=== PATIENT | female | born 1995 | race African-American/Black ===

== ENCOUNTER 2017-10-04 23:32 | Emergency (ER) | payer OTHER ==
--- OUTSIDE RECORDS SUMMARY | 2017-10-04 23:35 | XMS REPORT ---
:[address] [facility] Address [address] [place] [address] Dr. Durbin [address] [place] [address] Care Team Providers Name Role Phone UNKNOWN, REFFERING Primary Care Provider Unavailable JOSE DONOHUE M.D. Unavailable Unavailable Problems This patient has no known problems. Allergies, Adverse Reactions, Alerts This patient has no known allergies or adverse reactions. Medications This patient has no known medications. Encounters Start End Encounter Admission Attending Care Care Encounter Date/Time Date/Time Type Type Clinicians Facility Department ID 2017-06-02 2017-06-15 [id number]:23:00 13:37:00 Jane GARCIA Results Test Description Test Time Test Comments Text Results Atomic Results Result Comments Chlamydia/GC Amplification 2017-06-09 17:46:00 Test Item Value Reference Range Comments Chlamydia trachomatis, PRAKASH (test thma=944295) Negative Negative Neisseria gonorrhoeae, PRAKASH (test yful=604762) Negative Negative HIV [id number] 21:56:00 Test Item Value Reference Range Comments HIV 1/2 Antibody (test Non-Reactive Non-Reactive HIV1/2 Antibody screen result code=HIV1/2AB) indicates the absence of HIV1 and ZEJ7sndejxvbv.However, A Non-Reactive screen result does not rule out exposure orinfection. If an acute infection is suspected, HIV RNA Quantitative is recommended. P24 Antigen (test Non-Reactive Non-Reactive P24 Ag screen result indicates code=P24) the absence of P24 antigen, which is anindicator of HIV-1 acute infection.However, A Non-Reactive screen does not rule out exposure or infection.If acute HIV-1 is suspected, HIV RNA Quantitative is recommended. RPR, [id number] 13:36:00 Test Item Value Reference Range Comments RPR (test code=RPR) Non-Reactive Non-Reactive Thyroid Stimulating Hormone (TSH)2017-06-02 07:20:00 Test Item Value Reference Range Comments TSH (test code=TSH) 1.46 mIU/mL 0.270-4.200 Lipid [id number] 07:13:00 Test Item Value Reference Range Comments Cholesterol (test 148 mg/dL 0-200 code=CHOL) Triglycerides (test 85 mg/dL 9-200 code=TRIG) HDL (test code=HDL) 42 mg/dL 50-60 Chol/HDL (test 3.5 Ratio 0.0-4.4 code=CHOLPHDL) LDL, Calculated (test 89 0-130 (NOTE)RISK OF HEART code=LDLC) DISEASEPublished by Northern Irish Heart AssociationAnalyte Optimal Boderline Increased RiskCHOL <200 200-239 >240TRIG <150 150-199 >200HDL Male: >60 <40HDL Female: >60 <50LDL <100 130-159 >160LDL NEAR OPTIMAL IS 100-129 VLDL (test code=VLDL) 17 mg/dL 5-40 LDL/HDL (test code=LDLPHDL) 2 Comprehensive Metabolic [id number] 21:39:00 Test Item Value Reference Range Comments Sodium (test code=NA) 139 mmol/L 135-145 Potassium (test code=K) 3.8 mmol/L 3.5-5.1 Chloride (test code=CL) 103 mmol/L 98-105 Carbon Dioxide (test 26 mmol/L 22-29 code=CO2) Glucose (test code=GLU) 95 mg/dL 70-115 Blood Urea Nitrogen 11 mg/dL 6-20 (test code=BUN) Creatinine (test 0.8 mg/dL 0.5-0.9 code=CREAT) Calcium (test code=CA) 9.5 mg/dL 8.3-10.5 Prot Total (test 7.2 g/dL 6.4-8.3 code=TP) Albumin (test code=ALB) 4.6 g/dL 3.5-5.2 A/G Ratio (test 1.8 Ratio code=AGRATIO) Globulin (test 2.6 2.9-3.1 code=GLOB) Bili Total (test 0.3 mg/dL 0.1-0.9 code=TBIL) Alk Phos (test 61 U/L 35-104 code=APHOS) AST (test code=AST) 12 U/L 1-32 ALT (test code=ALT) 11 U/L 1-33 BUN/Creatinine Ratio 13.8 (test code=BCRATIO) Anion Gap (test 10 mmol/L 7-16 code=AGAP) Estimated GFR (test >60 mL/min/1.73m2 eGFR (estimated Glomerular code=GFR) Filtration Rate) is an estimated value,calculated from the patient's serum creatinine using the MDRD equation.It is NOT the patient's actual GFR. The eGFR provides a more clinicallyuseful measure of kidney disease than serum creatinine alone.This calculation takes sex and race into account, if the informationis provided. If the race is not provided, and the patient isAfrican-Northern Irish, multiply by 1.212. If sex is not provided, and thepatient is female, multiply by 0.742. Results for patients <18 years ofage have not been validated by the MDRD study and should be interpretedwith caution.eGFR Result Interpretation:eGFR > or=60 is in the Normal RangeeGFR < 60 may mean kidney diseaseeGFR < 15 may mean kidney failureRanges recommended by the National Kidney Foundation,http://nkdep.nih .gov Urinalysis [id number] 21:39:00 Test Item Value Reference Range Comments Color (test code=COLOR) Yellow Yellow,Straw,Pl yellow Clarity (test code=CLAR) Cloudy Clear Specific [place] (test 1.036 1.001-1.035 code=SPGR) pH (test code=PH) 6.5 5.0-9.0 Ketone (test code=KET) 5 mg/dL Negative Glucose (test code=GLUCUR) Negative mg/dL Negative Protein (test code=PROT) Negative mg/dL Negative Bilirubin (test code=BILI) See IctoTest mg/dL Negative Occult Blood (test code=UDOB) Negative Negative Urobilinogen (test code=UROB) 4.0 mg/dL 0.2-1.0 Nitrite (test code=NIT) Negative Negative Leuk Esterase (test code=LEUK) Negative Negative Ictotest (test code=ICTOTEST) Confirmed Negative Negative,Confirmed Negative Micros Exam (test code=MEXAM) Indicated Epithelial Cells (test 10-14 /LPF 0-30 code=EPI) WBC, Urine (test code=UWBC) None seen /HPF 0-5 RBC, Urine (test code=URBC) None Seen /HPF 0-5 Amorph Deposit (test Many /HPF code=AMORD) Bacteria (test code=BACT) Moderate /HPF Alcohol/Ethanol, [id number] 21:37:00 Test Item Value Reference Range Comments Alcohol, Ethyl (test <0.01 g/dL 0.00-0.01 Intoxicated 0.080 g/dL or code=ETOH) more BHCG, Serum, [id number] 21:37:00 Test Item Value Reference Range Comments Preg Qual [Se] (test code=BSHCG) Negative Negative [id number] 21:36:00 Test Item Value Reference Range Comments Amphetamine (test code=AMPH) Negative Negative For diagnostic purposes only, positive results should always be assessedin conjunctionwith the patient's medical history,clinical examination and otherfindings.To fulfill legal requirements, a more specific alternate chemical methodmust be used inorder to obtain a Confirmed analytical result. GC/MS is the preferred confirmatory method. Barbiturates (test code=SAMY) Negative Negative Benzodiazepine (test Negative Negative code=TRAVON) Cocaine (test code=COCA) Negative Negative Methadone (test code=MTHD) Negative Negative Opiates (test code=OPIA) Negative Negative PCP (test code=PCP) Negative Negative Propoxyphene (test Negative Negative code=PROPOX) THC (test code=THC) POSITIVE Negative CBC with [id number] 21:33:00 Test Item Value Reference Range Comments WBC (test code=WBC) 7.7 K/cumm 4.4-10.5 RBC (test code=RBC) 4.20 M/cumm 3.75-5.20 Hemoglobin (test code=HGB) 12.6 gm/dL 12.2-14.8 Hematocrit (test code=HCT) 36.0 % 36.5-44.4 MCV (test code=MCV) 85.7 fL 80-100 MCH (test code=MCH) 29.9 pg 27.0-32.5 MCHC (test code=MCHC) 34.9 g/dL 32.0-37.5 RDW (test code=RDW) 12.3 % 11.5-14.5 Platelet Count (test code=PLTCT) 303 K/cumm 140-440 MPV (test code=MPV) 8.5 fL Diff Method (test code=DIFFM) Auto Neutrophil (test code=NEUT) 46.8 % 36-70 Lymphocyte (test code=LYMPH) 43.2 % 12-44 Monocyte (test code=MONO) 7.2 % 0-11 Eosinophil (test code=EOS) 2.2 % 0-7 Basophil (test code=BASO) 0.6 % 0-2 Neutro Abs (test code=ANEUT) 3.6 K/cumm 1.6-7.4 Lymph Abs (test code=ALYMPH) 3.3 K/cumm 0.5-4.6 [place] Abs (test code=AMONO) 0.6 K/cumm 0.0-1.2 Eos Abs (test code=AEOS) 0.17 K/cumm 0.00-0.74 Baso Abs (test code=ABASO) 0.0 K/cumm 0.00-0.21 BHCG, Urine, [id number] 14:05:00 Test Item Value Reference Range Comments Preg Qual [Ur] (test code=HUHCG) Negative Negative RPR, [id number] 16:02:00 Test Item Value Reference Range Comments RPR (test code=RPR) Non-Reactive Non-Reactive Thyroid Stimulating Hormone (TSH)2017-02-14 11:18:00 Test Item Value Reference Range Comments TSH (test code=TSH) 0.55 mIU/mL 0.270-4.200 Lipid [id number] 11:11:00 Test Item Value Reference Range Comments Cholesterol (test 147 mg/dL 0-200 code=CHOL) Triglycerides (test 79 mg/dL 9-200 code=TRIG) HDL (test code=HDL) 51 mg/dL 50-60 Chol/HDL (test 2.9 Ratio 0.0-4.4 code=CHOLPHDL) LDL, Calculated (test 80 0-130 (NOTE)RISK OF HEART code=LDLC) DISEASEPublished by [place] Heart AssociationAnalyte Optimal Boderline Increased RiskCHOL <200 200-239 >240TRIG <150 150-199 >200HDL Male: >60 <40HDL Female: >60 <50LDL <100 130-159 >160LDL NEAR OPTIMAL IS 100-129 VLDL (test code=VLDL) 16 mg/dL 5-40 LDL/HDL (test code=LDLPHDL) 2
[2017-10-05] MEDS ORDERED: KETOROLAC 30 MG/ML INJ ONE (00:29)
--- NOTE | 2017-10-05 01:04 | EDPHYS ---
Physician Documentation [facility] Name: Jael Lugo Age: 22 yrs Sex: Female : 1995 Arrival Date: 10/04/2017 Time: 23:34 Bed 20 Private MD: ED Physician Daquan Rowan HPI: 10/05 00:29 This 22 yrs old Black Female presents to ER via Ambulatory with complaints of Vaginal tw4 Pain, Abdominal Pain - low. 00:29 The patient presents with vaginal bleeding that is light, resolved, vaginal pain. tw4 Onset: The symptoms/episode began/occurred today. Modifying factors: The symptoms are alleviated by nothing, the symptoms are aggravated by nothing. Associated signs and symptoms: The patient has no apparent associated signs or symptoms. Severity of symptoms: At their worst the symptoms were moderate, in the emergency department the symptoms are unchanged. The patient is sexually active, does not use protection during intercourse. The patient has not experienced similar symptoms in the past. 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 - Social history:: Smoking status: Patient uses tobacco products, smokes one-half pack cigarettes per day, Patient/guardian denies using alcohol, street drugs. - Ebola Screening: : Patient negative for fever greater than or equal to 101.5 degrees Fahrenheit, and additional compatible Ebola Virus Disease symptoms. ROS: 10/05 00:29 Positive for injury or acute deformity, pelvic pain, vaginal bleeding, vaginal tw4 discharge, vaginal itching, Negative for urinary symptoms, flank pain, burning with urination, difficulty urinating, bladder incontinence, foul smelling urine, menstrual abnormality, missed period. Constitutional: Negative for fever, chills, and weight loss, Cardiovascular: Negative for chest pain, palpitations, and edema, Respiratory: Negative for shortness of breath, cough, wheezing, and pleuritic chest pain, Abdomen/GI: Negative for abdominal pain, nausea, vomiting, diarrhea, and constipation, MS/Extremity: Negative for injury and deformity, Skin: Negative for injury, rash, and discoloration. Exam: 00:29 Constitutional: This is a well developed, well nourished patient who is awake, alert, tw4 and in no acute distress. Chest/axilla: Normal chest wall appearance and motion. Nontender with no deformity. No lesions are appreciated. Cardiovascular: Regular rate and rhythm with a normal S1 and S2. No gallops, murmurs, or rubs. Normal PMI, no JVD. No pulse deficits. Respiratory: Lungs have equal breath sounds bilaterally, clear to auscultation and percussion. No rales, rhonchi or wheezes noted. No increased work of breathing, no retractions or nasal flaring. Abdomen/GI: Soft, non-tender, with normal bowel sounds. No distension or tympany. No guarding or rebound. No evidence of tenderness throughout. 00:29 : Pelvic Exam: External exam: laceration superficial at vaginal introitus . Vital Signs: 10/04 23:47 BP 117 / 67; Pulse 88; Resp 17; Temp 97.8; Pulse Ox 97% ; rk2 23:49 Weight 56.7 kg (R); Height 5 ft. 7 in. (170.18 cm) (R); Pain 10/10; bb 23:49 Body Mass Index 19.58 (56.70 kg, 170.18 cm) bb MDM: 23:51 Patient medically screened. tw4 10/05 01:05 Differential diagnosis: nonspecific abdominal pain, vaginal laceration. Data reviewed: tw4 vital signs, nurses notes. Counseling: I had a detailed discussion with the patient and/or guardian regarding: the historical points, exam findings, and any diagnostic results supporting the discharge/admit diagnosis. Counseling: I had a detailed discussion with the patient and/or guardian regarding: lab results. Medication response: Toradol partially relieved the patient's pain. Response to treatment: the patient's symptoms have mildly improved after treatment, and as a result, I will discharge patient. Special discussion: Based on the patient's Hx, exam, and Dx evaluation, there is no indication for emergent surgery or inpatient Tx. It is understood by the patient/guardian that if the Sx's persist or worsen they need to return immediately for re-evaluation. I discussed with the patient/guardian in detail that at this point there is no indication for admission to the hospital. It is understood, however, that if the symptoms persist or worsen the patient needs to return immediately for re-evaluation. 10/05 00:17 Order name: Wet Prep; Complete Time: 01:02 tw4 10/05 00:17 Order name: GC (GONORR/CHLAMYDIA) Probe tw4 10/05 00:41 Order name: Urine Dipstick--Ancillary (enter results) rg2 10/05 00:41 Order name: Urine --Ancillary (enter results) rg2 Administered Medications: 00:37 Drug: TORadol 60 mg Route: IM; Site: right deltoid; rk2 01:15 Follow up: Response: No adverse reaction; Pain is decreased tl2 Disposition: 10/05/17 01:03 Discharged to Home. Impression: Laceration without foreign body of vagina and vulva. - Condition is Stable. - Discharge Instructions: Vaginal Laceration, Laceration Care, Adult, Ftpf-[id number]. - Prescriptions for Ibuprofen 600 mg Oral Tablet - take 1 tablet by ORAL route every 6 hours As needed take with food; 30 tablet. Tylenol- Codeine #3 300-30 mg Oral Tablet - take 2 tablet by ORAL route every 6 hours As needed; 6 tablet. - Medication Reconciliation Form, Thank You Letter, Antibiotic Education, Prescription Opioid Use form. - Follow up: Private Physician; When: As needed; Reason: Recheck today's complaints, Continuance of care, Re-evaluation by your physician. - Problem is new. - Symptoms have improved. Signatures: Dispatcher [employer] EDRosalie White RN RN Riri Espinoza RN RN tl2 Daquan Rowan MD MD tw4 Ana Lilia Braga RN RN rk2 Corrections: (The following items were deleted from the chart) 01:48 01:03 10/05/2017 01:03 Discharged to Home. Impression: Laceration without foreign body tl2 of vagina and vulva. Condition is Stable. Forms are Medication Reconciliation Form, Thank You Letter, Antibiotic Education, Prescription Opioid Use. Follow up: Private Physician; When: As needed; Reason: Recheck today's complaints, Continuance of care, Re-evaluation by your physician. Problem is new. Symptoms have improved. tw4
--- NOTE | 2017-10-05 01:04 | ER ---
Nurse's Notes [facility] Name: Jael Lugo Age: 22 yrs Sex: Female : 1995 Arrival Date: 10/04/2017 Time: 23:34 Bed 20 Private MD: Diagnosis: Laceration without foreign body of vagina and vulva Presentation: 10/04 23:47 Presenting complaint: Patient states: she is having pelvic pain x 2 days states "I bb think I ripped my vagina" that area is red and burning with a white discharge also has a headache and a sore throat. Transition of care: patient was not received from another setting of care. Onset of symptoms was October 02, 2017. Risk Assessment: Do you want to hurt yourself or someone else? Patient reports no desire to harm self or others. Initial Sepsis Screen: Does the patient meet any 2 criteria? No. Patient's initial sepsis screen is negative. Does the patient have a suspected source of infection? No. Patient's initial sepsis screen is negative. Care prior to arrival: None. 23:47 Method Of Arrival: Ambulatory bb 23:47 Acuity: ALMA 3 bb Triage Assessment: 10/05 00:30 General: Appears in no apparent distress. slender, well developed, well nourished, rk2 Behavior is calm, cooperative. 00:30 Pain: Complains of pain in vaginal. EENT: No deficits noted. Neuro: Level of rk2 Consciousness is alert, obeys commands, Oriented to person, place, time. Respiratory: Airway is patent Respiratory effort is even, unlabored, Respiratory pattern is regular, symmetrical. GI: No deficits noted. : Vaginal discharge is small tear noted at the vaginal opening. Derm: Skin is pink, warm \\T\\ dry. 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 - Social history:: Smoking status: Patient uses tobacco products, smokes one-half pack cigarettes per day, Patient/guardian denies using alcohol, street drugs. - Ebola Screening: : Patient negative for fever greater than or equal to 101.5 degrees Fahrenheit, and additional compatible Ebola Virus Disease symptoms. Screenin/01 00:30 Abuse screen: Denies threats or abuse. rk2 00:30 Nutritional screening: No deficits noted. Tuberculosis screening: No symptoms or risk rk2 factors identified. Fall Risk None identified. Assessment: 00:46 Reassessment: Vaginal exam completed by Dr. Rowan. rk2 00:54 Pain: Complains of pain in vaginal. GI: GI: Abd is soft and non tender X 4 quads. rk2 01:14 Reassessment: Patient appears in no apparent distress at this time. Patient and/or tl2 family updated on plan of care and expected duration. Pain level reassessed. Patient is alert, oriented x 3, equal unlabored respirations, skin warm/dry/pink. Pt verbalized understanding of discharge instructions, need for follow up and prescription usage. Vital Signs: 10/04 23:47 BP 117 / 67; Pulse 88; Resp 17; Temp 97.8; Pulse Ox 97% ; rk2 23:49 Weight 56.7 kg (R); Height 5 ft. 7 in. (170.18 cm) (R); Pain 10/10; bb 23:49 Body Mass Index 19.58 (56.70 kg, 170.18 cm) bb ED Course: 23:34 Patient arrived in ED. am2 23:43 Ana Lilia Braga, RN is Primary Nurse. rk2 23:48 Triage completed. bb 23:49 Arm band placed on Patient placed in an exam room, on a stretcher, on pulse oximetry. bb 23:51 Daquan Rowan MD is Attending Physician. tw4 10/05 00:30 Patient has correct armband on for positive identification. Placed in gown. Bed in low rk2 position. Call light in reach. 00:54 Assist provider with pelvic exam: Set up pelvic tray. Specimens sent to lab. rk2 01:14 Patient did not have IV access during this emergency room visit. tl2 Administered Medications: 00:37 Drug: TORadol 60 mg Route: IM; Site: right deltoid; rk2 01:15 Follow up: Response: No adverse reaction; Pain is decreased tl2 Outcome: 01:03 Discharge ordered by . tw4 01:14 Condition: stable tl2 01:14 Discharge instructions given to patient, Instructed on discharge instructions, follow up and referral plans. medication usage, safe sex practices, Demonstrated understanding of instructions, follow-up care, medications, Prescriptions given X 2. 01:14 Discharged to home Pt unable to find ride home, will wait in the lobby tl2 01:48 Patient left the ED. tl2 Signatures: Rosalie Loco RN RN bb Riri Miranda RN RN tl2 Corazon Hardy am2 Daquan Rowan MD MD tw4 Ana Lilia Braga RN RN rk2 Corrections: (The following items were deleted from the chart) 01:34 01:14 Discharged to home ambulatory, with friend, tl2 tl2
[2017-10-05 01:49] LABS: Urine Blood TRACE (NEG); Urine Glucose NEGATIVE (NEG); Urine Protein 2+ (NEG); Urine Specific Gravity 1.025 (1.005-1.030); Urine pH 6.5 (5.0-7.0)
[2017-10-05 01:53] VITALS: BP 117/67; TEMP 97.8; O2SAT 97
[2017-10-08 12:55] LABS: C.trachomatis RNA,TMA ND
== END 2017-10-05 01:48 | disposition home or self-care (01) ==
LOC: ER 23:32
DX: S31.41XA Laceration without foreign body of vagina and vulva, initial encounter (principal); F17.210 Nicotine dependence, cigarettes, uncomplicated
CPT/HCPCS: 81003; 81025; 87210; 87490; 87590; 96372; 99284

== ENCOUNTER 2017-10-09 00:14 | Emergency (ER) | payer OTHER ==
--- OUTSIDE RECORDS SUMMARY | 2017-10-09 00:17 | XMS REPORT ---
:1995 Author Organization [facility] Address [address] [place] [address] Dr. Durbin [address] [place] [id number] Care Team Providers Name Role Phone UNKNOWN, [...] Facility Department ID 2017-06-02 2017-06-15 [id number]:23:00 13:37:00 Jane GARCIA Results Test Description Test Time Test Comments Text Results Atomic Results Result Comments Chlamydia/GC Amplification 2017-06-09 17:46:00 Test Item Value Reference Range Comments Chlamydia trachomatis, PRAKASH (test gelg=763930) Negative Negative Neisseria gonorrhoeae, PRAKASH (test ypfs=867849) Negative Negative HIV [id number] 21:56:00 Test Item Value Reference Range Comments HIV 1/2 Antibody (test Non-Reactive Non-Reactive HIV1/2 Antibody screen result code=HIV1/2AB) indicates the absence of HIV1 and RMN5pmrvwojxd.However, A Non-Reactive screen result does not rule [...] suspected, HIV RNA Quantitative is recommended. RPR, [id number] 13:36:00 Test Item Value Reference Range Comments RPR (test code=RPR) Non-Reactive Non-Reactive Thyroid Stimulating Hormone (TSH)2017-06-02 07:20:00 Test Item Value Reference Range Comments TSH (test code=TSH) 1.46 mIU/mL 0.270-4.200 Lipid [id number] 07:13:00 Test Item Value Reference Range Comments Cholesterol (test 148 mg/dL 0-200 code=CHOL) Triglycerides (test 85 mg/dL 9-200 code=TRIG) HDL (test code=HDL) 42 mg/dL 50-60 Chol/HDL (test 3.5 Ratio 0.0-4.4 code=CHOLPHDL) LDL, Calculated (test 89 0-130 (NOTE)RISK OF HEART code=LDLC) DISEASEPublished by [place] Heart AssociationAnalyte Optimal Boderline Increased RiskCHOL <200 200-239 >240TRIG <150 150-199 >200HDL Male: >60 <40HDL Female: >60 <50LDL <100 130-159 >160LDL NEAR OPTIMAL IS 100-129 VLDL (test code=VLDL) 17 mg/dL 5-40 LDL/HDL (test code=LDLPHDL) 2 Comprehensive Metabolic [id number] 21:39:00 Test Item Value Reference Range Comments [...] race is not provided, and the patient isAfrican-Azerbaijani, multiply by 1.212. If sex is not provided, and thepatient is female, multiply by 0.742. Results for patients <18 years ofage have not been validated by the MDRD study and should be interpretedwith caution.eGFR Result Interpretation:eGFR > or=60 is in the Normal RangeeGFR < 60 may mean kidney diseaseeGFR < 15 may mean kidney failureRanges recommended by the National Kidney Foundation,http://nkdep.nih .gov Urinalysis [id number] 21:39:00 Test Item Value Reference Range Comments Color (test code=COLOR) Yellow Yellow,Straw,Pl yellow Clarity (test code=CLAR) Cloudy Clear Specific [place] (test 1.036 1.001-1.035 code=SPGR) pH (test code=PH) [...] code=AMORD) Bacteria (test code=BACT) Moderate /HPF Alcohol/Ethanol, [id number] 21:37:00 Test Item Value Reference Range Comments Alcohol, Ethyl (test <0.01 g/dL 0.00-0.01 Intoxicated 0.080 g/dL or code=ETOH) more BHCG, Serum, [id number] 21:37:00 Test Item Value Reference Range Comments Preg Qual [Se] (test code=BSHCG) Negative Negative [id number] 21:36:00 Test Item Value Reference Range Comments [...] THC (test code=THC) POSITIVE Negative CBC with [id number] 21:33:00 Test Item Value Reference Range Comments [...] Lymph Abs (test code=ALYMPH) 3.3 K/cumm 0.5-4.6 [place] Abs (test code=AMONO) 0.6 K/cumm 0.0-1.2 Eos Abs (test code=AEOS) 0.17 K/cumm 0.00-0.74 Baso Abs (test code=ABASO) 0.0 K/cumm 0.00-0.21 BHCG, Urine, [id number] 14:05:00 Test Item Value Reference Range Comments Preg Qual [Ur] (test code=HUHCG) Negative Negative RPR, [id number] 16:02:00 Test Item Value Reference Range Comments RPR (test code=RPR) Non-Reactive Non-Reactive Thyroid Stimulating Hormone (TSH)2017-02-14 11:18:00 Test Item Value Reference Range Comments TSH (test code=TSH) 0.55 mIU/mL 0.270-4.200 Lipid [id number] 11:11:00 Test Item Value Reference Range Comments Cholesterol (test 147 mg/dL 0-200 code=CHOL) Triglycerides (test 79 mg/dL 9-200 code=TRIG) HDL (test code=HDL) 51 mg/dL 50-60 Chol/HDL (test 2.9 Ratio 0.0-4.4 code=CHOLPHDL) LDL, Calculated (test 80 0-130 (NOTE)RISK OF HEART code=LDLC) DISEASEPublished by [place] Heart AssociationAnalyte Optimal Boderline Increased RiskCHOL <200 200-239 >240TRIG <150 150-199 >200HDL Male: >60 <40HDL Female: >60 <50LDL <100 130-159 >160LDL NEAR OPTIMAL IS 100-129 VLDL (test code=VLDL) 16 mg/dL 5-40 LDL/HDL (test code=LDLPHDL) 2
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
--- NOTE | 2017-10-09 01:40 | EDPHYS ---
Physician Documentation [facility] Name: Jael Lugo Age: 22 yrs Sex: Female : 1995 Arrival Date: 10/09/2017 Time: 00:15 Bed 6 Private MD: ED Physician Daquan Rowan HPI: 10/09 01:30 This 22 yrs old Black Female presents to ER via EMS with complaints of Rash. pm1 04:11 The patient's rash thought to be caused by insect bites, Patient believes that chiggers pm1 are in her skin. The rash is located on the body diffusely. The rash can be described as raised, itchy. Onset: The symptoms/episode began/occurred 2 day(s) ago. Associated signs and symptoms: Pertinent positives: itching, Pertinent negatives: burning sensation, difficulty breathing, fever, swelling of lips, swelling of throat, swelling of tongue. Treatment given at home: None. The patient has been recently seen at the [facility] Emergency Department, two days ago for vaginal laceration. Patient is also complaining of hemorrhoids and rash to pubic area. 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 - Social history:: Smoking status: unknown. - Ebola Screening: : No symptoms or risks identified at this time. ROS: 04:11 Constitutional: Negative for fever, chills, and weight loss, Eyes: Negative for injury, pm1 pain, redness, and discharge, ENT: Negative for injury, pain, and discharge, Neck: Negative for injury, pain, and swelling, Cardiovascular: Negative for chest pain, palpitations, and edema, Respiratory: Negative for shortness of breath, cough, wheezing, and pleuritic chest pain, Back: Negative for injury and pain. 04:11 MS/Extremity: Negative for injury and deformity. 04:11 Abdomen/GI: Positive for hemorrhoids, Negative for abdominal pain, nausea, vomiting, and diarrhea. 04:11 : Positive for rash, Negative for burning with urination, vaginal discharge. 04:11 Skin: Positive for rash, diffusely. Exam: 04:11 Constitutional: This is a well developed, well nourished patient who is awake, alert, pm1 and in no acute distress. Head/Face: Normocephalic, atraumatic. Eyes: Pupils equal round and reactive to light, extra-ocular motions intact. Lids and lashes normal. Conjunctiva and sclera are non-icteric and not injected. Cornea within normal limits. Periorbital areas with no swelling, redness, or edema. ENT: Nares patent. No nasal discharge, no septal abnormalities noted. Tympanic membranes are normal and external auditory canals are clear. Oropharynx with no redness, swelling, or masses, exudates, or evidence of obstruction, uvula midline. Mucous membranes moist. Neck: Trachea midline, no thyromegaly or masses palpated, and no cervical lymphadenopathy. Supple, full range of motion without nuchal rigidity, or vertebral point tenderness. No Meningismus. Chest/axilla: Normal chest wall appearance and motion. Nontender with no deformity. No lesions are appreciated. Cardiovascular: Regular rate and rhythm with a normal S1 and S2. No gallops, murmurs, or rubs. Normal PMI, no JVD. No pulse deficits. Respiratory: Lungs have equal breath sounds bilaterally, clear to auscultation and percussion. No rales, rhonchi or wheezes noted. No increased work of breathing, no retractions or nasal flaring. Abdomen/GI: Soft, non-tender, with normal bowel sounds. No distension or tympany. No guarding or rebound. No evidence of tenderness throughout. Back: No spinal tenderness. No costovertebral tenderness. Full range of motion. 04:11 Abdomen/GI: Rectal exam: hemorrhoid(s), external, with inflammation, with pain, without bleeding, without thrombosis, the exam is chaperoned by the nurse. 04:11 Skin: consistent with scabies or contact dermatitis. Vital Signs: 00:25 BP 111 / 46; Pulse 100; Resp 20; Temp 98.6; Pulse Ox 100% on R/A; Weight 58.97 kg (R); ak1 Height 5 ft. 7 in. (170.18 cm) (R); Pain 10/10; 01:54 BP 142 / 86; Pulse 86; Resp 18; Temp 98.4(TE); Pulse Ox 100% on R/A; Pain 10/10; ak1 00:25 Body Mass Index 20.36 (58.97 kg, 170.18 cm) ak1 MDM: 01:11 Patient medically screened. pm1 01:38 Data reviewed: vital signs. Data interpreted: Pulse oximetry: on room air is 100 %. pm1 Interpretation: normal. Counseling: I had a detailed discussion with the patient and/or guardian regarding: the historical points, exam findings, and any diagnostic results supporting the discharge/admit diagnosis, the need for outpatient follow up, to return to the emergency department if symptoms worsen or persist or if there are any questions or concerns that arise at home. Administered Medications: No medications were administered Disposition: 06:34 Co-signature as Attending Physician, Daquan Rowan MD I agree with the assessment and tw4 plan of care. Disposition: 10/09/17 01:39 Discharged to Home. Impression: Hemorrhoids, Rash and other nonspecific skin eruption. - Condition is Stable. - Discharge Instructions: Hemorrhoids, Rash. - Prescriptions for Anusol- HC 2.5 % Rectal Cream - Apply to affected area 1 application by TOPICAL route every 8 hours As needed; 30 gram. Colace 100 mg Oral Tablet - take 1 tablet by ORAL route every 12 hours; 14 tablet. Elimite 5 % Topical Cream - apply 1 application by TOPICAL route one time Wash after 12 hours.; 60 gram. Naprosyn 500 mg Oral Tablet - take 1 tablet by ORAL route 2 times per day take with food; 30 tablet. - Medication Reconciliation Form, Thank You Letter, Antibiotic Education form. - Follow up: Emergency Department; When: As needed; Reason: Worsening of condition. Follow up: Private Physician; When: 2 - 3 days; Reason: Recheck today's complaints, Continuance of care, Re-evaluation by your physician. - Problem is new. - Symptoms have improved. Signatures: Jaylin White RN RN ak1 Kelby Brice, BUILDING CONSULTANT BUILDING CONSULTANT pm1 Daquan Rowan MD MD tw4 Corrections: (The following items were deleted from the chart) 01:55 01:39 10/09/2017 01:39 Discharged to Home. Impression: Hemorrhoids; Rash and other ak1 nonspecific skin eruption. Condition is Stable. Forms are Medication Reconciliation Form, Thank You Letter, Antibiotic Education, Prescription Opioid Use. Follow up: Emergency Department; When: As needed; Reason: Worsening of condition. Follow up: Private Physician; When: 2 - 3 days; Reason: Recheck today's complaints, Continuance of care, Re-evaluation by your physician. Problem is new. Symptoms have improved. pm1
[2017-10-09 02:11] VITALS: O2SAT 100
[2017-10-09 02:12] VITALS: BP 142/86; TEMP 98.4
== END 2017-10-09 01:55 | disposition home or self-care (01) ==
LOC: ER 00:14
DX: K64.9 Unspecified hemorrhoids (principal)
CPT/HCPCS: 99284

== ENCOUNTER 2017-11-25 22:13 | Emergency (ER) | payer OTHER ==
--- OUTSIDE RECORDS SUMMARY | 2017-11-25 22:14 | XMS REPORT ---
:1995 Author Organization [facility] Address [address] [place] [address] Dr. Durbin [address] [place] [id number] Care Team Providers Name Role Phone UNKNOWN, [...] 2017-06-15 [id number] 00:23:00 13:37:00 Jane GARCIA Results Test Description Test Time Test Comments Text Results Atomic Results Result Comments Chlamydia/GC Amplification 2017-06-09 17:46:00 Test Item Value Reference Range Comments Chlamydia trachomatis, PRAKASH (test qbut=817492) Negative Negative Neisseria gonorrhoeae, PRAKASH (test uydm=455701) Negative Negative HIV [id number] 21:56:00 Test Item Value Reference Range Comments HIV 1/2 Antibody (test Non-Reactive Non-Reactive HIV1/2 Antibody screen result code=HIV1/2AB) indicates the absence of HIV1 and MGE7mopscqitg.However, A Non-Reactive screen result does not rule [...] suspected, HIV RNA Quantitative is recommended. RPR, [id number] 13:36:00 Test Item Value Reference Range Comments RPR (test code=RPR) Non-Reactive Non-Reactive Thyroid Stimulating Hormone (TSH)2017-06-02 07:20:00 Test Item Value Reference Range Comments TSH (test code=TSH) 1.46 mIU/mL 0.270-4.200 Lipid [id number] 07:13:00 Test Item Value Reference Range Comments Cholesterol (test 148 mg/dL 0-200 code=CHOL) Triglycerides (test 85 mg/dL 9-200 code=TRIG) HDL (test code=HDL) 42 mg/dL 50-60 Chol/HDL (test 3.5 Ratio 0.0-4.4 code=CHOLPHDL) LDL, Calculated (test 89 0-130 (NOTE)RISK OF HEART code=LDLC) DISEASEPublished by [place]cuad[place] Heart AssociationAnalyte Optimal Boderline Increased RiskCHOL <200 200-239 >240TRIG <150 150-199 >200HDL Male: >60 <40HDL Female: >60 <50LDL <100 130-159 >160LDL NEAR OPTIMAL IS 100-129 VLDL (test code=VLDL) 17 mg/dL 5-40 LDL/HDL (test code=LDLPHDL) 2 Comprehensive Metabolic [id number] 21:39:00 Test Item Value Reference Range Comments [...] race is not provided, and the patient isAfrican-Ecuadorean, multiply by 1.212. If sex is not provided, and thepatient is female, multiply by 0.742. Results for patients <18 years ofage have not been validated by the MDRD study and should be interpretedwith caution.eGFR Result Interpretation:eGFR > or=60 is in the Normal RangeeGFR < 60 may mean kidney diseaseeGFR < 15 may mean kidney failureRanges recommended by the National Kidney Foundation,http://nkdep.nih .gov Urinalysis [id number] 21:39:00 Test Item Value Reference Range Comments Color (test code=COLOR) Yellow Yellow,Straw,Pl yellow Clarity (test code=CLAR) Cloudy Clear Specific [place] (test 1.036 1.001-1.035 code=SPGR) pH (test code=PH) [...] code=AMORD) Bacteria (test code=BACT) Moderate /HPF Alcohol/Ethanol, [id number] 21:37:00 Test Item Value Reference Range Comments Alcohol, Ethyl (test <0.01 g/dL 0.00-0.01 Intoxicated 0.080 g/dL or code=ETOH) more BHCG, Serum, [id number] 21:37:00 Test Item Value Reference Range Comments Preg Qual [Se] (test code=BSHCG) Negative Negative [id number] 21:36:00 Test Item Value Reference Range Comments [...] THC (test code=THC) POSITIVE Negative CBC with [id number] 21:33:00 Test Item Value Reference Range Comments [...] Lymph Abs (test code=ALYMPH) 3.3 K/cumm 0.5-4.6 [place] Abs (test code=AMONO) 0.6 K/cumm 0.0-1.2 Eos Abs (test code=AEOS) 0.17 K/cumm 0.00-0.74 Baso Abs (test code=ABASO) 0.0 K/cumm 0.00-0.21 BHCG, Urine, [id number] 14:05:00 Test Item Value Reference Range Comments Preg Qual [Ur] (test code=HUHCG) Negative Negative RPR, [id number] 16:02:00 Test Item Value Reference Range Comments RPR (test code=RPR) Non-Reactive Non-Reactive Thyroid Stimulating Hormone (TSH)2017-02-14 11:18:00 Test Item Value Reference Range Comments TSH (test code=TSH) 0.55 mIU/mL 0.270-4.200 Lipid [id number] 11:11:00 Test Item Value Reference Range Comments Cholesterol (test 147 mg/dL 0-200 code=CHOL) Triglycerides (test 79 mg/dL 9-200 code=TRIG) HDL (test code=HDL) 51 mg/dL 50-60 Chol/HDL (test 2.9 Ratio 0.0-4.4 code=CHOLPHDL) LDL, Calculated (test 80 0-130 (NOTE)RISK OF HEART code=LDLC) DISEASEPublished by [place]cu[place] Heart AssociationAnalyte Optimal Boderline Increased RiskCHOL <200 200-239 >240TRIG <150 150-199 >200HDL Male: >60 <40HDL Female: >60 <50LDL <100 130-159 >160LDL NEAR OPTIMAL IS 100-129 VLDL (test code=VLDL) 16 mg/dL 5-40 LDL/HDL (test code=LDLPHDL) 2
[2017-11-25] MEDS ORDERED: MIDAZOLAM HCL 2 MG/2 ML INJ ONE (22:33)
[2017-11-25] MEDS ORDERED: NA CHLORIDE 0.9% 2,000 ML ONE (22:55)
[2017-11-25 23:43] LABS: Urine Blood NEGATIVE (NEG); Urine Glucose NEGATIVE (NEG); Urine Protein 2+ (NEG); Urine Specific Gravity >1.030 (1.005-1.030)
[2017-11-25 23:47] LABS: Absolute Lymphocytes (CBC) 4.3 K/uL (0.7-4.9); Absolute Neutrophil 6.6 K/uL (1.8-8.0); Eosinophils % 3.7 % (0-4.4); Hematocrit 41.2 % (36.0-45.0); Lymphocytes % 34.5 % (15.3-44.8); MCH 30.4 pg (27.0-35.0); MCV 88.9 fL (80-100); MPV 7.5 fL (7.6-11.3); Monocytes % 7.9 % (3.3-12.3); RBC Red Blood Cell Count 4.64 M/uL (3.86-4.86)
[2017-11-25 23:51] LABS: Protime INR 1.11
[2017-11-26 01:03] LABS: ALT/SGPT 30 U/L (12-78); AST/SGOT 27 U/L (15-37); Alkaline Phosphatase 81 U/L (45-117); BUN Blood Urea Nitrogen 9 mg/dL (7-18); Bicarbonate 23 mmol/L (21-32); Glucose Level 84 mg/dL (74-106); Sodium Level 144 mmol/L (136-145)
[2017-11-26 01:04] LABS: Albumin 4.3 g/dL (3.4-5.0); Alcohol Serum/Plasma < 3 mg/dL (0-3); Bilirubin Direct 0.1 mg/dL (0-0.2); Bilirubin Total 0.6 mg/dL (0.2-1.0)
[2017-11-26 01:06] LABS: Benzodiazepines POSITIVE (NEGATIVE); Cocaine NEGATIVE (NEGATIVE); Phencyclidine NEGATIVE (NEGATIVE); THC Cannibis POSITIVE (NEGATIVE)
[2017-11-26 01:07] LABS: Barbiturates NEGATIVE (NEGATIVE); METHAMPHETAM POSITIVE (NEGATIVE); Methadone NEGATIVE (NEGATIVE); Opiates NEGATIVE (NEGATIVE)
[2017-11-26] MEDS ORDERED: POTASSIUM CL SA 10 MEQ TAB PO ONE (01:49)
[2017-11-26] MEDS ORDERED: LORazepam 2 MG/ML VIAL ONE (01:56)
--- NOTE | 2017-11-26 07:39 | EKG ---
Test Date: 2017-11-25 Test Time: 22:20:06 Clinical Law Professor: ARCHANA MEASUREMENT RESULTS: Intervals: Rate: 105 SC: 152 QRSD: 74 QT: 346 QTc: 457 [place]: P: 68 SC: 152 QRS: 66 T: 67 INTERPRETIVE STATEMENTS: Sinus tachycardia Otherwise normal ECG Compared to ECG 01/21/2017 02:11:48 No significant changes Electronically Signed On 11-26-17 07:38:21 CDT by Reji Carrillo
--- NOTE | 2017-11-26 07:49 | ER ---
Nurse's Notes [facility] Name: Jael Lugo Age: 22 yrs Sex: Female : 1995 Arrival Date: 11/25/2017 Time: 22:13 Bed 3 Private MD: Diagnosis: Adverse effect of amphetamines;Abuse of non-psychoactive substances;Hypokalemia Presentation: 11/25 22:17 Presenting complaint: Patient states: jumping and shaking in triage. pt denies using ak1 drugs today. pt diaphoretic, crying. Transition of care: patient was not received from another setting of care. Onset of symptoms is unknown. Risk Assessment: Do you want to hurt yourself or someone else? Patient reports no desire to harm self or others. Initial Sepsis Screen: Does the patient meet any 2 criteria? No. Patient's initial sepsis screen is negative. Does the patient have a suspected source of infection? No. Patient's initial sepsis screen is negative. Care prior to arrival: None. 22:17 Method Of Arrival: Wheelchair ak1 22:17 Acuity: ALMA 2 ak1 Triage Assessment: 22:19 General: Appears slender, unkempt, Behavior is agitated, anxious, restless, ak1 uncooperative. Pain: Denies pain. EENT: No signs and/or symptoms were reported regarding the EENT system. Neuro: Level of Consciousness is awake, alert, Oriented to person, place, Moves all extremities. Speech fast, erratic . Cardiovascular: No deficits noted. Respiratory: No deficits noted. GI: No signs and/or symptoms were reported involving the gastrointestinal system. : No signs and/or symptoms were reported regarding the genitourinary system. Derm: Skin is clammy, diaphoretic. Musculoskeletal: No signs and/or symptoms reported regarding the musculoskeletal system. 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 - Social history:: Smoking status: unknown. - Ebola Screening: : No symptoms or risks identified at this time. Screenin:49 Abuse screen: Denies threats or abuse. Denies injuries from another. Nutritional bp screening: No deficits noted. Tuberculosis screening: No symptoms or risk factors identified. Fall Risk No fall in past 12 months (0 pts). Secondary diagnosis (15 points) EXCITED DELIRIUM. IV access (20 points). Ambulatory Aid- None/Bed Rest/Nurse Assist (0 pts). Gait- Normal/Bed Rest/Wheelchair (0 pts) Mental Status- Overestimates/Forgets Limitations (15 pts.). Total Lambert Fall Scale indicates High Risk Score (45 or more points). Fall prevention measures have been instituted. Side Rails Up X 2 Placed Close to Nursing Station Frequent Obs/Assessments Occuring Family Present and informed to notify staff if the need to leave the bedside As available patient and family educated on Fall Prevention Program and Strategies. Assessment: 22:30 Reassessment: PT UNABLE TO FOLLOW COMMANDS, RESPONDING TO INTERNAL STIMULI. PT bp DISORIENTED AND UNABLE TO PARTICIPATE IN HEALTH CARE ACTIVITIES AND PRESENTS A THREAT TO HERSELF AND STAFF. PT UNABLE TO ARTICULATE RESTRAINT RELEASE CRITERIA, SOFT RESTRAINTS x4 PLACED. 22:49 Reassessment: Yadira Nash - Aunt - can be reached at [phone]. ak1 23:29 Reassessment: pt resting with eyes closed, resp even and unlabored. pt restraints ak1 removed. . 11/26 00:02 Reassessment: Patient appears in no apparent distress at this time. No changes from ak1 previously documented assessment. 01:05 Reassessment: pt awake, alert, anxious and c/o mouth pain. pt informed to PA will be in ak1 soon to address her concerns. pt given warm blankets and water. will continue to monitor. 01:57 Reassessment: PT INCREASINGLY AGITATED, PULLING AT LINES AND REQUIRING MORE FREQUENT bp REORIENTATION. PROVIDER NOTIFIED. 03:00 Reassessment: Patient appears in no apparent distress at this time. pt resting with ak1 eyes closed, resp even and unlabored. will continue to monitor. . 04:10 Reassessment: Patient appears in no apparent distress at this time. No changes from ak1 previously documented assessment. 04:57 Reassessment: Patient appears in no apparent distress at this time. No changes from ak1 previously documented assessment. 05:40 Reassessment: Patient appears in no apparent distress at this time. No changes from ak1 previously documented assessment. 06:32 Reassessment: Patient appears in no apparent distress at this time. No changes from ak1 previously documented assessment. pt easily aroused from sleep. pt confused as to where she is and why. ERP stated to continue to let pt sleep. will continue to monitor. 06:58 Reassessment: report given to Yamilet Cohn RN and Gloria Fishman RN. ak1 07:30 General: Appears in no apparent distress. comfortable, well developed, Behavior is Pt sv appears to be sleeping at this time with eyes closed.. Pain: Unable to use pain scale. FLACC scale score is 0 out of 10. Respiratory: Respiratory effort is even, unlabored, Respiratory pattern is regular, symmetrical. Derm: Skin is normal. 08:25 Reassessment: Pt given breakfast tray. sv 08:34 Reassessment: Called [phone], pt's boyfriend, and his phone is not accepting sv incoming phone calls. 08:37 Reassessment: Called Yadira Nash at [phone] and left voicemail to return my call. sv 08:41 Reassessment: Called pt's sister Lucille and left voicemail. sv 08:57 Reassessment: Yadira, pt's aunt, called back and stated that she would come picker machine operator the sv pt. 10:25 Reassessment: Patient appears in no apparent distress at this time. No changes from tw2 previously documented assessment. Patient is alert, oriented x 3, equal unlabored respirations, skin warm/dry/pink. Vital Signs: 11/25 22:19 BP 163 / 119; Pulse 127; Resp 24; Pulse Ox 99% on R/A; Weight 58.97 kg (R); Height 5 ak1 ft. 5 in. (165.10 cm); Pain 0/10; 22:54 BP 142 / 95; Pulse 110; Resp 14; Pulse Ox 100% ; bp 23:26 BP 129 / 95; Pulse 87; Resp 17; Pulse Ox 100% on R/A; Pain 0/10; ak1 11/26 00:02 BP 124 / 89; Pulse 97; Resp 20; Pulse Ox 100% on R/A; Pain 0/10; ak1 01:06 BP 133 / 95; Pulse 102; Resp 20; Pulse Ox 100% on R/A; ak1 01:58 BP 138 / 62; Pulse 95; Resp 18; Pulse Ox 100% ; bp 03:01 BP 106 / 67; Pulse 97; Resp 20; Pulse Ox 99% on R/A; Pain 0/10; ak1 04:10 BP 124 / 77; Pulse 96; Resp 16; Pulse Ox 100% on R/A; Pain 0/10; ak1 04:57 BP 116 / 65; Pulse 96; Resp 18; Pulse Ox 99% on R/A; Pain 0/10; ak1 05:40 BP 112 / 68; Pulse 88; Resp 16; Temp 98.6(TE); Pulse Ox 100% on R/A; Pain 0/10; ak1 06:32 BP 135 / 69; Pulse 92; Resp 16; Temp 98.6; Pulse Ox 100% on R/A; Pain 0/10; ak1 07:30 BP 113 / 70; Pulse 99; Resp 16; Pulse Ox 100% ; sv 09:15 BP 135 / 88; Pulse 89; Resp 17; Pulse Ox 100% ; sv 10:20 BP 125 / 86; Pulse 87; Resp 17; Pulse Ox 100% on R/A; tw2 11/25 22:19 Body Mass Index 21.63 (58.97 kg, 165.10 cm) ak1 ED Course: 11/25 22:13 Patient arrived in ED. do 22:18 Triage completed. ak1 22:19 Arm band placed on Patient placed in an exam room, on a stretcher, on compliance monitor, ak1 on pulse oximetry. 22:21 Ari Barrera PA is PHCP. jr8 22:21 Kai Younger MD is Attending Physician. jr8 22:49 Inserted saline lock: 22 gauge in right forearm, using aseptic technique. Blood bp collected. 23:06 Jaylin White, GAUTAM is Primary Nurse. ak1 23:10 Patient has correct armband on for positive identification. Placed in gown. Bed in low ak1 position. Call light in reach. Side rails up X 1. compliance monitor on. Pulse ox on. NIBP on. Lights dimmed. Warm blanket given. 23:10 Straight cath inserted, using sterile technique, 16 Fr. Specimen obtained. Patient ak1 tolerated well. 11/26 04:11 No provider procedures requiring assistance completed. ak1 07:29 Primary Nurse role handed off by Jaylin White, GAUTAM sv 07:29 Yamilet Santiago, RN is Primary Nurse. sv 07:34 Acetaminophen Sent. sv 07:34 Basic Metabolic Panel Sent. sv 07:36 Attending Physician role handed off by Kai Younger MD alex 07:36 Shahram Rooney MD is Attending Physician. alex 09:15 IV discontinued, intact, bleeding controlled, No redness/swelling at site. Pressure sv dressing applied. Restraints: 11/25 22:30 Violent/Self Destructive Restraint: Order: obtained. Initiated November 25, 2017 at 22:30 bp Staff present during the Initiation of Restraint: ARI VANEGAS, RENY RN, JAYLIN RN, [facility]. Family Notification/Education: Parent informed. Education provided to family/significant other/legally authorized fraud representative. Observed actions/behavior: destructive, confusion/disorientation, difficulty remembering or follow instructions, impaired decision making, repeated attempts to get up from bed/chair without assistance. unable to follow instructions, rptd attempts to remove/tamper lines/tubes/IV/med devices \\T\\ wnd dressing, Less restrictive alternatives attempted: decreased environmental stimuli, 1:1 patient care, reoriented to location, family at bedside, medications evaluated, medicated for pain/anxiety, performed diversional activities, verbal de-escalation performed, Alternative interventions: Ineffective. Clinical justification for use: Violent/self destructing behavior impacts therapeutic environment. Poses a serious danger to physical safety of self \\T\\ others. Monitoring: Mental status: agitated/restless, confused. Cognition: poor judgement, poor safety awareness, Impulsive, poor attention/concentration, unable to follow commands, short term memory loss, Circulation: Within defined parameters (based on Cardiovascular assessment). Skin integrity: Within defined parameters (based on Integumentary assessment) No injuries due to Restraints noted. Range of Motion: Performed. Hydration/Food: patient declined. Elimination/Hygiene: Patient declined. Restraint status: Soft wrist restraint (Right) Started. Soft wrist restraint (Left) Started. Soft ankle restraint (Right) Started. Soft ankle restraint (Left) Started. Readiness for Discontinue: Criteria not met. Patient still violent/self destructive and Alternative interventions still ineffective. Restraint continued. Face to Face Evaluatn: Immediate Situation: PT ALTERED AND AGITATED, RESPONDING TO INTERNAL STIMULI. REPEATED ATTEMPTS TO EXIT BED AND UNABLE TO FOLLOW COMMANDS Response of Patient to Restraint: TOLERATED WELL Medical \\T\\ Behavioral condition: ALTERED MENTAL STATUS, H/O DRUG ABUSE AND PSYCH D/O Continue Restraint. MD Notified of Evaluation result: Ari VANEGAS. 22:45 Violent/Self Destructive Restraint: Monitoring: Mental status: agitated/restless, ak1 confused. Cognition: poor judgement, poor safety awareness, Impulsive, poor attention/concentration, unable to follow commands, short term memory loss, Circulation: Within defined parameters (based on Cardiovascular assessment). Skin integrity: Within defined parameters (based on Integumentary assessment) No injuries due to Restraints noted. 23:00 Violent/Self Destructive Restraint: Monitoring: Mental status: agitated/restless, ak1 confused. Cognition: poor judgement, poor safety awareness, Impulsive, poor attention/concentration, unable to follow commands, short term memory loss, Circulation: Within defined parameters (based on Cardiovascular assessment). Skin integrity: Within defined parameters (based on Integumentary assessment) No injuries due to Restraints noted. 23:15 Violent/Self Destructive Restraint: Monitoring: Mental status: agitated/restless, ak1 confused. Cognition: poor judgement, poor safety awareness, Impulsive, short term memory loss, Circulation: Within defined parameters (based on Cardiovascular assessment). Skin integrity: Within defined parameters (based on Integumentary assessment) No injuries due to Restraints noted. 23:35 Violent/Self Destructive Restraint: Restraint discontinuation: Discontinued at November 252017 at 23:35 Effective alternative interventions: decrease environmental stimuli, medicated for pain/anxiety. Administered Medications: 22:33 Drug: Midazolam 4 mg Route: IM; Site: right vastus lateralis; bp 22:51 Follow up: Response: Anxiety decreased bp 23:07 Drug: NS 0.9% 1000 ml Route: IV; Rate: 1000 ml; Site: right forearm; 11/26 01:55 Follow up: IV Status: Completed infusion 1 11/25 23:07 Drug: NS 0.9% 1000 ml Route: IV; Rate: 1000 ml; Site: right forearm; ak11/26 00:55 Follow up: IV Status: Completed infusion 1 01:55 Drug: Potassium Chloride 40 mEq Route: PO; ak1 01:55 Follow up: Response: No adverse reaction ak1 01:56 Drug: Ativan 2 mg Route: IVP; Site: right forearm; bp Point of Care Testing: Blood Glucose: 11/25 22:49 Blood Glucose: 87 mg/dL; bp Ranges: Outcome: 11/26 07:49 Discharge ordered by . alex 10: Patient left the ED. tw2 10:25 Discharged to home ambulatory, with family. tw 10:25 Condition: stable 10:25 Discharge instructions given to patient, family, Instructed on discharge instructions, follow up and referral plans. Demonstrated understanding of instructions, follow-up care. Signatures: Yamilet Santiago, RN RN Shahram Alcantar MD MD cha Roszak, Josh, PA PA jr8 Jaylin White RN RN ak1 Zeynep Horan Tara RN RN tw2 Alvarez Jackson RN RN bp
--- NOTE | 2017-11-26 07:49 | EDPHYS ---
Physician Documentation [facility] Name: Jael Lugo Age: 22 yrs Sex: Female : 1995 Arrival Date: 11/25/2017 Time: 22:13 Bed 3 Private MD: ED Physician Shahram Rooney HPI: 11/25 23:02 This 22 yrs old Black Female presents to ER via Wheelchair with complaints of altered jr8 mentation. 23:02 Onset: The symptoms/episode began/occurred acutely, at an unknown time. jr8 23:02 Possible causes: drug use. Associated signs and symptoms: Pertinent positives: jr8 agitation, confusion, diaphoresis. Current symptoms: In the emergency department the patient's symptoms are unchanged from the initial presentation. Patient's baseline: Neuro: alert and fully oriented, Motor: no deficits, Ambulation: walks without assistance, Speech: normal. The patient has experienced similar episodes in the past, a few times. The patient has not recently seen a physician. Patient with history of drug abuse along with Bipolar and schizophrenia. Aunt of patient stated that she has been out of her house for about 1 month now. Boyfriend of patient called aunt to come get her because she has been running naked on the street and saying that she cannot stop her head from thinking and racing. Aunt brought her to hospital at that time . 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 - Social history:: Smoking status: unknown. - Ebola Screening: : No symptoms or risks identified at this time. ROS: 11/26 10:25 Eyes: Negative for injury, pain, redness, and discharge, ENT: Negative for injury, jr8 pain, and discharge, Neck: Negative for injury, pain, and swelling, Cardiovascular: Negative for chest pain, palpitations, and edema, Respiratory: Negative for shortness of breath, cough, wheezing, and pleuritic chest pain, Abdomen/GI: Negative for abdominal pain, nausea, vomiting, diarrhea, and constipation, Back: Negative for injury and pain, MS/Extremity: Negative for injury and deformity, Skin: Negative for injury, rash, and discoloration, Neuro: Negative for headache, weakness, numbness, tingling, and seizure. Psych: Positive for anxiety, drug dependence, Negative for homicidal ideation, suicide gesture, suicidal ideation. Exam: 10:25 Eyes: Pupils equal round and reactive to light, extra-ocular motions intact. Lids and jr8 lashes normal. Conjunctiva and sclera are non-icteric and not injected. Cornea within normal limits. Periorbital areas with no swelling, redness, or edema. ENT: Nares patent. No nasal discharge, no septal abnormalities noted. Tympanic membranes are normal and external auditory canals are clear. Oropharynx with no redness, swelling, or masses, exudates, or evidence of obstruction, uvula midline. Mucous membranes moist. Neck: Trachea midline, no thyromegaly or masses palpated, and no cervical lymphadenopathy. Supple, full range of motion without nuchal rigidity, or vertebral point tenderness. No Meningismus. Cardiovascular: Sinus Tachycardia with a normal S1 and S2. No gallops, murmurs, or rubs. Normal PMI, no JVD. No pulse deficits. Respiratory: Lungs have equal breath sounds bilaterally, clear to auscultation and percussion. No rales, rhonchi or wheezes noted. No increased work of breathing, no retractions or nasal flaring. Abdomen/GI: Soft, non-tender, with normal bowel sounds. No distension or tympany. No guarding or rebound. No evidence of tenderness throughout. Back: No spinal tenderness. No costovertebral tenderness. Full range of motion. Skin: Warm, dry with normal turgor. Normal color with no rashes, no lesions, and no evidence of cellulitis. MS/ Extremity: Pulses equal, no cyanosis. Neurovascular intact. Full, normal range of motion. Neuro: Awake and alert, GCS 15, oriented to person, place, time, and situation. Cranial nerves II-XII grossly intact. Motor strength 5/5 in all extremities. Sensory grossly intact. Cerebellar exam normal. Normal gait. 10:25 Constitutional: The patient appears alert, awake, agitated, anxious, restless, unkempt. 10:25 Psych: Behavior/mood is cooperative, anxious, Affect is animated, Oriented to person, place, time, Patient has no thoughts/intents to harm self or others. Judgement / Insight is impaired. Vital Signs: 11/25 22:19 BP 163 / 119; Pulse 127; Resp 24; Pulse Ox 99% on R/A; Weight 58.97 kg (R); Height 5 ak1 ft. 5 in. (165.10 cm); Pain 0/10; 22:54 BP 142 / 95; Pulse 110; Resp 14; Pulse Ox 100% ; bp 23:26 BP 129 / 95; Pulse 87; Resp 17; Pulse Ox 100% on R/A; Pain 0/10; ak1 11/26 00:02 BP 124 / 89; Pulse 97; Resp 20; Pulse Ox 100% on R/A; Pain 0/10; ak1 01:06 BP 133 / 95; Pulse 102; Resp 20; Pulse Ox 100% on R/A; ak1 01:58 BP 138 / 62; Pulse 95; Resp 18; Pulse Ox 100% ; bp 03:01 BP 106 / 67; Pulse 97; Resp 20; Pulse Ox 99% on R/A; Pain 0/10; ak1 04:10 BP 124 / 77; Pulse 96; Resp 16; Pulse Ox 100% on R/A; Pain 0/10; ak1 04:57 BP 116 / 65; Pulse 96; Resp 18; Pulse Ox 99% on R/A; Pain 0/10; ak1 05:40 BP 112 / 68; Pulse 88; Resp 16; Temp 98.6(TE); Pulse Ox 100% on R/A; Pain 0/10; ak1 06:32 BP 135 / 69; Pulse 92; Resp 16; Temp 98.6; Pulse Ox 100% on R/A; Pain 0/10; ak1 07:30 BP 113 / 70; Pulse 99; Resp 16; Pulse Ox 100% ; sv 09:15 BP 135 / 88; Pulse 89; Resp 17; Pulse Ox 100% ; sv 10:20 BP 125 / 86; Pulse 87; Resp 17; Pulse Ox 100% on R/A; tw2 11/25 22:19 Body Mass Index 21.63 (58.97 kg, 165.10 cm) ak1 MDM: 11/25 22:21 Patient medically screened. jr8 11/26 10:25 Data reviewed: vital signs, nurses notes, lab test result(s), EKG. Data interpreted: [facility] Pulse oximetry: on room air is 100 %. Interpretation: normal. Counseling: I had a detailed discussion with the patient and/or guardian regarding: the historical points, exam findings, and any diagnostic results supporting the discharge/admit diagnosis, lab results, the need for outpatient follow up, a family practitioner, a psychiatrist, to return to the emergency department if symptoms worsen or persist or if there are any questions or concerns that arise at home. Response to treatment: the patient's symptoms have markedly improved after treatment. 11/25 22:40 Order name: Acetaminophen [facility] 11/25 22:40 Order name: Basic Metabolic Panel [facility] 11/25 22:40 Order name: CBC with Diff; Complete Time: 00:11/25 22:40 Order name: ETOH Level; Complete Time: 11/25 22:40 Order name: Hepatic Function; Complete Time: 11/25 22:40 Order name: PT-INR; Complete Time: 00:11/25 22:40 Order name: Ptt, Activated; Complete Time: 00:11/25 22:40 Order name: Salicylate; Complete Time: :11/25 22:40 Order name: Urine Drug Screen; Complete Time: :43 11/25 22:40 Order name: Acetaminophen Level; Complete Time: :43 EDMS 11/25 22:40 Order name: Basic Metabolic Panel; Complete Time: :43 EDMS 11/25 23:20 Order name: Urine Dipstick--Ancillary (enter results); Complete Time: 23:45 2 11/25 23:20 Order name: Urine --Ancillary (enter results); Complete Time: 23:45 2 11/25 22:35 Order name: Restraint:Violent/Self Destructive (Adult:18yo or >); Complete Time: 22:50 bp 11/25 22:40 Order name: Urine Test (obtain specimen); Complete Time: 23:09 jr8 11/25 22:40 Order name: EKG; Complete Time: 22:40 8 11/25 22:40 Order name: EKG - Nurse/Tech; Complete Time: 23:09 jr8 11/25 22:40 Order name: IV Saline Lock; Complete Time: 22:49 11/25 22:40 Order name: Labs collected and sent; Complete Time: 22:51 11/25 22:40 Order name: Urine Dipstick-Ancillary (obtain specimen); Complete Time: 23:09 [facility] 11/26 07:49 Order name: Diet Regular; Complete Time: 07:49 ss Administered Medications: 11/25 22:33 Drug: Midazolam 4 mg Route: IM; Site: right vastus lateralis; bp 22:51 Follow up: Response: Anxiety decreased bp 23:07 Drug: NS 0.9% 1000 ml Route: IV; Rate: 1000 ml; Site: right forearm; [facility] 11/26 01:55 Follow up: IV Status: Completed infusion [facility] 11/25 23:07 Drug: NS 0.9% 1000 ml Route: IV; Rate: 1000 ml; Site: right forearm; wv1 11/26 00:55 Follow up: IV Status: Completed infusion ak1 01:55 Drug: Potassium Chloride 40 mEq Route: PO; ak1 01:55 Follow up: Response: No adverse reaction ak1 01:56 Drug: Ativan 2 mg Route: IVP; Site: right forearm; bp Point of Care Testing: Blood Glucose: 11/25 22:49 Blood Glucose: 87 mg/dL; bp Ranges: Critical Glucose Levels:Adult <50 mg/dl or >400 mg/dl <40 mg/dl or >180 mg/dl Disposition: 11/26 15:21 Co-signature as Attending Physician, Shahram Rooney MD I agree with the assessment and alex plan of care. Disposition: 11/26/17 07:49 Discharged to Home. Impression: Adverse effect of amphetamines, Abuse of non-psychoactive substances, Hypokalemia. - Condition is Stable. - Discharge Instructions: Stimulant Use Disorder-Amphetamines, Potassium Content of Foods, Substance Use Disorder, Stimulant Use Disorder-Methamphetamines, Hypokalemia. - Medication Reconciliation Form, Thank You Letter, Antibiotic Education, Prescription Opioid Use form. - Follow up: Private Physician; When: 2 - 3 days; Reason: Recheck today's complaints, Continuance of care, Re-evaluation by your physician. - Problem is new. - Symptoms have improved. Signatures: Dispatcher [employer] Shahram Mendenhall MD MD alex Roszak, Ari, PA PA jr8 Jaylin White, RN RN ak1 Gloria Dudley, RN RN tw2 Alvarez Jackson, RN RN bp Corrections: (The following items were deleted from the chart) 11/25 23:06 23:02 Onset: The symptoms/episode began/occurred acutely, today, sondra jr8 11/26 10:23 07:49 11/26/2017 07:49 Discharged to Home. Impression: Adverse effect of amphetamines; tw2 Abuse of non-psychoactive substances; Hypokalemia. Condition is Stable. Forms are Medication Reconciliation Form, Thank You Letter, Antibiotic Education, Prescription Opioid Use. Follow up: Private Physician; When: 2 - 3 days; Reason: Recheck today's complaints, Continuance of care, Re-evaluation by your physician. Problem is new. Symptoms have improved. alex
[2017-11-26 10:39] VITALS: TEMP 98.6; O2SAT 100
[2017-11-26 10:43] VITALS: BP 135/88
== END 2017-11-26 10:23 | disposition home or self-care (01) ==
LOC: ER 22:13
DX: T43.625A Adverse effect of amphetamines, initial encounter (principal); F55.8 Abuse of other non-psychoactive substances; E87.6 Hypokalemia; Y92.9 Unspecified place or not applicable
CPT/HCPCS: 36415; 51702; 80048; 80076; 80307; 80320; 80329; 81003; 81025; 82962; 85025; 85610; 85730; 93005; 96361; 96372; 96374; 99284; J2250; J7030

== ENCOUNTER 2018-04-16 20:02 | Emergency (ER) | payer OTHER ==
--- OUTSIDE RECORDS SUMMARY | 2018-04-16 20:05 | XMS REPORT ---
:1995 [facility] Address [address] [place] [address] Dr. Durbin [address] [place] [id number] Care Team Providers Name Role Phone UNKNOWN, [...] Facility Department ID 2017-06-02 2017-06-15 [id number]:23:00 13:37:00 Jane GARCIA Results Test Description Test Time Test Comments Text Results Atomic Results Result Comments Chlamydia/GC Amplification 2017-06-09 17:46:00 Test Item Value Reference Range Comments Chlamydia trachomatis, PRAKASH (test ifew=947451) Negative Negative Neisseria gonorrhoeae, PRAKASH (test lpfg=[id number]) Negative Negative HIV [id number] 21:56:00 Test Item Value Reference Range Comments HIV 1/2 Antibody (test Non-Reactive Non-Reactive HIV1/2 Antibody screen result code=HIV1/2AB) indicates the absence of HIV1 and QZS7dlnvdxytd.However, A Non-Reactive screen result does not rule [...] suspected, HIV RNA Quantitative is recommended. RPR, [id number] 13:36:00 Test Item Value Reference Range Comments RPR (test code=RPR) Non-Reactive Non-Reactive Thyroid Stimulating Hormone (TSH)2017-06-02 07:20:00 Test Item Value Reference Range Comments TSH (test code=TSH) 1.46 mIU/mL 0.270-4.200 Lipid [id number] 07:13:00 Test Item Value Reference Range Comments Cholesterol (test 148 mg/dL 0-200 code=CHOL) Triglycerides (test 85 mg/dL 9-200 code=TRIG) HDL (test code=HDL) 42 mg/dL 50-60 Chol/HDL (test 3.5 Ratio 0.0-4.4 code=CHOLPHDL) LDL, Calculated (test 89 0-130 (NOTE)RISK OF HEART code=LDLC) DISEASEPublished by Citizen Of [place] Heart AssociationAnalyte Optimal Boderline Increased RiskCHOL <200 200-239 >240TRIG <150 150-199 >200HDL Male: >60 <40HDL Female: >60 <50LDL <100 130-159 >160LDL NEAR OPTIMAL IS 100-129 VLDL (test code=VLDL) 17 mg/dL 5-40 LDL/HDL (test code=LDLPHDL) 2 Comprehensive Metabolic [id number] 21:39:00 Test Item Value Reference Range Comments [...] race is not provided, and the patient isAfrican-Citizen Of [place], multiply by 1.212. If sex is not provided, and thepatient is female, multiply by 0.742. Results for patients <18 years ofage have not been validated by the MDRD study and should be interpretedwith caution.eGFR Result Interpretation:eGFR > or=60 is in the Normal RangeeGFR < 60 may mean kidney diseaseeGFR < 15 may mean kidney failureRanges recommended by the National Kidney Foundation,http://nkdep.nih .gov Urinalysis [id number] 21:39:00 Test Item Value Reference Range Comments Color (test code=COLOR) Yellow Yellow,Straw,Pl yellow Clarity (test code=CLAR) Cloudy Clear Specific [place] (test 1.036 1.001-1.035 code=SPGR) pH (test code=PH) [...] code=AMORD) Bacteria (test code=BACT) Moderate /HPF Alcohol/Ethanol, [id number] 21:37:00 Test Item Value Reference Range Comments Alcohol, Ethyl (test <0.01 g/dL 0.00-0.01 Intoxicated 0.080 g/dL or code=ETOH) more BHCG, Serum, [id number] 21:37:00 Test Item Value Reference Range Comments Preg Qual [Se] (test code=BSHCG) Negative Negative [id number] 21:36:00 Test Item Value Reference Range Comments [...] THC (test code=THC) POSITIVE Negative CBC with [id number] 21:33:00 Test Item Value Reference Range Comments [...] Lymph Abs (test code=ALYMPH) 3.3 K/cumm 0.5-4.6 [place] Abs (test code=AMONO) 0.6 K/cumm 0.0-1.2 Eos Abs (test code=AEOS) 0.17 K/cumm 0.00-0.74 Baso Abs (test code=ABASO) 0.0 K/cumm 0.00-0.21 BHCG, Urine, [id number] 14:05:00 Test Item Value Reference Range Comments Preg Qual [Ur] (test code=HUHCG) Negative Negative RPR, [id number] 16:02:00 Test Item Value Reference Range Comments RPR (test code=RPR) Non-Reactive Non-Reactive Thyroid Stimulating Hormone (TSH)2017-02-14 11:18:00 Test Item Value Reference Range Comments TSH (test code=TSH) 0.55 mIU/mL 0.270-4.200 Lipid [id number] 11:11:00 Test Item Value Reference Range Comments Cholesterol (test 147 mg/dL 0-200 code=CHOL) Triglycerides (test 79 mg/dL 9-200 code=TRIG) HDL (test code=HDL) 51 mg/dL 50-60 Chol/HDL (test 2.9 Ratio 0.0-4.4 code=CHOLPHDL) LDL, Calculated (test 80 0-130 (NOTE)RISK OF HEART code=LDLC) DISEASEPublished by Citizen Of [place] Heart AssociationAnalyte Optimal [place]line Increased RiskCHOL <200 200-239 >240TRIG <150 150-199 >200HDL Male: >60 <40HDL Female: >60 <50LDL <100 130-159 >160LDL NEAR OPTIMAL IS 100-129 VLDL (test code=VLDL) 16 mg/dL 5-40 LDL/HDL (test code=LDLPHDL) 2
--- NOTE | 2018-04-16 21:33 | EDPHYS ---
Physician Documentation [facility] Name: Jael Lugo Age: 22 yrs Sex: Female : 1995 Arrival Date: 04/16/2018 Time: 20:06 Bed 11 Private MD: None, None ED Physician Shahram Rooney HPI: 04/16 21:41 This 22 yrs old Black Female presents to ER via Ambulatory with complaints of Mouth snw Abscess. 21:41 Onset: The symptoms/episode began/occurred suddenly, 4 day(s) ago, and became worse and snw became persistent. Associated signs and symptoms: Pertinent positives: dental caries, pain, swollen gums. Modifying factors: The patient symptoms are alleviated by nothing. The patient has not experienced similar symptoms in the past. It is unknown whether or not the patient has recently seen a physician. no dentist. 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 - Social history:: Smoking status: Patient uses tobacco products, smokes one-half pack cigarettes per day, Patient/guardian denies using alcohol, street drugs. - Ebola Screening: : Patient negative for fever greater than or equal to 101.5 degrees Fahrenheit, and additional compatible Ebola Virus Disease symptoms Patient denies exposure to infectious person Patient denies travel to an Ebola-affected area in the 21 days before illness onset. ROS: 21:40 Constitutional: Negative for fever, chills, and weight loss, Eyes: Negative for injury, snw pain, redness, and discharge, Neck: Negative for injury, pain, and swelling, Cardiovascular: Negative for chest pain, palpitations, and edema, Respiratory: Negative for shortness of breath, cough, wheezing, and pleuritic chest pain, Abdomen/GI: Negative for abdominal pain, nausea, vomiting, diarrhea, and constipation, Back: Negative for injury and pain, : Negative for injury, bleeding, discharge, and swelling, MS/Extremity: Negative for injury and deformity, Skin: Negative for injury, rash, and discoloration, Neuro: Negative for headache, weakness, numbness, tingling, and seizure. 21:40 ENT: Positive for dental pain, sore throat. Exam: 21:38 Constitutional: This is a well developed, well nourished patient who is awake, alert, snw and in no acute distress. Head/Face: Normocephalic, atraumatic. Eyes: Pupils equal round and reactive to light, extra-ocular motions intact. Lids and lashes normal. Conjunctiva and sclera are non-icteric and not injected. Cornea within normal limits. Periorbital areas with no swelling, redness, or edema. Neck: Trachea midline, no thyromegaly or masses palpated, and no cervical lymphadenopathy. Supple, full range of motion without nuchal rigidity, or vertebral point tenderness. No Meningismus. Chest/axilla: Normal chest wall appearance and motion. Nontender with no deformity. No lesions are appreciated. Cardiovascular: Regular rate and rhythm with a normal S1 and S2. No gallops, murmurs, or rubs. Normal PMI, no JVD. No pulse deficits. Respiratory: Lungs have equal breath sounds bilaterally, clear to auscultation and percussion. No rales, rhonchi or wheezes noted. No increased work of breathing, no retractions or nasal flaring. Abdomen/GI: Soft, non-tender, with normal bowel sounds. No distension or tympany. No guarding or rebound. No evidence of tenderness throughout. Back: No spinal tenderness. No costovertebral tenderness. Full range of motion. Skin: Warm, dry with normal turgor. Normal color with no rashes, no lesions, and no evidence of cellulitis. MS/ Extremity: Pulses equal, no cyanosis. Neurovascular intact. Full, normal range of motion. Neuro: Awake and alert, GCS 15, oriented to person, place, time, and situation. Cranial nerves II-XII grossly intact. Motor strength 5/5 in all extremities. Sensory grossly intact. Cerebellar exam normal. Normal gait. 21:38 ENT: External ear(s): are unremarkable, Ear canal(s): are normal, TM's: are normal, Nose: is normal, Mouth: Oral mucosa: normal, Gums: noted to have an abscess, swollen, on the gums, Posterior pharynx: is normal, Dental exam: dental caries, that is moderate, specifically in the upper right second molar (#2) and upper right first molar (#3), Voice: is normal. Vital Signs: 20:20 BP 138 / 82; Pulse 97; Resp 18; Temp 98.2(O); Pulse Ox 99% on R/A; Weight 68.04 kg (R); fc Height 5 ft. 7 in. (170.18 cm) (R); Pain 10/10; 21:56 BP 128 / 66; Pulse 89; Resp 16 S; Temp 98.8(O); Pulse Ox 100% on R/A; Pain 8/10; bb 20:20 Body Mass Index 23.49 (68.04 kg, 170.18 cm) fc Procedures: 21:32 I \\T\\ D: Incised with needle. Drained moderate amount large amount purulent fluid. the snw patient tolerated the procedure well. MDM: 21:09 Patient medically screened. alex 21:39 Data reviewed: vital signs, nurses notes. Data interpreted: Pulse oximetry: on room air snw is 99 %. Interpretation: normal. Counseling: I had a detailed discussion with the patient and/or guardian regarding: the historical points, exam findings, and any diagnostic results supporting the discharge/admit diagnosis, the presence of at least one elevated blood pressure reading (>120/80) during this emergency department visit, the need for outpatient follow up, for definitive care, to return to the emergency department if symptoms worsen or persist or if there are any questions or concerns that arise at home. Special discussion: I have referred the patient to see his PCP for further evaluation of high blood pressure. Based on the history and exam findings, there is no indication for further emergent testing or inpatient evaluation. I discussed with the patient/guardian the need to see a dentist for further evaluation of the symptoms. Administered Medications: 21:38 Drug: [place] 5 mg-325 mg 1 tabs Route: PO; bb 21:55 Follow up: Response: No adverse reaction; Pain is decreased bb 21:38 Drug: TORadol 60 mg Route: IM; Site: right gluteus; bb 21:55 Follow up: Response: No adverse reaction; Pain is decreased bb 21:39 Drug: Clindamycin 300 mg Route: PO; bb 21:55 Follow up: Response: No adverse reaction bb Disposition: 04/17 07:08 Co-signature as Attending Physician, Shahram Rooney MD I agree with the assessment and alex plan of care. Disposition: 04/16/18 21:33 Discharged to Home. Impression: Dental caries, Gingivitis and periodontal diseases. - Condition is Stable. - Discharge Instructions: Dental Abscess, Dental Pain, Gingivitis, Diet and Dental Disease, Preventive Dental Care, Adult. - Prescriptions for chlorhexidine gluconate 0.12 % Mucous Membrane mouthwash - place 15 milliliter by MUCOUS MEMBRANE route 2 times per day after brushing teeth, swish in mouth for 30 seconds then spit out; 480 milliliter. Clindamycin HCl 300 mg Oral Capsule - take 1 capsule by ORAL route every 6 hours for 10 days; 40 capsule. Diclofenac Sodium 75 mg Oral Tablet Sustained Release - take 1 tablet by ORAL route 2 times per day; 30 tablet. - Work release form, Medication Reconciliation Form, Thank You Letter, Antibiotic Education, Prescription Opioid Use form. - Follow up: Private Physician; When: 1 - 2 days; Reason: Recheck today's complaints, Continuance of care, Re-evaluation by your physician. Addendum: 04/26/2018 07:14 Addendum: area of incision with needle - upper gingival area between right 1st and 2nd s nw molar. Signatures: Shahram Rooney MD MD cha Therrien, Shelly, JACKSON-C CALCINER OPERATOR-Stephy Pfeiffer RN RN Rosalie Kwon RN RN bb Corrections: (The following items were deleted from the chart) 04/16 21:57 21:33 04/16/2018 21:33 Discharged to Home. Impression: Dental caries; Gingivitis and bb periodontal diseases. Condition is Stable. Forms are Medication Reconciliation Form, Thank You Letter, Antibiotic Education, Prescription Opioid Use. Follow up: Private Physician; When: 1 - 2 days; Reason: Recheck today's complaints, Continuance of care, Re-evaluation by your physician. snw
--- NOTE | 2018-04-16 21:33 | ER ---
Nurse's Notes [facility] Name: Jael Lugo Age: 22 yrs Sex: Female : 1995 Arrival Date: 04/16/2018 Time: 20:06 Bed 11 Private MD: None, None Diagnosis: Dental caries;Gingivitis and periodontal diseases Presentation: 04/16 20:17 Presenting complaint: Patient states: that she has a knot on the top of her right gums. fc Started 2 days ago. Also having swelling of the right side of her face. Transition of care: patient was not received from another setting of care. Onset of symptoms was April 14, 2018. Risk Assessment: Do you want to hurt yourself or someone else? Patient reports no desire to harm self or others. Initial Sepsis Screen: Does the patient meet any 2 criteria? HR > 90 bpm. Yes Does the patient have a suspected source of infection? No. Patient's initial sepsis screen is negative. Care prior to arrival: Medication(s) given: Motrin, 200 mg, last at 0900. 20:17 Method Of Arrival: Ambulatory fc 20:17 Acuity: ALMA 4 fc Triage Assessment: 20:20 General: Appears uncomfortable, slender, Behavior is calm, cooperative, appropriate for age. Pain: Complains of pain in mouth Pain currently is 10 out of 10 on a pain scale. Quality of pain is described as aching, throbbing. EENT: Oral mucosa is moist. knot on upper right gum. Neuro: Level of Consciousness is awake, alert, obeys commands, Oriented to person, place, time, situation. Cardiovascular: No deficits noted. Respiratory: No deficits noted. GI: No deficits noted. : No deficits noted. Derm: Skin is pink, warm \\T\\ dry. 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 - Social history:: Smoking status: Patient uses tobacco products, smokes one-half pack cigarettes per day, Patient/guardian denies using alcohol, street drugs. - Ebola Screening: : Patient negative for fever greater than or equal to 101.5 degrees Fahrenheit, and additional compatible Ebola Virus Disease symptoms Patient denies exposure to infectious person Patient denies travel to an Ebola-affected area in the 21 days before illness onset. Screenin:22 Abuse screen: Denies threats or abuse. Nutritional screening: No deficits noted. fc Tuberculosis screening: No symptoms or risk factors identified. Fall Risk None identified. Assessment: 20:37 General: Appears in no apparent distress. uncomfortable, Behavior is calm, cooperative. bb Pain: Complains of pain in mouth Pain currently is 10 out of 10 on a pain scale. Neuro: Level of Consciousness is awake, alert, obeys commands, Oriented to person, place, time, situation. Cardiovascular: No deficits noted. Respiratory: Airway is patent Respiratory effort is even, unlabored, Respiratory pattern is regular. GI: No signs and/or symptoms were reported involving the gastrointestinal system. EENT: abscess noted to right upper jaw. Derm: Skin is dry, Skin is normal, Skin temperature is warm. Musculoskeletal: Circulation, motion, and sensation intact. 21:56 Reassessment: Patient and/or family updated on plan of care and expected duration. Pain bb level reassessed. Patient is alert, oriented x 3, equal unlabored respirations, skin warm/dry/pink. pt verbalized understanding of and agrees to plan of care discharge instructions given pt ambulated with steady gait to exit Patient states feeling better. Vital Signs: 20:20 BP 138 / 82; Pulse 97; Resp 18; Temp 98.2(O); Pulse Ox 99% on R/A; Weight 68.04 kg (R); fc Height 5 ft. 7 in. (170.18 cm) (R); Pain 10/10; 21:56 BP 128 / 66; Pulse 89; Resp 16 S; Temp 98.8(O); Pulse Ox 100% on R/A; Pain 8/10; bb 20:20 Body Mass Index 23.49 (68.04 kg, 170.18 cm) ED Course: 20:06 Patient arrived in ED. mr 20:06 None, None is Private Physician. mr 20:19 Triage completed. fc 20:20 Arm band placed on Patient placed in waiting room. fc 20:37 Rosalie Loco, RN is Primary Nurse. bb 20:37 Patient has correct armband on for positive identification. Call light in reach. bb 21: Jam[facility]-C [facility]. snw 21: Shahram Rooney MD is Attending Physician. snw 21:57 No provider procedures requiring assistance completed. Patient did not have IV access bb during this emergency room visit. Administered Medications: 21:38 Drug: [place] 5 mg-325 mg 1 tabs Route: PO; bb 21:55 Follow up: Response: No adverse reaction; Pain is decreased bb 21:38 Drug: TORadol 60 mg Route: IM; Site: right gluteus; bb 21:55 Follow up: Response: No adverse reaction; Pain is decreased bb 21:39 Drug: Clindamycin 300 mg Route: PO; bb 21:55 Follow up: Response: No adverse reaction bb Outcome: 21:33 Discharge ordered by MD. snw 21:57 Discharged to home ambulatory, with friend. bb 21:57 Condition: stable 21:57 Discharge instructions given to patient, Instructed on discharge instructions, follow up and referral plans. medication usage, Demonstrated understanding of instructions, follow-up care, medications, Prescriptions given X 3. 21:57 Patient left the ED. bb Signatures: Jamia Claire FNP-C FNP-Brigido Magalys ZhangStephy taylor, RN RN Rosalie Loco, RN RN bb
[2018-04-16] MEDS ORDERED: KETOROLAC 30 MG/ML INJ ONE (21:41)
[2018-04-16] MEDS ORDERED: CLINDAMYCIN HCL 150 MG CAP ONE (21:41)
[2018-04-16] MEDS ORDERED: HYDROCODONE/APAP 5/325 MG TAB ONE (21:41)
[2018-04-16 22:08] VITALS: BP 128/66; TEMP 98.8; O2SAT 100
== END 2018-04-16 21:57 | disposition home or self-care (01) ==
LOC: ER 20:02
PROC: 0C95XZZ Drainage of Upper Gingiva, External Approach (ICD-10-PCS; principal; 2018-04-16)
DX: K05.10 Chronic gingivitis, plaque induced (principal); K05.6 Periodontal disease, unspecified; F32.9 Major depressive disorder, single episode, unspecified; F20.9 Schizophrenia, unspecified; F31.9 Bipolar disorder, unspecified; F17.210 Nicotine dependence, cigarettes, uncomplicated
CPT/HCPCS: 96372; 99283

== ENCOUNTER 2018-07-15 15:12 | Emergency (ER) | payer OTHER ==
--- OUTSIDE RECORDS SUMMARY | 2018-07-15 15:18 | XMS REPORT ---
:1995 [facility] Address [address] [place] [address] Dr. Durbin [address] [place] [id number] Care Team Providers Name Role Phone UNKNOWN, [...] Facility Department ID 2017-06-02 2017-06-15 [id number] 00:23:00 13:37:00 Jane GARCIA Results Test Description Test Time Test Comments Text Results Atomic Results Result Comments Chlamydia/GC Amplification 2017-06-09 17:46:00 Test Item Value Reference Range Comments Chlamydia trachomatis, PRAKASH (test pnao=[id number]) Negative Negative Neisseria gonorrhoeae, PRAKASH (test biax=[id number]) Negative Negative HIV [id number] 21:56:00 Test Item Value Reference Range Comments HIV 1/2 Antibody (test Non-Reactive Non-Reactive HIV1/2 Antibody screen result code=HIV1/2AB) indicates the absence of HIV1 and STI3nkbxvknzn.However, A Non-Reactive screen result does not rule [...] suspected, HIV RNA Quantitative is recommended. RPR, [id number] 13:36:00 Test Item Value Reference Range Comments RPR (test code=RPR) Non-Reactive Non-Reactive Thyroid Stimulating Hormone (TSH)2017-06-02 07:20:00 Test Item Value Reference Range Comments TSH (test code=TSH) 1.46 mIU/mL 0.270-4.200 Lipid [id number] 07:13:00 Test Item Value Reference Range Comments Cholesterol (test 148 mg/dL 0-200 code=CHOL) Triglycerides (test 85 mg/dL 9-200 code=TRIG) HDL (test code=HDL) 42 mg/dL 50-60 Chol/HDL (test 3.5 Ratio 0.0-4.4 code=CHOLPHDL) LDL, Calculated (test 89 0-130 (NOTE)RISK OF HEART code=LDLC) DISEASEPublished by [place] Heart AssociationAnalyte Optimal Boderline Increased RiskCHOL <200 200-239 >240TRIG <150 150-199 >200HDL Male: >60 <40HDL Female: >60 <50LDL <100 130-159 >160LDL NEAR OPTIMAL IS 100-129 VLDL (test code=VLDL) 17 mg/dL 5-40 LDL/HDL (test code=LDLPHDL) 2 Comprehensive Metabolic [id number] 21:39:00 Test Item Value Reference Range Comments [...] race is not provided, and the patient isAfrican-[place]er, multiply by 1.212. If sex is not provided, and thepatient is female, multiply by 0.742. Results for patients <18 years ofage have not been validated by the MDRD study and should be interpretedwith caution.eGFR Result Interpretation:eGFR > or=60 is in the Normal RangeeGFR < 60 may mean kidney diseaseeGFR < 15 may mean kidney failureRanges recommended by the National Kidney Foundation,http://nkdep.nih .gov Urinalysis [id number] 21:39:00 Test Item Value Reference Range Comments Color (test code=COLOR) Yellow Yellow,Straw,Pl yellow Clarity (test code=CLAR) Cloudy Clear Specific [place] (test 1.036 1.001-1.035 code=SPGR) pH (test code=PH) [...] code=AMORD) Bacteria (test code=BACT) Moderate /HPF Alcohol/Ethanol, [id number] 21:37:00 Test Item Value Reference Range Comments Alcohol, Ethyl (test <0.01 g/dL 0.00-0.01 Intoxicated 0.080 g/dL or code=ETOH) more BHCG, Serum, [id number] 21:37:00 Test Item Value Reference Range Comments Preg Qual [Se] (test code=BSHCG) Negative Negative [id number] 21:36:00 Test Item Value Reference Range Comments [...] THC (test code=THC) POSITIVE Negative CBC with [id number] 21:33:00 Test Item Value Reference Range Comments [...] Lymph Abs (test code=ALYMPH) 3.3 K/cumm 0.5-4.6 [place] Abs (test code=AMONO) 0.6 K/cumm 0.0-1.2 Eos Abs (test code=AEOS) 0.17 K/cumm 0.00-0.74 Baso Abs (test code=ABASO) 0.0 K/cumm 0.00-0.21 BHCG, Urine, [id number] 14:05:00 Test Item Value Reference Range Comments Preg Qual [Ur] (test code=HUHCG) Negative Negative RPR, [id number] 16:02:00 Test Item Value Reference Range Comments RPR (test code=RPR) Non-Reactive Non-Reactive Thyroid Stimulating Hormone (TSH)2017-02-14 11:18:00 Test Item Value Reference Range Comments TSH (test code=TSH) 0.55 mIU/mL 0.270-4.200 Lipid [id number] 11:11:00 Test Item Value Reference Range Comments Cholesterol (test 147 mg/dL 0-200 code=CHOL) Triglycerides (test 79 mg/dL 9-200 code=TRIG) HDL (test code=HDL) 51 mg/dL 50-60 Chol/HDL (test 2.9 Ratio 0.0-4.4 code=CHOLPHDL) LDL, Calculated (test 80 0-130 (NOTE)RISK OF HEART code=LDLC) DISEASEPublished by [place] Heart AssociationAnalyte Optimal [place]oderline Increased RiskCHOL <200 200-239 >240TRIG <150 150-199 >200HDL Male: >60 <40HDL Female: >60 <50LDL <100 130-159 >160LDL NEAR OPTIMAL IS 100-129 VLDL (test code=VLDL) 16 mg/dL 5-40 LDL/HDL (test code=LDLPHDL) 2
--- NOTE | 2018-07-15 19:49 | ER ---
Nurse's Notes [facility] Name: Jael Lugo Age: 22 yrs Sex: Female : 1995 Arrival Date: 07/15/2018 Time: 15:18 Bed 12 Private MD: None, None Diagnosis: Presentation: 07/15 15:23 Presenting complaint: Patient states: "I have bruising on my arm, and I think my ss control is out of place. I dropped something on my arm and it wasn't healing like it's supposed to. But I have an appointment for that at the [facility], but now I have cysts on my behind.". Transition of care: patient was not received from another setting of care. Onset of symptoms was July 12, 2018. Risk Assessment: Do you want to hurt yourself or someone else? Patient reports no desire to harm self or others. Initial Sepsis Screen: Does the patient meet any 2 criteria? No. Patient's initial sepsis screen is negative. Does the patient have a suspected source of infection? No. Patient's initial sepsis screen is negative. Care prior to arrival: None. 15:23 Method Of Arrival: Ambulatory ss 15:23 Acuity: ALMA 4 ss Historical: - PMHx: 15:26 "arthritis in my lower spine"; Bipolar disorder; Depression; drug abuse; Heart Murmur; ss Herniated disc; insomnia; Schizophrenia; - PSHx: 15:26 None; ss - Immunization history:: Adult Immunizations up to date. - Social history:: Smoking status: Patient uses tobacco products, denies chronic smoking, but will smoke occasionally. - Ebola Screening: : Patient denies exposure to infectious person Patient denies travel to an Ebola-affected area in the 21 days before illness onset. Vital Signs: 15:26 BP 108 / 70; Pulse 101; Resp 16; Temp 97.4(TE); Pulse Ox 98% on R/A; Weight 68.04 kg; ss Pain 8/10; ED Course: 15:18 Patient arrived in ED. mr 15:18 None, None is Private Physician. mr 15:25 Triage completed. ss 15:26 Arm band placed on right wrist. ss 19:46 Shahram Rooney MD is Attending Physician. [facility] 19:48 [facility]. Unable to locate patient. Will ea disposition as left without being seen by a provider. Administered Medications: No medications were administered Outcome: 19:49 Patient left the ED. ea Signatures: Shahram Rooney MD MD cha Rivera, Mary mr Smirch, Shelby, RN RN Cecelia Rincon RN RN ea
[2018-07-15 19:52] VITALS: BP 108/70; TEMP 97.4; O2SAT 98
== END 2018-07-15 19:49 | disposition left against medical advice (07) ==
LOC: ER 15:12
DX: S40.029A Contusion of unspecified upper arm, initial encounter (principal); W20.8XXA Other cause of strike by thrown, projected or falling object, initial encounter; Z72.0 Tobacco use; Z53.21 Procedure and treatment not carried out due to patient leaving prior to being seen by health care provider
CPT/HCPCS: 99281

== ENCOUNTER 2018-07-15 21:42 | Emergency (ER) | payer OTHER ==
--- OUTSIDE RECORDS SUMMARY | 2018-07-15 21:45 | XMS REPORT ---
:1995 [facility] Address [address] [place] [address] Dr. D[address]in [address] [place] [id number] Care Team Providers Name Role Phone UNKNOWN, [...] Facility Department ID 2017-06-02 2017-06-15 [id number]:23:00 13:37:00 Jane GARCIA Results Test Description Test Time Test Comments Text Results Atomic Results Result Comments Chlamydia/GC Amplification 2017-06-09 17:46:00 Test Item Value Reference Range Comments Chlamydia trachomatis, PRAKASH (test dsjf=[id number]) Negative Negative Neisseria gonorrhoeae, PRAKASH (test papd=[id number]) Negative Negative HIV [id number] 21:56:00 Test Item Value Reference Range Comments HIV 1/2 Antibody (test Non-Reactive Non-Reactive HIV1/2 Antibody screen result code=HIV1/2AB) indicates the absence of HIV1 and VWZ1difmbldqt.However, A Non-Reactive screen result does not rule [...] suspected, HIV RNA Quantitative is recommended. RPR, [id number] 13:36:00 Test Item Value Reference Range Comments RPR (test code=RPR) Non-Reactive Non-Reactive Thyroid Stimulating Hormone (TSH)2017-06-02 07:20:00 Test Item Value Reference Range Comments TSH (test code=TSH) 1.46 mIU/mL 0.270-4.200 Lipid [id number] 07:13:00 Test Item Value Reference Range Comments Cholesterol (test 148 mg/dL 0-200 code=CHOL) Triglycerides (test 85 mg/dL 9-200 code=TRIG) HDL (test code=HDL) 42 mg/dL 50-60 Chol/HDL (test 3.5 Ratio 0.0-4.4 code=CHOLPHDL) LDL, Calculated (test 89 0-130 (NOTE)RISK OF HEART code=LDLC) DISEASEPublished by British Heart AssociationAnalyte Optimal Boderline Increased RiskCHOL <200 200-239 >240TRIG <150 150-199 >200HDL Male: >60 <40HDL Female: >60 <50LDL <100 130-159 >160LDL NEAR OPTIMAL IS 100-129 VLDL (test code=VLDL) 17 mg/dL 5-40 LDL/HDL (test code=LDLPHDL) 2 Comprehensive Metabolic [id number] 21:39:00 Test Item Value Reference Range Comments [...] race is not provided, and the patient isAfrican-British, multiply by 1.212. If sex is not provided, and thepatient is female, multiply by 0.742. Results for patients <18 years ofage have not been validated by the MDRD study and should be interpretedwith caution.eGFR Result Interpretation:eGFR > or=60 is in the Normal RangeeGFR < 60 may mean kidney diseaseeGFR < 15 may mean kidney failureRanges recommended by the National Kidney Foundation,http://nkdep.nih .gov Urinalysis [id number] 21:39:00 Test Item Value Reference Range Comments Color (test code=COLOR) Yellow Yellow,Straw,Pl yellow Clarity (test code=CLAR) Cloudy Clear Specific [place] (test 1.036 1.001-1.035 code=SPGR) pH (test code=PH) [...] code=AMORD) Bacteria (test code=BACT) Moderate /HPF Alcohol/Ethanol, [id number] 21:37:00 Test Item Value Reference Range Comments Alcohol, Ethyl (test <0.01 g/dL 0.00-0.01 Intoxicated 0.080 g/dL or code=ETOH) more BHCG, Serum, [id number] 21:37:00 Test Item Value Reference Range Comments Preg Qual [Se] (test code=BSHCG) Negative Negative [id number] 21:36:00 Test Item Value Reference Range Comments [...] THC (test code=THC) POSITIVE Negative CBC with [id number] 21:33:00 Test Item Value Reference Range Comments [...] Lymph Abs (test code=ALYMPH) 3.3 K/cumm 0.5-4.6 [place] Abs (test code=AMONO) 0.6 K/cumm 0.0-1.2 Eos Abs (test code=AEOS) 0.17 K/cumm 0.00-0.74 Baso Abs (test code=ABASO) 0.0 K/cumm 0.00-0.21 BHCG, Urine, [id number] 14:05:00 Test Item Value Reference Range Comments Preg Qual [Ur] (test code=HUHCG) Negative Negative RPR, [id number] 16:02:00 Test Item Value Reference Range Comments RPR (test code=RPR) Non-Reactive Non-Reactive Thyroid Stimulating Hormone (TSH)2017-02-14 11:18:00 Test Item Value Reference Range Comments TSH (test code=TSH) 0.55 mIU/mL 0.270-4.200 Lipid [id number] 11:11:00 Test Item Value Reference Range Comments Cholesterol (test 147 mg/dL 0-200 code=CHOL) Triglycerides (test 79 mg/dL 9-200 code=TRIG) HDL (test code=HDL) 51 mg/dL 50-60 Chol/HDL (test 2.9 Ratio 0.0-4.4 code=CHOLPHDL) LDL, Calculated (test 80 0-130 (NOTE)RISK OF HEART code=LDLC) DISEASEPublished by British Heart AssociationAnalyte Optimal Boderline Increased RiskCHOL <200 200-239 >240TRIG <150 150-199 >200HDL Male: >60 <40HDL Female: >60 <50LDL <100 130-159 >160LDL NEAR OPTIMAL IS 100-129 VLDL (test code=VLDL) 16 mg/dL 5-40 LDL/HDL (test code=LDLPHDL) 2
--- NOTE | 2018-07-16 01:19 | ER ---
Nurse's Notes [facility] Name: Jael Lugo Age: 22 yrs Sex: Female : 1995 Arrival Date: 07/15/2018 Time: 22:06 Bed 11 Private MD: Diagnosis: Cutaneous abscess of buttock Presentation: 07/15 22:40 Presenting complaint: Patient states: Pt reports she had dropped stuff at work and ea reports she may have displaced her control implant. Reports multiple cyst on her buttock that started around four days ago. Transition of care: patient was not received from another setting of care. Onset of symptoms was July 15, 2018. Risk Assessment: Do you want to hurt yourself or someone else? Patient reports no desire to harm self or others. Initial Sepsis Screen: Does the patient meet any 2 criteria? No. Patient's initial sepsis screen is negative. Does the patient have a suspected source of infection? No. Patient's initial sepsis screen is negative. Care prior to arrival: None. 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 - Social history:: Smoking status: Patient uses tobacco products, smokes one-half pack cigarettes per day. - Ebola Screening: : No symptoms or risks identified at this time. Screenin/12 02:13 Abuse screen: Denies threats or abuse. Denies injuries from another. Nutritional lp1 screening: No deficits noted. Tuberculosis screening: No symptoms or risk factors identified. Fall Risk None identified. Assessment: 02:13 Reassessment:. General: Appears in no apparent distress. Behavior is appropriate for lp1 age. Pain: Complains of pain in buttocks. Neuro: No deficits noted. Cardiovascular: No deficits noted. Respiratory: No deficits noted. GI: No deficits noted. : No deficits noted. EENT: No deficits noted. Derm: Reports abscess to buttocks. Musculoskeletal: No deficits noted. Vital Signs: 03 22:47 BP 90 / 56; Pulse 97; Resp 18; Temp 98.3(O); Pulse Ox 100% ; Weight 70.31 kg; Height 5 ea ft. 7 in. (170.18 cm) (R); 22:47 Body Mass Index 24.28 (70.31 kg, 170.18 cm) ea ED Course: 22:06 Patient arrived in ED. am2 22:43 Triage completed. ea 22:46 Arm band placed on right wrist. Patient placed in waiting room. ea 03 00:27 Jaylin White, RN is Primary Nurse. ak1 00:58 Yamini Lopez, RN is Primary Nurse. lp1 01:00 Laurie Hendrix FNP-C is [facility]. kb 01:00 Ernie Lambert MD is Attending Physician. kb 02:14 No provider procedures requiring assistance completed. Patient did not have IV access lp1 during this emergency room visit. 02:15 Patient has correct armband on for positive identification. lp1 Administered Medications: 01:52 Drug: TORadol 60 mg Route: IM; Site: right gluteus; lp1 02:15 Follow up: Response: Marked relief of symptoms lp1 01:52 Drug: Bactrim (160 mg-800 mg (DS) 1 tablet Route: PO; lp1 02:15 Follow up: Response: No adverse reaction; Medication administered at discharge. lp1 01:52 Drug: KeFLEX 500 mg Route: PO; lp1 02:16 Follow up: Response: No adverse reaction; Medication administered at discharge. lp1 Outcome: 01:18 Discharge ordered by . kb 02:15 Discharged to home ambulatory. lp1 02:15 Condition: good 02:15 Discharge instructions given to patient, Instructed on discharge instructions, follow up and referral plans. medication usage, Demonstrated understanding of instructions, follow-up care, medications, Prescriptions given X 2. 02:16 Patient left the ED. lp1 Signatures: Laurie Hendrix FNP-C FNP-Yamini Shepard, RN GAUTAM lp1 Jaylin White, RN RN ak1 Corazon Hardy am2 Cecelia Marques RN RN ea Corrections: (The following items were deleted from the chart) 02:15 02:13 General: Appears in no apparent distress. lp1 lp1
--- NOTE | 2018-07-16 01:19 | EDPHYS ---
Physician Documentation [facility] Name: Jael Lugo Age: 22 yrs Sex: Female : 1995 Arrival Date: 07/15/2018 Time: 22:06 Bed 11 Private MD: ED Physician Ernie Lambert HPI: 07/16 01:15 This 22 yrs old Black Female presents to ER via Ambulatory with complaints of Cyst. kb 01:16 The patient presents with an abscess of the right gluteal fold and left gluteus kb sindy. Description: The affected area is very small, erythematous, swollen. Onset: The symptoms/episode began/occurred 5 day(s) ago. Possible cause(s): unknown. Associated signs and symptoms: Pertinent positives: erythema, swelling, Pertinent negatives: discharge, drainage, foreign body sensation, fever, headache, nausea, shortness of breath, vomiting. Modifying factors: the symptoms are alleviated by nothing, the symptoms are aggravated by walking, pressure, squeezing the lesion and expressing the contents, touching. Severity of symptoms: At their worst the symptoms were moderate, in the emergency department the symptoms are unchanged. The patient has not experienced similar symptoms in the past. The patient has not recently seen a physician. Pt c/o multiple small abscesses on left buttock and one on right gluteal fold that developed 4-5 days ago. No fluctuance noted. . 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 - Social history:: Smoking status: Patient uses tobacco products, smokes one-half pack cigarettes per day. - Ebola Screening: : No symptoms or risks identified at this time. ROS: 07/16 01:15 Constitutional: Negative for fever, chills, and weight loss, Cardiovascular: Negative kb for chest pain, palpitations, and edema, Respiratory: Negative for shortness of breath, cough, wheezing, and pleuritic chest pain, Abdomen/GI: Negative for abdominal pain, nausea, vomiting, diarrhea, and constipation, MS/Extremity: Negative for injury and deformity, Neuro: Negative for headache, weakness, numbness, tingling, and seizure. Skin: Positive for abscess, of the left gluteus sindy and right gluteal fold. Exam: 01:15 Constitutional: This is a well developed, well nourished patient who is awake, alert, kb and in no acute distress. Head/Face: Normocephalic, atraumatic. Chest/axilla: Normal chest wall appearance and motion. Nontender with no deformity. No lesions are appreciated. Cardiovascular: Regular rate and rhythm with a normal S1 and S2. No gallops, murmurs, or rubs. Normal PMI, no JVD. No pulse deficits. Respiratory: Lungs have equal breath sounds bilaterally, clear to auscultation and percussion. No rales, rhonchi or wheezes noted. No increased work of breathing, no retractions or nasal flaring. Abdomen/GI: Soft, non-tender, with normal bowel sounds. No distension or tympany. No guarding or rebound. No evidence of tenderness throughout. MS/ Extremity: Pulses equal, no cyanosis. Neurovascular intact. Full, normal range of motion. Neuro: Awake and alert, GCS 15, oriented to person, place, time, and situation. Cranial nerves II-XII grossly intact. Motor strength 5/5 in all extremities. Sensory grossly intact. Cerebellar exam normal. Normal gait. 01:15 Skin: abscess, that is small, of the right gluteal fold and left gluteus sindy, with induration. Vital Signs: 07/15 22:47 BP 90 / 56; Pulse 97; Resp 18; Temp 98.3(O); Pulse Ox 100% ; Weight 70.31 kg; Height 5 ea ft. 7 in. (170.18 cm) (R); 22:47 Body Mass Index 24.28 (70.31 kg, 170.18 cm) ea MDM: 07/16 01:00 Patient medically screened. kb 01:14 Data reviewed: vital signs, nurses notes. Data interpreted: Pulse oximetry: on room air kb is 100 %. Interpretation: normal. Counseling: I had a detailed discussion with the patient and/or guardian regarding: the historical points, exam findings, and any diagnostic results supporting the discharge/admit diagnosis, the need for outpatient follow up, a family practitioner, to return to the emergency department if symptoms worsen or persist or if there are any questions or concerns that arise at home. Administered Medications: 01:52 Drug: TORadol 60 mg Route: IM; Site: right gluteus; lp1 02:15 Follow up: Response: Marked relief of symptoms lp1 01:52 Drug: Bactrim (160 mg-800 mg (DS) 1 tablet Route: PO; lp1 02:15 Follow up: Response: No adverse reaction; Medication administered at discharge. lp1 01:52 Drug: KeFLEX 500 mg Route: PO; lp1 02:16 Follow up: Response: No adverse reaction; Medication administered at discharge. lp1 Disposition: 10:22 Co-signature as Attending Physician, Ernie Lambert MD I agree with the assessment and wa plan of care. Disposition: 07/16/18 01:18 Discharged to Home. Impression: Cutaneous abscess of buttock. - Condition is Stable. - Discharge Instructions: Skin Abscess, [id number]-wz-[id number]. - Prescriptions for Keflex 500 mg Oral Capsule - take 1 capsule by ORAL route every 8 hours for 10 days; 30 capsule. Bactrim DS 800- 160 mg Oral Tablet - take 1 tablet by ORAL route every 12 hours for 10 days; 20 tablet. - Medication Reconciliation Form, Thank You Letter, Antibiotic Education, Prescription Opioid Use form. - Follow up: Emergency Department; When: As needed; Reason: Worsening of condition. Follow up: Private Physician; When: 2 - 3 days; Reason: Recheck today's complaints, Continuance of care, Re-evaluation by your physician. Signatures: Laurie Hendrix, JACKSON-C JACKSON-Yamini Shepard RN RN lp1 Cecelia Marques RN RN ea [place], William, MD MD wa Corrections: (The following items were deleted from the chart) 02:16 01:18 07/16/2018 01:18 Discharged to Home. Impression: Cutaneous abscess of buttock. lp1 Condition is Stable. Forms are Medication Reconciliation Form, Thank You Letter, Antibiotic Education, Prescription Opioid Use. Follow up: Emergency Department; When: As needed; Reason: Worsening of condition. Follow up: Private Physician; When: 2 - 3 days; Reason: Recheck today's complaints, Continuance of care, Re-evaluation by your physician. kb
[2018-07-16] MEDS ORDERED: KETOROLAC 30 MG/ML INJ ONE (01:54)
[2018-07-16] MEDS ORDERED: CEPHALEXIN 250 MG CAP ONE (01:54)
[2018-07-16] MEDS ORDERED: SMZ./TMP. 800/160 MG TABLET ONE (01:54)
[2018-07-16 03:06] VITALS: BP 90/56; TEMP 98.3; O2SAT 100
== END 2018-07-16 02:16 | disposition home or self-care (01) ==
LOC: ER 21:42
DX: L02.31 Cutaneous abscess of buttock (principal); F31.9 Bipolar disorder, unspecified; F20.9 Schizophrenia, unspecified; F17.210 Nicotine dependence, cigarettes, uncomplicated
CPT/HCPCS: 96372; 99283

== ENCOUNTER 2018-08-30 09:55 | Emergency (ER) | payer OTHER ==
--- OUTSIDE RECORDS SUMMARY | 2018-08-30 09:59 | XMS REPORT ---
:1995 [facility] Address [address] [place] [address] Dr. Durbin [address] [place] [id number] Care Team Providers Name Role Phone UNKNOWN, [...] Facility Department ID 2017-06-02 2017-06-15 [id number]:23:00 13:37:00 Jane GARCIA Results Test Description Test Time Test Comments Text Results Atomic Results Result Comments Chlamydia/GC Amplification 2017-06-09 17:46:00 Test Item Value Reference Range Comments Chlamydia trachomatis, PRAKASH (test xnbb=[id number]) Negative Negative Neisseria gonorrhoeae, PRAKASH (test jvib=[id number]) Negative Negative HIV [id number] 21:56:00 Test Item Value Reference Range Comments HIV 1/2 Antibody (test Non-Reactive Non-Reactive HIV1/2 Antibody screen result code=HIV1/2AB) indicates the absence of HIV1 and GVR6mvanxclse.However, A Non-Reactive screen result does not rule [...] suspected, HIV RNA Quantitative is recommended. RPR, [id number] 13:36:00 Test Item Value Reference Range Comments RPR (test code=RPR) Non-Reactive Non-Reactive Thyroid Stimulating Hormone (TSH)2017-06-02 07:20:00 Test Item Value Reference Range Comments TSH (test code=TSH) 1.46 mIU/mL 0.270-4.200 Lipid [id number] 07:13:00 Test Item Value Reference Range Comments Cholesterol (test 148 mg/dL 0-200 code=CHOL) Triglycerides (test 85 mg/dL 9-200 code=TRIG) HDL (test code=HDL) 42 mg/dL 50-60 Chol/HDL (test 3.5 Ratio 0.0-4.4 code=CHOLPHDL) LDL, Calculated (test 89 0-130 (NOTE)RISK OF HEART code=LDLC) DISEASEPublished by [place] Heart AssociationAnalyte Optimal Boderline Increased RiskCHOL <200 200-239 >240TRIG <150 150-199 >200HDL Male: >60 <40HDL Female: >60 <50LDL <100 130-159 >160LDL NEAR OPTIMAL IS 100-129 VLDL (test code=VLDL) 17 mg/dL 5-40 LDL/HDL (test code=LDLPHDL) 2 Comprehensive Metabolic [id number] 21:39:00 Test Item Value Reference Range Comments [...] race is not provided, and the patient isAfrican-Georgian, multiply by 1.212. If sex is not provided, and thepatient is female, multiply by 0.742. Results for patients <18 years ofage have not been validated by the MDRD study and should be interpretedwith caution.eGFR Result Interpretation:eGFR > or=60 is in the Normal RangeeGFR < 60 may mean kidney diseaseeGFR < 15 may mean kidney failureRanges recommended by the National Kidney Foundation,http://nkdep.nih .gov Urinalysis [id number] 21:39:00 Test Item Value Reference Range Comments Color (test code=COLOR) Yellow Yellow,Straw,Pl yellow Clarity (test code=CLAR) Cloudy Clear Specific [place] (test 1.036 1.001-1.035 code=SPGR) pH (test code=PH) [...] code=AMORD) Bacteria (test code=BACT) Moderate /HPF Alcohol/Ethanol, [id number] 21:37:00 Test Item Value Reference Range Comments Alcohol, Ethyl (test <0.01 g/dL 0.00-0.01 Intoxicated 0.080 g/dL or code=ETOH) more BHCG, Serum, [id number] 21:37:00 Test Item Value Reference Range Comments Preg Qual [Se] (test code=BSHCG) Negative Negative [id number] 21:36:00 Test Item Value Reference Range Comments [...] THC (test code=THC) POSITIVE Negative CBC with [id number] 21:33:00 Test Item Value Reference Range Comments [...] Lymph Abs (test code=ALYMPH) 3.3 K/cumm 0.5-4.6 [place] Abs (test code=AMONO) 0.6 K/cumm 0.0-1.2 Eos Abs (test code=AEOS) 0.17 K/cumm 0.00-0.74 Baso Abs (test code=ABASO) 0.0 K/cumm 0.00-0.21 BHCG, Urine, [id number] 14:05:00 Test Item Value Reference Range Comments Preg Qual [Ur] (test code=HUHCG) Negative Negative RPR, [id number] 16:02:00 Test Item Value Reference Range Comments RPR (test code=RPR) Non-Reactive Non-Reactive Thyroid Stimulating Hormone (TSH)2017-02-14 11:18:00 Test Item Value Reference Range Comments TSH (test code=TSH) 0.55 mIU/mL 0.270-4.200 Lipid [id number] 11:11:00 Test Item Value Reference Range Comments Cholesterol (test 147 mg/dL 0-200 code=CHOL) Triglycerides (test 79 mg/dL 9-200 code=TRIG) HDL (test code=HDL) 51 mg/dL 50-60 Chol/HDL (test 2.9 Ratio 0.0-4.4 code=CHOLPHDL) LDL, Calculated (test 80 0-130 (NOTE)RISK OF HEART code=LDLC) DISEASEPublished by [place] Heart AssociationAnalyte Optimal Boderline Increased RiskCHOL <200 200-239 >240TRIG <150 150-199 >200HDL Male: >60 <40HDL Female: >60 <50LDL <100 130-159 >160LDL NEAR OPTIMAL IS 100-129 VLDL (test code=VLDL) 16 mg/dL 5-40 LDL/HDL (test code=LDLPHDL) 2
[2018-08-30] MEDS ORDERED: KETOROLAC 30 MG/ML INJ ONE (10:40)
[2018-08-30] MEDS ORDERED: NA CHLORIDE 0.9% 1,000 ML ONE (10:41)
[2018-08-30 11:07] LABS: Urine Blood 2+ (NEG); Urine Glucose NEGATIVE (NEG); Urine Protein TRACE (NEG); Urine Specific Gravity 1.025 (1.005-1.030)
[2018-08-30 11:22] LABS: Absolute Lymphocytes (CBC) 3.1 K/uL (0.7-4.9); Absolute Monocytes 0.6 K/uL (0.1-1.3); Absolute Neutrophil 4.6 K/uL (1.8-8.0); Basophils % 0.7 % (0-1.3); Eosinophils % 1.4 % (0-4.4); Hematocrit 36.6 % (36.0-45.0); Lymphocytes % 36.9 % (15.3-44.8); MPV 7.5 fL (7.6-11.3); Monocytes % 6.8 % (3.3-12.3); RBC Red Blood Cell Count 3.96 M/uL (3.86-4.86)
[2018-08-30 11:36] LABS: BUN Blood Urea Nitrogen 6 mg/dL (7-18); Bicarbonate 29 mmol/L (21-32); Glucose Level 91 mg/dL (74-106); Potassium 3.6 mmol/L (3.5-5.1); Sodium Level 142 mmol/L (136-145)
--- NOTE | 2018-08-30 12:44 | RAD REPORT ---
EXAM DESCRIPTION: US - Transvaginal Study Probe - 08/30/2018 12:27 pm CLINICAL HISTORY: Pelvic pain with vaginal bleeding COMPARISON: none FINDINGS: The uterus is retroverted measuring 7 x 5 x 6 centimeters. A fibroid is not seen. The endometrium is filled with echogenic material. Endometrial stripe measures 12 millimeters. The ovaries are normal in size and echotexture. Right and left adnexal unremarkable Small amount of free fluid is present IMPRESSION: Echogenic material within the endometrium may represent blood. It is recommended that th e patient have a followup endovaginal sonogram in a couple months to reassess the endometrium
--- NOTE | 2018-08-30 12:54 | ER ---
Nurse's Notes [facility] Name: Jael Lugo Age: 22 yrs Sex: Female : 1995 Arrival Date: 08/30/2018 Time: 09:58 Bed 19 Private MD: Diagnosis: Dysmenorrhea, unspecified Presentation: 08/30 10:12 Presenting complaint: Patient states: has been spotting all month, started having heavy iw bleeding X 3 days ago and lower abd cramps this morning, usually has regular periods, has been seen at [facility] recently with plans to start control for PCOS. Transition of care: patient was not received from another setting of care. Onset of symptoms was August 30, 2018. Risk Assessment: Do you want to hurt yourself or someone else? Patient reports no desire to harm self or others. Initial Sepsis Screen: Does the patient meet any 2 criteria? No. Patient's initial sepsis screen is negative. Does the patient have a suspected source of infection? No. Patient's initial sepsis screen is negative. Care prior to arrival: None. 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 - Social history:: Smoking status: Patient uses tobacco products, denies chronic smoking, but will smoke occasionally. - Ebola Screening: : Patient negative for fever greater than or equal to 101.5 degrees Fahrenheit, and additional compatible Ebola Virus Disease symptoms Patient denies exposure to infectious person Patient denies travel to an Ebola-affected area in the 21 days before illness onset No symptoms or risks identified at this time. Screenin:30 Abuse screen: Denies threats or abuse. Nutritional screening: No deficits noted. em Tuberculosis screening: No symptoms or risk factors identified. Fall Risk None identified. Assessment: 10:40 General: Appears in no apparent distress. comfortable, Behavior is calm, cooperative, em Denies fever. Pain: Complains of pain in suprapubic area Pain currently is 8 out of 10 on a pain scale. Pain began 1 day ago. Neuro: Level of Consciousness is awake, alert, obeys commands, Oriented to person, place, time, situation. Cardiovascular: Capillary refill < 3 seconds Patient's skin is warm and dry. Respiratory: Airway is patent Respiratory effort is even, unlabored, Respiratory pattern is regular, symmetrical. GI: Abdomen is flat, Bowel sounds present X 4 quads. Abd is soft and non tender X 4 quads. Reports nausea, Patient currently denies vomiting. : Reports cramping, vaginal bleeding that is bright red, Denies burning with urination, discharge. Derm: Skin is intact, is healthy with good turgor, Skin is pink, warm \\T\\ dry. Musculoskeletal: Range of motion: intact in all extremities. 10:45 Reassessment: Patient appears in no apparent distress at this time. No changes from iw previously documented assessment. I agree with above assessment by Jose Rodrigues LVN. 11:47 Reassessment: Patient and/or family updated on plan of care and expected duration. Pain em level reassessed. Patient is alert, oriented x 3, equal unlabored respirations, skin warm/dry/pink. rates pain 5/10 Patient states feeling better. 12:47 Reassessment: Patient appears in no apparent distress at this time. Patient and/or em family updated on plan of care and expected duration. Pain level reassessed. Patient is alert, oriented x 3, equal unlabored respirations, skin warm/dry/pink. 13:34 Reassessment: Patient appears in no apparent distress at this time. Patient and/or em family updated on plan of care and expected duration. Pain level reassessed. Patient is alert, oriented x 3, equal unlabored respirations, skin warm/dry/pink. Patient states feeling better. Vital Signs: 10:14 BP 114 / 77; Pulse 74; Resp 16; Temp 98.3; Pulse Ox 100% on R/A; Weight 64.41 kg; iw Height 5 ft. 7 in. (170.18 cm); Pain 8/10; 11:00 BP 113 / 81; Pulse 63; Resp 18; Pulse Ox 99% on R/A; em 12:00 BP 125 / 76; Pulse 59; Resp 18; Pulse Ox 99% on R/A; em 13:35 BP 114 / 74; Pulse 61; Resp 18; Pulse Ox 99% on R/A; Pain 5/10; em 10:14 Body Mass Index 22.24 (64.41 kg, 170.18 cm) iw ED Course: 09:58 Patient arrived in ED. rg4 10:03 Laurie Hendrix FNP-C is PHCP. kb 10:03 Jameel Elizabeth MD is Attending Physician. kb 10:14 Triage completed. iw 10:15 Arm band placed on. iw 10:24 Jose Rodrigues LVN is Primary Nurse. em 10:30 Patient has correct armband on for positive identification. Placed in gown. Bed in low em position. Call light in reach. Pulse ox on. NIBP on. 10:45 Missed attempt(s): 22 gauge in right hand. Bleeding controlled, band aid applied, em catheter tip intact. 10:55 Initial lab(s) drawn, by me, sent to lab. Inserted saline lock: 22 gauge in right dh3 forearm, using aseptic technique. Blood collected. 12:27 US Transvaginal Study (Probe) In Process Unspecified. EDMS 13:31 No provider procedures requiring assistance completed. IV discontinued, intact, em bleeding controlled, No redness/swelling at site. Pressure dressing applied. Administered Medications: 11:03 Drug: NS 0.9% 1000 ml Route: IV; Rate: 1000 ml; Site: left forearm; iw 12:00 Follow up: IV Status: Completed infusion; IV Intake: 1000ml em 11:03 Drug: TORadol 30 mg Route: IVP; Site: left forearm; iw 12:00 Follow up: Response: No adverse reaction; Pain is decreased em 12:54 Drug: Murray 5 mg-325 mg 1 tabs Route: PO; em 13:35 Follow up: Response: No adverse reaction; Pain is decreased em Intake: 12:00 IV: 1000ml; Total: 1000ml. em Outcome: 12:54 Discharge ordered by . kb 13:31 Discharged to home ambulatory, with family. em 13:31 Condition: good 13:31 Discharge instructions given to patient, Instructed on discharge instructions, follow up and referral plans. medication usage, Demonstrated understanding of instructions, follow-up care, medications, Prescriptions given X 1. 13:36 Patient left the ED. em Signatures: Dispatcher [employer] Laurie Souza, SUPERVISOR COMPUTER OPERATIONS-C SUPERVISOR COMPUTER OPERATIONS-Jose Vazquez, WIRING TECHNICIAN WIRING TECHNICIAN em Kalyn Ramos, GAUTAM RN Carolina Khan 4 Shanell Shell 3
--- NOTE | 2018-08-30 12:54 | EDPHYS ---
Physician Documentation [facility] Name: Jael Lugo Age: 22 yrs Sex: Female : 1995 Arrival Date: 08/30/2018 Time: 09:58 Bed 19 Private MD: ED Physician Jameel Elizabeth HPI: 08/30 10:34 This 22 yrs old Black Female presents to ER via Ambulatory with complaints of Abdominal kb Cramping, Vaginal Bleeding. 10:34 The patient has not experienced similar symptoms in the past. The patient has not kb recently seen a physician. 10:36 The patient presents with vaginal bleeding that is heavy. Onset: The symptoms/episode kb began/occurred 1 month(s) ago, and became worse 3 day(s) ago. Modifying factors: The symptoms are alleviated by nothing, the symptoms are aggravated by nothing. Associated signs and symptoms: Pertinent positives: cramping, vaginal bleeding. Severity of symptoms: At their worst the symptoms were moderate, in the emergency department the symptoms are unchanged. Pt reports spotting for a month, heavy vaginal bleeding for 3 days. states she was recently diagnosed with PCOS and is supposed to start control soon. Has appt with rn telephone triage in 2 weeks. Came today because cramping was worse. 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 - Social history:: Smoking status: Patient uses tobacco products, denies chronic smoking, but will smoke occasionally. - Ebola Screening: : Patient negative for fever greater than or equal to 101.5 degrees Fahrenheit, and additional compatible Ebola Virus Disease symptoms Patient denies exposure to infectious person Patient denies travel to an Ebola-affected area in the 21 days before illness onset No symptoms or risks identified at this time. ROS: 10:33 Constitutional: Negative for fever, chills, and weight loss, Neck: Negative for injury, kb pain, and swelling, Cardiovascular: Negative for chest pain, palpitations, and edema, Respiratory: Negative for shortness of breath, cough, wheezing, and pleuritic chest pain, Back: Negative for injury and pain, MS/Extremity: Negative for injury and deformity, Skin: Negative for injury, rash, and discoloration, Neuro: Negative for headache, weakness, numbness, tingling, and seizure. 10:33 Abdomen/GI: Positive for nausea, abdominal cramps. 10:33 : Positive for vaginal bleeding. Exam: 10:32 Constitutional: This is a well developed, well nourished patient who is awake, alert, kb and in no acute distress. Head/Face: Normocephalic, atraumatic. Chest/axilla: Normal chest wall appearance and motion. Nontender with no deformity. No lesions are appreciated. Cardiovascular: Regular rate and rhythm with a normal S1 and S2. No gallops, murmurs, or rubs. Normal PMI, no JVD. No pulse deficits. Respiratory: Lungs have equal breath sounds bilaterally, clear to auscultation and percussion. No rales, rhonchi or wheezes noted. No increased work of breathing, no retractions or nasal flaring. Back: No spinal tenderness. No costovertebral tenderness. Full range of motion. Skin: Warm, dry with normal turgor. Normal color with no rashes, no lesions, and no evidence of cellulitis. Neuro: Awake and alert, GCS 15, oriented to person, place, time, and situation. Cranial nerves II-XII grossly intact. Motor strength 5/5 in all extremities. Sensory grossly intact. Cerebellar exam normal. Normal gait. 10:32 Abdomen/GI: Inspection: distension, that is mild, in the suprapubic area, Bowel sounds: normal, in all quadrants, Palpation: soft, in all quadrants, moderate abdominal tenderness, in the right lower quadrant and left lower quadrant. Vital Signs: 10:14 BP 114 / 77; Pulse 74; Resp 16; Temp 98.3; Pulse Ox 100% on R/A; Weight 64.41 kg; iw Height 5 ft. 7 in. (170.18 cm); Pain 8/10; 11:00 BP 113 / 81; Pulse 63; Resp 18; Pulse Ox 99% on R/A; em 12:00 BP 125 / 76; Pulse 59; Resp 18; Pulse Ox 99% on R/A; em 13:35 BP 114 / 74; Pulse 61; Resp 18; Pulse Ox 99% on R/A; Pain 5/10; em 10:14 Body Mass Index 22.24 (64.41 kg, 170.18 cm) iw MDM: 10:03 Patient medically screened. kb 10:32 Data reviewed: vital signs, nurses notes. Data interpreted: Pulse oximetry: on room air kb is 100 %. Interpretation: normal. 12:53 Counseling: I had a detailed discussion with the patient and/or guardian regarding: the kb historical points, exam findings, and any diagnostic results supporting the discharge/admit diagnosis, lab results, radiology results, the need for outpatient follow up, an OB/Gyne specialist, to return to the emergency department if symptoms worsen or persist or if there are any questions or concerns that arise at home. 08/30 10:10 Order name: CBC with Diff; Complete Time: 11:34 kb 08/30 10:10 Order name: Basic Metabolic Panel; Complete Time: 11:40 kb 08/30 11:04 Order name: Urine Dipstick--Ancillary (enter results); Complete Time: 11:10 eb 08/30 11:04 Order name: Urine --Ancillary (enter results); Complete Time: 11:10 eb 08/30 11:41 Order name: US Transvaginal Study (Probe); Complete Time: 12:49 kb 08/30 10:10 Order name: Urine Dipstick-Ancillary (obtain specimen); Complete Time: 10:56 kb 08/30 10:10 Order name: Urine Test (obtain specimen); Complete Time: 10:56 kb 08/30 10:10 Order name: IV Start; Complete Time: 10:56 kb Administered Medications: 11:03 Drug: NS 0.9% 1000 ml Route: IV; Rate: 1000 ml; Site: left forearm; iw 12:00 Follow up: IV Status: Completed infusion; IV Intake: 1000ml em 11:03 Drug: TORadol 30 mg Route: IVP; Site: left forearm; iw 12:00 Follow up: Response: No adverse reaction; Pain is decreased em 12:54 Drug: Crosby 5 mg-325 mg 1 tabs Route: PO; em 13:35 Follow up: Response: No adverse reaction; Pain is decreased em Disposition: 17:14 Co-signature as Attending Physician, Jameel Elizabeth MD. ma2 Disposition: 08/30/18 12:54 Discharged to Home. Impression: Dysmenorrhea, unspecified. - Condition is Stable. - Discharge Instructions: Dysmenorrhea, [id number]. - Prescriptions for Diclofenac Sodium 75 mg Oral Tablet, Delayed Release (E.C.) - take 1 tablet by ORAL route 2 times per day As needed; 30 tablet. - Medication Reconciliation Form, Thank You Letter, Antibiotic Education, Prescription Opioid Use form. - Follow up: Emergency Department; When: As needed; Reason: Worsening of condition. Follow up: Private Physician; When: 2 - 3 days; Reason: Recheck today's complaints, Continuance of care, Re-evaluation by your physician. Signatures: Dispatcher [employer] Laurie Souza, JACKSON-Kevyn PAINT SPRAYING MACHINE OPERATOR HELPER-Jose Vazquez, SHELL ASSEMBLER SHELL ASSEMBLER Kalyn Ramos RN RN iw Alzahri, Mohammad, MD MD ma2 Corrections: (The following items were deleted from the chart) 13:36 12:54 08/30/2018 12:54 Discharged to Home. Impression: Dysmenorrhea, unspecified. em Condition is Stable. Forms are Medication Reconciliation Form, Thank You Letter, Antibiotic Education, Prescription Opioid Use. Follow up: Emergency Department; When: As needed; Reason: Worsening of condition. Follow up: Private Physician; When: 2 - 3 days; Reason: Recheck today's complaints, Continuance of care, Re-evaluation by your physician. kb
[2018-08-30] MEDS ORDERED: HYDROCODONE/APAP 5/325 MG TAB ONE (13:05)
[2018-08-30 13:45] VITALS: TEMP 98.3
[2018-08-30 13:47] VITALS: O2SAT 99
[2018-08-30 13:49] VITALS: BP 114/74
== END 2018-08-30 13:36 | disposition home or self-care (01) ==
LOC: ER 09:55
DX: N94.6 Dysmenorrhea, unspecified (principal)
CPT/HCPCS: 36415; 76830; 80048; 81003; 81025; 85025; 96361; 96374; 99284; J7030

== ENCOUNTER 2019-01-13 10:06 | Emergency (ER) | payer OTHER, SELFPAY ==
--- OUTSIDE RECORDS SUMMARY | 2019-01-13 10:09 | XMS REPORT ---
:1995 Author Organization [facility] Address [address] [place] [address] Care Team Providers Name Role Phone UNKNOWN, [...] Facility Department ID 2017-06-02 2017-06-15 [facility] [id number] 00:23:00 13:37:00 Jane GARCIA Results Test Description Test Time Test Comments Text Results Atomic Results Result Comments Chlamydia/GC Amplification 2017-06-09 17:46:00 Test Item Value Reference Range Comments Chlamydia trachomatis, PRAKASH (test [id number]) Negative Negative Neisseria gonorrhoeae, PRAKASH (test [id number]) Negative Negative HIV [id number] 21:56:00 Test Item Value Reference Range Comments HIV 1/2 Antibody (test Non-Reactive Non-Reactive HIV1/2 Antibody screen result code=HIV1/2AB) indicates the absence of HIV1 and FDH8dsqslhnsq.However, A Non-Reactive screen result does not rule [...] suspected, HIV RNA Quantitative is recommended. RPR, [id number] 13:36:00 Test Item Value Reference Range Comments RPR (test code=RPR) Non-Reactive Non-Reactive Thyroid Stimulating Hormone (TSH)2017-06-02 07:20:00 Test Item Value Reference Range Comments TSH (test code=TSH) 1.46 mIU/mL 0.270-4.200 Lipid [id number] 07:13:00 Test Item Value Reference Range Comments Cholesterol (test 148 mg/dL 0-200 code=CHOL) Triglycerides (test 85 mg/dL 9-200 code=TRIG) HDL (test code=HDL) 42 mg/dL 50-60 Chol/HDL (test 3.5 Ratio 0.0-4.4 code=CHOLPHDL) LDL, Calculated (test 89 0-130 (NOTE)RISK OF HEART code=LDLC) DISEASEPublished by Filipino Heart AssociationAnalyte Optimal Boderline Increased RiskCHOL <200 200-239 >240TRIG <150 150-199 >200HDL Male: >60 <40HDL Female: >60 <50LDL <100 130-159 >160LDL NEAR OPTIMAL IS 100-129 VLDL (test code=VLDL) 17 mg/dL 5-40 LDL/HDL (test code=LDLPHDL) 2 Comprehensive Metabolic [id number] 21:39:00 Test Item Value Reference Range Comments [...] race is not provided, and the patient isAfrican-Filipino, multiply by 1.212. If sex is not provided, and thepatient is female, multiply by 0.742. Results for patients <18 years ofage have not been validated by the MDRD study and should be interpretedwith caution.eGFR Result Interpretation:eGFR > or=60 is in the Normal RangeeGFR < 60 may mean kidney diseaseeGFR < 15 may mean kidney failureRanges recommended by the National Kidney Foundation,http://nkdep.nih .gov Urinalysis [id number] 21:39:00 Test Item Value Reference Range Comments Color (test code=COLOR) Yellow Yellow,Straw,Pl yellow Clarity (test code=CLAR) Cloudy Clear Specific [place] (test 1.036 1.001-1.035 code=SPGR) pH (test code=PH) [...] code=AMORD) Bacteria (test code=BACT) Moderate /HPF Alcohol/Ethanol, [id number] 21:37:00 Test Item Value Reference Range Comments Alcohol, Ethyl (test <0.01 g/dL 0.00-0.01 Intoxicated 0.080 g/dL or code=ETOH) more BHCG, Serum, [id number] 21:37:00 Test Item Value Reference Range Comments Preg Qual [Se] (test code=BSHCG) Negative Negative [id number] 21:36:00 Test Item Value Reference Range Comments [...] THC (test code=THC) POSITIVE Negative CBC with [id number] 21:33:00 Test Item Value Reference Range Comments [...] Lymph Abs (test code=ALYMPH) 3.3 K/cumm 0.5-4.6 Parker Abs (test code=AMONO) 0.6 K/cumm 0.0-1.2 Eos Abs (test code=AEOS) 0.17 K/cumm 0.00-0.74 Baso Abs (test code=ABASO) 0.0 K/cumm 0.00-0.21 BHCG, Urine, [id number] 14:05:00 Test Item Value Reference Range Comments Preg Qual [Ur] (test code=HUHCG) Negative Negative RPR, [id number] 16:02:00 Test Item Value Reference Range Comments RPR (test code=RPR) Non-Reactive Non-Reactive Thyroid Stimulating Hormone (TSH)2017-02-14 11:18:00 Test Item Value Reference Range Comments TSH (test code=TSH) 0.55 mIU/mL 0.270-4.200 Lipid [id number] 11:11:00 Test Item Value Reference Range Comments Cholesterol (test 147 mg/dL 0-200 code=CHOL) Triglycerides (test 79 mg/dL 9-200 code=TRIG) HDL (test code=HDL) 51 mg/dL 50-60 Chol/HDL (test 2.9 Ratio 0.0-4.4 code=CHOLPHDL) LDL, Calculated (test 80 0-130 (NOTE)RISK OF HEART code=LDLC) DISEASEPublished by Filip[place] Heart AssociationAnalyte Optimal Boderline Increased RiskCHOL <200 200-239 >240TRIG <150 150-199 >200HDL Male: >60 <40HDL Female: >60 <50LDL <100 130-159 >160LDL NEAR OPTIMAL IS 100-129 VLDL (test code=VLDL) 16 mg/dL 5-40 LDL/HDL (test code=LDLPHDL) 2
[2019-01-13] MEDS ORDERED: ONDANSETRON 4 MG/2 ML VIAL ONE ×2 (10:56→12:16)
[2019-01-13] MEDS ORDERED: NA CHLORIDE 0.9% 0 ML ONE (10:56)
[2019-01-13 11:12] LABS: Urine Blood NEGATIVE (NEG); Urine Glucose NEGATIVE (NEG); Urine Protein NEGATIVE (NEG); Urine Specific Gravity 1.025 (1.005-1.030); Urine pH 7.5 (5.0-7.0)
[2019-01-13 11:31] LABS: Barbiturates NEGATIVE (NEGATIVE); Benzodiazepines NEGATIVE (NEGATIVE); Cocaine NEGATIVE (NEGATIVE); METHAMPHETAM NEGATIVE (NEGATIVE); Methadone NEGATIVE (NEGATIVE); Opiates NEGATIVE (NEGATIVE); Phencyclidine NEGATIVE (NEGATIVE); THC Cannibis NEGATIVE (NEGATIVE)
[2019-01-13 11:36] LABS: Absolute Lymphocytes (CBC) 2.7 K/uL (0.7-4.9); Basophils % 0.6 % (0-1.3); Hematocrit 36.4 % (36.0-45.0); Lymphocytes % 27.1 % (15.3-44.8); MPV 6.9 fL (7.6-11.3); RBC Red Blood Cell Count 4.08 M/uL (3.86-4.86)
[2019-01-13 11:52] LABS: ALT/SGPT 23 U/L (12-78); AST/SGOT 16 U/L (15-37); Albumin 3.9 g/dL (3.4-5.0); Alkaline Phosphatase 80 U/L (45-117); BUN Blood Urea Nitrogen 9 mg/dL (7-18); Bicarbonate 27 mmol/L (21-32); Bilirubin Direct 0.1 mg/dL (0-0.2); Bilirubin Total 0.3 mg/dL (0.2-1.0); Glucose Level 82 mg/dL (74-106); Lipase 110 U/L (73-393); Potassium 3.8 mmol/L (3.5-5.1); Protein, Total 7.2 g/dL (6.4-8.2); Sodium Level 142 mmol/L (136-145)
[2019-01-13 12:01] LABS: Blood Morphology Comment NOT SEEN (NOT SEEN); Platelet Estimate ADEQ
[2019-01-13] MEDS ORDERED: NA CHLORIDE 0.9% 1,000 ML ONE (12:16)
--- NOTE | 2019-01-13 12:40 | RAD REPORT ---
EXAM DESCRIPTION: CT - Abdomen Pelvis W Contrast - 01/13/2019 12:29 pm CLINICAL HISTORY: right lower abdominal pain, patient more ports vomiting as well COMPARISON: None. TECHNIQUE: Biphasic, helical CT imaging of the abdomen and pelvis was performed following 100 ml non -ionic IV contrast. Oral contrast was given. All CT scans are performed using dose optimization technique as appropriate and may include automated exposure control or mA/KV adjustment according to patient size. FINDINGS: No suspicious findings in the lung bases. The liver, spleen, and pancreas show no suspicious findings. Gallbladder and biliary tree are also wi thout suspicious finding. Symmetric renal function is seen with no hydronephrosis or suspicious renal mass. No pyelonephritis o r acute parenchymal process. No bladder abnormalities. No adrenal abnormalities. No dilated bowel loops or bowel wall thickening. Appendix is normal. No free air or pneumatosis. No i nflammatory stranding seen. No hernia, mass or bulky lymphadenopathy. Uterus and ovaries show no cee picious findings. Physiologic quantity of free fluid seen in the cul de sac. No suspicious bony findings. IMPRESSION: Contrast enhanced CT abdomen and pelvis showing no significant or suspicious finding.
[2019-01-13] MEDS ORDERED: METOCLOPRAMIDE 10 MG/2mL INJ ONE (13:02)
[2019-01-13] MEDS ORDERED: DIPHENHYDRAMINE 50 MG/ML VIAL ONE (13:02)
[2019-01-13] MEDS ORDERED: KETOROLAC 30 MG/ML INJ ONE (13:03)
--- NOTE | 2019-01-13 14:07 | ER ---
Nurse's Notes [facility] Name: Jael Lugo Age: 23 yrs Sex: Female : 1995 Arrival Date: 01/13/2019 Time: 10:09 Bed 7 Private MD: Diagnosis: Vomiting;Lower abdominal pain, unspecified Presentation: 01/13 10:27 Presenting complaint: Patient states: woke up this morning with upper abd pain, nausea, iw vomited X3 after breakfast, also has headache and is shaky, pain is sharp and intermittent, denies urinary s/s, is currently at [facility] and states they make her eat even when she feels nauseous. Transition of care: patient was not received from another setting of care. Onset of symptoms was January 13, 2019. Risk Assessment: Do you want to hurt yourself or someone else? Patient reports no desire to harm self or others. Initial Sepsis Screen: Does the patient meet any 2 criteria? No. Patient's initial sepsis screen is negative. Does the patient have a suspected source of infection? No. Patient's initial sepsis screen is negative. Care prior to arrival: None. 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 - Social history:: Smoking status: . - Ebola Screening: : Patient negative for fever greater than or equal to 101.5 degrees Fahrenheit, and additional compatible Ebola Virus Disease symptoms Patient denies exposure to infectious person Patient denies travel to an Ebola-affected area in the 21 days before illness onset No symptoms or risks identified at this time. Screenin:49 Abuse screen: Denies threats or abuse. Denies injuries from another. Nutritional iw screening: No deficits noted. Tuberculosis screening: No symptoms or risk factors identified. Fall Risk IV access (20 points). Assessment: 10:48 General: Appears in no apparent distress. Behavior is calm, cooperative. Pain: iw Complains of pain in right upper quadrant and left upper quadrant Pain currently is 8 out of 10 on a pain scale. Pain began 3 hours ago. Is intermittent. Neuro: Level of Consciousness is awake, alert, obeys commands, Oriented to person, place, time, situation, Moves all extremities. Cardiovascular: Patient's skin is warm and dry. Respiratory: Respiratory effort is even, unlabored. GI: Abdomen is Bowel sounds present X 4 quads. Abd is soft X 4 quads Reports upper abdominal pain. GI: Reports nausea, vomiting. : Denies burning with urination. Derm: Skin is intact, is healthy with good turgor. Musculoskeletal: Range of motion: intact in all extremities. 11:40 Reassessment: Patient appears in no apparent distress at this time. Patient and/or iw family updated on plan of care and expected duration. Pain level reassessed. Patient is alert, oriented x 3, equal unlabored respirations, skin warm/dry/pink. no episodes of vomiting, pt kevin snot have IV access at this time. 12:20 Reassessment: successful IV insertion by GAUTAM Rodríguez, pt transported to Ct via wheelchair, family at bedside. Vital Signs: 10:30 BP 128 / 63; Pulse 81; Resp 16; Temp 98.0(O); Pulse Ox 99% on R/A; Weight 68.04 kg; iw Height 5 ft. 7 in. (170.18 cm); Pain 8/10; 11:30 BP 124 / 74; Pulse 78; Resp 16; Pulse Ox 98% on R/A; iw 13:30 BP 122 / 71; Pulse 76; Resp 18; Temp 98.0; Pulse Ox 99% on R/A; ph 10:30 Body Mass Index 23.49 (68.04 kg, 170.18 cm) ED Course: 10:09 Patient arrived in ED. rg4 10:13 Rody Nagy, GAUTAM is Primary Nurse. ph 10:16 Dave Hurley PA is PHCP. jm 10:16 Jorge Johnson MD is Attending Physician. [facility] 10:29 Triage completed. iw 10:30 Arm band placed on. iw 10:39 Urine collected: clean catch specimen, clear. dh3 11:10 Missed attempt(s): 22 gauge in left forearm. Bleeding controlled, band aid applied, dh3 catheter tip intact. 11:17 Missed attempt(s): 22 gauge in left upper arm. Bleeding controlled, band aid applied, dh3 catheter tip intact. 11:41 Missed attempt(s): 24 gauge in left forearm. Bleeding controlled, band aid applied, iw catheter tip intact. 12:00 Patient has correct armband on for positive identification. Placed in gown. Bed in low ph position. Call light in reach. Side rails up X 1. Pulse ox on. NIBP on. 12:15 Inserted saline lock: 22 gauge in right upper arm, using aseptic technique. aa5 12:28 CT Abd/Pelvis - IV Contrast Only In Process Unspecified. EDMS 14:20 No provider procedures requiring assistance completed. IV discontinued, intact, ph bleeding controlled, No redness/swelling at site. Pressure dressing applied. Administered Medications: 12:18 Drug: Zofran 4 mg Route: IVP; Site: left upper arm; aa5 12:38 Drug: NS 0.9% 1000 ml Route: IV; Rate: 1 bolus; Site: left upper arm; iw 13:12 Drug: diphenhydrAMINE 25 mg Route: IVP; Site: left upper arm; iw 13:12 Drug: Ketorolac 30 mg Route: IVP; Site: left upper arm; iw Outcome: 14:06 Discharge ordered by . [facility] 14:22 Patient left the ED. iw 14:22 Discharged to home ambulatory, with family. ph 14:22 Condition: good 14:22 Discharge instructions given to patient, Instructed on discharge instructions, follow up and referral plans. medication usage, Demonstrated understanding of instructions, follow-up care, medications, Prescriptions given X 1. Signatures: Dispatcher [employer] EDMS Dave Hurley PA PA jmm Williams, Irene, RN RN Anne Whitfield RN RN aa5 Rody Nagy RN RN Carolina De Leon 4 Shanell Shell 3
--- NOTE | 2019-01-13 14:07 | EDPHYS ---
Physician Documentation [facility] Name: Jael Lugo Age: 23 yrs Sex: Female : 1995 Arrival Date: 01/13/2019 Time: 10:09 Bed 7 Private MD: ED Physician Jorge Johnson HPI: 01/13 10:31 This 23 yrs old Black Female presents to ER via Ambulatory with complaints of Abdominal jmm Pain, Headache, Nausea/Vomiting. 10:31 The patient presents with abdominal pain. Onset: The symptoms/episode began/occurred jmm this morning. The symptoms do not radiate. The symptoms are described as achy. This is a 23 year old female with a history of bipolar that presents to the ED with complaints of right lower abdominal pain beginning this morning along with vomiting. Patient states developing a headache a vomiting. Denies fever, denies recent abx use, denies infectious exposure. . 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 - Social history:: Smoking status: . - Ebola Screening: : Patient negative for fever greater than or equal to 101.5 degrees Fahrenheit, and additional compatible Ebola Virus Disease symptoms Patient denies exposure to infectious person Patient denies travel to an Ebola-affected area in the 21 days before illness onset No symptoms or risks identified at this time. ROS: 10:31 Constitutional: Negative for fever, chills, and weight loss, Cardiovascular: Negative jmm for chest pain, palpitations, and edema, Respiratory: Negative for shortness of breath, cough, wheezing, and pleuritic chest pain. 10:31 Abdomen/GI: Positive for abdominal pain, vomiting. 10:31 Neuro: Positive for headache. 10:31 All other systems are negative. Exam: 10:31 Constitutional: This is a well developed, well nourished patient who is awake, alert, jmm and in no acute distress. Head/Face: atraumatic. Eyes: EOMI, no conjunctival erythema appreciated ENT: Moist Mucus Membranes Neck: Trachea midline, Supple Chest/axilla: Normal chest wall appearance and motion. Cardiovascular: Regular rate and rhythm. No edema appreciated Respiratory: Normal respirations, no respiratory distress appreciated 10:31 Abdomen/GI: Inspection: abdomen appears normal, Bowel sounds: normal, Palpation: soft, mild abdominal tenderness, in the right upper quadrant and right lower quadrant. 10:31 Musculoskeletal/extremity: ROM: intact in all extremities. 10:31 Skin: Appearance: Color: normal in color. 10:31 Neuro: Orientation: is normal, Mentation: is normal, Memory: is normal. 10:31 Psych: Behavior/mood is pleasant, cooperative. Vital Signs: 10:30 BP 128 / 63; Pulse 81; Resp 16; Temp 98.0(O); Pulse Ox 99% on R/A; Weight 68.04 kg; iw Height 5 ft. 7 in. (170.18 cm); Pain 8/10; 11:30 BP 124 / 74; Pulse 78; Resp 16; Pulse Ox 98% on R/A; iw 13:30 BP 122 / 71; Pulse 76; Resp 18; Temp 98.0; Pulse Ox 99% on R/A; ph 10:30 Body Mass Index 23.49 (68.04 kg, 170.18 cm) iw MDM: 10:46 Patient medically screened. [facility] 14:05 Data reviewed: vital signs, nurses notes. Counseling: I had a detailed discussion with [facility] the patient and/or guardian regarding: the historical points, exam findings, and any diagnostic results supporting the discharge/admit diagnosis, lab results, radiology results, the need for outpatient follow up, to return to the emergency department if symptoms worsen or persist or if there are any questions or concerns that arise at home. ED course: Imaging studies negative. Patient advised to follow up with pcp and otherwise given strict return precautions. Patient understood and agrees with the plan of care. . 01/13 10:41 Order name: Urine Dipstick--Ancillary (enter results); Complete Time: 11:20 bd 01/13 10:41 Order name: Urine --Ancillary (enter results); Complete Time: 11:20 bd 01/13 10:49 Order name: Basic Metabolic Panel; Complete Time: 12:06 [facility] 01/13 10:49 Order name: CBC with Diff; Complete Time: 12:06 [facility] 01/13 10:49 Order name: Creatinine for Radiology; Complete Time: 12:06 [facility] 01/13 10:49 Order name: Hepatic Function; Complete Time: 12:06 [facility] 01/13 10:49 Order name: Lipase; Complete Time: 12:06 [facility] 01/13 10:49 Order name: Urine Drug Screen; Complete Time: 11:32 [facility] 01/13 10:51 Order name: CT Abd/Pelvis - IV Contrast Only; Complete Time: 12:47 [facility] 01/13 12:01 Order name: Manual Differential; Complete Time: 12:06 [facility] 01/13 10:31 Order name: Urine Dipstick-Ancillary (obtain specimen); Complete Time: 10:39 01/13 10:31 Order name: Urine Test (obtain specimen); Complete Time: 10:39 01/13 10:49 Order name: IV Saline Lock; Complete Time: 12:16 [facility] 01/13 10:49 Order name: Labs collected and sent; Complete Time: 11:45 [facility] 01/13 12:50 Order name: PO challenge; Complete Time: 13:56 [facility] Administered Medications: 12:18 Drug: Zofran 4 mg Route: IVP; Site: left upper arm; aa5 12:38 Drug: NS 0.9% 1000 ml Route: IV; Rate: 1 bolus; Site: left upper arm; iw 13:12 Drug: diphenhydrAMINE 25 mg Route: IVP; Site: left upper arm; iw 13:12 Drug: Ketorolac 30 mg Route: IVP; Site: left upper arm; iw Disposition: 17:08 Co-signature as Attending Physician, Jorge Johnson MD. rn Disposition: 01/13/19 14:06 Discharged to Home. Impression: Vomiting, Lower abdominal pain, unspecified. - Condition is Stable. - Discharge Instructions: Abdominal Pain, Adult, Nausea and Vomiting, Adult. - Prescriptions for Zofran ODT 4 mg Oral tablet,disintegrating - place 1 tablet by TRANSLINGUAL route every 4-6 hours; 20 tablet. - Medication Reconciliation Form, Thank You Letter, Antibiotic Education, Prescription Opioid Use form. - Follow up: Private Physician; When: 2 - 3 days; Reason: Recheck today's complaints, Continuance of care, Re-evaluation by your physician. Signatures: Dispatcher [employer] Dave Faith PA PA jmm Williams, Irene, RN RN Jorge Owens MD MD rn Calderon, Audri, RN RN aa5 Corrections: (The following items were deleted from the chart) 14:22 14:06 01/13/2019 14:06 Discharged to Home. Impression: Vomiting; Lower abdominal pain, iw unspecified. Condition is Stable. Forms are Medication Reconciliation Form, Thank You Letter, Antibiotic Education, Prescription Opioid Use. Follow up: Private Physician; When: 2 - 3 days; Reason: Recheck today's complaints, Continuance of care, Re-evaluation by your physician. sarah
[2019-01-13 17:23] VITALS: TEMP 98
[2019-01-13 17:24] VITALS: BP 124/74; O2SAT 98
== END 2019-01-13 14:22 | disposition home or self-care (01) ==
LOC: ER 10:06
DX: R11.10 Vomiting, unspecified (principal); F32.9 Major depressive disorder, single episode, unspecified; F31.9 Bipolar disorder, unspecified; F20.9 Schizophrenia, unspecified; R01.1 Cardiac murmur, unspecified
CPT/HCPCS: 85025; 80048; 36415; 81025; 80076; 80307 ×8; 81003; 83690; 74177; 96375; 96374; 99284; Q9967; J2765; J7030; J2405

== ENCOUNTER 2019-02-24 18:31 | Emergency (ER) | payer OTHER ==
[2019-02-24] MEDS ORDERED: IBUPROFEN 400 MG TAB ONE (20:06)
[2019-02-24] MEDS ORDERED: HYDROCODONE/APAP 5/325 MG TAB ONE (20:06)
[2019-02-24] MEDS ORDERED: IBUPROFEN 200 MG TAB PO ONE (20:07)
[2019-02-24 20:31] LABS: Urine Blood NEGATIVE (NEG); Urine Glucose NEGATIVE (NEG); Urine Protein NEGATIVE (NEG)
--- NOTE | 2019-02-24 20:48 | ER ---
Nurse's Notes [facility] Name: Jael Lugo Age: 23 yrs Sex: Female : 1995 Arrival Date: 02/24/2019 Time: 18:34 Bed 16 Private MD: Diagnosis: Right side dental abscess Presentation: 02/24 19:07 Presenting complaint: Patient states: right cheek and gum pain X1 day. pt c/o itching ak1 and pain to right cheek. pt stated the pain is giving her a headache. Transition of care: patient was not received from another setting of care. Onset of symptoms is unknown. Risk Assessment: Do you want to hurt yourself or someone else? Patient reports no desire to harm self or others. Initial Sepsis Screen: Does the patient meet any 2 criteria? No. Patient's initial sepsis screen is negative. Does the patient have a suspected source of infection? No. Patient's initial sepsis screen is negative. Care prior to arrival: None. 19:07 Method Of Arrival: Ambulatory ak1 19:07 Acuity: ALMA 4 ak1 Triage Assessment: 19:08 General: Appears in no apparent distress. Behavior is calm, cooperative. Pain: ak1 Complains of pain in right cheek and right jaw. EENT: Reports pain in right cheek and right jaw. Neuro: Level of Consciousness is awake, alert, obeys commands, Oriented to person, place, time, situation, Supervisor Packing are equal bilaterally Moves all extremities. Full function. Cardiovascular: No deficits noted. Respiratory: No deficits noted. GI: No signs and/or symptoms were reported involving the gastrointestinal system. : No signs and/or symptoms were reported regarding the genitourinary system. Derm: No signs and/or symptoms reported regarding the dermatologic system. Musculoskeletal: No signs and/or symptoms reported regarding the musculoskeletal system. 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 - Social history:: Smoking status: Patient uses tobacco products, denies chronic smoking, but will smoke occasionally. - Ebola Screening: : No symptoms or risks identified at this time. - Family history:: not pertinent. - Hospitalizations: : No recent hospitalization is reported. Screenin:25 Abuse screen: Denies threats or abuse. Denies injuries from another. Nutritional wh screening: No deficits noted. Tuberculosis screening: No symptoms or risk factors identified. Fall Risk None identified. Assessment: 20:27 General: Appears in no apparent distress. Behavior is calm, cooperative, appropriate wh for age. Pain: Complains of pain in right jaw and right cheek Pain does not radiate. Pain currently is 8 out of 10 on a pain scale. Quality of pain is described as aching, Pain began 1 day ago. Neuro: Level of Consciousness is awake, alert, obeys commands. Cardiovascular: Capillary refill < 3 seconds. Respiratory: Airway is patent Respiratory effort is even, unlabored, Respiratory pattern is regular, symmetrical. GI: Abdomen is flat, non-distended. GI:. : No signs and/or symptoms were reported regarding the genitourinary system. EENT: Throat is pink. Derm: Skin is intact, is healthy with good turgor, Skin is pink, warm \\T\\ dry. normal. Musculoskeletal: Circulation, motion, and sensation intact. 20:55 Reassessment: Patient appears in no apparent distress at this time. No changes from previously documented assessment. Patient and/or family updated on plan of care and expected duration. Pain level reassessed. Patient is alert, oriented x 3, equal unlabored respirations, skin warm/dry/pink. Patient states feeling better. Patient states symptoms have improved. Vital Signs: 19:08 BP 112 / 83; Pulse 80; Resp 16; Temp 97.5; Pulse Ox 100% on R/A; Weight 72.57 kg (R); ak1 Height 5 ft. 7 in. (170.18 cm) (R); Pain 8/10; 20:15 BP 139 / 82; Pulse 80; Resp 18; Pulse Ox 100% on R/A; wh 19:08 Body Mass Index 25.06 (72.57 kg, 170.18 cm) ak1 ED Course: 18:34 Patient arrived in ED. mr 19:07 Triage completed. ak1 19:08 Arm band placed on Patient placed in waiting room, on a stretcher, Patient notified of ak1 wait time. 19:34 Ernie Lambert MD is Attending Physician. mo 19:35 Silva Avila is Primary Nurse. 19:40 Urine obtained. ak1 20:27 Patient has correct armband on for positive identification. Bed in low position. Call light in reach. Side rails up X 1. Pulse ox on. NIBP on. 20:40 Assist provider with I \\T\\ D: of an abscess on right Upper Right Jaw Set up I\\T\\D tray. Performed by Ernie Lambert MD Patient tolerated well. 20:47 Billy Lux DDS is Referral Physician. mo 20:57 Patient did not have IV access during this emergency room visit. Administered Medications: 20:10 Drug: Motrin 600 mg Route: PO; fu 20:57 Follow up: Response: No adverse reaction; Pain is decreased 20:11 Drug: [place] 5 mg-325 mg 1 tabs Route: PO; fu 20:56 Follow up: Response: No adverse reaction; Pain is decreased Outcome: 20:48 Discharge ordered by . mo 20:57 Discharged to home ambulatory, with family. 20:57 Condition: stable 20:57 Discharge instructions given to patient, family, Instructed on discharge instructions, follow up and referral plans. no drinking with medication, medication usage, POC Dental Abscess Demonstrated understanding of instructions, follow-up care, medications, POC Prescriptions given X 2. 21:00 Patient left the ED. Signatures: Zhang, Magalys WhiteJaylin, RN RN ak Silva Avila Ernie Lambert MD MD mo Saroj Wright, RN RN fu Corrections: (The following items were deleted from the chart) 20:59 20:57 No provider procedures requiring assistance completed. [facility]
--- NOTE | 2019-02-24 20:48 | EDPHYS ---
Physician Documentation [facility] Name: Jael uLgo Age: 23 yrs Sex: Female : 1995 Arrival Date: 02/24/2019 Time: 18:34 Bed 16 Private MD: ED Physician Ernie Lambert HPI: 02/24 20:30 This 23 yrs old Black Female presents to ER via Ambulatory with complaints of wa Toothache, Headache, Facial Swelling. 20:30 The patient presents with pain, swelling. The problem is located in the right jaw and wa right cheek. Onset: The symptoms/episode began/occurred 2 day(s) ago. Duration: The symptoms are continuous, and are steadily getting worse. Modifying factors: The symptoms are alleviated by nothing, the symptoms are aggravated by nothing. Associated signs and symptoms: The patient has no apparent associated signs or symptoms. Severity of symptoms: At their worst the symptoms were moderate, in the emergency department the symptoms are actually worse, moderately. The patient has not experienced similar symptoms in the past. The patient has not recently seen a physician. took 200 mg motrin yesterday. no meds today. 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 - Social history:: Smoking status: Patient uses tobacco products, denies chronic smoking, but will smoke occasionally. - Ebola Screening: : No symptoms or risks identified at this time. - Family history:: not pertinent. - Hospitalizations: : No recent hospitalization is reported. ROS: 20:31 Constitutional: Negative for fever, chills, and weight loss, Eyes: Negative for injury, wa pain, redness, and discharge, Neck: Negative for injury, pain, and swelling, Cardiovascular: Negative for chest pain, palpitations, and edema, Respiratory: Negative for shortness of breath, cough, wheezing, and pleuritic chest pain, Abdomen/GI: Negative for abdominal pain, nausea, vomiting, diarrhea, and constipation, Back: Negative for injury and pain, : Negative for injury, bleeding, discharge, and swelling, MS/Extremity: Negative for injury and deformity, Skin: Negative for injury, rash, and discoloration, Neuro: Negative for headache, weakness, numbness, tingling, and seizure, Psych: Negative for depression, anxiety, suicide ideation, homicidal ideation, and hallucinations. 20:31 ENT: Positive for dental pain, Gum pain of the right upper pre and molar area. Exam: 20:32 Constitutional: This is a well developed, well nourished patient who is awake, alert, wa and in no acute distress. Head/Face: Normocephalic, atraumatic. Eyes: Pupils equal round and reactive to light, extra-ocular motions intact. Lids and lashes normal. Conjunctiva and sclera are non-icteric and not injected. Cornea within normal limits. Periorbital areas with no swelling, redness, or edema. Neck: Trachea midline, no thyromegaly or masses palpated, and no cervical lymphadenopathy. Supple, full range of motion without nuchal rigidity, or vertebral point tenderness. No Meningismus. Chest/axilla: Normal chest wall appearance and motion. Nontender with no deformity. No lesions are appreciated. Cardiovascular: Regular rate and rhythm with a normal S1 and S2. No gallops, murmurs, or rubs. Normal PMI, no JVD. No pulse deficits. Respiratory: Lungs have equal breath sounds bilaterally, clear to auscultation and percussion. No rales, rhonchi or wheezes noted. No increased work of breathing, no retractions or nasal flaring. Abdomen/GI: Soft, non-tender, with normal bowel sounds. No distension or tympany. No guarding or rebound. No evidence of tenderness throughout. Back: No spinal tenderness. No costovertebral tenderness. Full range of motion. Skin: Warm, dry with normal turgor. Normal color with no rashes, no lesions, and no evidence of cellulitis. MS/ Extremity: Pulses equal, no cyanosis. Neurovascular intact. Full, normal range of motion. Neuro: Awake and alert, GCS 15, oriented to person, place, time, and situation. Cranial nerves II-XII grossly intact. Motor strength 5/5 in all extremities. Sensory grossly intact. Cerebellar exam normal. Normal gait. Psych: Awake, alert, with orientation to person, place and time. Behavior, mood, and affect are within normal limits. 20:32 ENT: Dental exam: dental caries, gum swelling, that is moderate, specifically in the upper right second molar (#2), upper right first molar (#3) and upper right second bicuspid (#4), small area of fluctuance noted lateral R upper premolar. Vital Signs: 19:08 BP 112 / 83; Pulse 80; Resp 16; Temp 97.5; Pulse Ox 100% on R/A; Weight 72.57 kg (R); ak1 Height 5 ft. 7 in. (170.18 cm) (R); Pain 8/10; 20:15 BP 139 / 82; Pulse 80; Resp 18; Pulse Ox 100% on R/A; wh 19:08 Body Mass Index 25.06 (72.57 kg, 170.18 cm) ak1 Procedures: 20:45 I \\T\\ D: Incision and drainage was performed for an abscess of the right periapical R wa pre-molar Prepped with saline. Anesthetized with 1 ml's 1% Lidocaine. Incised with #11 blade. Drained small amount purulent fluid. the patient tolerated the procedure well. MDM: 19:34 Patient medically screened. ga 20:33 Differential diagnosis: dental caries, gingivitis, dental abscess. ga 20:49 Data reviewed: vital signs, nurses notes, lab test result(s). Test interpretation: by ga ED physician or midlevel provider: SEFERINO adorno UPT neg. Response to treatment: the patient's symptoms have markedly improved after treatment. 02/24 20:10 Order name: Urine Dipstick--Ancillary (enter results); Complete Time: 20:34 cm6 02/24 20:10 Order name: Urine --Ancillary (enter results); Complete Time: 20:34 cm6 Administered Medications: 20:10 Drug: Motrin 600 mg Route: PO; fu 20:57 Follow up: Response: No adverse reaction; Pain is decreased wh 20:11 Drug: [place] 5 mg-325 mg 1 tabs Route: PO; fu 20:56 Follow up: Response: No adverse reaction; Pain is decreased wh Disposition: 02/24/19 20:48 Discharged to Home. Impression: Right side dental abscess. - Condition is Stable. - Discharge Instructions: Dental Abscess. - Prescriptions for Augmentin 875- 125 mg Oral Tablet - take 1 tablet by ORAL route every 12 hours for 7 days; 14 tablet. Ibuprofen 600 mg Oral Tablet - take 1 tablet by ORAL route every 6 hours As needed take with food; 30 tablet. - Medication Reconciliation Form, Thank You Letter, Antibiotic Education, Prescription Opioid Use form. - Follow up: Billy Lux DDS; When: 1 - 2 days; Reason: Recheck today's complaints. - Problem is new. - Symptoms have improved. - Notes: take medication as prescribed. follow up with the dentist as discussed for further evaluation Signatures: Dispatcher [employer] Jaylin Erwin RN RN ak1 Sameer Avilachip Ernie Lambert MD MD wa Umadhay, Felix RN RN Corrections: (The following items were deleted from the chart) 21:00 20:48 02/24/2019 20:48 Discharged to Home. Impression: Right side dental abscess. wh Condition is Stable. Forms are Medication Reconciliation Form, Thank You Letter, Antibiotic Education, Prescription Opioid Use. Follow up: Billy Lux; When: 1 - 2 days; Reason: Recheck today's complaints. Problem is new. Symptoms have improved. fili
[2019-02-24 21:04] VITALS: TEMP 97.5; O2SAT 100
[2019-02-24 21:06] VITALS: BP 139/82
== END 2019-02-24 21:00 | disposition home or self-care (01) ==
LOC: ER 18:31
PROC: 0C9WXZ0 Drainage of Upper Tooth, External Approach, Single (ICD-10-PCS; principal; 2019-02-24)
DX: K04.7 Periapical abscess without sinus (principal); F31.9 Bipolar disorder, unspecified; Z72.0 Tobacco use
CPT/HCPCS: 81003; 81025

== ENCOUNTER 2019-05-08 10:28 | Emergency (ER) | payer OTHER ==
--- OUTSIDE RECORDS SUMMARY | 2019-05-08 11:43 | XMS REPORT ---
:1995 [facility] Address [address] [place] [address] Care Team Providers Name Role Phone UNKNOWN, [...] Facility Department ID 2017-06-02 2017-06-15 Inpatient [id number] [id number] 00:23:00 13:37:00 Jane GARCIA Results Test Description Test Time Test Comments Text Results Atomic Results Result Comments Chlamydia/GC Amplification 2017-06-09 17:46:00 Test Item Value Reference Range Comments Chlamydia trachomatis, PRAKASH (test [id number]) Negative Negative Neisseria gonorrhoeae, PRAKASH (test [id number]) Negative Negative HIV [id number] 21:56:00 Test Item Value Reference Range Comments HIV 1/2 Antibody (test Non-Reactive Non-Reactive HIV1/2 Antibody screen result code=HIV1/2AB) indicates the absence of HIV1 and AOH7dktfxivko.However, A Non-Reactive screen result does not rule [...] suspected, HIV RNA Quantitative is recommended. RPR, [id number] 13:36:00 Test Item Value Reference Range Comments RPR (test code=RPR) Non-Reactive Non-Reactive Thyroid Stimulating Hormone (TSH)2017-06-02 07:20:00 Test Item Value Reference Range Comments TSH (test code=TSH) 1.46 mIU/mL 0.270-4.200 Lipid [id number] 07:13:00 Test Item Value Reference Range Comments Cholesterol (test 148 mg/dL 0-200 code=CHOL) Triglycerides (test 85 mg/dL 9-200 code=TRIG) HDL (test code=HDL) 42 mg/dL 50-60 Chol/HDL (test 3.5 Ratio 0.0-4.4 code=CHOLPHDL) LDL, Calculated (test 89 0-130 (NOTE)RISK OF HEART code=LDLC) DISEASEPublished by Tristanian Heart AssociationAnalyte Optimal Boderline Increased RiskCHOL <200 200-239 >240TRIG <150 150-199 >200HDL Male: >60 <40HDL Female: >60 <50LDL <100 130-159 >160LDL NEAR OPTIMAL IS 100-129 VLDL (test code=VLDL) 17 mg/dL 5-40 LDL/HDL (test code=LDLPHDL) 2 Comprehensive Metabolic [id number] 21:39:00 Test Item Value Reference Range Comments [...] race is not provided, and the patient isAfrican-Tristanian, multiply by 1.212. If sex is not provided, and thepatient is female, multiply by 0.742. Results for patients <18 years ofage have not been validated by the MDRD study and should be interpretedwith caution.eGFR Result Interpretation:eGFR > or=60 is in the Normal RangeeGFR < 60 may mean kidney diseaseeGFR < 15 may mean kidney failureRanges recommended by the National Kidney Foundation,http://nkdep.nih .gov Urinalysis [id number] 21:39:00 Test Item Value Reference Range Comments Color (test code=COLOR) Yellow Yellow,Straw,Pl yellow Clarity (test code=CLAR) Cloudy Clear Specific [place] (test 1.036 1.001-1.035 code=SPGR) pH (test code=PH) [...] code=AMORD) Bacteria (test code=BACT) Moderate /HPF Alcohol/Ethanol, [id number] 21:37:00 Test Item Value Reference Range Comments Alcohol, Ethyl (test <0.01 g/dL 0.00-0.01 Intoxicated 0.080 g/dL or code=ETOH) more BHCG, Serum, [id number] 21:37:00 Test Item Value Reference Range Comments Preg Qual [Se] (test code=BSHCG) Negative Negative [id number] 21:36:00 Test Item Value Reference Range Comments [...] THC (test code=THC) POSITIVE Negative CBC with [id number] 21:33:00 Test Item Value Reference Range Comments [...] Lymph Abs (test code=ALYMPH) 3.3 K/cumm 0.5-4.6 Sutter Abs (test code=AMONO) 0.6 K/cumm 0.0-1.2 Eos Abs (test code=AEOS) 0.17 K/cumm 0.00-0.74 Baso Abs (test code=ABASO) 0.0 K/cumm 0.00-0.21 BHCG, Urine, [id number] 14:05:00 Test Item Value Reference Range Comments Preg Qual [Ur] (test code=HUHCG) Negative Negative RPR, [id number] 16:02:00 Test Item Value Reference Range Comments RPR (test code=RPR) Non-Reactive Non-Reactive Thyroid Stimulating Hormone (TSH)2017-02-14 11:18:00 Test Item Value Reference Range Comments TSH (test code=TSH) 0.55 mIU/mL 0.270-4.200 Lipid [id number] 11:11:00 Test Item Value Reference Range Comments Cholesterol (test 147 mg/dL 0-200 code=CHOL) Triglycerides (test 79 mg/dL 9-200 code=TRIG) HDL (test code=HDL) 51 mg/dL 50-60 Chol/HDL (test 2.9 Ratio 0.0-4.4 code=CHOLPHDL) LDL, Calculated (test 80 0-130 (NOTE)RISK OF HEART code=LDLC) DISEASEPublished by Tristan[place] Heart AssociationAnalyte Optimal Boderline Increased RiskCHOL <200 200-239 >240TRIG <150 150-199 >200HDL Male: >60 <40HDL Female: >60 <50LDL <100 130-159 >160LDL NEAR OPTIMAL IS 100-129 VLDL (test code=VLDL) 16 mg/dL 5-40 LDL/HDL (test code=LDLPHDL) 2
--- NOTE | 2019-05-08 12:06 | ER ---
Nurse's Notes [facility] Name: Jael Lugo Age: 23 yrs Sex: Female : 1995 Arrival Date: 05/08/2019 Time: 10:31 Bed 6 Private MD: Unknown, Unknown Diagnosis: Irregular menstruation, unspecified Presentation: 05/08 10:39 Presenting complaint: Patient states: took multiple tests at home and they sv were positive, went to [email or web address] yesterday and urine test showed not . Today woke up with heavy vaginal bleeding, woke up about 30 mins ago and has the same pad on. Transition of care: patient was not received from another setting of care. Onset of symptoms was May 08, 2019. Risk Assessment: Do you want to hurt yourself or someone else? Patient reports no desire to harm self or others. Care prior to arrival: None. 10:39 Method Of Arrival: Ambulatory sv 10:39 Acuity: ALMA 3 sv 12:13 Initial Sepsis Screen: Does the patient meet any 2 criteria? No. Patient's initial aj1 sepsis screen is negative. Does the patient have a suspected source of infection? No. Patient's initial sepsis screen is negative. Triage Assessment: 10:39 General: Appears in no apparent distress. comfortable, well developed, Behavior is sv calm, cooperative, appropriate for age. Pain: Complains of pain in suprapubic area Quality of pain is described as crampy. Neuro: Level of Consciousness is awake, alert, obeys commands, Gait is steady. Respiratory: Respiratory effort is even, unlabored. : Reports vaginal bleeding that is moderate flow. 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 - Ebola Screening: : Patient denies travel to an Ebola-affected area in the 21 days before illness onset. Screenin:57 Abuse screen: Denies threats or abuse. Denies injuries from another. Nutritional aj1 screening: No deficits noted. Tuberculosis screening: No symptoms or risk factors identified. 12:13 Fall Risk None identified. aj1 Assessment: 11:57 Obstetrical Assessment: Patient reports vaginal bleeding, abdominal pain. General: aj1 Appears in no apparent distress. comfortable. Pain: Complains of pain in suprapubic area, right lower quadrant and left lower quadrant Pain does not radiate. Neuro: Level of Consciousness is awake, alert, obeys commands. Cardiovascular: Patient's skin is warm and dry. Respiratory: Airway is patent Respiratory effort is even, unlabored, Respiratory pattern is regular, symmetrical. GI: Abdomen is round non-distended, Bowel sounds present X 4 quads. Abd is soft and non tender X 4 quads. : Reports vaginal bleeding that is bright red, moderate flow, Patient reports 10 positive tests at home. EENT: No signs and/or symptoms were reported regarding the EENT system. Derm: No signs and/or symptoms reported regarding the dermatologic system. Skin is pink, warm \\T\\ dry. normal. Musculoskeletal: No signs and/or symptoms reported regarding the musculoskeletal system. Circulation, motion, and sensation intact. Vital Signs: 10:41 BP 121 / 83; Pulse 80; Resp 16; Temp 98; Pulse Ox 100% ; Weight 73.03 kg; Height 5 ft. sv 7 in. (170.18 cm); 10:41 Body Mass Index 25.22 (73.03 kg, 170.18 cm) sv ED Course: 10:31 Patient arrived in ED. ag5 10:31 Unknown, Unknown is Private Physician. ag5 10:41 Triage completed. sv 10:41 Laurie Hendrix FNP-C is [facility]. kb 10:41 Feroz Turner MD is Attending Physician. kb 10:42 Arm band placed on. sv 11:56 Rhea Lieberman, GAUTAM is Primary Nurse. aj1 11:57 Patient has correct armband on for positive identification. aj1 11:57 No provider procedures requiring assistance completed. aj1 12:12 Patient did not have IV access during this emergency room visit. aj1 Administered Medications: No medications were administered Point of Care Testing: Urine : 12:13 hCG Reading: Negative; aj1 Outcome: 12:05 Discharge ordered by . kb 12:13 Discharged to home ambulatory, with family. aj1 12:13 Condition: good 12:13 Discharge instructions given to no one, patient left ER prior to signing paperwork 12:13 Patient left the ED. aj1 Signatures: Laurie Hendrix, [place]-Rhea Andrew RN RN aj1 Yamilet Santiago RN RN edin Valerio, Josafat ag5
--- NOTE | 2019-05-08 12:06 | EDPHYS ---
Physician Documentation [facility] Name: Jael Lugo Age: 23 yrs Sex: Female : 1995 Arrival Date: 05/08/2019 Time: 10:31 Bed 6 Private MD: Unknown, Unknown ED Physician Feroz Turner HPI: 05/08 12:06 This 23 yrs old Black Female presents to ER via Ambulatory with complaints of Vaginal kb Bleeding, + Preg <12wks. 12:06 The patient presents to the emergency department with vaginal bleeding, that is kb moderate. course: care: at a clinic, Leakage of Fluid: none appreciated, Ultrasound: the patient has not had an ultrasound. Previous pregnancies: in previous pregnancies patient has had. Associated signs and symptoms: Pertinent positives: vaginal bleeding. The patient has not experienced similar symptoms in the past. The patient has not recently seen a physician. Pt reports she has taken multiple tests at home and they were positive. Went to OB 2 days ago and the test there was negative. Came in today because she started having vaginal bleeding and is concerned about miscarriage if she is . 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 - Ebola Screening: : Patient denies travel to an Ebola-affected area in the 21 days before illness onset. ROS: 12:05 Constitutional: Negative for fever, chills, and weight loss, Neck: Negative for injury, kb pain, and swelling, Cardiovascular: Negative for chest pain, palpitations, and edema, Respiratory: Negative for shortness of breath, cough, wheezing, and pleuritic chest pain, Abdomen/GI: Negative for abdominal pain, nausea, vomiting, diarrhea, and constipation, Back: Negative for injury and pain, MS/Extremity: Negative for injury and deformity, Skin: Negative for injury, rash, and discoloration, Neuro: Negative for headache, weakness, numbness, tingling, and seizure. 12:05 : Positive for vaginal bleeding. Exam: 12:05 Constitutional: This is a well developed, well nourished patient who is awake, alert, kb and in no acute distress. Head/Face: Normocephalic, atraumatic. ENT: Nares patent. No nasal discharge, no septal abnormalities noted. Tympanic membranes are normal and external auditory canals are clear. Oropharynx with no redness, swelling, or masses, exudates, or evidence of obstruction, uvula midline. Mucous membranes moist. Neck: Trachea midline, no thyromegaly or masses palpated, and no cervical lymphadenopathy. Supple, full range of motion without nuchal rigidity, or vertebral point tenderness. No Meningismus. Chest/axilla: Normal chest wall appearance and motion. Nontender with no deformity. No lesions are appreciated. Cardiovascular: Regular rate and rhythm with a normal S1 and S2. No gallops, murmurs, or rubs. Normal PMI, no JVD. No pulse deficits. Respiratory: Lungs have equal breath sounds bilaterally, clear to auscultation and percussion. No rales, rhonchi or wheezes noted. No increased work of breathing, no retractions or nasal flaring. Abdomen/GI: Soft, non-tender, with normal bowel sounds. No distension or tympany. No guarding or rebound. No evidence of tenderness throughout. Back: No spinal tenderness. No costovertebral tenderness. Full range of motion. Skin: Warm, dry with normal turgor. Normal color with no rashes, no lesions, and no evidence of cellulitis. MS/ Extremity: Pulses equal, no cyanosis. Neurovascular intact. Full, normal range of motion. Neuro: Awake and alert, GCS 15, oriented to person, place, time, and situation. Cranial nerves II-XII grossly intact. Motor strength 5/5 in all extremities. Sensory grossly intact. Cerebellar exam normal. Normal gait. Vital Signs: 10:41 BP 121 / 83; Pulse 80; Resp 16; Temp 98; Pulse Ox 100% ; Weight 73.03 kg; Height 5 ft. sv 7 in. (170.18 cm); 10:41 Body Mass Index 25.22 (73.03 kg, 170.18 cm) sv MDM: 11:50 Patient medically screened. kb 12:06 Data reviewed: vital signs, nurses notes. Data interpreted: Pulse oximetry: on room air kb is 100 %. Interpretation: normal. Counseling: I had a detailed discussion with the patient and/or guardian regarding: the historical points, exam findings, and any diagnostic results supporting the discharge/admit diagnosis, lab results, the need for outpatient follow up, an OB/Gyne specialist, to return to the emergency department if symptoms worsen or persist or if there are any questions or concerns that arise at home. 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 kb 05/08 10:45 Order name: Urine Dipstick-Ancillary (obtain specimen); Complete Time: 12:12 kb 05/08 10:45 Order name: Urine Test (obtain specimen); Complete Time: 12:12 kb Administered Medications: No medications were administered Point of Care Testing: Urine : 12:13 hCG Reading: Negative; aj1 Disposition: 16:30 Co-signature as Attending Physician, Feroz Turner MD I agree with the assessment and kdr plan of care. Disposition: 05/08/19 12:05 Discharged to Home. Impression: Irregular menstruation, unspecified. - Condition is Stable. - Discharge Instructions: Abnormal Uterine Bleeding, [id number]. - Medication Reconciliation Form, Thank You Letter, Antibiotic Education, Prescription Opioid Use form. - Follow up: Emergency Department; When: As needed; Reason: Worsening of condition. Follow up: Private Physician; When: 2 - 3 days; Reason: Recheck today's complaints, Continuance of care, Re-evaluation by your physician. Signatures: Laurie Hendrix, [place]-C OPEN TENTER OPERATOR-Rhea Andrew RN RN aj1 Yamilet Santiago RN RN sv Rittger, Kevin, MD MD kdr Corrections: (The following items were deleted from the chart) 12:13 12:05 05/08/2019 12:05 Discharged to Home. Impression: Irregular menstruation, aj1 unspecified. Condition is Stable. Forms are Medication Reconciliation Form, Thank You Letter, Antibiotic Education, Prescription Opioid Use. Follow up: Emergency Department; When: As needed; Reason: Worsening of condition. Follow up: Private Physician; When: 2 - 3 days; Reason: Recheck today's complaints, Continuance of care, Re-evaluation by your physician. kb
[2019-05-08 12:25] VITALS: BP 121/83; TEMP 98; O2SAT 100
== END 2019-05-08 12:13 | disposition home or self-care (01) ==
LOC: ER 10:28
DX: N92.6 Irregular menstruation, unspecified (principal)
CPT/HCPCS: 99282

== ENCOUNTER 2019-06-09 10:46 | Emergency (ER) | payer OTHER ==
--- OUTSIDE RECORDS SUMMARY | 2019-06-09 10:49 | XMS REPORT ---
:1995 [facility] Address [address] [place] [address] Care Team Providers Name Role Phone UNKNOWN, [...] Facility Department ID 2017-06-02 2017-06-15 [facility] [id number] 00:23:00 13:37:00 Jane GARCIA Results Test Description Test Time Test Comments Text Results Atomic Results Result Comments Chlamydia/GC Amplification 2017-06-09 17:46:00 Test Item Value Reference Range Comments Chlamydia trachomatis, PRAKASH (test nwdn=[id number]) Negative Negative Neisseria gonorrhoeae, PRAKASH (test ocke=[id number]) Negative Negative HIV [id number] 21:56:00 Test Item Value Reference Range Comments HIV 1/2 Antibody (test Non-Reactive Non-Reactive HIV1/2 Antibody screen result code=HIV1/2AB) indicates the absence of HIV1 and [id number].However, A Non-Reactive screen result does not rule [...] suspected, HIV RNA Quantitative is recommended. RPR, [id number] 13:36:00 Test Item Value Reference Range Comments RPR (test code=RPR) Non-Reactive Non-Reactive Thyroid Stimulating Hormone (TSH)2017-06-02 07:20:00 Test Item Value Reference Range Comments TSH (test code=TSH) 1.46 mIU/mL 0.270-4.200 Lipid [id number] 07:13:00 Test Item Value Reference Range Comments Cholesterol (test 148 mg/dL 0-200 code=CHOL) Triglycerides (test 85 mg/dL 9-200 code=TRIG) HDL (test code=HDL) 42 mg/dL 50-60 Chol/HDL (test 3.5 Ratio 0.0-4.4 code=CHOLPHDL) LDL, Calculated (test 89 0-130 (NOTE)RISK OF HEART code=LDLC) DISEASEPublished by Australian Heart AssociationAnalyte Optimal Boderline Increased RiskCHOL <200 200-239 >240TRIG <150 150-199 >200HDL Male: >60 <40HDL Female: >60 <50LDL <100 130-159 >160LDL NEAR OPTIMAL IS 100-129 VLDL (test code=VLDL) 17 mg/dL 5-40 LDL/HDL (test code=LDLPHDL) 2 Comprehensive Metabolic [id number] 21:39:00 Test Item Value Reference Range Comments [...] race is not provided, and the patient isAfrican-Australian, multiply by 1.212. If sex is not provided, and thepatient is female, multiply by 0.742. Results for patients <18 years ofage have not been validated by the MDRD study and should be interpretedwith caution.eGFR Result Interpretation:eGFR > or=60 is in the Normal RangeeGFR < 60 may mean kidney diseaseeGFR < 15 may mean kidney failureRanges recommended by the National Kidney Foundation,http://nkdep.nih .gov Urinalysis [id number] 21:39:00 Test Item Value Reference Range Comments Color (test code=COLOR) Yellow Yellow,Straw,Pl yellow Clarity (test code=CLAR) Cloudy Clear Specific [place] (test 1.036 1.001-1.035 code=SPGR) pH (test code=PH) [...] code=AMORD) Bacteria (test code=BACT) Moderate /HPF Alcohol/Ethanol, [id number] 21:37:00 Test Item Value Reference Range Comments Alcohol, Ethyl (test <0.01 g/dL 0.00-0.01 Intoxicated 0.080 g/dL or code=ETOH) more BHCG, Serum, [id number] 21:37:00 Test Item Value Reference Range Comments Preg Qual [Se] (test code=BSHCG) Negative Negative [id number] 21:36:00 Test Item Value Reference Range Comments [...] THC (test code=THC) POSITIVE Negative CBC with [id number] 21:33:00 Test Item Value Reference Range Comments [...] Lymph Abs (test code=ALYMPH) 3.3 K/cumm 0.5-4.6 [place]cl[place] Abs (test code=AMONO) 0.6 K/cumm 0.0-1.2 Eos Abs (test code=AEOS) 0.17 K/cumm 0.00-0.74 Baso Abs (test code=ABASO) 0.0 K/cumm 0.00-0.21 BHCG, Urine, [id number] 14:05:00 Test Item Value Reference Range Comments Preg Qual [Ur] (test code=HUHCG) Negative Negative RPR, [id number] 16:02:00 Test Item Value Reference Range Comments RPR (test code=RPR) Non-Reactive Non-Reactive Thyroid Stimulating Hormone (TSH)2017-02-14 11:18:00 Test Item Value Reference Range Comments TSH (test code=TSH) 0.55 mIU/mL 0.270-4.200 Lipid [id number] 11:11:00 Test Item Value Reference Range Comments Cholesterol (test 147 mg/dL 0-200 code=CHOL) Triglycerides (test 79 mg/dL 9-200 code=TRIG) HDL (test code=HDL) 51 mg/dL 50-60 Chol/HDL (test 2.9 Ratio 0.0-4.4 code=CHOLPHDL) LDL, Calculated (test 80 0-130 (NOTE)RISK OF HEART code=LDLC) DISEASEPublished by Australian Heart AssociationAnalyte Optimal Boderline Increased RiskCHOL <200 200-239 >240TRIG <150 150-199 >200HDL Male: >60 <40HDL Female: >60 <50LDL <100 130-159 >160LDL NEAR OPTIMAL IS 100-129 VLDL (test code=VLDL) 16 mg/dL 5-40 LDL/HDL (test code=LDLPHDL) 2
[2019-06-09 11:50] LABS: Urine Bacteria <20 /HPF (<20); Urine Culture Reflex Order NOT NEEDED; Urine RBC <5 /HPF (NONE SEEN)
[2019-06-09 11:51] LABS: Urine Blood NEGATIVE (NEG); Urine Glucose NEGATIVE (NEG); Urine Protein NEGATIVE (NEG); Urine pH 7.5 (5.0-7.0)
[2019-06-09 12:10] LABS: Absolute Lymphocytes (CBC) 2.4 K/uL (0.7-4.9); Basophils % 0.6 % (0-1.3); Hematocrit 34.2 % (36.0-45.0); Lymphocytes % 29.1 % (15.3-44.8); MPV 7.3 fL (7.6-11.3); RBC Red Blood Cell Count 3.75 M/uL (3.86-4.86)
[2019-06-09] MEDS ORDERED: ACETAMINOPHEN 500 MG TAB ONE (12:15)
[2019-06-09 12:53] LABS: BUN Blood Urea Nitrogen 6 mg/dL (7-18); Bicarbonate 23 mmol/L (21-32); Glucose Level 98 mg/dL (74-106); HCG, Quantitative 1290 mIU/mL (1-3); Sodium Level 139 mmol/L (136-145)
--- NOTE | 2019-06-09 13:08 | RAD REPORT ---
EXAM DESCRIPTION: US - Transvaginal OB - 06/09/2019 12:26 pm CLINICAL HISTORY: ABD PAIN, vaginal bleeding, COMPARISON: None FINDINGS: Anechoic fluid is seen in the cul de sac. Hemorrhage is not suspected. Endometrial tissue is thickened. In the fundal portion there is a small round cystic structure presen t. Average sac diameter would correspond to a 4 week 6 day age for this IUP. There is no pole o r yolk sac. A 10 x 3 mm area of subchorionic hemorrhages present superiorly. Endometrium- myometrium interface is normal. No myometrial mass. A 14 millimeter anechoic left ovaria n cyst is present. No adnexal mass to suspect ectopic . IMPRESSION: Small round fluid collection in the fundal portion of the endometrial cavity is probably an early IUP measuring 4 weeks 6 days age. No yolk sac or pole present to confirm IUP. No adnexal mass seen to suspect ectopic . Follow-up sonography can be performed as warranted.
--- NOTE | 2019-06-09 13:55 | ER ---
Nurse's Notes [facility] Name: Jael Lugo Age: 23 yrs Sex: Female : 1995 Arrival Date: 06/09/2019 Time: 10:48 Bed 23 Private MD: Diagnosis: related conditions, unspecified, first trimester;Low back pain;Lower abdominal pain, unspecified;Threatened Presentation: 06/09 10:59 Presenting complaint: Patient states: pressure down low, feels pain when I walk that ch radiates to my legs. Transition of care: patient was not received from another setting of care. Onset of symptoms was June 08, 2019. Risk Assessment: Do you want to hurt yourself or someone else? Patient reports no desire to harm self or others. Initial Sepsis Screen: Does the patient meet any 2 criteria? No. Patient's initial sepsis screen is negative. Does the patient have a suspected source of infection? No. Patient's initial sepsis screen is negative. Care prior to arrival: None. 10:59 Method Of Arrival: Ambulatory 10:59 Acuity: ALMA 3 ch Triage Assessment: 11:01 General: Appears in no apparent distress. comfortable, Behavior is calm, cooperative, ch appropriate for age. Pain: Complains of pain in pelvis. GI: Reports lower abdominal pain. GLASS SCULLION: 11:01 LMP 05/07/2019 Historical: - Allergies: 11:01 No Known Allergies; ch - PMHx: 11:01 "arthritis in my lower spine"; Bipolar disorder; Depression; drug abuse; Heart Murmur; ch Herniated disc; insomnia; Schizophrenia; - PSHx: 11:01 None; ch - Immunization history:: Adult Immunizations up to date, Flu vaccine is not up to date. - Coronavirus screen:: The patient has NOT traveled to [place], [place], or [place] in the past 14 days. The patient has NOT had contact with known/suspected case of Coronavirus?. - Social history:: Smoking status: Patient denies any tobacco usage or history of. - Ebola Screening: : Patient negative for fever greater than or equal to 101.5 degrees Fahrenheit, and additional compatible Ebola Virus Disease symptoms Patient denies exposure to infectious person Patient denies travel to an Ebola-affected area in the 21 days before illness onset No symptoms or risks identified at this time. Screenin:20 Abuse screen: Denies threats or abuse. Denies injuries from another. Nutritional ss screening: No deficits noted. Tuberculosis screening: Never had TB. Fall Risk None identified. Assessment: 11:20 General: Appears in no apparent distress. comfortable, well groomed, well developed, ss well nourished, Denies fever, feeling ill, fatigue, chills. Pain: Complains of pain in pelvis, low back Pain currently is 8 out of 10 on a pain scale. Quality of pain is described as aching, pressure, Pain began yesterday Is continuous. Neuro: Level of Consciousness is awake, alert, obeys commands, Oriented to person, place, time, situation, Reports paresthesias in pelvis, medial aspect of right leg and left leg Denies blurred vision dizziness. Cardiovascular: Capillary refill < 3 seconds is brisk in bilateral fingers. Respiratory: Airway is patent Respiratory effort is even, unlabored, Respiratory pattern is regular, symmetrical. GI: Bowel sounds present X 4 quads. Abd is soft X 4 quads Abdomen is tender to palpation in suprapubic area Patient currently denies diarrhea, nausea, vomiting. : Denies burning with urination, inability to void, urinary frequency. EENT: Nares are clear Oral mucosa is moist. Derm: Skin is intact, is healthy with good turgor, Skin is pink, warm \\T\\ dry. normal. Musculoskeletal: Circulation, motion, and sensation intact. Range of motion: intact in all extremities, Swelling absent. 11:29 Reassessment: Pt reports an episode of light vaginal spotting this morning, but denies ss anymore bleeding at this time. 12:45 Reassessment: Patient appears in no apparent distress at this time. Patient and/or ss family updated on plan of care and expected duration. Pain level reassessed. Patient is alert, oriented x 3, equal unlabored respirations, skin warm/dry/pink. Vital Signs: 11:01 BP 118 / 81; Pulse 74; Resp 16; Temp 98.6; Pulse Ox 100% on R/A; Weight 73.94 kg; ch Height 5 ft. 7 in. (170.18 cm); Pain 8/10; 11:12 BP 124 / 66 LA (auto/reg); Pulse 78 MON; Pulse Ox 99% on R/A; jp3 11:01 Body Mass Index 25.53 (73.94 kg, 170.18 cm) ED Course: 10:48 Patient arrived in ED. as 11:00 Triage completed. 11:01 Arm band placed on left wrist. Patient placed in an exam room, on a stretcher. 11:04 Shahram Knight PA is PHCP. cp 11:04 Feroz Turner MD is Attending Physician. cp 11:11 Safety checks: Family/friend present: yes. Family/friends encouraged to stay with jp3 patient. Bed in low position. Call light in reach. Side rails up X 1. Warm blanket given. Verbal reassurance given. Pulse ox on. NIBP on. 11:11 Urine Microscopic Only Sent. jp3 11:12 Urine collected: clean catch specimen, clear, yanely colored. Patient maintains SpO2 jp3 saturation greater than 95% on room air. 11:14 Thania Aquino, GAUATM is Primary Nurse. 11:20 Radiology exam delayed due to lab results not completed at this time. (HCG) hr test not completed at this time. 11:45 Missed attempt(s): 22 gauge in left antecubital area. Bleeding controlled, band aid jp3 applied, catheter tip intact. 11:53 Inserted saline lock: 24 gauge in right hand, using aseptic technique. Blood collected. jp3 11:53 Initial lab(s) drawn, by pr, sent to lab. jp3 11:57 Quantitative Hcg Sent. jp3 11:57 Abo/rh Typing Sent. jp3 11:57 Basic Metabolic Panel Sent. jp3 11:57 CBC with Diff Sent. jp3 12:18 Urine --Ancillary (enter results) Sent. jp3 12:18 Urine Dipstick--Ancillary (enter results) Sent. jp3 Administered Medications: 12:13 Drug: Tylenol 1000 mg Route: PO; Outcome: 13:54 Discharge ordered by . cp 14:45 Patient left the ED. bd Signatures: Anne De Oliveira Christina, RN RN Janis Zabala Amelia as Thania Aquino, GAUTAM RN Shahram Knight PA PA cp Pisarski, Jacob jp3
--- NOTE | 2019-06-09 13:55 | EDPHYS ---
Physician Documentation [facility] Name: Jael Lugo Age: 23 yrs Sex: Female : 1995 Arrival Date: 06/09/2019 Time: 10:48 Bed 23 Private MD: ED Physician Feroz Turner HPI: 06/09 11:17 This 23 yrs old Black Female presents to ER via Ambulatory with complaints of Abdominal cp Pain - 5 wks preg, Back Pain, Numbness. 11:17 The patient presents with abdominal pain in the lower abdomen. cp 11:17 Onset: The symptoms/episode began/occurred yesterday. The symptoms radiate to lower cp back and bilateral groin and pelvic area. Associated signs and symptoms: Pertinent positives: numbness/tingling in groin area, Pertinent negatives: chest pain, constipation, diarrhea, dysuria, fever, vaginal discharge, vomiting. The symptoms are described as achy. Severity of pain: in the emergency department the pain is a 8 / 10. 11:17 Patient reports spotting yesterday but none today. 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 - Coronavirus screen:: The patient has NOT traveled to [place], [place], or [place] in the past 14 days. The patient has NOT had contact with known/suspected case of Coronavirus?. - Social history:: Smoking status: Patient denies any tobacco usage or history of. - Ebola Screening: : Patient negative for fever greater than or equal to 101.5 degrees Fahrenheit, and additional compatible Ebola Virus Disease symptoms Patient denies exposure to infectious person Patient denies travel to an Ebola-affected area in the 21 days before illness onset No symptoms or risks identified at this time. ROS: 11:25 Constitutional: Negative for body aches, chills, fever, poor PO intake. cp 11:25 Eyes: Negative for injury, pain, redness, and discharge. cp 11:25 Cardiovascular: Negative for chest pain, palpitations. 11:25 Respiratory: Negative for cough, shortness of breath, wheezing. 11:25 Abdomen/GI: Positive for abdominal pain, Negative for vomiting, diarrhea, constipation, black/tarry stool, rectal bleeding. 11:25 Back: Positive for radiated pain, of the low back area, Negative for injury or acute deformity, decreased range of motion. 11:25 : Positive for pelvic pain, Negative for urinary symptoms, vaginal bleeding, vaginal discharge. 11:25 Skin: Negative for cellulitis, rash. 11:25 Neuro: Positive for numbness, tingling, of the groin area, Negative for altered mental status. 11:25 All other systems are negative. Exam: 11:30 Constitutional: The patient appears in no acute distress, alert, awake, cp non-diaphoretic, non-toxic, well developed, well nourished. 11:30 Head/Face: Normocephalic, atraumatic. cp 11:30 Eyes: Periorbital structures: appear normal, Conjunctiva: normal, no exudate, no injection, Sclera: no appreciated abnormality, Lids and lashes: appear normal, bilaterally. 11:30 ENT: External ear(s): are unremarkable, Nose: is normal, Mouth: Lips: moist, Oral mucosa: pink and intact, moist, Posterior pharynx: is normal, airway is patent, no erythema, no exudate. 11:30 Chest/axilla: Inspection: normal, Palpation: is normal, no crepitus, no tenderness. 11:30 Cardiovascular: Rate: normal, Rhythm: regular, Edema: is not appreciated. 11:30 Respiratory: the patient does not display signs of respiratory distress, Respirations: normal, no use of accessory muscles, no retractions, labored breathing, is not present, Breath sounds: are clear throughout, no decreased breath sounds, no stridor, no wheezing. 11:30 Abdomen/GI: Inspection: abdomen appears normal, Bowel sounds: active, all quadrants, Palpation: soft, in all quadrants, mild abdominal tenderness, in the right lower quadrant and left lower quadrant, rebound tenderness, is not appreciated, voluntary guarding, is not appreciated, involuntary guarding, is not appreciated. 11:30 Back: pain, that is mild, of the low back area, ROM is normal, Straight leg raises: of both lower extremities does not illicit pain. 11:30 Skin: no rash present. Vital Signs: 11:01 BP 118 / 81; Pulse 74; Resp 16; Temp 98.6; Pulse Ox 100% on R/A; Weight 73.94 kg; ch Height 5 ft. 7 in. (170.18 cm); Pain 8/10; 11:12 BP 124 / 66 LA (auto/reg); Pulse 78 MON; Pulse Ox 99% on R/A; jp3 11:01 Body Mass Index 25.53 (73.94 kg, 170.18 cm) ch MDM: 11:08 Patient medically screened. cp 11:30 Differential diagnosis: appendicitis, cholecystitis, Cholelithiasis, Ectopic , cp non-specific abd pain, Ovarian Torsion, Pelvic Inflammatory Disease, Pyelonephritis, Ureterolithiasis, urinary tract infection. 13:54 Data reviewed: vital signs, nurses notes, lab test result(s), radiologic studies, cp ultrasound, and as a result, I will discharge patient. 13:54 Counseling: I had a detailed discussion with the patient and/or guardian regarding: the cp historical points, exam findings, and any diagnostic results supporting the discharge/admit diagnosis, lab results, radiology results, the need for outpatient follow up, an OB/Gyne specialist, to return to the emergency department if symptoms worsen or persist or if there are any questions or concerns that arise at home. 13:54 ED course: VSS. US results date patient at 4 weeks 6 days. Will discharge to home with cp pelvic rest precautions and to f/u with OB. 06/09 11:05 Order name: Urine Microscopic Only 06/09 11:18 Order name: Quantitative Hcg 06/09 11:18 Order name: Abo/rh Typing 06/09 11:18 Order name: Basic Metabolic Panel 06/09 11:18 Order name: CBC with Diff 06/09 11:21 Order name: Urine Dipstick--Ancillary (enter results) bd 06/09 11:21 Order name: Urine --Ancillary (enter results) bd 06/09 11:50 Order name: Urine Microscopic Only; Complete Time: 12:02 EDME 06/09 11:52 Order name: Urine --Ancillary; Complete Time: 12:02 EDME 06/09 12:02 Interpretation: Reviewed. 06/09 11:52 Order name: Urine Dipstick-Ancillary; Complete Time: 12:02 EDMS 06/09 12:11 Order name: CBC with Automated Diff; Complete Time: 13:05 EDMS 06/09 13:40 Interpretation: Normal except: RBC 3.75; HGB 11.5; HCT 34.2; MPV 7.3. cp 06/09 12:17 Order name: ABO/RH typing; Complete Time: 13:05 EDMS 06/09 12:53 Order name: Basic Metabolic Panel; Complete Time: 13:05 EDMS 06/09 12:53 Order name: HCG, Quantitative; Complete Time: 13:05 EDMS 06/09 13:41 Interpretation: Reviewed. cp 06/09 11:05 Order name: Urine Dipstick-Ancillary (obtain specimen); Complete Time: 11:11 cp 06/09 11:05 Order name: Urine Test (obtain specimen); Complete Time: 11:11 cp 06/09 11:18 Order name: IV Saline Lock; Complete Time: 11:55 cp 06/09 11:18 Order name: Labs collected and sent; Complete Time: 11:55 cp 06/09 11:18 Order name: NPO; Complete Time: 11:52 cp 06/09 12:03 Order name: US Transvaginal Ob 06/09 13:05 Order name: US Transvaginal Ob 06/09 13:11 Order name: US; Complete Time: 13:38 EDMS Administered Medications: 12:13 Drug: Tylenol 1000 mg Route: PO; Disposition: 17:57 Co-signature as Attending Physician, Feroz Turner MD I agree with the assessment and kdr plan of care. Disposition: 06/09/19 13:54 Discharged to Home. Impression: related conditions, unspecified, first trimester, Low back pain, Lower abdominal pain, unspecified, Threatened . - Condition is Stable. - Discharge Instructions: Abdominal Pain During , Back Pain, Adult, Threatened Miscarriage, Pelvic Rest, Back Exercises. - Prescriptions for Vitamin 27- 0.8 mg Oral Tablet - take 1 tablet by ORAL route once daily; 60 tablet. - Work release form, Medication Reconciliation Form, Thank You Letter, Antibiotic Education, Prescription Opioid Use form. - Follow up: Private Physician; When: 1 week; Reason: Recheck today's complaints. - Problem is new. - Symptoms have improved. Signatures: Dispatcher [employer] EDMS Anne De Oliveira bd Taylor Abel RN RN Feroz Turner MD MD [facility] Thania Aquino RN RN ss Shahram Knight PA PA cp Corrections: (The following items were deleted from the chart) 13:55 13:54 06/09/2019 13:54 Discharged to Home. Impression: related conditions, cp unspecified, first trimester; Low back pain; Lower abdominal pain, unspecified. Condition is Stable. Forms are Medication Reconciliation Form, Thank You Letter, Antibiotic Education, Prescription Opioid Use. Follow up: Private Physician; When: 1 week; Reason: Recheck today's complaints. Problem is new. Symptoms have improved. cp 14:45 13:55 06/09/2019 13:54 Discharged to Home. Impression: related conditions, bd unspecified, first trimester; Low back pain; Lower abdominal pain, unspecified; Threatened . Condition is Stable. Discharge Instructions: Abdominal Pain During , Back Pain, Adult, Threatened Miscarriage, Pelvic Rest, Back Exercises. Prescriptions for Vitamin 27-0.8 mg Oral Tablet - take 1 tablet by ORAL route once daily; 60 tablet. and Forms are Medication Reconciliation Form, Thank You Letter, Antibiotic Education, Prescription Opioid Use. Follow up: Private Physician; When: 1 week; Reason: Recheck today's complaints. Problem is new. Symptoms have improved. cp
[2019-06-09 14:50] VITALS: TEMP 98.6
[2019-06-09 14:52] VITALS: BP 124/66; O2SAT 99
== END 2019-06-09 14:45 | disposition home or self-care (01) ==
LOC: ER 10:46
DX: O20.0 Threatened abortion (principal); Z3A.25 25 weeks gestation of pregnancy
CPT/HCPCS: 36415; 76817; 80048; 81003; 81015; 81025; 84702; 85025; 86900; 86901; 99284

== ENCOUNTER 2019-07-15 23:44 | Emergency (ER) | payer OTHER ==
--- OUTSIDE RECORDS SUMMARY | 2019-07-15 23:47 | XMS REPORT | Summary of Care ---
:[address] [facility] Address [address] [place] [id number] Care Team Providers Name Role Phone Doctor Unassigned, [place] Insurance Hmo Unavailable Samantha Ramos Primary Care Provider Reason for Visit Reason Comments Care Follow-up ER F/U Pain And Spotting Encounter Details Date Type Department Care Team Description 06/13/2019 Routine [facility] [place], Supervision of high risk , antepartum (Primary Dx); Visit Shaniko Cassie C, WHCNP Vaginal bleeding during [address] [facility] [address] [facility] [id number] [facility] [phone] [place] [address] Allergies No Known Allergiesdocumented as of this encounter (statuses as of 06/13/2019) Medications Medication Sig Dispensed Refills Start Date End Date Status LOESTRIN FE (JUNEL FE Take 1 tablet by 3 Package 0 07/30/2018 Active 05/26, 28,) 1 mg-20 mcg mouth daily. (21)/75 mg (7) tabletIndications: Encounter for initial prescription of contraceptive pills multivitamin Take 1 tablet by 90 tablet 3 06/05/2019 Active ( VITAMIN) mouth daily. tabletIndications: Supervision of high risk , antepartum documented as of this encounter (statuses as of 06/13/2019) Active Problems Problem Noted Date Rubella non-immune status, antepartum 06/06/2019 Overview: Address pp Multiparity 06/05/2019 Supervision of high-risk 06/05/2019 Tobacco use in 06/05/2019 Overview: Quit 3days ago per Patient History of prior with IUGR 06/05/2019 Overview: Reports delivery at 37.3 Flu vaccine need 06/05/2019 Overview: Declined flu Boil of buttock 07/30/2018 History of anxiety 03/21/2015 Estimated Date of Delivery Comments Yes 02/12/2020 Based on last menstrual period of 05/08/2019 (Approximate) documented as of this encounter (statuses as of 06/13/2019) Resolved Problems Problem Noted Date Resolved Date Encounter for initial prescription of contraceptive pills 07/30/20182019 Well woman exam 09/08/2015 06/05/2019 Overweight 09/08/2015 06/05/2019 Nexplanon insertion 09/08/2015 07/30/2018 Vaginal delivery 06/22/2015 09/08/2015 Overview: delivered at 37.4 weeks Outcome of delivery, single liveborn 06/22/2015 09/08/2015 40 weeks gestation of 06/21/2015 06/21/2015 Normal delivery 06/21/2015 09/08/2015 heart deceleration 06/20/2015 06/21/2015 37 weeks gestation of 06/20/2015 06/21/2015 36 weeks gestation of 06/17/2015 06/20/2015 contractions, third trimester 06/17/2015 06/20/2015 IUGR (intrauterine growth restriction) 05/09/2015 06/22/2015 Overview: 04/26 US=27w6d at 29w3d 1137 gm (6%) INOCENCIO=12.8 cm S/D=3.1; normal quad screen Vomiting and diarrhea 05/09/2015 06/20/2015 Pain of round ligament affecting , antepartum 03/21/2015 06/20/2015 Multiparity 03/21/2015 09/08/2015 with history of 03/21/2015 09/08/2015 Overview: TAb at 15w; 07/2014 TAb at 15 w Chlamydia trachomatis infection of lower genitourinary sites 02/15/201506/20 Overview: jaylon negative Back pain affecting in first trimester 01/04/2015 06/20/2015 Jaw pain 01/04/2015 03/18/2015 Cramping affecting , antepartum 12/09/2014 03/21/2015 Supervision of other high-risk , third trimester 12/09/20142015 Overview: ICD10 Diagnosis Term 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 documented as of this encounter (statuses as of 06/13/2019) Immunizations Name Administration Dates Next Due Tdap 05/27/2015, 05/07/2012 documented as of this encounter Social History Tobacco Use Types Packs/Day Years Used Date Former Smoker Cigarettes 5 07/30/2013 - 06/02/2019 Smokeless Tobacco: Never Used Comments: 2 cigarettes a day Alcohol Use Drinks/Week oz/Week Comments No Estimated Date of Delivery Comments Yes 02/12/2020 Based on last menstrual period of 05/08/2019 (Approximate) Sex Assigned at Date Recorded Not on file Job Start Date Occupation Industry Not on file Not on file Not on file Travel History Travel Start Travel End No recent travel history available. documented as of this encounter Last Filed Vital Signs Vital Sign Reading Time Taken Comments Blood Pressure 116/63 06/13/2019 2:06 PM INSTRUMENT TECHNICIAN APPRENTICE Pulse 74 06/13/2019 2:06 PM INSTRUMENT TECHNICIAN APPRENTICE Temperature 36.3 C (97.3 F) 06/13/2019 2:06 PM INSTRUMENT TECHNICIAN APPRENTICE Respiratory Rate 16 06/13/2019 2:06 PM INSTRUMENT TECHNICIAN APPRENTICE Oxygen Saturation - - Inhaled Oxygen Concentration - - Weight 74.2 kg (163 lb 8 oz) 06/13/2019 2:06 PM INSTRUMENT TECHNICIAN APPRENTICE Height 170.2 cm (5' 7") 06/13/2019 2:06 PM INSTRUMENT TECHNICIAN APPRENTICE Body Mass Index 25.61 06/13/2019 2:06 PM INSTRUMENT TECHNICIAN APPRENTICE documented in this encounter Progress Notes Cassie Duvall, WHCNP - 06/13/2019 2:00 PM CST Chief complaint: Chief Complaint Patient presents with Care Follow-up ER F/U Pain And Spotting HPI CC: Follow Up Visit Jael Lugo is a 23 year old, , Black or female. Patient's last menstrual period was 05/08/2019 (approximate). She is 5w1d with an intrauterine . Her estimated date of delivery is 2019, by Last Menstrual Period. she reports. She reports she was seen at the ER on this past Sunday for vaginal bleeding. She reports an usg was completed and she was measuring about a 2 day difference from her LMP. She denies any vaginal bleeding since that day. Histories OB History Para Term AB Living 5 2 2 2 2 SAB TAB Ectopic Multiple Live Births 2 2 # Outcome Date GA Lbr Rich/2nd Weight Sex Delivery Anes PTL Lv 5 Current 4 Term 06/21/15 37w3d 5 lb (2.268 kg) F VAGINAL COLE 3 TAB 07/2014 15w0d 2 TAB 02/2013 15w0d 1 Term 09/03/12 39w0d 6 lb 5 oz (2.863 kg) M NORMAL SPONT EPI, IV narcotic N COLE Past Medical History: Diagnosis Date Anxiety resolved Depression resolved Intervertebral cervical disc disorder with myelopathy, cervical region 2014 Family History Problem Relation Age of Onset Breast Cancer Maternal Aunt Hypertension Maternal Aunt Hypertension Maternal Grandmother Breast Cancer Paternal Grandmother Breast Cancer Maternal Aunt No Significant Medical Problems Mother No Significant Medical Problems Father No Significant Medical Problems Maternal Grandfather No Significant Medical Problems Paternal Grandfather Arthritis NoFHx Asthma NoFHx defects NoFHx Ovarian Cancer NoFHx Colon Cancer NoFHx Uterine Cancer NoFHx Cancer NoFHx Depression NoFHx Diabetes NoFHx Genetic NoFHx Heart NoFHx Mental retardation NoFHx High cholesterol NoFHx Neurological NoFHx Osteoporosis NoFHx Other - see comments NoFHx Psychiatry NoFHx Family Status Relation Name Status MAunt MGMo Alive PGMo Alive MAunt Mo Alive Fa Alive Sis Alive Bro Alive MUnc Alive PAunt Alive PUnc Alive MGFa PGFa NoFHx (Not Specified) No past surgical history on file. Social History Socioeconomic History Marital status: Single Spouse name: Not on file Number of children: Not on file Years of education: Not on file Highest education level: Not on file Occupational History Not on file Social Needs Financial resource strain: Not on file Food insecurity: Worry: Not on file Inability: Not on file Transportation needs: Medical: Not on file Non-medical: Not on file Tobacco Use Smoking status: Former Smoker Years: 5.00 Types: Cigarettes Start date: 07/30/2013 Last attempt to quit: 06/02/2019 Years since quittin.0 Smokeless tobacco: Never Used Tobacco comment: 2 cigarettes a day Substance and Sexual Activity Alcohol use: No Drug use: No Sexual activity: Yes Partners: Male control/protection: None Comment: last sexual intercourse 06/03/19 Lifestyle Physical activity: Days per week: Not on file Minutes per session: Not on file Stress: Not on file Relationships Social connections: Talks on phone: Not on file Gets together: Not on file Attends jehovah's witness service: Not on file Active member of club or organization: Not on file Attends meetings of clubs or organizations: Not on file Relationship status: Not on file Intimate partner violence: Fear of current or ex partner: Not on file Emotionally abused: Not on file Physically abused: Not on file Forced sexual activity: Not on file Other Topics Concern Not on file Social History Narrative [facility] preference is Tenriism. Patient lives with boyfriend, patient feels safe at home. Social History Substance and Sexual Activity Sexual Activity Yes Partners: Male control/protection: None Comment: last sexual intercourse 06/03/19 Labs Labs are pending. Radiology Radiology pending. Allergies Jael has No Known Allergies. Medications Jael has a current medication list which includes the following prescription(s) : multivitamin and loestrin fe. Review of Systems Constitutional: Negative. HENT: Negative. Eyes: Negative. Respiratory: Negative. Breasts: Negative. Cardiovascular: Negative. Gastrointestinal: Negative. Genitourinary: Positive for vaginal bleeding. Musculoskeletal: Negative. Skin: Negative. Neurological: Negative. Psychiatric/Behavioral: Negative. Endocrine: Endocrine negative BP 116/63 (BP Location: Right arm, Patient Position: Sitting, BP CUFF SIZE: Adult Medium) | Pulse 74 | Temp 36.3 C (97.3 F) (Oral) | Resp 16 | Ht 5 ' 7" (1.702 m) | Wt 163 lb 8 oz (74.2 kg) | LMP 05/08/2019 (Approximate) | BMI 25.61 kg/m Pregravid BMI: Could not be calculated Physical Exam PHYSICAL: General Exam: Neurological: Normal Abdomen: Normal gravid Extremities: Normal Pelvic Exam: Uterus: 5 Weeks Assessment/Plan Return to clinic in 3 weeks. Denies zika virus risk, signs and symptoms such as fever,rash,joint pain, conjunctivitis (red eyes),muscle pain, headaches; outside [place] travel to areas affected by zika, and FOB exposure to zika. Educated on use of mosquito repellent. Vaginal bleeding during (primary encounter diagnosis) Comment: reports Plan: TOTAL BETA HCG ASSAY Supervision of risk , antepartum Comment: routine Plan: POCT URINALYSIS W SPECIFIC GRAVITY, Glucose 1 Hour Post Prandial This visit did not involve counseling and coordination that comprised more than 50% of the visit time. BRIE Oh 06/13/2019 2:19 PM documented in this encounter Plan of Treatment Date Type Specialty Care Team Description 07/03/2019 Routine Visit [facility] Cassie Duvall WHCNP [address] [place], [place] [id number] Name Type Priority Associated Diagnoses Order Schedule TOTAL BETA HCG ASSAY LAB Routine Vaginal bleeding during 3 Occurrences starting 06/13/2019 until 07/11/2019 Glucose 1 Hour Post LAB Routine Supervision of high risk Expected: 2019, Prandial , antepartum Expires: 06/13/2020 Health Maintenance Due Date Last Done Comments INFLUENZA VACCINE (#1) 2019 Postponed from 01/05/2019 (Alternative Guidelines) HPV VACCINES (1 - Female 05/25/2020 Postponed from 2004 2-dose series) ( or ) PAP SMEAR 07/30/2021 07/30/2018, 12/04/2014 DTaP,Tdap,and Td Vaccines (3 05/27/2025 05/27/2015, - Td) 05/07/2012 PNEUMOCOCCAL 0-64 YEARS Aged Out No longer eligible based COMBINED SERIES on patient's age to complete this topic documented as of this encounter Goals Goal Patient Goal Associated Recent Patient-Stated? Author Type Problems Progress Quit using Tobacco Use No Hamm, tobacco Prisciliana, (cigarettes, [place] smokeless, etc) documented as of this encounter Procedures Procedure Name Priority Date/Time Associated Diagnosis Comments POCT URINALYSIS Routine 06/13/2019 2:07 PM Supervision of high Results for this INSTRUMENT TECHNICIAN APPRENTICE risk , procedure are in antepartum the results section. documented in this encounter Results POCT URINALYSIS W SPECIFIC GRAVITY (06/13/2019 2:07 PM INSTRUMENT TECHNICIAN APPRENTICE) POCT U SP GRAV . 1.005 - 1.025 mg/dl POCT PH U . 5 - 8 mg/dl POCT U LEUK EST . Negative - Negative POCT U NIT . Negative - Negative POCT U PROT Trace Negative - Negative POCT U GLU Neg Negative - Negative POCT U KETONE . Negative - Negative POCT U UROBILI . 0.2 - 1 mg/dl POCT U BILI . Negative - Negative POCT U BLD . Negative - Negative POCT U COLOR POCT U APPEAR Specimen Urine - URINE, CLEAN CATCH documented in this encounter Visit Diagnoses Diagnosis Supervision of high risk , antepartum - Primary Vaginal bleeding during documented in this encounter Insurance Payer Benefit Plan / Subscriber ID Effective Dates Phone Address Type Group [facility] xxxxxxxxx 2017-Present Medicaid COMM PLAN - PLUS MANAGED MEDICAID documented as of this encounter Advance Directives Name Relationship Healthcare Agent Communication Relationship Bijan Rich Significant Other Primary healthcare agent
--- OUTSIDE RECORDS SUMMARY | 2019-07-15 23:47 | XMS REPORT ---
:1995 Author Organization [facility] Address [address] [place] [address] Care Team Providers Name Role Phone UNKNOWN, [...] Facility Department ID 2017-06-02 2017-06-15 [id number]:23:00 13:37:00 Jane GARCIA Results Test Description Test Time Test Comments Text Results Atomic Results Result Comments Chlamydia/GC Amplification 2017-06-09 17:46:00 Test Item Value Reference Range Comments Chlamydia trachomatis, PRAKASH (test [id number]) Negative Negative Neisseria gonorrhoeae, PRAKASH (test [id number]=[id number]) Negative Negative HIV [id number] 21:56:00 Test Item Value Reference Range Comments HIV 1/2 Antibody (test Non-Reactive Non-Reactive HIV1/2 Antibody screen result code=HIV1/2AB) indicates the absence of HIV1 and SUP6aqfjfhnhi.However, A Non-Reactive screen result does not rule [...] suspected, HIV RNA Quantitative is recommended. RPR, [id number] 13:36:00 Test Item Value Reference Range Comments RPR (test code=RPR) Non-Reactive Non-Reactive Thyroid Stimulating Hormone (TSH)2017-06-02 07:20:00 Test Item Value Reference Range Comments TSH (test code=TSH) 1.46 mIU/mL 0.270-4.200 Lipid [id number] 07:13:00 Test Item Value Reference Range Comments Cholesterol (test 148 mg/dL 0-200 code=CHOL) Triglycerides (test 85 mg/dL 9-200 code=TRIG) HDL (test code=HDL) 42 mg/dL 50-60 Chol/HDL (test 3.5 Ratio 0.0-4.4 code=CHOLPHDL) LDL, Calculated (test 89 0-130 (NOTE)RISK OF HEART code=LDLC) DISEASEPublished by French Heart AssociationAnalyte Optimal Boderline Increased RiskCHOL <200 200-239 >240TRIG <150 150-199 >200HDL Male: >60 <40HDL Female: >60 <50LDL <100 130-159 >160LDL NEAR OPTIMAL IS 100-129 VLDL (test code=VLDL) 17 mg/dL 5-40 LDL/HDL (test code=LDLPHDL) 2 Comprehensive Metabolic [id number] 21:39:00 Test Item Value Reference Range Comments [...] race is not provided, and the patient isAfrican-French, multiply by 1.212. If sex is not provided, and thepatient is female, multiply by 0.742. Results for patients <18 years ofage have not been validated by the MDRD study and should be interpretedwith caution.eGFR Result Interpretation:eGFR > or=60 is in the Normal RangeeGFR < 60 may mean kidney diseaseeGFR < 15 may mean kidney failureRanges recommended by the National Kidney Foundation,http://nkdep.nih .gov Urinalysis [id number] 21:39:00 Test Item Value Reference Range Comments Color (test code=COLOR) Yellow Yellow,Straw,Pl yellow Clarity (test code=CLAR) Cloudy Clear Specific [place] (test 1.036 1.001-1.035 code=SPGR) pH (test code=PH) [...] code=AMORD) Bacteria (test code=BACT) Moderate /HPF Alcohol/Ethanol, [id number] 21:37:00 Test Item Value Reference Range Comments Alcohol, Ethyl (test <0.01 g/dL 0.00-0.01 Intoxicated 0.080 g/dL or code=ETOH) more BHCG, Serum, [id number] 21:37:00 Test Item Value Reference Range Comments Preg Qual [Se] (test code=BSHCG) Negative Negative [id number] 21:36:00 Test Item Value Reference Range Comments [...] THC (test code=THC) POSITIVE Negative CBC with [id number] 21:33:00 Test Item Value Reference Range Comments [...] Lymph Abs (test code=ALYMPH) 3.3 K/cumm 0.5-4.6 Harvey Abs (test code=AMONO) 0.6 K/cumm 0.0-1.2 Eos Abs (test code=AEOS) 0.17 K/cumm 0.00-0.74 Baso Abs (test code=ABASO) 0.0 K/cumm 0.00-0.21 BHCG, Urine, [id number] 14:05:00 Test Item Value Reference Range Comments Preg Qual [Ur] (test code=HUHCG) Negative Negative RPR, [id number] 16:02:00 Test Item Value Reference Range Comments RPR (test code=RPR) Non-Reactive Non-Reactive Thyroid Stimulating Hormone (TSH)2017-02-14 11:18:00 Test Item Value Reference Range Comments TSH (test code=TSH) 0.55 mIU/mL 0.270-4.200 Lipid [id number] 11:11:00 Test Item Value Reference Range Comments Cholesterol (test 147 mg/dL 0-200 code=CHOL) Triglycerides (test 79 mg/dL 9-200 code=TRIG) HDL (test code=HDL) 51 mg/dL 50-60 Chol/HDL (test 2.9 Ratio 0.0-4.4 code=CHOLPHDL) LDL, Calculated (test 80 0-130 (NOTE)RISK OF HEART code=LDLC) DISEASEPublished by French Heart AssociationAnalyte Optimal Boderline Increased RiskCHOL <200 200-239 >240TRIG <150 150-199 >200HDL Male: >60 <40HDL Female: >60 <50LDL <100 130-159 >160LDL NEAR OPTIMAL IS 100-129 VLDL (test code=VLDL) 16 mg/dL 5-40 LDL/HDL (test code=LDLPHDL) 2
--- OUTSIDE RECORDS SUMMARY | 2019-07-15 23:48 | XMS REPORT | Summary of Care ---
:1995 Author Organization [facility] Address [address] [place] [id number] Care Team Providers Name Role Phone Doctor Unassigned, [place] Insurance Hmo Unavailable Samantha RamosP Primary Care Provider Reason for Visit Reason Comments NURSE VISIT PC Encounter Details Date Type Department Care Team Description 06/04/2019 Nurse Visit [facility] Marshall, CLINICAL DATA PROGRAMMER [address] [place] [address] examination [place] Visit, [facility] Nurse or test, positive [address] result (Primary Dx) [place] [address] Allergies No Known Allergiesdocumented as of this encounter (statuses as of 06/04/2019) Medications Medication Sig Dispensed Refills Start Date End Date Status LOESTRIN FE (JUNEL FE Take 1 tablet by 3 Package 0 07/30/2018 Active 05/26, ,) 1 mg-20 mcg mouth daily. (21)/75 mg (7) tabletIndications: Encounter for initial prescription of contraceptive pills documented as of this encounter (statuses as of 06/04/2019) Active Problems Problem Noted Date Encounter for initial prescription of contraceptive pills 07/30/2018 Boil of buttock 07/30/2018 Well woman exam 09/08/2015 Overweight 09/08/2015 History of anxiety 03/21/2015 documented as of this encounter (statuses as of 06/04/2019) Resolved Problems Problem Noted Date Resolved Date Nexplanon insertion 09/08/2015 07/30/2018 Vaginal delivery 06/22/2015 [...] third trimester 12/09/20142015 Overview: ICD10 Diagnosis Term 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 documented as of this encounter Last Filed Vital Signs Vital Sign Reading Time Taken Comments Blood Pressure 126/75 06/04/2019 1:50 PM CLOTH STRETCHER Pulse 77 06/04/2019 1:50 PM CLOTH STRETCHER Temperature 36.6 C (97.8 F) 06/04/2019 1:50 PM CLOTH STRETCHER Respiratory Rate 16 06/04/2019 1:50 PM CLOTH STRETCHER Oxygen Saturation - - Inhaled Oxygen Concentration - - Weight 73.7 kg (162 lb 8 oz) 06/04/2019 1:50 PM CLOTH STRETCHER Height 170.2 cm (5' 7") 06/04/2019 1:50 PM CLOTH STRETCHER Body Mass Index 25.45 06/04/2019 1:50 PM CLOTH STRETCHER documented in this encounter Progress Notes Patsy Pan RN - 06/04/2019 1:30 PM CSTPatient present for nv for confirmation. test is positive, patient educated andadvised to come back for next available new ob appointment. Patient verbalized understanding. PATSY PAN RN 06/04/2019 2:04 PM documented in this encounter Plan of Treatment Date Type Specialty Care Team Description 06/05/2019 Office Visit [facility] 3, [facility] Room 06/05/2019 Initial Visit [facility]ell[facility] Cassie Duvall, [facility] [address] [place], [place] [id number] Health Maintenance Due Date Last Done Comments PNEUMOCOCCAL 0-64 YEARS 06/22/2019 Postponed from 09/16/1999 COMBINED SERIES (1 of 1 - (Alternative Guidelines) PPSV23) INFLUENZA VACCINE (#1) 2019 Postponed from 01/05/2019 (Alternative Guidelines) HPV VACCINES (1 - Female 05/25/2020 Postponed from 2004 2-dose series) ( or ) PAP SMEAR 07/30/2021 07/30/2018, 12/04/2014 DTaP,Tdap,and Td Vaccines (3 05/27/2025 05/27/2015, - Td) 05/07/2012 documented as of this encounter Goals Goal Patient Goal Associated Recent Patient-Stated? Author Type Problems Progress Quit using Tobacco Use No Hamm, tobacco Prisciliana, (cigarettes, [place] smokeless, etc) documented as of this encounter Procedures Procedure Name Priority Date/Time Associated Diagnosis Comments POCT TEST Routine 06/04/2019 2:00 PM Results for this CLOTH STRETCHER examination or test, procedure are in positive result the results section. documented in this encounter Results POCT TEST (06/04/2019 2:00 PM CLOTH STRETCHER) POCT PREG Positive On board controls acceptable Yes with C Line POCT PREG LOT # POCT PREG TEST DATE Specimen Urine - URINE, CLEAN CATCH documented in this encounter Visit Diagnoses Diagnosis examination or test, positive result - Primary documented in this encounter Insurance Payer Benefit Plan / Subscriber ID Effective Dates Phone Address Type Group [facility] xxxxxxxxx 2017-Present Medicaid COMM PLAN - PLUS MANAGED MEDICAID documented as of this encounter Advance Directives Name Relationship Healthcare Agent Communication Relationship Bijan Rich Significant Other Primary healthcare agent
--- OUTSIDE RECORDS SUMMARY | 2019-07-15 23:48 | XMS REPORT | Summary of Care ---
:1995 Author Organization [facility] Address [address] [place] [address] Care Team Providers Name Role Phone Doctor Unassigned, [place] Insurance Hmo Unavailable Samantha Ramos Primary Care Provider Reason for Referral (Routine) Status Reason Specialty Diagnoses / Referred By Referred To Procedures Contact Contact New Request Maternal Diagnoses Supervision of high risk , antepartum [place], Medicine Procedures CONSULT MATERNAL MEDICINE ULTRASOUND Preferred Location: BRIE Haley [address] [place] [address] Reason for Visit Reason Comments Initial Visit Encounter Details Date Type Department Care Team Description 06/05/2019 [facility] [place], Supervision of high risk , antepartum (Primary Dx); Visit BRIE Haley History of prior with IUGR ; [address] Multiparity; [facility] Maternal tobacco use in first trimester [id number] [facility] [phone] [place] [address] Allergies No Known Allergiesdocumented as of this encounter (statuses as of 06/05/2019) Medications Medication Sig Dispensed Refills Start Date [...] as of this encounter (statuses as of 06/05/2019) Active Problems Problem Noted Date Multiparity 06/05/2019 Supervision of high-risk 06/05/2019 Tobacco [...] as of this encounter (statuses as of 06/05/2019) Resolved Problems Problem Noted Date Resolved Date [...] third trimester 12/09/20142015 Overview: ICD10 Diagnosis 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 documented as of this encounter (statuses as of 06/05/2019) Immunizations Name Administration Dates Next Due Tdap [...] Sign Reading Time Taken Comments Blood Pressure 111/62 06/05/2019 3:20 PM DIE BAKER Pulse 76 06/05/2019 3:20 PM DIE BAKER Temperature 37.2 C (98.9 F) 06/05/2019 3:20 PM DIE BAKER Respiratory Rate 16 06/05/2019 3:20 PM DIE BAKER Oxygen Saturation - - Inhaled Oxygen Concentration - - Weight 74.1 kg (163 lb 5 oz) 06/05/2019 3:20 PM DIE BAKER Height 170.2 cm (5' 7") 06/05/2019 3:20 PM DIE BAKER Body Mass Index 25.58 06/05/2019 3:20 PM DIE BAKER documented in this encounter Progress Notes Cassie Duvall, WHCNP - 06/05/2019 2:30 PM CST Chief complaint: Chief Complaint Patient presents with Initial Visit HPI CC: Initial Visit Jael Lugo is a 23 year old, , Black or female. Patient's last menstrual period was 05/08/2019 (approximate). She is 4w0d with an suspected iup. Her Estimated Date of Delivery: 02/12/20. She is being seen today for her first obstetrical visit. She has no complaints today. OB History Para Term AB Living 5 [...] NORMAL SPONT EPI, IV narcotic N COLE Histories OB History Para Term AB Living [...] PUnc Alive MGFa PGFa NoFHx (Not Specified) History reviewed. No pertinent surgical history. Social History Socioeconomic History Marital status: Single [...] date: 07/30/2013 Last attempt to quit: 06/02/2019 Smokeless tobacco: Never Used Tobacco comment: 2 [...] file Gets together: Not on file Attends orthodox service: Not on file Active member of [...] Concern Not on file Social History Narrative Uatsdin preference is Oriental Orthodox. Patient lives with boyfriend, patient feels safe at home. Social History Substance and Sexual Activity Sexual Activity Yes Partners: Male control/protection: None Comment: last sexual intercourse 06/03/19 Genetic Screen Autism / Mental Retardation: No Shashi Disease: No Congenital Heart Defect: No Cystic Fibrosis: No Down Syndrome: No Familial Dysautonomia: No Hemophilia or other Blood Disorders: No Jeremy Chorea: No Maternal Metabolic Disorder--specify (eg. Type 1 Diabetes, PKU): No Muscular Dystrophy: No Neural Tube Defect: No Recurrent Loss or a Stillbirth: No Sickle Cell Disease or Trait: No Maxwell Sachs: No Teratological Substances (specify type & strength/dose) since LMP: No Thalassemia: No Other Inherited Genetic or Chromosomal Disorder (specify): No Defects Not Listed (specify): n No Significant History of Genetic Disorders: No Significant History of Genetic Disorders Labs Labs are pending. Radiology Radiology pending. Allergies Jael has No Known Allergies. Medications Jael has a current medication list which includes the following prescription(s) : multivitamin and loestrin fe. Review of Systems Constitutional: Negative. HENT: Negative. Eyes: Negative. Respiratory: Negative. Breasts: Negative. Cardiovascular: Negative. Gastrointestinal: Negative. Genitourinary: Negative. Musculoskeletal: Negative. Skin: Negative. Neurological: Negative. Psychiatric/Behavioral: Negative. Endocrine: Endocrine negative BP 111/62 (BP Location: Right arm, Patient Position: Sitting, BP CUFF SIZE: Adult Medium) | Pulse 76 | Temp 37.2 C (98.9 F) (Oral) | Resp 16 | Ht 5 ' 7" (1.702 m) | Wt 163 lb 5 oz (74.1 kg) | LMP 05/08/2019 (Approximate) | BMI 25.58 kg/m Pregravid BMI: Could not be calculated Physical Exam Vitals reviewed. Constitutional: She is oriented to person, place, and time. She appears well- developed. Her body habitus is normal. Neck: No tenderness and no mass. No thyroid nodules and no thyromegaly palpated. No neck adenopathy. Cardiovascular: Regular rate and rhythm. No gallop, no friction rub and no murmur auscultated. No peripheral edema present. Pulmonary/Chest: Breath sounds clear to auscultation. Normal inspiratory effort. Abdominal: Abdomen is soft. No mass palpated. No tenderness present. There is no hepatosplenomegaly,splenomegaly or hepatomegaly. There is no rigidity. No hernia palpated or inspected. Neuro/Psychiatric: She has a normal mood and affect. She is oriented to person, place, and time. Skin: No lesion, no rash and no ulceration present. Lymphadenopathy: No neck adenopathy present. No axillary adenopathy present. No inguinal adenopathy present. Breast: Right breast exhibits no mass, no nipple discharge and no tenderness. Left breast exhibits no mass, no nipple discharge and no tenderness. Breasts are symmetrical. Normal left breast and normalright breast Rectal: Rectal exam with normal anal tone. No mass, no external hemorrhoid and no internal hemorrhoid palpated or inspected. External genitalia: Normal external genitalia appropriate for age. Normal hair distribution. No labial lesion. Urethral meatus: Normal urethral meatus size, location and no lesion. No prolapse present. Normal urethral meatus Urethra: Normal urethra. No urethral tenderness, no mass and no urethral scarring palpated. Bladder: Bladder has no fullness, no mass palpated and no tenderness. Normal bladder Vagina:Normal vagina. No lesion inspected. Normal estrogen effect. Normal support. No abnormal vaginal discharge found. Cervix: Normal cervix. No lesion. No tenderness and no discharge present. Closed thick Uterus: Uterus is normal size, normal contour, normal position and non-tender. Normal uterus Adnexa: Right adnexa without tenderness, ovary enlargement or mass. Left adnexa without tenderness, ovary enlargement or mass. Normal left adnexa and normal right adnexa Anus/perineum: Normal perineum and normal anus. PHYSICAL: General Exam: HEENT: Normal Neurological: Normal Abdomen: Normal gravid Extremities: Normal Pelvic Exam: Vulva: Normal Vagina: Normal Cervix: Normal Membrane status: Intact Uterus: 5 Weeks Adnexa: Normal Rectum: Normal Assessment/Plan Return to clinic in 4 weeks. Denies zika virus risk, signs and symptoms such as fever,rash,joint pain, conjunctivitis (red eyes),muscle pain, headaches; outside [place] travel to areas affected by zika, and FOB exposure to zika. Educated on use of mosquito repellent. Supervision of high risk , antepartum (primary encounter diagnosis) History of prior with IUGR Multiparity Comment: initial visit Plan: POCT TEST, POCT URINALYSIS W/O SPECIFIC GRAVITY, CBC WITH DIFF, GC & CHLAMYDIA AMPLIFIED ASSAY, HEPATITIS B SURFACE ANTIGEN, HIV 1/2 AG-AB WITH REFLEX, POCT URINALYSIS W SPECIFIC GRAVITY, WORKUP, BLOOD BANK, RUBELLA SCREEN (KOFI) IGG, GALV ONLY - SYPHILIS IGG/IGM, URINE CULTURE, VZV ANTIBODY SCREEN, CONSULT MATERNAL MEDICINE ULTRASOUND Preferred Location: [place], multivitamin ( VITAMIN) tablet Maternal tobacco use in first trimester Comment: qiut Plan: smoking cessation encouraged This visit did not involve counseling and coordination that comprised more than 50% of the visit time BRIE Oh 06/05/2019 3:54 PM . Patsy Booth RN - 06/05/2019 2:30 PM CSTPatient is 23 year old female here for current . Patient is . 1) Previous delivery methods : Vaginal x2 2) Patient is not experiencing cramping 3) Patient is not experiencing bleeding. 4) LMP 05/08/2019 5) Last Pap was:07/30/2018 Results: Negative 6) Have you had a flu vaccine this season? No, patient declines today 7) PPD candidate? no 8) Patient denies any complaints 9) Patient denies history of physical, emotional, or sexual abuse. Patient states she currently feels safe at home. New ob packet given and discussed with patient. PATSY PAN RN 06/05/2019 3:26 PM documented in this encounter Plan of Treatment Name Type Priority Associated Diagnoses Order Schedule CBC WITH DIFF LAB Routine Supervision of high risk Expected: 06/05/2019, , antepartum Expires: 06/05/2020 GC & CHLAMYDIA LAB Routine Supervision of high risk Expected: 06/05/2019, AMPLIFIED ASSAY , antepartum Expires: 06/05/2020 HEPATITIS B SURFACE LAB Routine Supervision of high risk Expected: 2019, ANTIGEN , antepartum Expires: 06/05/2020 HIV 1/2 AG-AB WITH LAB Routine Supervision of high risk Ordered: 06/05/2019 REFLEX , antepartum POCT URINALYSIS W LAB Routine Supervision of high risk 20 Occurrences starting SPECIFIC GRAVITY , antepartum 06/05/2019 until 03/31/2020 WORKUP, BLOOD LAB Routine Supervision of high risk Expected: 06/05, BANK , antepartum Expires: 06/05/2020 RUBELLA SCREEN (KOFI) LAB Routine Supervision of high risk Expected: 06/05, IGG , antepartum Expires: 06/05/2020 GALV ONLY - SYPHILIS LAB Routine Supervision of high risk Expected: 2019, IGG/IGM , antepartum Expires: 06/05/2020 URINE CULTURE LAB Routine Supervision of high risk Expected: 06/05/2019, , antepartum Expires: 06/05/2020 VZV ANTIBODY SCREEN LAB Routine Supervision of high risk Expected: 2019, , antepartum Expires: 06/05/2020 Health Maintenance Due Date Last Done Comments [...] Priority Date/Time Associated Diagnosis Comments POCT URINALYSIS W/O Routine 06/05/2019 3:21 Supervision of high Results for this SPECIFIC GRAVITY PM DIE BAKER risk , procedure are in antepartum the results section. POCT TEST Routine 06/05/2019 3:21 Supervision of high Results for this PM DIE BAKER risk , procedure are in antepartum the results section. documented in this encounter Results POCT URINALYSIS W/O SPECIFIC GRAVITY (06/05/2019 3:21 PM DIE BAKER) POCT PH U 8 5 - 8 mg/dl POCT U LEUK EST Neg Negative - Negative POCT U NIT Neg Negative - Negative POCT U PROT Trace Negative - Negative POCT U GLU Neg Negative - Negative POCT U KETONE None Negative - Negative POCT U BLD Neg Negative - Negative Specimen Urine - URINE, CLEAN CATCH POCT TEST (06/05/2019 3:21 PM DIE BAKER) POCT PREG Positive On board controls acceptable Yes with C Line POCT PREG LOT # POCT PREG TEST DATE Specimen Urine - URINE, CLEAN CATCH documented in this encounter Visit Diagnoses Diagnosis Supervision of high risk , antepartum - Primary History of prior with IUGR Multiparity Maternal tobacco use in first trimester documented in this encounter Insurance Payer Benefit Plan / Subscriber ID Effective Dates Phone Address Type Group [facility] xxxxxxxxx 2017-Present Medicaid COMM PLAN - PLUS MANAGED MEDICAID documented as of this encounter Advance Directives Name Relationship Healthcare Agent Communication Relationship Bijan Rich Significant Other Primary healthcare agent
--- OUTSIDE RECORDS SUMMARY | 2019-07-15 23:48 | XMS REPORT | Summary of Care ---
:1995 Author Organization [facility] Address [address] [place] [address] Care Team Providers Name Role Phone Doctor Unassigned, [place] Insurance Hmo Unavailable Samantha RamosP Primary Care Provider Reason for Visit Reason Comments NURSE VISIT PC Encounter Details Date Type Department Care Team Description 06/04/2019 Nurse Visit [facility]- Tiara Marshall, EDUCATION PROFESSOR [address] [place] [address] examination [place] Visit, [facility] Nurse or test, positive [address] result (Primary Dx) [place] [address] Allergies No Known Allergiesdocumented as [...] third trimester 12/09/20142015 Overview: ICD10 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 documented as of this encounter (statuses [...] Comments Blood Pressure 126/75 06/04/2019 1:50 PM ARABIC TRANSLATOR Pulse 77 06/04/2019 1:50 PM ARABIC TRANSLATOR Temperature 36.6 C (97.8 F) 06/04/2019 1:50 PM ARABIC TRANSLATOR Respiratory Rate 16 06/04/2019 1:50 PM ARABIC TRANSLATOR Oxygen Saturation - - Inhaled Oxygen Concentration - - Weight 73.7 kg (162 lb 8 oz) 06/04/2019 1:50 PM ARABIC TRANSLATOR Height 170.2 cm (5' 7") 06/04/2019 1:50 PM ARABIC TRANSLATOR Body Mass Index 25.45 06/04/2019 1:50 PM ARABIC TRANSLATOR documented in this encounter Progress Notes Patsy Pan RN - 06/04/2019 1:30 PM CSTPatient present for nv for confirmation. test is positive, patient educated andadvised to come back for next available new ob appointment. Patient verbalized understanding. PATSY PAN RN 06/04/2019 2:04 PM documented in this encounter Plan of Treatment Date Type Specialty Care Team Description 06/05/2019 Office Visit [facility], [facility] Room 06/05/2019 Initial Visit [facility] Satellites Cassie Duvall, [facility] [address] [place], [place] [id number] Health Maintenance Due Date Last Done Comments INFLUENZA VACCINE (#1) 2019 PNEUMOCOCCAL 0-64 YEARS 06/22/2019 Postponed from 09/16/1999 COMBINED SERIES (1 of 1 - (Alternative Guidelines) PPSV23) HPV VACCINES (1 - Female 05/25/2020 Postponed [...] Routine 06/04/2019 2:00 PM Results for this ARABIC TRANSLATOR examination or test, procedure are in positive result the results section. documented in this encounter Results POCT TEST (06/04/2019 2:00 PM ARABIC TRANSLATOR) POCT PREG Positive On board controls acceptable Yes with C Line POCT PREG LOT # POCT PREG TEST DATE Specimen Urine - URINE, CLEAN CATCH documented in this encounter Visit Diagnoses Diagnosis examination or test, positive result - Primary documented in this encounter Insurance Payer Benefit Plan / Subscriber ID Effective Dates Phone Address Type Group [facility] xxxxxxxxx 2017-Present Medicaid COMM PLAN - PLUS MANAGED MEDICAID documented as of this encounter Advance Directives Name Relationship Healthcare Agent Communication Relationship Bijan Rich Significant Other Primary healthcare agent
--- OUTSIDE RECORDS SUMMARY | 2019-07-15 23:48 | XMS REPORT | Summary of Care ---
:[address] [facility] Address [address] [place] [address] Care Team Providers Name Role Phone Doctor Unassigned, [place] Insurance Hmo Unavailable Samantha Ramos Primary Care Provider Reason for Visit Reason Comments Care Follow-up ER F/U Pain And Spotting Encounter Details Date Type Department Care Team Description 06/13/2019 Routine [facility]- [place], Supervision of high risk , antepartum (Primary Dx); Visit [place] Cassie C, WHCNP Vaginal bleeding during [address] [facility] [address] [facility] [address] [facility] [phone] [place] [address] Allergies No Known Allergiesdocumented as [...] third trimester 12/09/20142015 Overview: ICD10 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 documented as of this encounter (statuses [...] Comments Blood Pressure 116/63 06/13/2019 2:06 PM REWRITER Pulse 74 06/13/2019 2:06 PM REWRITER Temperature 36.3 C (97.3 F) 06/13/2019 2:06 PM REWRITER Respiratory Rate 16 06/13/2019 2:06 PM REWRITER Oxygen Saturation - - Inhaled Oxygen Concentration - - Weight 74.2 kg (163 lb 8 oz) 06/13/2019 2:06 PM REWRITER Height 170.2 cm (5' 7") 06/13/2019 2:06 PM REWRITER Body Mass Index 25.61 06/13/2019 2:06 PM REWRITER documented in this encounter Progress Notes Cassie [...] file Gets together: Not on file Attends sikh service: Not on file Active member of [...] Concern Not on file Social History Narrative Taoism preference is Cheondoism. Patient lives with boyfriend, patient feels safe [...] Treatment Date Type Specialty Care Team Description 06/16/2019 Housekeeper Caregiver Visit [facility] 07/03/2019 Routine Visit [facility]ell[facility] Cassie Duvall WHCNP [address] [place] [address] [phone] Name Type Priority Associated Diagnoses Date/Time TOTAL BETA HCG ASSAY LAB Routine Vaginal bleeding during 06/13/2019 3:23 PM REWRITER Glucose 1 Hour Post LAB Routine Supervision of high risk 06/13/2019 3:23 PM REWRITER Prandial , antepartum Name Type Priority Associated Diagnoses Order Schedule [...] PM Supervision of high Results for this REWRITER risk , procedure are in antepartum the results section. documented in this encounter Results POCT URINALYSIS W SPECIFIC GRAVITY (06/13/2019 2:07 PM REWRITER) POCT U SP GRAV . 1.005 - [...] Subscriber ID Effective Dates Phone Address Type [facility] xxxxxxxxx 2017-Present Medicaid COMM PLAN - PLUS MANAGED MEDICAID documented as of this encounter Advance Directives Name Relationship Healthcare Agent Communication Relationship Bijan Rich Significant Other Primary healthcare agent
--- OUTSIDE RECORDS SUMMARY | 2019-07-15 23:48 | XMS REPORT | Summary of Care ---
:1995 Author Organization [facility] Address [address] [place] [address] Care Team Providers Name Role Phone Doctor Unassigned, [place] Insurance Hmo Unavailable Samantha Ramos Primary Care Provider Encounter Details Date Type Department Care Team Description 06/05/2019 Orders Only [facility] Doctor Unassigned, No [address] [facility] [place] [address] [address] [place] [address] Allergies No Known Allergiesdocumented as of this [...] of 06/05/2019) Active Problems Problem Noted Date Encounter for [...] third trimester 12/09/20142015 Overview: ICD10 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 documented as of this encounter (statuses [...] of this encounter Last Filed Vital Signs Not on filedocumented in this encounter Plan of Treatment Health Maintenance Due Date Last Done Comments [...] Procedure Name Priority Date/Time Associated Diagnosis Comments ASSIGNMENT OF BENEFITS Routine 06/05/2019 3:13 PM EDGER LINER documented in this encounter Results Not on filedocumented in this encounter Insurance Payer Benefit Plan / Subscriber ID Effective Phone Address Type Group Dates [facility] STAR xxxxxxxxx 2017-Pres Medicaid HEALTHCARE COMM PLUS ent PLAN - MANAGED MEDICAID [facility] [id number] 2017-Pres Behavioral SHERRY - MANAGED BEHAVIORAL ent [facility] [place] [facility] [place] documented as of this encounter Advance Directives Name Relationship Healthcare Agent Communication Relationship Bijan Rich Significant Other Primary healthcare agent
--- OUTSIDE RECORDS SUMMARY | 2019-07-15 23:48 | XMS REPORT | Summary of Care ---
:1995 Author Organization [facility] Address [address] [place] [address] Care Team Providers Name Role Phone Doctor Unassigned, [place] Insurance Hmo Unavailable Samantha RamosP Primary Care Provider Reason for Visit Reason Comments NURSE VISIT PC Encounter Details Date Type Department Care Team Description 06/04/2019 Nurse Visit [facility]- Tiara Marshall, DUCT LAYER HELPER [address] [place] [address] examination [place] Visit, [facility] Nurse or test, positive [address] result (Primary Dx) [place] [address] Allergies No Known Allergiesdocumented as [...] third trimester 12/09/20142015 Overview: ICD10 Diagnosis 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 documented as of this encounter (statuses [...] Comments Blood Pressure 126/75 06/04/2019 1:50 PM INTERVENTION ANALYST Pulse 77 06/04/2019 1:50 PM INTERVENTION ANALYST Temperature 36.6 C (97.8 F) 06/04/2019 1:50 PM INTERVENTION ANALYST Respiratory Rate 16 06/04/2019 1:50 PM INTERVENTION ANALYST Oxygen Saturation - - Inhaled Oxygen Concentration - - Weight 73.7 kg (162 lb 8 oz) 06/04/2019 1:50 PM INTERVENTION ANALYST Height 170.2 cm (5' 7") 06/04/2019 1:50 PM INTERVENTION ANALYST Body Mass Index 25.45 06/04/2019 1:50 PM INTERVENTION ANALYST documented in this encounter Progress Notes Patsy Pan RN - 06/04/2019 1:30 PM CSTPatient present for nv for confirmation. test is positive, patient educated andadvised to come back for next available new ob appointment. Patient verbalized understanding. PATSY PAN RN 06/04/2019 2:04 PM documented in this encounter Plan of Treatment Date Type Specialty Care Team Description 06/05/2019 Office Visit [facility], [facility] Room 06/05/2019 Initial Visit [facility] Duvall[facility] [address] [place], [place] [address] Health Maintenance Due Date Last Done Comments [...] Routine 06/04/2019 2:00 PM Results for this INTERVENTION ANALYST examination or test, procedure are in positive result the results section. documented in this encounter Results POCT TEST (06/04/2019 2:00 PM INTERVENTION ANALYST) POCT PREG Positive On board controls acceptable Yes with C Line POCT PREG LOT # POCT PREG TEST DATE Specimen Urine - URINE, CLEAN CATCH documented in this encounter Visit Diagnoses Diagnosis examination or test, positive result - Primary documented in this encounter Insurance Payer Benefit Plan / Subscriber ID Effective Dates Phone Address Type Group [facility] xxxxxxxxx 2017-Present Medicaid COMM PLAN - PLUS MANAGED MEDICAID documented as of this encounter Advance Directives Name Relationship Healthcare Agent Communication Relationship Bijan Rich Significant Other Primary healthcare agent
--- OUTSIDE RECORDS SUMMARY | 2019-07-15 23:48 | XMS REPORT | Summary of Care ---
:1993 Author Organization [facility] Address [address] [place] [address] Care Team Providers Name Role Phone Doctor Unassigned, [place] Insurance Hmo Unavailable Samantha Ramos Primary Care Provider Reason for Referral (Routine) Status Reason Specialty Diagnoses / Referred By Referred To Procedures Contact Contact New Request Maternal Diagnoses Supervision of high risk , antepartum [place], Medicine Procedures CONSULT MATERNAL MEDICINE ULTRASOUND Preferred Location: BRIE Haley [address] [place] [address] Reason for Visit Reason Comments Initial Visit Encounter Details Date Type Department Care Team Description [facility]2019 [facility] [place], Supervision of high risk , antepartum (Primary Dx); Visit [facility]E Haley History of prior with IUGR ; [address] Multiparity; [facility] Maternal tobacco use in first trimester [phone] [facility] [phone] [place] [address] Allergies No Known Allergiesdocumented as [...] third trimester 12/09/20142015 Overview: ICD10 Diagnosis Term Implementation Project Coordinator Utility documented as of this encounter (statuses [...] Comments Blood Pressure 111/62 06/05/2019 3:20 PM FILLING MACHINE SET UP MECHANIC Pulse 76 06/05/2019 3:20 PM FILLING MACHINE SET UP MECHANIC Temperature 37.2 C (98.9 F) 06/05/2019 3:20 PM FILLING MACHINE SET UP MECHANIC Respiratory Rate 16 06/05/2019 3:20 PM FILLING MACHINE SET UP MECHANIC Oxygen Saturation - - Inhaled Oxygen Concentration - - Weight 74.1 kg (163 lb 5 oz) 06/05/2019 3:20 PM FILLING MACHINE SET UP MECHANIC Height 170.2 cm (5' 7") 06/05/2019 3:20 PM FILLING MACHINE SET UP MECHANIC Body Mass Index 25.58 06/05/2019 3:20 PM FILLING MACHINE SET UP MECHANIC documented in this encounter Progress Notes Cassie [...] file Gets together: Not on file Attends episcopalian service: Not on file Active member of [...] Concern Not on file Social History Narrative Tenriism preference is Catholic. Patient lives with boyfriend, patient feels safe [...] SCREEN, CONSULT MATERNAL MEDICINE ULTRASOUND Preferred Location: [place], multivitamin ( VITAMIN) tablet Maternal tobacco use [...] WITH DIFF LAB Routine Supervision of high Expected: 06/05/2019, risk , Expires: 06/05/2020 antepartum GC & CHLAMYDIA AMPLIFIED LAB Routine Supervision of high Expected: 2019, ASSAY risk , Expires: 06/05/2020 antepartum HEPATITIS B SURFACE LAB Routine Supervision of high Expected: 06/05/2019, ANTIGEN risk , Expires: 06/05/2020 antepartum HIV 1/2 AG-AB WITH REFLEX LAB Routine Supervision of high Ordered: 2019 risk , antepartum POCT URINALYSIS W LAB Routine Supervision of high 20 Occurrences starting SPECIFIC GRAVITY risk , 06/05/2019 until antepartum 03/31/2020 WORKUP, BLOOD LAB Routine Supervision of high Expected: 06/05/2019 , BANK risk , Expires: 06/05/2020 antepartum RUBELLA SCREEN (KOFI) LAB Routine Supervision of high Expected: 06/05/2019 , IGG risk , Expires: 06/05/2020 antepartum GALV ONLY - SYPHILIS LAB Routine Supervision of high Expected: 06/05/2019, IGG/IGM risk , Expires: 06/05/2020 antepartum URINE CULTURE LAB Routine Supervision of high Expected: 06/05/2019, risk , Expires: 06/05/2020 antepartum VZV ANTIBODY SCREEN LAB Routine Supervision of high Expected: 06/05/2019, risk , Expires: 06/05/2020 antepartum CBC WITH DIFFERENTIAL LAB Routine Supervision of high Ordered: 06/05/2019 risk , antepartum Health Maintenance Due Date Last Done Comments [...] high Results for this SPECIFIC GRAVITY PM FILLING MACHINE SET UP MECHANIC risk , procedure are in antepartum the results section. POCT TEST Routine 06/05/2019 3:21 Supervision of high Results for this PM FILLING MACHINE SET UP MECHANIC risk , procedure are in antepartum the results section. documented in this encounter Results POCT URINALYSIS W/O SPECIFIC GRAVITY (06/05/2019 3:21 PM FILLING MACHINE SET UP MECHANIC) POCT PH U 8 5 - 8 mg/dl POCT U LEUK EST Neg Negative - Negative POCT U NIT Neg Negative - Negative POCT U PROT Trace Negative - Negative POCT U GLU Neg Negative - Negative POCT U KETONE None Negative - Negative POCT U BLD Neg Negative - Negative Specimen Urine - URINE, CLEAN CATCH POCT TEST (06/05/2019 3:21 PM FILLING MACHINE SET UP MECHANIC) POCT PREG Positive On board controls acceptable [...] ID Effective Dates Phone Address Type Group [facility] xxxxxxxxx 2017-Present Medicaid COMM PLAN - PLUS MANAGED MEDICAID documented as of this encounter Advance Directives Name Relationship Healthcare Agent Communication Relationship Bijan Rich Significant Other Primary healthcare agent
--- OUTSIDE RECORDS SUMMARY | 2019-07-15 23:49 | XMS REPORT | Summary of Care ---
:1995 Author Organization [facility] Address [address] [place] [address] Care Team Providers Name Role Phone Doctor Unassigned, [place] Insurance Hmo Unavailable Samantha RamosP Primary Care Provider Reason for Visit Reason Comments Care Encounter Details Date Type Department Care Team Description 07/03/2019 Routine [facility]- [place], Supervision of high risk , antepartum (Primary Dx); Visit [place] Cassie Bagley, WHCNP Multiparity; [address] History of prior with IUGR ; [place], [place] ST Rubella non-immune status, antepartum [phone] [facility] [phone] [place] [address] Allergies No Known Allergiesdocumented as of this encounter (statuses as of 07/03/2019) Medications Medication Sig Dispensed Refills Start Date End Date Status LOESTRIN FE (JUNEL FE Take 1 tablet by 3 Package 0 07/30/2018 Active 05/26, ,) 1 mg-20 mcg mouth daily. (21)/75 mg (7) tabletIndications: Encounter for initial prescription of contraceptive pills multivitamin Take 1 tablet by 90 tablet 3 06/05/2019 Active ( VITAMIN) mouth daily. tabletIndications: Supervision of high risk , antepartum PNV 67-iron ps-folate Take 1 Each by 30 capsule 11 07/03/2019 Active no.1-dha (VITAFOL mouth daily. ULTRA) 29 mg iron- 1 mg-200 mg CapIndications: Supervision of high risk , antepartum documented as of this encounter (statuses as of 07/03/2019) Active Problems Problem Noted Date Rubella non-immune [...] as of this encounter (statuses as of 07/03/2019) Resolved Problems Problem Noted Date Resolved Date [...] 09/08/2015 with history of 03/21/2015 09/08/2015 Overview: 10/94662 TAb at 15w; 07/2014 TAb at 15 w Chlamydia trachomatis infection of lower genitourinary sites 02/15/201506/20 Overview: jaylon negative Back pain affecting in first trimester 01/04/2015 06/20/2015 Jaw pain 01/04/2015 03/18/2015 Cramping affecting , antepartum 12/09/2014 03/21/2015 Supervision of other high-risk , third trimester 12/09/20142015 Overview: ICD10 Diagnosis Term Monotype Operator Utility documented as of this encounter (statuses as of 07/03/2019) Immunizations Name Administration Dates Next Due Tdap [...] Sign Reading Time Taken Comments Blood Pressure 114/66 07/03/2019 2:01 PM HR SYSTEMS ANALYST Pulse 80 07/03/2019 2:01 PM HR SYSTEMS ANALYST Temperature 36.1 C (97 F) 07/03/2019 2:01 PM HR SYSTEMS ANALYST Respiratory Rate 16 07/03/2019 2:01 PM HR SYSTEMS ANALYST Oxygen Saturation - - Inhaled Oxygen Concentration - - Weight 74.4 kg (164 lb) 07/03/2019 2:01 PM HR SYSTEMS ANALYST Height 170.2 cm (5' 7") 07/03/2019 2:01 PM HR SYSTEMS ANALYST Body Mass Index 25.69 07/03/2019 2:01 PM HR SYSTEMS ANALYST documented in this encounter Progress Notes Cassie Duvall, WHADARSHP - 07/03/2019 2:00 PM CST Chief complaint: Chief Complaint Patient presents with Care HPI CC: Follow Up Visit Jael Lugo is a 23 year old, , Black or female. Patient's last menstrual period was 05/08/2019 (approximate). She is 8w0d with an intrauterine . Her estimated date of delivery is 2019, by Last Menstrual Period. She has no complaints today. Histories OB History Para Term AB Living [...] file Gets together: Not on file Attends druze service: Not on file Active member of [...] Concern Not on file Social History Narrative Mormonism preference is Zoroastrian. Patient lives with boyfriend, patient feels safe at home. Social History Substance and Sexual Activity Sexual Activity Yes Partners: Male control/protection: None Comment: last sexual intercourse 06/03/19 Labs No new labs and Research Anthropologist Visit on 06/18/2019 Component Date Value BETA HCG 06/18/2019 20,069.00 Routine Visit on 06/13/2019 Component Date Value POCT U SP GRAV 06/13/2019 . POCT PH U 06/13/2019 . POCT U LEUK EST 06/13/2019 . POCT U NIT 06/13/2019 . POCT U PROT 06/13/2019 Trace POCT U GLU 06/13/2019 Neg POCT U KETONE 06/13/2019 . POCT U UROBILI 06/13/2019 . POCT U BILI 06/13/2019 . POCT U BLD 06/13/2019 . BETA HCG 06/13/2019 5,757.00 GLUC 1 HR 06/13/2019 89* Initial Visit on 06/05/2019 Component Date Value POCT PREG 06/05/2019 Positive On board controls accept* 06/05/2019 Yes POCT PH U 06/05/2019 8 POCT U LEUK EST 06/05/2019 Neg POCT U NIT 06/05/2019 Neg POCT U PROT 06/05/2019 Trace POCT U GLU 06/05/2019 Neg POCT U KETONE 06/05/2019 None POCT U BLD 06/05/2019 Neg HIV 1/2 Ag-Ab with Reflex 06/05/2019 Negative HIV Semi-quantitative 06/05/2019 0.10 ABO & RH 06/05/2019 A POSITIVE IAT 06/05/2019 Negative VZV IgG antibody 06/05/2019 Positive URINE CULTURE 06/05/2019 10,000 - 100,000 CFU/mL mixed aerobic organisms - suggests endogenous microbial contamination Syphilis IgG/IgM 06/05/2019 Non-reactive Rubella screen IgG 06/05/2019 Negative HBsAg 06/05/2019 Negative HBsAg Semi-Quantitative 06/05/2019 0.05 C. trachomatis Nucleic A* 06/05/2019 Negative N. gonorrhoeae Nucleic A* 06/05/2019 Negative WBC 06/05/2019 10.23 RBC 06/05/2019 4.03 HGB 06/05/2019 12.4 HCT 06/05/2019 36.2 MCV 06/05/2019 89.8 MCH 06/05/2019 30.8 MCHC 06/05/2019 34.3 RDW-SD 06/05/2019 41.8 RDW-CV 06/05/2019 12.7 PLT 06/05/2019 287 MPV 06/05/2019 9.5 IPF % 06/05/2019 1.5 NRBC/100 WBC 06/05/2019 0.2 NRBC x10^3 06/05/2019 0.02 GRAN MAT (NEUT) % 06/05/2019 56.4 IMM GRAN % 06/05/2019 0.30 LYMPH % 06/05/2019 35.0 MONO % 06/05/2019 6.0 EOS % 06/05/2019 1.7 BASO % 06/05/2019 0.6 GRAN MAT x10^3(ANC) 06/05/2019 5.78 IMM GRAN x10^3 06/05/2019 0.03 LYMPH x10^3 06/05/2019 3.58* MONO x10^3 06/05/2019 0.61 EOS x10^3 06/05/2019 0.17 BASO x10^3 06/05/2019 0.06 Nurse Visit on 06/04/2019 Component Date Value POCT PREG 06/04/2019 Positive On board controls accept* 06/04/2019 Yes Nurse Visit on 05/06/2019 Component Date Value POCT PREG 05/06/2019 Negative On board controls accept* 05/06/2019 Yes Radiology No new radiology. Allergies Jael has No Known Allergies. Medications Jael has a current medication list which includes the following prescription(s) : pnv 67-iron ps-folate no.1-dha, multivitamin, and loestrin fe. Review of Systems Constitutional: Negative. HENT: Negative. Eyes: Negative. Respiratory: Negative. Breasts: Negative. Cardiovascular: Negative. Gastrointestinal: Negative. Genitourinary: Negative. Musculoskeletal: Negative. Skin: Negative. Neurological: Negative. Psychiatric/Behavioral: Negative. Endocrine: Endocrine negative BP 114/66 (BP Location: Right arm, Patient Position: Sitting, BP CUFF SIZE: Adult Medium) | Pulse 80 | Temp 36.1 C (97 F) (Oral) | Resp 16 | Ht 5' 7 " (1.702 m) | Wt 164 lb (74.4 kg) | LMP 05/08/2019 (Approximate) | BMI 25.69 kg/m Pregravid BMI: 25.5 Physical Exam PHYSICAL: General Exam: Neurological: Normal Abdomen: Normal gravid Extremities: Normal Pelvic Exam: Uterus: 8 Weeks Assessment/Plan Return to clinic in 4 weeks. Denies zika virus risk, signs and symptoms such as fever,rash,joint pain, conjunctivitis (red eyes),muscle pain, headaches; outside [place] travel to areas affected by zika, and FOB exposure to zika. Educated on use of mosquito repellent. Supervision of high risk , antepartum (primary encounter diagnosis) Multip[facility] History of prior with IUGR Comment: routine Plan: POCT URINALYSIS W SPECIFIC GRAVITY, PNV 67-iron ps-folate no.1-dha (VITAFOL ULTRA) 29 mg iron- 1 mg-200 mg Cap Rubella non-immune status, antepartum Comment: no mgmt today Plan: address pp This visit did not involve counseling and coordination that comprised more than 50% of the visit time. BRIE Oh 07/03/2019 2:47 PM documented in this encounter Plan of Treatment Date Type Specialty Care Team Description 07/10/2019 Research Anthropologist Visit Maternal Medicine 07/31/2019 Routine Visit [facility] Cassie Duvall WHCNP [address] [place] [address] [phone] 08/06/2019 Research Anthropologist Visit Maternal Medicine 08/06/2019 Research Anthropologist Visit [facility] Lab/Pedi, [facility] Health Maintenance Due Date Last Done Comments [...] Date/Time Associated Diagnosis Comments POCT URINALYSIS Routine 07/03/2019 2:02 PM Supervision of high Results for this HR SYSTEMS ANALYST risk , procedure are in antepartum the results section. documented in this encounter Results POCT URINALYSIS W SPECIFIC GRAVITY (07/03/2019 2:02 PM HR SYSTEMS ANALYST) POCT U SP GRAV . 1.005 - [...] of high risk , antepartum - Primary [place] History of prior with IUGR Rubella non-immune status, antepartum Other specified complication, antepartum documented in this encounter Insurance Payer Benefit Plan / Subscriber ID Effective Dates Phone Address Type Group [facility] xxxxxxxxx 2017-Present Medicaid COMM PLAN - PLUS MANAGED MEDICAID documented as of this encounter Advance Directives Name Relationship Healthcare Agent Communication Relationship Bijan Rich Significant Other Primary healthcare agent
--- OUTSIDE RECORDS SUMMARY | 2019-07-15 23:49 | XMS REPORT | Summary of Care ---
:1993 Author Organization [facility] Address [address] [place] [address] Care Team Providers Name Role Phone Doctor Unassigned, [place] Insurance Hmo Unavailable Samantha Ramos Primary Care Provider Reason for Visit Reason Comments LAB Encounter Details Date Type Department Care Team Description 06/18/2019 Locksmith Apprentice Visit [facility]- Samantha Ramos, [facility] [address] [place] [address] Vaginal bleeding [facility], [facility] during [address] [place] [address] Allergies No Known Allergiesdocumented as of this encounter (statuses as of 06/24/2019) Medications Medication Sig Dispensed Refills Start Date [...] as of this encounter (statuses as of 06/24/2019) Active Problems Problem Noted Date Rubella non-immune [...] as of this encounter (statuses as of 06/24/2019) Resolved Problems Problem Noted Date Resolved Date [...] third trimester 12/09/20142015 Overview: ICD10 Diagnosis Term Complaint Clerk Utility documented as of this encounter (statuses as of 06/24/2019) Immunizations Name Administration Dates Next Due Tdap [...] filedocumented in this encounter Plan of Treatment Date Type Specialty Care Team Description 07/03/2019 Routine Visit [facility] [address] [place] [address] [phone] 07/10/2019 Locksmith Apprentice Visit Maternal Medicine 08/06/2019 Locksmith Apprentice Visit Maternal Medicine 08/06/2019 Locksmith Apprentice Visit [facility] Lab/Lela, [facility] Health Maintenance Due Date Last Done [...] Procedure Name Priority Date/Time Associated Diagnosis Comments TOTAL BETA HCG Routine 06/18/2019 12:00 PM Vaginal bleeding Results for this ASSAY NOVELTY DIPPER during procedure are in the results section. documented in this encounter Results TOTAL BETA HCG ASSAY (06/18/2019 12:00 PM NOVELTY DIPPER) BETA HCG 20,069.00 Non- female [facility] and male patients: SERVICES <5 mIU/mL Specimen Blood - ARM, RIGHT Narrative Performed At [facility] Gestational Age Range (mIU/mL) 1-10 Weeks [id number] 11-15 Weeks [address]-659363 16-22 Weeks [id number] 23-40 Weeks [id number] Biotin has been reported to cause a negative bias, interpret results relative to patient's use of biotin. Performing Organization Address City/State/Zipcode Phone Number [facility] CLIA: [id number], [address] [place] [address] [phone] [facility] documented in this encounter Visit Diagnoses Diagnosis Vaginal bleeding during documented in this encounter Insurance Payer Benefit Plan / Subscriber ID Effective Dates Phone Address Type Group [facility] xxxxxxxxx 2017-Present Medicaid COMM PLAN - PLUS MANAGED MEDICAID documented as of this encounter Advance Directives Name Relationship Healthcare Agent Communication Relationship Bijan Rich Significant Other Primary healthcare agent
--- OUTSIDE RECORDS SUMMARY | 2019-07-15 23:49 | XMS REPORT | Summary of Care ---
:1993 Author Organization [facility] Address [address] [place] [address] Care Team Providers Name Role Phone Doctor Unassigned, [place] Insurance Hmo Unavailable Samantha Ramos Primary Care Provider Reason for Referral (Routine) Status Reason Specialty Diagnoses / Referred By Referred To Procedures Contact Contact New Request Maternal Diagnoses Supervision of high risk , antepartum [place], Medicine Procedures CONSULT MATERNAL MEDICINE ULTRASOUND Preferred Location: BRIE Haley [address] [place] [address] Reason for Visit Reason Comments Initial Visit Encounter Details Date Type Department Care Team Description 06/05/2019 [facility] [place], Supervision of high risk , antepartum (Primary Dx); Visit BRIE Haley History of prior with IUGR ; [address] Multiparity; [facility] Maternal tobacco use in first trimester [phone] [facility] [phone] [place] [address] Allergies No Known Allergiesdocumented as [...] third trimester 12/09/20142015 Overview: ICD10 Diagnosis Term Formula Weigher Utility documented as of this encounter (statuses [...] Comments Blood Pressure 111/62 06/05/2019 3:20 PM SKIING TEACHER Pulse 76 06/05/2019 3:20 PM SKIING TEACHER Temperature 37.2 C (98.9 F) 06/05/2019 3:20 PM SKIING TEACHER Respiratory Rate 16 06/05/2019 3:20 PM SKIING TEACHER Oxygen Saturation - - Inhaled Oxygen Concentration - - Weight 74.1 kg (163 lb 5 oz) 06/05/2019 3:20 PM SKIING TEACHER Height 170.2 cm (5' 7") 06/05/2019 3:20 PM SKIING TEACHER Body Mass Index 25.58 06/05/2019 3:20 PM SKIING TEACHER documented in this encounter Progress Notes Cassie [...] file Gets together: Not on file Attends religion service: Not on file Active member of [...] Concern Not on file Social History Narrative Anabaptism preference is Alevism. Patient lives with boyfriend, patient feels safe [...] SCREEN, CONSULT MATERNAL MEDICINE ULTRASOUND Preferred Location: [place], multivitamin ( VITAMIN) tablet Maternal tobacco use [...] Treatment Date Type Specialty Care Team Description 06/12/2019 Transmission And Protection Engineer Visit [facility], [facility] 07/03/2019 Routine [facility] Duvall, [facility] [address] [place] [address] [phone] Name Type Priority Associated Diagnoses Date/Time CBC WITH DIFF LAB Routine Supervision of high risk 06/05/2019 4:05 PM , antepartum SKIING TEACHER GC & CHLAMYDIA AMPLIFIED LAB Routine Supervision of high risk 06/05/2019 4 :32 PM ASSAY , antepartum SKIING TEACHER HEPATITIS B SURFACE LAB Routine Supervision of high risk 06/05/2019 4:05 PM ANTIGEN , antepartum SKIING TEACHER HIV 1/2 AG-AB WITH REFLEX LAB Routine Supervision of high risk 06/05/2019 4:05 PM , antepartum SKIING TEACHER RUBELLA SCREEN (KOFI) LAB Routine Supervision of high risk 06/05/2019 4: 05 PM IGG , antepartum SKIING TEACHER GALV ONLY - SYPHILIS LAB Routine Supervision of high risk 06/05/2019 4:05 PM IGG/IGM , antepartum SKIING TEACHER URINE CULTURE LAB Routine Supervision of high risk 06/05/2019 4:32 PM , antepartum SKIING TEACHER VZV ANTIBODY SCREEN LAB Routine Supervision of high risk 06/05/2019 4:05 PM , antepartum SKIING TEACHER CBC WITH DIFFERENTIAL LAB Routine Supervision of high risk 06/05/2019 4: 05 PM , antepartum SKIING TEACHER Name Type Priority Associated Diagnoses Order Schedule CBC WITH DIFF LAB Routine Supervision of high risk Expected: 06/05/2019, , antepartum Expires: 06/05/2020 GC & CHLAMYDIA LAB Routine Supervision of high risk Expected: 06/05/2019, AMPLIFIED ASSAY , antepartum Expires: 06/05/2020 HEPATITIS B SURFACE LAB Routine Supervision of high risk Expected: 2019, ANTIGEN , antepartum Expires: 06/05/2020 POCT URINALYSIS W LAB Routine Supervision of [...] high Results for this SPECIFIC GRAVITY PM SKIING TEACHER risk , procedure are in antepartum the results section. POCT TEST Routine 06/05/2019 3:21 Supervision of high Results for this PM SKIING TEACHER risk , procedure are in antepartum the results section. documented in this encounter Results POCT URINALYSIS W/O SPECIFIC GRAVITY (06/05/2019 3:21 PM SKIING TEACHER) POCT PH U 8 5 - 8 mg/dl POCT U LEUK EST Neg Negative - Negative POCT U NIT Neg Negative - Negative POCT U PROT Trace Negative - Negative POCT U GLU Neg Negative - Negative POCT U KETONE None Negative - Negative POCT U BLD Neg Negative - Negative Specimen Urine - URINE, CLEAN CATCH POCT TEST (06/05/2019 3:21 PM SKIING TEACHER) POCT PREG Positive On board controls acceptable [...] ID Effective Dates Phone Address Type Group [facility] xxxxxxxxx 2017-Present Medicaid COMM PLAN - PLUS MANAGED MEDICAID documented as of this encounter Advance Directives Name Relationship Healthcare Agent Communication Relationship Bijan Rich Significant Other Primary healthcare agent
--- OUTSIDE RECORDS SUMMARY | 2019-07-15 23:50 | XMS REPORT | Summary of Care ---
:1993 Author Organization [facility] Address [address] [place] [address] Care Team Providers Name Role Phone Doctor Unassigned, [place] Insurance Hmo Unavailable Samantha Ramos BUSINESS INTELLIGENCE ADMINISTRATOR Primary Care Provider Encounter Details Date Type Department Care Team Description 07/14/2019 Abstract [facility] Cassie Duvall C, [address] [place] [address] [phone] [place] [address] Allergies No Known Allergiesdocumented as of this encounter (statuses as of 07/14/2019) Medications Medication Sig Dispensed Refills Start Date [...] as of this encounter (statuses as of 07/14/2019) Active Problems Problem Noted Date Rubella non-immune [...] as of this encounter (statuses as of 07/14/2019) Resolved Problems Problem Noted Date Resolved Date [...] third trimester 12/09/20142015 Overview: ICD10 Diagnosis Term Texturing Machine Fixer Utility documented as of this encounter (statuses as of 07/14/2019) Immunizations Name Administration Dates Next Due Tdap [...] Treatment Date Type Specialty Care Team Description 07/31/2019 Routine Visit [facility] Cassie Duvall, CNP [address] [place] [address] [phone] 08/06/2019 Track Laborer Visit Maternal Medicine 08/06/2019 Track Laborer Visit [facility] Lab/Pedi, [facility] Health Maintenance Due Date Last Done Comments INFLUENZA VACCINE (#1) 2019 HPV VACCINES (1 - Female 05/25/2020 Postponed [...] smokeless, etc) documented as of this encounter Results Not on filedocumented in this encounter Insurance Payer Benefit Plan / Subscriber ID Effective Phone Address Type Group Dates [facility] xxxxxxxxx 2017-Pres Medicaid HEALTHCARE COMM PLUS ent PLAN - MANAGED MEDICAID [employer] [employer] [id number] 2017-Pres Behavioral [place] - MANAGED BEHAVIORAL ent th MEDICAID [facility] [place] [facility] documented as of this encounter Advance Directives Name Relationship Healthcare Agent Communication Relationship Bijan Rich Significant Other Primary healthcare agent
--- OUTSIDE RECORDS SUMMARY | 2019-07-15 23:50 | XMS REPORT | Summary of Care ---
:1995 Author Organization [facility] Address [address] [place] [address] Care Team Providers Name Role Phone Doctor Unassigned, [place] Insurance Hmo Unavailable Samantha RamosP Primary Care Provider Reason for Visit Reason Comments ULTRASOUND (Routine) Status Reason Specialty Diagnoses / Referred By Referred To Procedures Contact Contact Authorized Maternal Diagnoses Supervision of high risk , antepartum [place], Medicine Procedures CONSULT MATERNAL MEDICINE ULTRASOUND Preferred Location: Sincere [place] , [facility] [address] [place] [address] Encounter Details Date Type Department Care Team Description 07/14/2019 Cooperative Manager [facility] Max, Uterine size -date Ultrasound- Sincere HARDING discrepancy in first [address] [place] [address] [facility] trimester [place], [place] [id number] [place], [place] [phone] [id number] Allergies No Known Allergiesdocumented as of this [...] third trimester 12/09/20142015 Overview: ICD10 Diagnosis 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 documented as of this encounter (statuses [...] [facility] Cassie Duvall, CNP [address] [place] [address] [phone] 08/06/2019 Cooperative Manager Visit Maternal Medicine 08/06/2019 Cooperative Manager Visit [facility]/Pedi, [facility] Health Maintenance [...] Procedure Name Priority Date/Time Associated Diagnosis Comments FIRST TRIMESTER Routine 07/14/2019 11:39 AM ULTRASOUND CDT documented in this encounter Results FIRST TRIMESTER ULTRASOUND (07/14/2019 11:39 AM CDT) Specimen documented in this encounter Visit Diagnoses Diagnosis Uterine size-date discrepancy in first trimester Uterine size date discrepancy, antepartum condition or complication documented in this encounter Insurance Payer Benefit Plan / Subscriber ID Effective Dates Phone Address Type Group [facility] xxxxxxxxx 2017-Present Medicaid COMM PLAN - PLUS MANAGED MEDICAID documented as of this encounter Advance Directives Name Relationship Healthcare Agent Communication Relationship Bijan Rich Significant Other Primary healthcare agent
[2019-07-16] MEDS ORDERED: BUPIVACAINE 0.5% PF 10 ML VIAL ONE (00:27)
[2019-07-16] MEDS ORDERED: LIDOCAINE 1% W/EPI 1:100,000 MDV 50 ML VIAL ONE (00:28)
--- NOTE | 2019-07-16 01:55 | EDPHYS ---
Physician Documentation [facility] Name: Jael Lugo Age: 23 yrs Sex: Female : 1995 Arrival Date: 07/15/2019 Time: 23:46 Bed 8 Private MD: ED Physician Daquan Rowan HPI: 07/15 00:10 This 23 yrs old Black Female presents to ER via Ambulatory with complaints of Boil. cp 00:10 The patient presents with an abscess of the axilla of left upper arm. cp 00:10 Description: erythematous, swollen. Onset: The symptoms/episode began/occurred 1 cp week(s) ago. Possible cause(s): unknown. Associated signs and symptoms: Pertinent negatives: discharge, drainage, fever. Severity of symptoms: in the emergency department the symptoms are unchanged. 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 - Social history:: Smoking status: Patient reports the use of cigarette tobacco products, denies chronic smoking, but will smoke occasionally. ROS: 00:15 Constitutional: Negative for body aches, chills, fever. cp 00:15 Eyes: Negative for injury, pain, redness, and discharge. cp 00:15 ENT: Negative for drainage from ear(s), ear pain, sore throat, difficulty swallowing, difficulty handling secretions. 00:15 Cardiovascular: Negative for chest pain. 00:15 Respiratory: Negative for cough, shortness of breath, wheezing. 00:15 Abdomen/GI: Negative for abdominal pain, nausea, vomiting, and diarrhea. 00:15 Skin: Positive for abscess, erythema, of the axilla of left upper arm, pain. 00:15 All other systems are negative. Exam: 00:25 Constitutional: The patient appears in no acute distress, alert, awake, non-toxic, well cp developed, well nourished. 00:25 Head/Face: Normocephalic, atraumatic. cp 00:25 Eyes: Periorbital structures: appear normal, Conjunctiva: normal, no exudate, no injection, Lids and lashes: appear normal, bilaterally. 00:25 ENT: External ear(s): are unremarkable, Nose: is normal, Mouth: Lips: moist. 00:25 Chest/axilla: Axilla: abscess, that is small, of the left axilla, with surrounding erythema, with tenderness. 00:25 Cardiovascular: Rate: normal, Rhythm: regular. 00:25 Respiratory: the patient does not display signs of respiratory distress, Respirations: normal, no use of accessory muscles, labored breathing, is not present. Vital Signs: 07/14 23:56 BP 112 / 64; Pulse 86; Resp 16 S; Temp 98.5(O); Pulse Ox 99% on R/A; Weight 74.39 kg bb (R); Height 5 ft. 7 in. (170.18 cm) (R); Pain 10/; 23:56 Body Mass Index 25.69 (74.39 kg, 170.18 cm) bb Procedures: 07/15 01:53 I \\T\\ D: Incision and drainage was performed for an abscess of the left axilla. Prepped cp with Betadine, Anesthetized with 5 ccs of 50/50 mixture 1% lidocaine with epi and 0.5% Marcaine. Incised with #11 blade. Drained small amount purulent fluid. bloody fluid. Packed with iodoform gauze, Dressing: sterile 4x4 gauze, the patient tolerated the procedure well. MDM: 07/14 23:54 Patient medically screened. cp 07/15 00:00 Differential diagnosis: abscess, cellulitis, insect bite. cp 01:55 Data reviewed: vital signs, nurses notes, and as a result, I will discharge patient. cp 07/15 02:25 Order name: Wound Culture cp 07/15 00:08 Order name: I\\T\\D Setup; Complete Time: 00:26 cp Administered Medications: 00:57 Drug: Marcaine (0.5 %) 5 ml {Note: PER AMRIK DELCID.} Volume: 10 ml; Route: Infiltration;lw1 00:58 Drug: Lidocaine-Epinephrine -1%: (1:100,000) 5 ml {Note: PER TIMMY DELCID AT BEDSIDE .} lw1 Volume: 20 ml; Route: Infiltration; 02:10 Drug: Clindamycin 300 mg Route: PO; lw1 Disposition: 07:03 Co-signature as Attending Physician, Daquan Rowan MD I agree with the assessment and tw4 plan of care. Disposition: 07/16/19 01:55 Discharged to Home. Impression: Cutaneous abscess of left axilla - left upper arm. - Condition is Stable. - Discharge Instructions: Skin Abscess, Incision and Drainage. - Prescriptions for Clindamycin HCl 300 mg Oral Capsule - take 1 capsule by ORAL route every 6 hours for 10 days; 40 capsule. - Medication Reconciliation Form, Thank You Letter, Antibiotic Education, Prescription Opioid Use, Work release form form. - Follow up: Private Physician; When: 2 - 3 days; Reason: Wound Recheck. - Problem is new. - Symptoms have improved. Signatures: Dispatcher [employer] EDHI Pérez Esteban RN RN Rosalie Egan RN RN bb Amrik Knight PA PA Daquan Tenorio MD MD tw4 Ezequiel Goetz RN RN lw1 Corrections: (The following items were deleted from the chart) 02:39 01:55 07/16/2019 01:55 Discharged to Home. Impression: Cutaneous abscess of left axilla sg - left upper arm. Condition is Stable. Forms are Medication Reconciliation Form, Thank You Letter, Antibiotic Education, Prescription Opioid Use. Follow up: Private Physician; When: 2 - 3 days; Reason: Wound Recheck. Problem is new. Symptoms have improved. cp
--- NOTE | 2019-07-16 01:55 | ER ---
Nurse's Notes [facility] Name: Jael Lugo Age: 23 yrs Sex: Female : 1995 Arrival Date: 07/15/2019 Time: 23:46 Bed 8 Private MD: Diagnosis: Cutaneous abscess of left axilla-left upper arm Presentation: 07/14 23:56 Chief complaint: Patient states: she either has a boil or an insect to her left axilla bb x 1 week it is getting bigger and more painful. Coronavirus screen: The patient has NOT traveled to a country currently being monitored by the CDC within the last 14 days. Proceed with normal triage procedures. Ebola Screen: No symptoms or risks identified at this time. Initial Sepsis Screen: Does the patient meet any 2 criteria? No. Patient's initial sepsis screen is negative. Does the patient have a suspected source of infection? No. Patient's initial sepsis screen is negative. Risk Assessment: Do you want to hurt yourself or someone else? Patient reports no desire to harm self or others. Onset of symptoms was July 08, 2019. 23:56 Method Of Arrival: Ambulatory bb 23:56 Acuity: ALMA 4 bb Triage Assessment: 07/15 00:00 General: Appears in no apparent distress. uncomfortable, Behavior is calm, cooperative. bb Pain: Complains of pain in left axilla Pain currently is 10 out of 10 on a pain scale. Neuro: Level of Consciousness is awake, alert, obeys commands, Oriented to person, place, time, situation. Cardiovascular: No deficits noted. Respiratory: Respiratory effort is even, unlabored, Respiratory pattern is regular. Derm: Skin is dry, Skin is normal, Skin temperature is warm. Derm: Abscess located on left axilla is half dollar sized, is red, is raised. Musculoskeletal: Circulation, motion, and sensation intact. 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 - Social history:: Smoking status: Patient reports the use of cigarette tobacco products, denies chronic smoking, but will smoke occasionally. Screenin:37 Abuse screen: Denies threats or abuse. Denies injuries from another. Nutritional lw1 screening: No deficits noted. Tuberculosis screening: No symptoms or risk factors identified. Fall Risk None identified. Gait- Normal/Bed Rest/Wheelchair (0 pts). Assessment: 00:57 Reassessment: Patient appears in no apparent distress at this time. Patient is alert, sg oriented x 3, equal unlabored respirations, skin warm/dry/pink. awaitng ERP for ID of abscess to the left axilla. Vital Signs: 03 23:56 BP 112 / 64; Pulse 86; Resp 16 S; Temp 98.5(O); Pulse Ox 99% on R/A; Weight 74.39 kg bb (R); Height 5 ft. 7 in. (170.18 cm) (R); Pain 10/10; 23:56 Body Mass Index 25.69 (74.39 kg, 170.18 cm) bb ED Course: 23:46 Patient arrived in ED. cl3 23:48 Amrik Knight PA is PHCP. cp 23:48 Daquan Rowan MD is Attending Physician. cp 23:55 Ezequiel Goetz, GAUTAM is Primary Nurse. lw1 23:58 Triage completed. bb 07/15 00:00 Arm band placed on Patient placed in an exam room, on a stretcher, on pulse oximetry. bb Family accompanied patient. 00:30 Patient has correct armband on for positive identification. Call light in reach. Side sg rails up X2. Pulse ox on. NIBP on. 02:30 Wound care: located on left axilla a wound culture was obtained by the ERP Amrik VANEGAS and has been sent to lab. 02:37 No provider procedures requiring assistance completed. Wound culture swab sent to lab. lw1 Patient did not have IV access during this emergency room visit. Administered Medications: 00:57 Drug: Marcaine (0.5 %) 5 ml {Note: PER AMRIK DELCID.} Volume: 10 ml; Route: Infiltration;lw1 00:58 Drug: Lidocaine-Epinephrine -1%: (1:100,000) 5 ml {Note: PER TIMMY DELCID AT BEDSIDE .} lw1 Volume: 20 ml; Route: Infiltration; 02:10 Drug: Clindamycin 300 mg Route: PO; lw Outcome: 01:55 Discharge ordered by . cp 02:38 Discharged to home with family. lw1 02:38 Condition: improved 02:38 Discharge instructions given to patient, family, Instructed on discharge instructions, follow up and referral plans. no drinking with medication, medication usage, Demonstrated understanding of instructions, follow-up care, medications, Prescriptions given X 1. 02:39 Patient left the ED. Addendum: 07/21/2019 08:13 Addendum: Culture Results: Positive wound culture. Bacteria is resistant to, has i w intermediate sensitivity, or is not tested against prescribed antibiotics. Report given to JEAN for further evaluation and then to molded goods operator for follow up with patient. Phone call Attempt #1 no answer, left voice mail. Signatures: Pérez Esteban RN GAUTAM sg Rosalie Loco RN Kalyn Perez, Amrik White RN, PA PA cp Lewis, Charde cl3 Ezequiel Goetz RN RN lw1
[2019-07-16 02:45] VITALS: BP 112/64; TEMP 98.5; O2SAT 99
== END 2019-07-16 02:39 | disposition home or self-care (01) ==
LOC: ER 23:44
PROC: 0J9F0ZZ Drainage of Left Upper Arm Subcutaneous Tissue and Fascia, Open Approach (ICD-10-PCS; principal; 2019-07-16)
DX: L02.412 Cutaneous abscess of left axilla (principal)
CPT/HCPCS: 87070; 87077; 87186; 87205; 99284

== ENCOUNTER 2019-12-11 00:03 | Emergency (ER) | payer OTHER ==
--- OUTSIDE RECORDS SUMMARY | 2019-12-11 00:07 | XMS REPORT | Continuity of Care Document ---
:1995 Author Organization [facility] t Address [address] [place] [address] Care Team Providers Name Role Phone UNKNOWN Primary Care Physician Unavailable Kevyn Vasquez Attending Clinician Ultrasound Attending Clinician Unavailable JOSE DONOHUE M.D. Attending Clinician Unavailable JOSE DONOHUE M.D. Admitting Clinician Unavailable Problems This patient has no known problems. Allergies, Adverse Reactions, Alerts This patient has no known allergies or adverse reactions. Medications This patient has no known medications. Procedures This patient has no known procedures. Encounters Start End Encounter Admission Attending Care Care Encounter Source Date/Time Date/Time Type Type Clinicians Facility Department ID 2019-11-05 2019-11-05 Telephone ANURAG Duvall [id number] 00:00:00 00:00:00 Cassie Bagley LOAN MANAGER [id number] REGIONAL [id number] MATERNAL [id number] & CHILD 107 [facility] 2019-10-09 2019-10-09 Network Project Manager Sanjay [facility] [id number] 09:00:16 10:00:16 Visit Bessie LOAN MANAGER [id number] REGIONAL [id number] MATERNAL [id number] & CHILD 369 [facility] 2019-10-01 2019-10-01 Telemedici Jadiel CTBECKY [id number] 08:31:19 09:01:29 ne Visit Cassie Bagley LOAN MANAGER [id number] REGIONAL [id number] MATERNAL [id number] & CHILD 107 [facility] 2019-09-02 2019-09-02 Routine Jadiel CTBECKY [id number] 14:11:17 14:38:43 Cassie Bagley LOAN MANAGER [id number] Visit REGIONAL [id number] MATERNAL [id number] & CHILD 107 [facility] 2017-06-02 2017-06-15 [id number] 00:23:00 13:37:00 [facility] Results Test Description Test Time Test Comments Results Result Comments Source Chlamydia/GC Amplification 2017-06-09 17:46:00 Test Item Value Reference Range Interpretation Comme nts Chlamydia trachomatis, PRAKASH (test code = 803257) Negative Negati ve N Neisseria gonorrhoeae, PRAKASH (test code = 208336) Negative Negati ve N HIV [id number] 21:56:00 Test Item Value Reference Range Interpretation Comments HIV 1/2 Antibody Non-Reactive Non-Reactive N HIV1/2 Anti body screen (test code = result indicate s the HIV1/2AB) absence of HIV1 and CSC7wzolcvrqn.H owever, A Non-Reactive screen result does not rule out exposure orinfection. I f an acute infection is suspected, HIV RNA Quantitative is recommended. P24 Antigen (test Non-Reactive Non-Reactive N P24 Ag scr een result code = P24) indicates the a bsence of P24 antigen, which is anindicator of HIV-1 acute infection.Howev er, A Non-Reactive sc reen does not rule o ut exposure or infection.If ac korin HIV-1 is suspec christian, HIV RNA Quantit ative is recommended. RPR, [id number] 13:36:00 Test Item Value Reference Range Interpretation Comments RPR (test code = RPR) Non-Reactive Non-Reactive N Thyroid Stimulating Hormone (TSH)2017-06-02 07:20:00 Test Item Value Reference Range Interpretation Comments TSH (test code = TSH) 1.46 mIU/mL 0.270-4.200 N Lipid [id number] 07:13:00 Test Item Value Reference Range Interpretation Comments Cholesterol (test 148 mg/dL 0-200 N code = CHOL) Triglycerides (test 85 mg/dL 9-200 N code = TRIG) HDL (test code = 42 mg/dL 50-60 L HDL) Chol/HDL (test code 3.5 Ratio 0.0-4.4 N = CHOLPHDL) LDL, Calculated 89 0-130 N (NOTE)RISK O F HEART (test code = LDLC) DISEASEPu blished by Malagasy Heart AssociationAnal yte Optim al Boderline Increased RiskC HOL <200 200-239 >240TRI G <150 150-199 >200HDL Male: >60 <40HDL Female: >60 <50 LDL < 100 130-15 9 >160 LDL NEAR OPTIMAL IS 100- 129 VLDL (test code = 17 mg/dL 5-40 N VLDL) LDL/HDL (test code = 2 LDLPHDL) Comprehensive Metabolic [id number] 21:39:00 Test Item Value Reference Range Interpretation Comments Sodium (test code = 139 mmol/L 135-145 N NA) Potassium (test 3.8 mmol/L 3.5-5.1 N code = K) Chloride (test code 103 mmol/L 98-105 N = CL) Carbon Dioxide 26 mmol/L 22-29 N (test code = CO2) Glucose (test code 95 mg/dL 70-115 N = GLU) Blood Urea Nitrogen 11 mg/dL 6-20 N (test code = BUN) Creatinine (test 0.8 mg/dL 0.5-0.9 N code = CREAT) Calcium (test code 9.5 mg/dL 8.3-10.5 N = CA) Prot Total (test 7.2 g/dL 6.4-8.3 N code = TP) Albumin (test code 4.6 g/dL 3.5-5.2 N = ALB) A/G Ratio (test 1.8 Ratio code = AGRATIO) Globulin (test code 2.6 2.9-3.1 L = GLOB) Bili Total (test 0.3 mg/dL 0.1-0.9 N code = TBIL) Alk Phos (test code 61 U/L 35-104 N = APHOS) AST (test code = 12 U/L 1-32 N AST) ALT (test code = 11 U/L 1-33 N ALT) BUN/Creatinine 13.8 Ratio (test code = BCRATIO) Anion Gap (test 10 mmol/L 7-16 N code = AGAP) Estimated GFR (test >60 eGFR (es timated code = GFR) mL/min/1.73m2 Glomerular Anuj tration Rate) is an est imated value,calculate d from the patient's s burt creatinine usin g the MDRD equation.I t is NOT the patient 's actual GFR. The eGFR provides a more clinicallyusefu l measure of kidn ey disease than se rum creatinine alone.This calculation dmitri es sex and race into account, if the informationis provided. If th e race is not provided , and the patient isAfrican-Ameri can, multiply by 1.2 12. If sex is not prov ided, and thepatient is female, multipl y by 0.742. Results for patients <18 ye ars ofage have not been validated by th e MDRD study and shoul d be interpretedwith caution.eGFR Re sult Interpretation: eGFR > or = 60 is in t he Normal RangeeGF R < 60 may mean kidney diseaseeGFR < 1 5 may mean kidney failureRange s recommended by the National Kidney Foundation,http ://nkd ep.nih.gov Urinalysis [id number] 21:39:00 Test Item Value Reference Range Interpretation Comments Color (test code = Yellow Yellow,Straw,Pl N COLOR) yellow Clarity (test code = Cloudy Clear A CLAR) Specific [place] (test 1.036 1.001-1.035 H code = SPGR) pH (test code = PH) 6.5 5.0-9.0 N Ketone (test code = 5 mg/dL Negative A KET) Glucose (test code = Negative mg/dL Negative N GLUCUR) Protein (test code = Negative mg/dL Negative N PROT) Bilirubin (test code = See IctoTest mg/dL Negative A BILI) Occult Blood (test code Negative Negative N = UDOB) Urobilinogen (test code 4.0 mg/dL 0.2-1.0 H = UROB) Nitrite (test code = Negative Negative N NIT) Leuk Esterase (test Negative Negative N code = LEUK) Ictotest (test code = Confirmed Negative Negative,Confirmed N ICTOTEST) Negative Micros Exam (test code Indicated = MEXAM) Epithelial Cells (test 10-14 /LPF 0-30 A code = EPI) WBC, Urine (test code = None seen /HPF 0-5 A UWBC) RBC, Urine (test code = None Seen /HPF 0-5 A URBC) Amorph Deposit (test Many /HPF code = AMORD) Bacteria (test code = Moderate /HPF BACT) Alcohol/Ethanol, [id number] 21:37:00 Test Item Value Reference Range Interpretation Comments Alcohol, Ethyl <0.01 g/dL 0.00-0.01 N Intoxicated 0.080 (test code = ETOH) g/dL or m ore BHCG, Serum, [id number] 21:37:00 Test Item Value Reference Range Interpretation Comments Preg Qual [Se] (test code = BSHCG) Negative Negative N [id number] 21:36:00 Test Item Value Reference Range Interpretation Comments Amphetamine (test code Negative Negative N For d iagnostic purposes = AMPH) only, positive results should always b e assessedin conjunctionwith the patient's medic al history,clinica l examination and otherfindings.T o fulfill legal requirements, a more specific altern ate chemical method must be used inorder to obtain a Confirmed chantal lytical result. GC/MS i s the preferred confi rmatory method. Barbiturates (test Negative Negative N code = SAMY) Benzodiazepine (test Negative Negative N code = TRAVON) Cocaine (test code = Negative Negative N COCA) Methadone (test code = Negative Negative N MTHD) Opiates (test code = Negative Negative N OPIA) PCP (test code = PCP) Negative Negative N Propoxyphene (test Negative Negative N code = PROPOX) THC (test code = THC) POSITIVE Negative A CBC with [id number] 21:33:00 Test Item Value Reference Range Interpretation Comments WBC (test code = WBC) 7.7 K/cumm 4.4-10.5 N RBC (test code = RBC) 4.20 M/cumm 3.75-5.20 N Hemoglobin (test code = HGB) 12.6 gm/dL 12.2-14.8 N Hematocrit (test code = HCT) 36.0 % 36.5-44.4 L MCV (test code = MCV) 85.7 fL 80-100 N MCH (test code = MCH) 29.9 pg 27.0-32.5 N MCHC (test code = MCHC) 34.9 g/dL 32.0-37.5 N RDW (test code = RDW) 12.3 % 11.5-14.5 N Platelet Count (test code = 303 K/cumm 140-440 N PLTCT) MPV (test code = MPV) 8.5 fL Diff Method (test code = DIFFM) Auto Neutrophil (test code = NEUT) 46.8 % 36-70 N Lymphocyte (test code = LYMPH) 43.2 % 12-44 N Monocyte (test code = MONO) 7.2 % 0-11 N Eosinophil (test code = EOS) 2.2 % 0-7 N Basophil (test code = BASO) 0.6 % 0-2 N Neutro Abs (test code = ANEUT) 3.6 K/cumm 1.6-7.4 N Lymph Abs (test code = ALYMPH) 3.3 K/cumm 0.5-4.6 N Karnes Abs (test code = AMONO) 0.6 K/cumm 0.0-1.2 N Eos Abs (test code = AEOS) 0.17 K/cumm 0.00-0.74 N Baso Abs (test code = ABASO) 0.0 K/cumm 0.00-0.21 N BHCG, Urine, [id number] 14:05:00 Test Item Value Reference Range Interpretation Comments Preg Qual [Ur] (test code = HUHCG) Negative Negative N RPR, [id number] 16:02:00 Test Item Value Reference Range Interpretation Comments RPR (test code = RPR) Non-Reactive Non-Reactive N Thyroid Stimulating Hormone (TSH)2017-02-14 11:18:00 Test Item Value Reference Range Interpretation Comments TSH (test code = TSH) 0.55 mIU/mL 0.270-4.200 N Lipid [id number] 11:11:00 Test Item Value Reference Range Interpretation Comments Cholesterol (test 147 mg/dL 0-200 N code = CHOL) Triglycerides (test 79 mg/dL 9-200 N code = TRIG) HDL (test code = 51 mg/dL 50-60 N HDL) Chol/HDL (test code 2.9 Ratio 0.0-4.4 N = CHOLPHDL) LDL, Calculated 80 0-130 N (NOTE)RISK O F HEART (test code = LDLC) DISEASEPu blished by Malagasy Heart AssociationAnal yte Optim al Boderline Increased RiskC HOL <200 200-239 >240TRI G <150 150-199 >200HDL Male: >60 <40HDL Female: >60 <50 LDL < 100 130-15 9 >160 LDL NEAR OPTIMAL IS 100- 129 VLDL (test code = 16 mg/dL 5-40 N VLDL) LDL/HDL (test code = 2 LDLPHDL)
[2019-12-11 01:59] LABS: Absolute Lymphocytes (CBC) 2.8 K/uL (0.7-4.9); Basophils % 0.5 % (0-1.3); Hematocrit 30.3 % (36.0-45.0); Lymphocytes % 23.1 % (15.3-44.8); MPV 7.4 fL (7.6-11.3); RBC Red Blood Cell Count 3.36 M/uL (3.86-4.86)
[2019-12-11 02:05] LABS: Protime INR 0.99
[2019-12-11 02:09] LABS: BUN Blood Urea Nitrogen 4 mg/dL (7-18); Bicarbonate 23 mmol/L (21-32); Glucose Level 92 mg/dL (74-106); Potassium 3.8 mmol/L (3.5-5.1); Sodium Level 138 mmol/L (136-145)
--- NOTE | 2019-12-11 05:02 | ER ---
Nurse's Notes [facility] Name: Jael Lugo Age: 24 yrs Sex: Female : 1995 Arrival Date: 12/11/2019 Time: 00:08 Bed 6 Private MD: Diagnosis: Influenza B Presentation: 12/10 00:39 Chief complaint: Patient states: she has been feeling generalized weakness and short of bb breath for several days pt may have been exposed to COVID about a week ago. Coronavirus screen: fatigue, muscle pain, Client presents with at least one sign or symptom that may indicate coronavirus-19. Standard/surgical mask placed on the client. Ebola Screen: No symptoms or risks identified at this time. Initial Sepsis Screen: Does the patient meet any 2 criteria? No. Patient's initial sepsis screen is negative. Does the patient have a suspected source of infection? No. Patient's initial sepsis screen is negative. Risk Assessment: Do you want to hurt yourself or someone else? Patient reports no desire to harm self or others. Onset of symptoms was December 06, 2019. 00:39 Method Of Arrival: Wheelchair bb 00:39 Acuity: ALMA 3 bb Triage Assessment: 00:42 General: Appears in no apparent distress. Behavior is calm, cooperative. Pain: bb Complains of pain in pelvis. Respiratory: Reports shortness of breath Onset: The symptoms/episode began/occurred gradually, the patient has mild shortness of breath. 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 - Social history:: Smoking status: Patient/guardian denies using tobacco. Screenin:06 Abuse screen: Denies threats or abuse. Denies injuries from another. Nutritional rr5 screening: No deficits noted. Tuberculosis screening: No symptoms or risk factors identified. Fall Risk None identified. Total Lambert Fall Scale indicates No Risk (0-24 pts). Assessment: 01:01 General: Appears in no apparent distress. uncomfortable, Behavior is calm, cooperative, rr5 appropriate for age, Reports feeling ill for > 3 days, fatigue for >3 days. Pain: Complains of pain in body ache Pain currently is 4 out of 10 on a pain scale. Quality of pain is described as aching, Pain began gradually, Is intermittent. Neuro: Level of Consciousness is awake, alert, obeys commands, Oriented to person, place, time, situation. Cardiovascular: Capillary refill < 3 seconds Patient's skin is warm and dry. Cardiovascular: Rhythm is. Respiratory: Reports shortness of breath cough that is chest congestion Airway is patent Respiratory effort is even, unlabored, Respiratory pattern is regular, symmetrical, GI: Abdomen is round. : Reports 31st week . EENT: No signs and/or symptoms were reported regarding the EENT system. Derm: Skin is intact, is healthy with good turgor, Skin temperature is warm. Musculoskeletal: Capillary refill < 3 seconds. 02:25 Reassessment: Patient appears in no apparent distress at this time. Patient is alert, rr5 oriented x 3, equal unlabored respirations, skin warm/dry/pink. 03:10 Reassessment: Patient appears in no apparent distress at this time. Patient is alert, rr5 oriented x 3, equal unlabored respirations, skin warm/dry/pink. Ddimer elevated ED provider order for CT PE angio. 04:20 Reassessment: Patient appears in no apparent distress at this time. No changes from rr5 previously documented assessment. Patient is alert, oriented x 3, equal unlabored respirations, skin warm/dry/pink. awaiting for CT angio result. 05:13 Reassessment: Patient appears in no apparent distress at this time. Patient is alert, rr5 oriented x 3, equal unlabored respirations, skin warm/dry/pink. discharge instruction given and explained without complaints made. Vital Signs: 00:39 BP 108 / 50; Pulse 72; Resp 16 S; Temp 98.2(O); Pulse Ox 99% on R/A; Weight 78.02 kg bb (R); Height 5 ft. 7 in. (170.18 cm) (R); Pain 4/10; 01:43 BP 110 / 62; Pulse 70; Resp 17; Pulse Ox 99% ; rr5 03:00 BP 116 / 78; Pulse 79; Resp 19; Pulse Ox 100% ; rr5 04:00 BP 112 / 63; Pulse 74; Resp 14; Pulse Ox 100% on R/A; rr5 05:14 BP 113 / 75; Pulse 65; Resp 16; Pulse Ox 99% ; rr5 00:39 Body Mass Index 26.94 (78.02 kg, 170.18 cm) bb ED Course: 00:08 Patient arrived in ED. cf2 00:41 Triage completed. bb 00:42 Arm band placed on Patient placed in an exam room, on a stretcher, on pulse oximetry. bb 00:43 Shahram Knight PA is PHCP. cp 00:43 Jeff Menchaca MD is Attending Physician. cp 00:59 Domenico Cunha RN is Primary Nurse. rr5 01:06 Patient has correct armband on for positive identification. Bed in low position. Call rr5 light in reach. Pulse ox on. NIBP on. 01:30 EKG done, by ED staff, reviewed by Jeff Menchaca MD. rr5 01:35 Flu and/or RSV swab sent to lab. Strep swab sent to lab. covid. rr5 01:42 Inserted saline lock: 20 gauge in right forearm, using aseptic technique. Blood rr5 collected. 02:30 Notified Nurse Practitioner and/or Physician Patient Educator of a critical lab result(s), lp1 D-dimer 626. 03:58 CT Chest For PE Angio In Process Unspecified. EDMS 05:15 No provider procedures requiring assistance completed. IV discontinued, intact, rr5 bleeding controlled, No redness/swelling at site. Pressure dressing applied. Administered Medications: No medications were administered Outcome: 05:01 Discharge ordered by . baldo 05:15 Discharged to home via wheelchair. rr5 05:15 Condition: stable 05:15 Discharge instructions given to patient, Instructed on discharge instructions, follow up and referral plans. Demonstrated understanding of instructions, follow-up care. 05:16 Patient left the ED. rr5 Addendum: 12/22/2019 14:33 Addendum: COVID-19 Result: Negative result given to RN to notify pt. Notified pt of d m5 negative COVID 19 swab results. Pt advised that even with a negative test result they should remain in isolation until symptom free for 3 days without medication. Pt also advised to return to the ED for worsening symptoms. Signatures: Dispatcher [employer] Saadia Hutchison RN RN dm5 Rosalie Loco RN RN bb Yamini Lopez RN RN lp1 Shahram Knight PA PA cp Roque, Raymond, RN RN rr5 Doretha Valero cf2 Jeff Menchaca MD MD mh7 Corrections: (The following items were deleted from the chart) 12/10 05:14 01:01 Respiratory: Reports shortness of breath cough that is chest congestion Airway is rr5 patent Respiratory effort is even, unlabored, Respiratory pattern is regular, symmetrical, rr5
--- NOTE | 2019-12-11 05:02 | EDPHYS ---
Physician Documentation [facility] Name: Jael Lugo Age: 24 yrs Sex: Female : 1995 Arrival Date: 12/11/2019 Time: 00:08 Bed 6 Private MD: ED Physician Jeff Menchaca HPI: 12/10 01:20 This 24 yrs old Black Female presents to ER via Wheelchair with complaints of Shortness cp Of Breath, BODY PAIN, Chest Congestion. 01:20 The patient has shortness of breath with light activity. Onset: The symptoms/episode cp began/occurred 1 week(s) ago. Duration: The symptoms are intermittent. Associated signs and symptoms: Pertinent positives: chest pain, non-productive cough, dizziness, lower body weakness, Pertinent negatives: fever. Patient reports having close contact with friend of who recently tested positive for COVID-19. 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 - Social history:: Smoking status: Patient/guardian denies using tobacco. ROS: 01:30 Constitutional: Positive for body aches, Negative for fever, poor PO intake. cp 01:30 Eyes: Negative for injury, pain, redness, and discharge. cp 01:30 ENT: Positive for sore throat, Negative for ear pain, difficulty swallowing, difficulty handling secretions. 01:30 Cardiovascular: Positive for chest pain, Negative for edema, palpitations. 01:30 Respiratory: Positive for cough, shortness of breath, on exertion. Negative for wheezing. 01:30 Abdomen/GI: Negative for abdominal pain, nausea, vomiting, and diarrhea. 01:30 Skin: Negative for rash. 01:30 Neuro: Positive for dizziness, near syncope, weakness, Negative for headache. 01:30 All other systems are negative. Exam: 01:33 Constitutional: The patient appears in no acute distress, alert, awake, cp non-diaphoretic, non-toxic, well developed, well nourished. 01:33 Head/Face: Normocephalic, atraumatic. cp 01:33 Eyes: Periorbital structures: appear normal, Conjunctiva: normal, no exudate, no injection, Sclera: no appreciated abnormality, Lids and lashes: appear normal, bilaterally. 01:33 ENT: External ear(s): are unremarkable, Ear canal(s): are normal, clear, TM's: dullness, bilaterally, Nose: is normal, Mouth: Lips: moist, Oral mucosa: moist, Posterior pharynx: Airway: no evidence of obstruction, patent, Tonsils: no enlargement, no exudate, swelling, is not appreciated, erythema, that is mild, exudate, is not appreciated. 01:33 Neck: ROM/movement: is normal, is supple, without pain, no range of motions limitations, no meningismus. 01:33 Chest/axilla: Inspection: normal, Palpation: is normal, no crepitus, no tenderness. 01:33 Cardiovascular: Rate: normal, Rhythm: regular, Edema: is not appreciated. 01:33 Respiratory: the patient does not display signs of respiratory distress, Respirations: normal, no use of accessory muscles, no retractions, labored breathing, is not present, Breath sounds: are clear throughout, no decreased breath sounds, no stridor, no wheezing. 01:33 Abdomen/GI: Inspection: gravid appearance, is noted. 01:33 Back: pain, is absent, ROM is normal. 01:33 Skin: no rash present. 01:33 Neuro: Orientation: to person, place \\T\\ time. Mentation: is normal. 01:35 ECG was reviewed by the Attending Physician. cp Vital Signs: 00:39 BP 108 / 50; Pulse 72; Resp 16 S; Temp 98.2(O); Pulse Ox 99% on R/A; Weight 78.02 kg bb (R); Height 5 ft. 7 in. (170.18 cm) (R); Pain 4/10; 01:43 BP 110 / 62; Pulse 70; Resp 17; Pulse Ox 99% ; rr5 03:00 BP 116 / 78; Pulse 79; Resp 19; Pulse Ox 100% ; rr5 04:00 BP 112 / 63; Pulse 74; Resp 14; Pulse Ox 100% on R/A; rr5 05:14 BP 113 / 75; Pulse 65; Resp 16; Pulse Ox 99% ; rr5 00:39 Body Mass Index 26.94 (78.02 kg, 170.18 cm) bb MDM: 00:46 Patient medically screened. cp 01:30 Differential diagnosis: Anemia asthma, Bronchitis pneumonia, Pneumothorax pulmonary cp edema, Pulmonary Embolism. 04:59 Data reviewed: vital signs, nurses notes, lab test result(s), CBC, electrolytes, Flu: mh7 urinalysis, EKG, radiologic studies, CT scan, plain films. Data interpreted: Pulse oximetry: on room air is 99 %. Interpretation: normal. Counseling: I had a detailed discussion with the patient and/or guardian regarding: the historical points, exam findings, and any diagnostic results supporting the discharge/admit diagnosis, lab results, radiology results, the need for outpatient follow up, to return to the emergency department if symptoms worsen or persist or if there are any questions or concerns that arise at home. Response to treatment: the patient's symptoms have markedly improved after treatment. 12/10 01:08 Order name: CBC with Diff; Complete Time: 02:21 cp 12/10 02:21 Interpretation: Normal except: WBC 12.0; RBC 3.36; HGB 10.5; HCT 30.3; MPV 7.4. cp 12/10 01:08 Order name: BMP; Complete Time: 02:21 cp 12/10 03:04 Interpretation: Normal except: BUN 4; CRE 0.54. cp 12/10 01:08 Order name: PT-INR; Complete Time: 03:03 cp 12/10 01:08 Order name: COVID-19 cp 12/10 01:08 Order name: Flu; Complete Time: 03:20 cp 12/10 03:20 Interpretation: Abnormal. cp 12/10 01:08 Order name: Strep; Complete Time: 03:20 cp 12/10 01:08 Order name: EKG; Complete Time: 01:24 cp 12/10 01:08 Order name: EKG - Nurse/Tech; Complete Time: 01:43 cp 12/10 01:08 Order name: Document PUI#; Complete Time: 01:52 cp 12/10 01:08 Order name: Droplet/Contact Precautions; Complete Time: 01:11 cp 12/10 01:08 Order name: Labs collected and sent; Complete Time: 01:43 cp 12/10 01:08 Order name: D-Dimer; Complete Time: 03:03 cp 12/10 03:15 Order name: Throat Culture EDAR 12/10 03:21 Order name: CT Chest For PE Angio cp 12/10 01:08 Order name: [facility] [phone]/ ; Complete Time: 01:52 cp 12/10 01:08 Order name: O2 Per Protocol; Complete Time: 01:43 cp EC:35 Rate is 78 beats/min. Rhythm is regular. MN interval is normal. QRS interval is normal. cp QT interval is normal. T waves are Inverted in lead aVR. Interpreted by me. Reviewed by me. Administered Medications: No medications were administered Disposition: 05:52 Co-signature as Attending Physician, Jeff Menchaca MD. mh7 Disposition: 12/11/19 05:01 Discharged to Home. Impression: Influenza B. - Condition is Stable. - Discharge Instructions: Influenza, Adult, [id number]. - Work release form, Medication Reconciliation Form, Thank You Letter, Antibiotic Education, Prescription Opioid Use form. - Follow up: Private Physician; When: 1 - 2 days; Reason: Worsening of condition, Recheck today's complaints, Continuance of care, Re-evaluation by your physician. - Problem is new. - Symptoms have improved. Signatures: Dispatcher [employer] EDAR Rosalie Loco RN RN bb Shahram Knight PA PA cp Roque, Raymond, RN RN rr5 Jeff Menchaca MD MD mh7 Corrections: (The following items were deleted from the chart) 05:16 05:01 12/11/2019 05:01 Discharged to Home. Impression: Influenza B. Condition is rr5 Stable. Forms are Medication Reconciliation Form, Thank You Letter, Antibiotic Education, Prescription Opioid Use. Follow up: Private Physician; When: 1 - 2 days; Reason: Worsening of condition, Recheck today's complaints, Continuance of care, Re-evaluation by your physician. Problem is new. Symptoms have improved. 7
[2019-12-11 05:25] VITALS: TEMP 98.2
[2019-12-11 05:30] VITALS: BP 113/75; O2SAT 99
--- NOTE | 2019-12-11 10:36 | RAD REPORT ---
EXAM DESCRIPTION: CT - Chest For Pe Angio - 12/11/2019 3:58 am CLINICAL HISTORY: 24-year-old female with generalized weakness and shortness of breath for several d ays. TECHNIQUE: Following the administration of intravenous contrast, multiple high-resolution axial imag es of the chest were performed followed by sagittal and coronal reconstructed images. Coronal and sag ittal MIP images were reconstructed. The CT study is performed according to ALARA (as low as reasonab ly achievable) or ALARA/IMAGE GENTLY, with automatic adjustment of mA and/or kV according to patient size. Performed on: 12/11/2019 at 3:33 AM COMPARISON: None FINDINGS: There is satisfactory visualization and contrast opacification of pulmonary arteries. No definite intra-arterial filling defects are identified to suggest acute or chronic pulmonary embolis m. The thoracic aorta is normal in caliber and contour without evidence of aneurysm or dissection. The lungs are well expanded and are clear. There is no evidence of a pneumothorax. There are no pleur al effusions. A small portion of the lung bases is omitted on this study. The heart is normal in size. There is no pericardial effusion. There is no reflux of contrast into th e hepatic veins. The RV/LV ratio is within normal limits. There is no evidence of hilar, mediastinal or axillary lymphadenopathy. No acute osseous abnormality is identified. The visualized upper abdominal structures are unremarkable. IMPRESSION: 1. No CT evidence to suggest acute or chronic pulmonary embolism, aortic aneurysm or aor tic dissection. 2. No evidence of acute intrathoracic disease. 3. A small portion of the lung bases is omitted on this study. Electronically signed by: Juliann Garcia DO 12/11/2019 4:26 AM BBET Due to temporary technical issues with the PACS/Fluency reporting system, reports are being signed by the in house radiologist without review as a courtesy to ensure prompt reporting. The interpreting r adiologist is fully responsible for the content of the report.
== END 2019-12-11 05:16 | disposition home or self-care (01) ==
LOC: ER 00:03
DX: O26.893 Other specified pregnancy related conditions, third trimester (principal); J10.1 Influenza due to other identified influenza virus with other respiratory manifestations; Z11.59 Encounter for screening for other viral diseases
CPT/HCPCS: 93005; 87070; 85025; 80048; 36415; 85610; 85379; 87081; 87804 ×2; 71275; 99284; U0002; Q9967

== ENCOUNTER 2020-04-22 03:16 | Emergency (ER) | payer OTHER ==
--- OUTSIDE RECORDS SUMMARY | 2020-04-22 03:19 | XMS REPORT | Continuity of Care Document ---
:1995 Author Organization [facility] t Address [address] [place] [address] Care Team Providers Name Role Phone UNKNOWN Primary Care Physician Unavailable Kevyn Vasquez Attending Clinician Doctor Unassigned, Name Attending Clinician Unavailable Ultrasound Attending Clinician Unavailable JOSE DONOHUE M.D. Attending Clinician Unavailable JOSE DONOHUE M.D. Admitting Clinician Unavailable Payers Payer Name Policy Type Policy Number Effective Date Expiration Date S ource Problems This patient has no known problems. Allergies, Adverse Reactions, Alerts Allergy Allergy Status Severity Reaction(s) Onset Inactive Treating Comm ents Source Name Type Date Date Clinician No Known DA Active U 2016-05 [facility] [place] Medications This patient has no known medications. Procedures This patient has no known procedures. Encounters Start End Encounter Admission Attending Care Care Encounter Source Date/Time Date/Time Type Type Clinicians Facility Department ID 2020-01-07 2020-01-07 ANURAG Morgan [id number] 00:00:00 00:00:00 Cassie C [employer]IC 350.1.13.10 [facility] 4.2.7.2.686 MATERNAL [id number] & CHILD 107 [facility] 2020-01-02 2020-01-02 Orders Doctor MAGALY [id number] 00:00:00 00:00:00 Only Unassigned, BOBBY 350.1.13.10 [facility] 4.2.7.2.686 [id number] 009 2019-12-11 2019-12-11 Orders Doctor MAGALY [id number] 00:00:00 00:00:00 Only Unassigned, BBOBY 350.1.13.10 [facility] 4.2.7.2.686 [id number] [id number] 2019-11-05 2019-11-05 Telephone Jadiel, AZBECKY [id number] 00:00:00 00:00:00 Cassie C [employer]CH[employer] 350.1.13.10 [facility] [id number] MATERNAL [id number] & CHILD 107 [facility] 2019-10-09 2019-10-09 Respiratory Therapy Assistant Ultrasound, [facility] [id number] 09:00:16 10:00:16 Visit Ang-Mfm [employer]CHANIC 350.1.13.10 REG[facility]AL 4.2.7.2.686 MATERNAL [id number] & CHILD 369 [facility] 2019-10-01 2019-10-01 Telemedici Jadiel, [facility] [id number] 08:31:19 09:01:29 ne Visit Cassie C AUTO [employer] MECHANIC 350.1.13.10 REGIONAL [id number] MATERNAL [id number] & CHILD 107 [facility] 2019-09-02 2019-09-02 Routine Jadiel, [facility] [id number] 14:11:17 14:38:43 Cassie C AUTO RADIO MECHANIC 350.1.13.10 Visit REGIONAL 4.2.7.2.686 MATERNAL [id number] & CHILD 107 [facility] 2017-06-02 2017-06-15 Inpatient Saad DONOHUE [facility] [id number] 55 [facility] 00:23:00 13:37:00 Jane GARCIA Results Test Description Test Time Test Comments Results Result Comments Source CBC W/AUTO DIFF 2020-02-05 08:34:00 Test Item Value Reference Range Interpretation Comme nts WHITE BLOOD CELL (test code = WBC) 18.3 K/mm3 6.6-12.1 H RED BLOOD CELL (test code = RBC) 3.47 M/mm3 3.45-5.01 N HEMOGLOBIN (test code = HGB) 10.9 g/dL 10.7-13.9 N HEMATOCRIT (test code = HCT) 32.4 % 32.1-42.1 N MEAN CELL VOLUME (test code = MCV) 93 fL 84.1-94.8 N MEAN CELL HGB (test code = MCH) 31.4 pg 27-35 N MEAN CELL HGB CONCETRATION (test code = MCHC) 33.6 gm/dL 32.2-34. 1 N RED CELL DISTRIBUTION WIDTH (test code = RDW) 13.2 % 12.4-16. 5 N PLATELET COUNT (test code = PLT) 223 K/mm3 133-385 N MEAN PLATELET VOLUME (test code = MPV) 9.6 fl 9.1-12.7 N NEUTROPHIL % (test code = NT%) 73.1 % 56.5-79.4 N LYMPHOCYTE % (test code = LY%) 15.1 % 14.3-34.3 N MONOCYTE % (test code = MO%) 8.6 % 5.1-10.4 N EOSINOPHIL % (test code = EO%) 1.5 % 0.1-3.0 N BASOPHIL % (test code = BA%) 0.3 % 0.1-1.0 N NEUTROPHIL # (test code = NT#) 13.4 K/mm3 LYMPHOCYTE # (test code = LY#) 2.8 K/mm3 MONOCYTE # (test code = MO#) 1.6 K/mm3 EOSINOPHIL # (test code = EO#) 0.27 K/mm3 BASOPHIL # (test code = BA#) 0.1 K/mm3 RBC MORPHOLOGY REQUIRED (test code = RBCM) NORMAL NORMAL PLATELET MORPHOLOGY REQUIRED (test code = PLTMR) NORMAL KVNG L LAB/MR WENT TO DRAW, PATIENT DIFFICULT STICK. WILL SENDANOTHER PHLEB TO TRY.AG HEPATITIS B [id number] 07:31:00 Test Item Value Reference Range Interpretation Comments AG HEPATITIS B SURFACE (test code NONREACTIVE NONREACTIVE = HBSAG) IS CONSENT FORM SIGNED FOR HIV TESTING? YAB HEPATITIS C [id number] 07:31:00 Test Item Value Reference Range Interpretation Comments AB HEPATITIS C (test code = NONREACTIVE NONREACTIVE HCVAB) SIGNAL TO CUTOFF (test code = 0.11 <0.80 N CUTOFF) IS CONSENT FORM SIGNED FOR HIV TESTING? YAB [id number] 07:31:00 Test Item Value Reference Range Interpretation Comments AB TREPONEMA (test code = TREPAB) NONREACTIVE NONREACTIVE IS CONSENT FORM SIGNED FOR HIV TESTING? YAB HIV 1 07:31:00 Test Item Value Reference Range Interpretation Comments AB HIV 1 2 (test NONREACTIVE NONREACTIVE Done by Shantell pal Centaur code = [id number]) 4th Gen HIV Ag/Ab Combo Screen IS CONSENT FORM SIGNED FOR HIV TESTING? YAG HEPATITIS B [id number] 07:04:00 Test Item Value Reference Range Interpretation Comments AG HEPATITIS B SURFACE (test code NONREACTIVE NONREACTIVE = HBSAG) IS CONSENT FORM SIGNED FOR HIV TESTING? YAB HEPATITIS C [id number] 07:04:00 Test Item Value Reference Range Interpretation Comments AB HEPATITIS C (test code = HCVAB) NONREACTIVE SIGNAL TO CUTOFF (test code = CUTOFF) <0.80 IS CONSENT FORM SIGNED FOR HIV TESTING? YAB [id number] 07:04:00 Test Item Value Reference Range Interpretation Comments AB TREPONEMA (test code = TREPAB) NONREACTIVE NONREACTIVE IS CONSENT FORM SIGNED FOR HIV TESTING? YAB HIV 1 07:04:00 Test Item Value Reference Range Interpretation Comments AB HIV 1 2 (test code = [id number]) NONREACTIVE IS CONSENT FORM SIGNED FOR HIV TESTING? YCBC W/AUTO [id number] 06:25:00 Test Item Value Reference Range Interpretation Comments WHITE BLOOD CELL (test code = WBC) 17.3 K/mm3 6.6-12.1 H RED BLOOD CELL (test code = RBC) 3.75 M/mm3 3.45-5.01 N HEMOGLOBIN (test code = HGB) 11.7 g/dL 10.7-13.9 N HEMATOCRIT (test code = HCT) 34.6 % 32.1-42.1 N MEAN CELL VOLUME (test code = MCV) 92 fL 84.1-94.8 N MEAN CELL HGB (test code = MCH) 31.2 pg 27-35 N MEAN CELL HGB CONCETRATION (test 33.8 gm/dL 32.2-34.1 N code = MCHC) RED CELL DISTRIBUTION WIDTH (test 13.2 % 12.4-16.5 N code = RDW) PLATELET COUNT (test code = PLT) 247 K/mm3 133-385 N MEAN PLATELET VOLUME (test code = 9.4 fl 9.1-12.7 N MPV) NEUTROPHIL % (test code = NT%) 71.6 % 56.5-79.4 N LYMPHOCYTE % (test code = LY%) 17.4 % 14.3-34.3 N MONOCYTE % (test code = MO%) 8.1 % 5.1-10.4 N EOSINOPHIL % (test code = EO%) 0.9 % 0.1-3.0 N BASOPHIL % (test code = BA%) 0.3 % 0.1-1.0 N NEUTROPHIL # (test code = NT#) 12.4 K/mm3 LYMPHOCYTE # (test code = LY#) 3.0 K/mm3 MONOCYTE # (test code = MO#) 1.4 K/mm3 EOSINOPHIL # (test code = EO#) 0.16 K/mm3 BASOPHIL # (test code = BA#) 0.1 K/mm3 RBC MORPHOLOGY REQUIRED (test code NORMAL NORMAL = RBCM) PLATELET MORPHOLOGY REQUIRED (test NORMAL NORMAL code = PLTMR) COVID 19 Asymptomatic IH [id number] 05:19:00 Test Item Value Reference Range Interpretation Comments COVID 19 NEGATIVE NEGATIVE This test has b een Asymptomatic IH AG authorize d only for the (test code = detection ofpro teins from COVNONPUIAG) SARS-CoV-2, not for any other viruses orpathogens. N egative results should be treated as presumptive andconfirmed wi th a molecular assay , if necessary for patientmanageme nt. Negative result s do not rule out COVID- 19 andshould not b e used as the sole basis for treatment orpat ient management deci sions, including infec tion controldecision s. Negative result s should be considered i n thecontext of a patient's recent exposure s, history and thepresence of clinical signs and symptoms consis tent withCOVID-19. T his test has not been FD A cleared or approved; th e test hasbeen authori astrid by FDA under an Emerge ncy Use Authorization(E UA) for use by laborato [facility] certified under the CLIA thatmeet the re quirements to perform mode rate, high or waivedcomple xity tests. This aurelia t is authorized for use at thePoint of Car e (POC), i.e., in patien t care settingsoperati ng under a CLIA Certificat e of Waiver, Certifi kostas ofCompliance, o r Certificate of Accreditation. This test is only authori zekey for the duration of thedeclaration that circumstances e xist justifying theauthorizatio n of emergency use o f in vitro diagnostic test sfor detection and/o r diagnosis of CO VID-19 under Dvqocrn10 4(b)(1) of the Act, 21 U.S .C. 360bbb-3(b)(1), unless theauthorizatio n is terminated or r evoked sooner. Chlamydia/GC [id number] 17:46:00 Test Item Value Reference Range Interpretation Comments Chlamydia trachomatis, PRAKASH (test Negative Negative N code = 802654) Neisseria gonorrhoeae, PRAKASH (test Negative Negative N code = 723195) HIV [id number] 21:56:00 Test Item Value Reference Range Interpretation Comments HIV 1/2 Antibody Non-Reactive Non-Reactive N HIV1/2 Anti body screen (test code = result indicate s the HIV1/2AB) absence of HIV1 and VNZ6cjlzfdncj.H owever, A Non-Reactive screen result does not [...] rule o ut exposure or infection.If ac [place] HIV-1 is suspec christian, HIV RNA Quantit ative is recommended. RPR, [id number] 13:36:00 Test Item Value Reference Range Interpretation Comments RPR (test code = RPR) Non-Reactive Non-Reactive N Thyroid Stimulating Hormone (TSH)2017-06-02 07:20:00 Test Item Value Reference Range Interpretation Comments TSH (test code = TSH) 1.46 mIU/mL 0.270-4.200 N Lipid [id number] 07:13:00 Test Item Value Reference Range Interpretation Comments Cholesterol (test 148 mg/dL 0-200 N code = CHOL) Triglycerides (test 85 mg/dL 9-200 N code = TRIG) HDL (test code = 42 mg/dL 50-60 L HDL) Chol/HDL (test code 3.5 Ratio 0.0-4.4 N = CHOLPHDL) LDL, Calculated 89 0-130 N (NOTE)RISK O F HEART (test code = LDLC) DISEASEPu blished by [place] Heart AssociationAnal yte Optim al Boderline Increased RiskC HOL <200 200-239 >240TRI G <150 150-199 >200HDL Male: >60 <40HDL Female: >60 <50 LDL < 100 130-15 9 >160 LDL NEAR OPTIMAL IS 100- 129 VLDL (test code = 17 mg/dL 5-40 N VLDL) LDL/HDL (test code = 2 LDLPHDL) Comprehensive Metabolic [id number] 21:39:00 Test Item Value Reference Range Interpretation [...] the National Kidney Foundation,http ://nkd ep.nih.gov Urinalysis [id number] 21:39:00 Test Item Value Reference Range Interpretation Comments Color (test code = Yellow Yellow,Straw,Pl N COLOR) yellow Clarity (test code = Cloudy Clear A CLAR) Specific Eccles (test 1.036 1.001-1.035 H code = SPGR) [...] (test code = Moderate /HPF BACT) Alcohol/Ethanol, [id number] 21:37:00 Test Item Value Reference Range Interpretation Comments Alcohol, Ethyl <0.01 g/dL 0.00-0.01 N Intoxicated 0.080 (test code = ETOH) g/dL or m ore BHCG, Serum, [id number] 21:37:00 Test Item Value Reference Range Interpretation Comments Preg Qual [Se] (test code = BSHCG) Negative Negative N [id number] 21:36:00 Test Item Value Reference Range Interpretation [...] = THC) POSITIVE Negative A CBC with [id number] 21:33:00 Test Item Value Reference Range Interpretation [...] code = ALYMPH) 3.3 K/cumm 0.5-4.6 N Amite Abs (test code = AMONO) 0.6 K/cumm 0.0-1.2 N Eos Abs (test code = AEOS) 0.17 K/cumm 0.00-0.74 N Baso Abs (test code = ABASO) 0.0 K/cumm 0.00-0.21 N BHCG, Urine, [id number] 14:05:00 Test Item Value Reference Range Interpretation Comments Preg Qual [Ur] (test code = HUHCG) Negative Negative N RPR, [id number] 16:02:00 Test Item Value Reference Range Interpretation Comments RPR (test code = RPR) Non-Reactive Non-Reactive N Thyroid Stimulating Hormone (TSH)2017-02-14 11:18:00 Test Item Value Reference Range Interpretation Comments TSH (test code = TSH) 0.55 mIU/mL 0.270-4.200 N Lipid [id number] 11:11:00 Test Item Value Reference Range Interpretation Comments Cholesterol (test 147 mg/dL 0-200 N code = CHOL) Triglycerides (test 79 mg/dL 9-200 N code = TRIG) HDL (test code = 51 mg/dL 50-60 N HDL) Chol/HDL (test code 2.9 Ratio 0.0-4.4 N = CHOLPHDL) LDL, Calculated 80 0-130 N (NOTE)RISK O F HEART (test code = LDLC) DISEASEPu blished by [place] Heart AssociationAnal yte Optim al Boderline Increased RiskC HOL <200 200-239 >240TRI G <150 150-199 >200HDL Male: >60 <40HDL Female: >60 <50 LDL < 100 130-15 9 >160 LDL NEAR OPTIMAL IS 100- 129 VLDL (test code = 16 mg/dL 5-40 N VLDL) LDL/HDL (test code = 2 LDLPHDL)
[2020-04-22 04:07] LABS: Absolute Lymphocytes (CBC) 1.9 K/uL (0.7-4.9); Basophils % 0.5 % (0-1.3); Hematocrit 41.4 % (36.0-45.0); Lymphocytes % 19.8 % (15.3-44.8); MPV 7.4 fL (7.6-11.3); RBC Red Blood Cell Count 4.61 M/uL (3.86-4.86)
[2020-04-22 04:08] LABS: Protime INR 1.11
[2020-04-22 04:29] LABS: ALT/SGPT 27 U/L (12-78); AST/SGOT 23 U/L (15-37); Albumin 4.6 g/dL (3.4-5.0); Alkaline Phosphatase 76 U/L (45-117); BUN Blood Urea Nitrogen 14 mg/dL (7-18); Bicarbonate 15 mmol/L (21-32); Bilirubin Direct 0.2 mg/dL (0-0.2); Bilirubin Total 0.9 mg/dL (0.2-1.0); Glucose Level 66 mg/dL (74-106); Potassium 3.2 mmol/L (3.5-5.1); Protein, Total 8.6 g/dL (6.4-8.2); Sodium Level 141 mmol/L (136-145)
[2020-04-22] MEDS ORDERED: NA CHLORIDE 0.9% 1,000 ML ONE (06:23)
[2020-04-22] MEDS ORDERED: POTASSIUM CL SA 10 MEQ TAB PO ONE (07:47)
--- NOTE | 2020-04-22 08:12 | EDPHYS ---
Physician Documentation [facility] Name: Jael Lugo Age: 24 yrs Sex: Female : 1995 Arrival Date: 04/22/2020 Time: 03:20 Bed 7 Private MD: ED Physician Feroz Turner HPI: 04/22 03:31 This 24 yrs old Black Female presents to ER via EMS with complaints of Psych Problem. mh7 03:31 The patient presents to the emergency department with psychosis, has delusions. Onset: mh7 The symptoms/episode began/occurred today. Past psychiatric history: Prior diagnosis: schizophrenia, Multiple Personality Disorder, Psychiatric medications include: Primary psychiatric physician: the patient's psychiatric physician is not known, it is unknown whether or not the patient has had a prior suicide gesture, it is unknown whether or not the patient has a previous inpatient psychiatric history, the patient's last psychiatric treatment was. Associated signs and symptoms: Pertinent positives; delusions, Aggresive. Severity of symptoms: At their worst the symptoms were moderate today, in the emergency department the symptoms have improved markedly. According to EMS, patient's called due to patient having psychiatric episode. He reported patient displaying all of her multiple personalities and being aggressive towards him. EMS gave Versed at scene due to patient being aggressive. She appears sedated upon arrival to ED.. Historical: - Allergies: 07:10 No Known Allergies; bp - PMHx: 03:25 Schizophrenia; insomnia; Herniated disc; Heart Murmur; drug abuse; Depression; Bipolar ea disorder; "arthritis in my lower spine"; - Immunization history:: Adult Immunizations unknown. - Social history:: Smoking status: unknown. ROS: 03:31 Unable to obtain ROS due to Sedated. mh7 10:38 Constitutional: Negative for fever, chills, and weight loss. kdr Exam: 03:31 Head/Face: Normocephalic, atraumatic. Eyes: Pupils equal round and reactive to light, mh7 extra-ocular motions intact. Lids and lashes normal. Conjunctiva and sclera are non-icteric and not injected. Cornea within normal limits. Periorbital areas with no swelling, redness, or edema. Neck: Trachea midline, no thyromegaly or masses palpated, and no cervical lymphadenopathy. Supple, full range of motion without nuchal rigidity, or vertebral point tenderness. No Meningismus. Chest/axilla: Normal chest wall appearance and motion. Nontender with no deformity. No lesions are appreciated. Cardiovascular: Regular rate and rhythm with a normal S1 and S2. No gallops, murmurs, or rubs. Normal PMI, no JVD. No pulse deficits. Respiratory: Lungs have equal breath sounds bilaterally, clear to auscultation and percussion. No rales, rhonchi or wheezes noted. No increased work of breathing, no retractions or nasal flaring. Abdomen/GI: Soft, non-tender, with normal bowel sounds. No distension or tympany. No guarding or rebound. No evidence of tenderness throughout. Back: No spinal tenderness. No costovertebral tenderness. Full range of motion. Skin: Warm, dry with normal turgor. Normal color with no rashes, no lesions, and no evidence of cellulitis. MS/ Extremity: Pulses equal, no cyanosis. Neurovascular intact. Full, normal range of motion. 03:31 Constitutional: The patient appears in no acute distress, drowsy, sedated 03:31 Neuro: Orientation: unable to test, the patient is medicated, Mentation: unable to test, the patient is medicated, Memory: unable to test, the patient is medicated, Cranial nerves: unable to test, the patient is medicated, Cerebellar function: unable to test, the patient is medicated, Motor: moves all fours, Sensation: unable to test, the patient is medicated, Gait: not tested. seizure activity, is not displayed by the patient, Abnormal movements: there are no abnormal movements. 03:48 Psych: Behavior/mood is cooperative, medicated. Affect is calm, unable to assess, mh7 medicated. unknown, medicated, Judgement / Insight is unknown, medicated. unknown, medicated. Delusions/hallucinations unknown, medicated. 08:14 Constitutional: This is a well developed, well nourished patient who is awake, alert, kdr and in no acute distress. Vital Signs: 03:20 BP 101 / 87; Pulse 106; Resp 20; Temp 98.7; Pulse Ox 97% ; ea 04:00 BP 127 / 74; Pulse 89; Resp 17; Pulse Ox 98% on R/A; rv 05:00 BP 99 / 56; Pulse 95; Resp 17; Pulse Ox 99% on R/A; rv 06:00 BP 114 / 68; Pulse 92; Resp 16; Pulse Ox 99% on R/A; rv MDM: 06:50 Differential diagnosis: drug withdrawal. acute psychotic break, depression, psychosis [facility] secondary to non-compliance, Multiple Personality Disorder, Substance Abuse. Data reviewed: vital signs, nurses notes, EMS record, lab test result(s), CBC, electrolytes, EKG. Data interpreted: Pulse oximetry: on room air is 99 %. Interpretation: normal. ED course: Resting comfortably, sleeping but easily arousable, VSS, no focal neurological deficits.. 06:57 Transition of care: After a detail discussion of the patient's case, care is [facility] transferred to Feroz Turner MD. 08:12 Patient medically screened. kdr 04/22 03:23 Order name: Acetaminophen; Complete Time: 04:41 [facility] 04/22 03:23 Order name: Basic Metabolic Panel; Complete Time: 04:41 [facility] 04/22 03:23 Order name: CBC with Diff; Complete Time: 04:41 [facility] 04/22 03:23 Order name: ETOH Level; Complete Time: 04:41 [facility] 04/22 03:23 Order name: Hepatic Function; Complete Time: 04:41 [facility] 04/22 03:23 Order name: PT-INR; Complete Time: 04:41 [facility] 04/22 03:23 Order name: Ptt, Activated; Complete Time: 04:41 [facility] 04/22 03:23 Order name: Salicylate; Complete Time: 04:25 [facility] 04/22 03:23 Order name: EKG; Complete Time: 03:24 [facility] 04/22 03:23 Order name: EKG - Nurse/Tech; Complete Time: 03:38 [facility] 04/22 03:23 Order name: Test, Serum; Complete Time: 04:41 [facility] 04/22 03:23 Order name: IV Saline Lock; Complete Time: 03:38 [facility] 04/22 03:23 Order name: Labs collected and sent; Complete Time: 03:38 7 Administered Medications: 06:12 Drug: NS 0.9% 1000 ml Route: IV; Rate: 1 bolus; Site: left forearm; ea 08:03 Not Given (Patient Refused): Potassium Chloride 40 mEq PO once rb3 Disposition: 04/22/20 08:12 Discharged to Home. Impression: Schizophrenia, Personality disorder, unspecified. - Condition is Stable. - Discharge Instructions: Schizophrenia. - Medication Reconciliation Form, Thank You Letter form. - Follow up: Private Physician; When: 2 - 3 days; Reason: If symptoms return, Further diagnostic work-up, Recheck today's complaints, Continuance of care, Re-evaluation by your physician. - Problem is an acute exacerbation. - Symptoms have improved. Signatures: Dispatcher [employer] EDMS Feroz Turner MD MD kdr Cecelia Marques RN RN Alvarez Delcid RN RN bp Jeff Menchaca MD MD [facility] Danielle Baltazar, RN RN rb3 Corrections: (The following items were deleted from the chart) 08:40 08:12 04/22/2020 08:12 Discharged to Home. Impression: Schizophrenia; Personality rb3 disorder, unspecified. Condition is Stable. Forms are Medication Reconciliation Form, Thank You Letter, Antibiotic Education, Prescription Opioid Use. Follow up: Private Physician; When: 2 - 3 days; Reason: If symptoms return, Further diagnostic work-up, Recheck today's complaints, Continuance of care, Re-evaluation by your physician. Problem is an acute exacerbation. Symptoms have improved. kdr
--- NOTE | 2020-04-22 08:12 | ER ---
Nurse's Notes [facility] Name: Jael Lugo Age: 24 yrs Sex: Female : 1995 Arrival Date: 04/22/2020 Time: 03:20 Bed 7 Private MD: Diagnosis: Schizophrenia;Personality disorder, unspecified Presentation: 04/22 03:20 Chief complaint: EMS states: reports she missed psych med dose, ea reported she has multiple personality disorder and schizophrenia. Coronavirus screen: At this time, the client does not indicate any symptoms associated with coronavirus-19. Ebola Screen: No symptoms or risks identified at this time. Initial Sepsis Screen: Does the patient meet any 2 criteria? No. Patient's initial sepsis screen is negative. Does the patient have a suspected source of infection? No. Patient's initial sepsis screen is negative. Risk Assessment: Do you want to hurt yourself or someone else? Patient reports no desire to harm self or others. Onset of symptoms was April 22, 2020. 03:20 Method Of Arrival: EMS: [facility] ea 03:20 Acuity: ALMA 3 ea Triage Assessment: 03:25 General: Appears in no apparent distress. Behavior is drowsy. Pain: Pain: Denies pain. ea Neuro: Level of Consciousness is groggy. Oriented to none. Respiratory: Airway is patent Respiratory effort is even, Respiratory pattern is regular, symmetrical. Derm: Skin is pink, warm \\T\\ dry. Historical: - Allergies: 07:10 No Known Allergies; bp - PMHx: 03:25 Schizophrenia; insomnia; Herniated disc; Heart Murmur; drug abuse; Depression; Bipolar ea disorder; "arthritis in my lower spine"; - Immunization history:: Adult Immunizations unknown. - Social history:: Smoking status: unknown. Screenin:20 Abuse screen: Denies threats or abuse. Nutritional screening: No deficits noted. ea Tuberculosis screening: No symptoms or risk factors identified. Fall Risk Secondary diagnosis (15 points). Assessment: 03:26 Reassessment: see triage assessment. ea 04:50 Reassessment: Pt resting with eyes closed, respirations even and unlabored, chest ea expansions even and unlabored. 07:00 Reassessment: RECD REPORT FROM LESLI FLOREZ. 24YO BF P/W BEHAVIORAL ISSUES AT HOME, bp UNCERTAIN MED COMPLIANCE. 07:30 Reassessment: Pt. got up and got fully dressed and is wanting to go home. rb3 07:37 Reassessment: Pt. requested to go home so she could feed her baby. rb3 07:43 Reassessment: Called [phone] and spoke with Alice, she is in [place]. She gave rb3 me [phone] for Bijan. 07:49 Reassessment: Called [phone] left a message for Bijan to call me back. rb3 08:00 Reassessment: Spoke with Bijan via telephone per pt request. Updated him on the POC, rb3 he feels comfortable taking the pt home and does not have concerns at this time. He will come to pick her up. Dr. Turner notified. Vital Signs: 03:20 BP 101 / 87; Pulse 106; Resp 20; Temp 98.7; Pulse Ox 97% ; ea 04:00 BP 127 / 74; Pulse 89; Resp 17; Pulse Ox 98% on R/A; rv 05:00 BP 99 / 56; Pulse 95; Resp 17; Pulse Ox 99% on R/A; rv 06:00 BP 114 / 68; Pulse 92; Resp 16; Pulse Ox 99% on R/A; rv ED Course: 03:20 Patient arrived in ED. ea 03:22 Jeff Menchaca MD is Attending Physician. [facility] 03:24 Triage completed. ea 03:24 Arm band placed on right wrist. Patient placed in an exam room, on a stretcher, on ea pulse oximetry. 03:24 Patient has correct armband on for positive identification. Placed in gown. Bed in low ea position. Call light in reach. Side rails up X2. sweat box attendant on. Pulse ox on. NIBP on. 03:35 Inserted saline lock: 22 gauge in left forearm, using aseptic technique. Blood ds4 collected. 04:21 Leandro Alvarez, GAUTAM is Primary Nurse. rv 06:20 No provider procedures requiring assistance completed. rv 06:58 Attending Physician role handed off by Jeff Menchaca MD kdr 06:58 Feroz Turner MD is Attending Physician. kdr 07:11 Primary Nurse role handed off by Leandro Alvarez, GAUTAM bp 07:11 Alvarez Jackson, RN is Primary Nurse. bp 08:37 IV discontinued, intact, bleeding controlled, No redness/swelling at site. Pressure rb3 dressing applied. Administered Medications: 06:12 Drug: NS 0.9% 1000 ml Route: IV; Rate: 1 bolus; Site: left forearm; ea 08:03 Not Given (Patient Refused): Potassium Chloride 40 mEq PO once rb3 Outcome: 08:12 Discharge ordered by MD. kdr 08:37 Discharged to home ambulatory. rb3 08:37 Condition: stable 08:37 Discharge instructions given to patient, Instructed on discharge instructions, follow up and referral plans. Demonstrated understanding of instructions, follow-up care, Prescriptions given X none 08:40 Patient left the ED. rb3 Signatures: Feroz Turner MD MD [facility] Jus Feldman ds4 Cecelia Marques RN Alvarez Ren ea, RN RN Leandro Downs RN RN rv Holmes, Maurice, MD MD 7 Danielle Baltazar, RN RN rb3
[2020-04-23 09:53] VITALS: TEMP 98.7
[2020-04-23 09:56] VITALS: O2SAT 99
[2020-04-23 09:57] VITALS: BP 114/68
== END 2020-04-22 08:40 | disposition home or self-care (01) ==
LOC: ER 03:16
DX: F20.9 Schizophrenia, unspecified (principal); F60.9 Personality disorder, unspecified
CPT/HCPCS: 93005; 85025; 80048; 36415; 80320; 80329 ×2; 84703; 85610; 80076; 85730; 99284; J7030

== ENCOUNTER 2021-02-17 18:55 | Emergency (ER) | payer OTHER ==
--- NOTE | 2021-02-17 20:06 | RAD REPORT ---
EXAM DESCRIPTION: RAD - Chest Single View - 02/17/2021 7:53 pm CLINICAL HISTORY: Cough;Dyspnea Chest pain. COMPARISON: No comparisons FINDINGS: Portable technique limits examination quality. The lungs are grossly clear. The heart is normal in size. No displaced fractures. IMPRESSION: No acute intrathoracic process suspected.
--- NOTE | 2021-02-17 22:14 | ER ---
Nurse's Notes [facility] Name: Jael Lugo Age: 25 yrs Sex: Female : 1995 Arrival Date: 02/17/2021 Time: 19:00 Bed 14 Private MD: Diagnosis: SARS-associated coronavirus as the cause of diseases classified elsewhere; related conditions, unspecified, first trimester Presentation: 02/17 19:07 Chief complaint: Patient states: patients she feels like she is having COVID, Flu or ap3 black mold symptoms. Patient states she can not taste or smell. She reports having chills, body aches, and fever/chills. Patient states that her symptoms began 02/14/2021. Patient also reports having taken a test today, and it was positive. Coronavirus screen: chills, loss of taste or smell, Client presents with at least one sign or symptom that may indicate coronavirus-19. Standard/surgical mask placed on the client. Ebola Screen: No symptoms or risks identified at this time. Initial Sepsis Screen: Does the patient meet any 2 criteria? No. Patient's initial sepsis screen is negative. Does the patient have a suspected source of infection? No. Patient's initial sepsis screen is negative. Risk Assessment: Do you want to hurt yourself or someone else? Patient reports no desire to harm self or others. Onset of symptoms was February 14, 2021. 19:07 Method Of Arrival: Ambulatory ap3 19:07 Acuity: ALMA 3 ap3 Triage Assessment: 19:14 General: Appears in no apparent distress. Behavior is calm, cooperative, appropriate ap3 for age. Pain: Complains of pain in head. Respiratory: Reports shortness of breath Airway is patent Respiratory effort is even, unlabored, Respiratory pattern is regular, symmetrical, Onset: The symptoms/episode began/occurred Sunday02/14/2021, the patient has mild shortness of breath. GI: Reports nausea. : Reports positive test. 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 - Social history:: Smoking status: Patient reports the use of cigarette tobacco products, denies chronic smoking, but will smoke occasionally. - Family history:: not pertinent. - Hospitalizations: : No recent hospitalization is reported. Screenin/15 00:31 Abuse screen: Denies threats or abuse. Denies injuries from another. Nutritional mr2 screening: No deficits noted. Tuberculosis screening: No symptoms or risk factors identified. Fall Risk None identified. Assessment: 00:32 Cardiovascular: Rhythm is regular. Respiratory: mr2 Vital Signs: 02/17 19:07 BP 124 / 86; Pulse 108; Resp 18; Temp 98.1(O); Pulse Ox 96% on R/A; Weight 82.1 kg; ap3 Height 5 ft. 7 in. (170.18 cm); 19:07 Body Mass Index 28.35 (82.10 kg, 170.18 cm) ap3 ED Course: 19:00 Patient arrived in ED. mr 19:11 Triage completed. ap3 19:14 Jorge Johnson MD is Attending Physician. rn 19:16 Arm band placed on right wrist. ap3 19:28 Yash Hager RN is Primary Nurse. mr2 19:37 Flu Sent. mr2 19:37 Strep Sent. mr2 19:52 XRAY Chest (1 view) In Process Unspecified. EDMS 21:00 Patient has correct armband on for positive identification. Bed in low position. Call mr2 light in reach. 21:00 Inserted saline lock: 20 gauge in left antecubital area, using aseptic technique. IV mr2 discontinued. 02/18 00:31 No provider procedures requiring assistance completed. mr2 Administered Medications: 02/17 22:30 Drug: REGEN-COV Dose Pack 120 mg/mL-120 mg/mL (EUA) 600 mg Route: IV; Rate: calculated mr2 rate; Site: right antecubital; Outcome: 22:13 Discharge ordered by . rn 02/18 00:32 Discharged to home ambulatory. mr2 Condition: stable Discharge instructions given to patient, Instructed on discharge instructions. 00:33 Patient left the ED. mr2 Signatures: Dispatcher [employer] [facility] Magalys Zhang Edgar, RN GAUTAM Jorge Johnson MD MD rn Prokisch, Amanda, RN RN ap3 Yash Hager RN RN mr2 Corrections: (The following items were deleted from the chart) 02/17 20:06 19:37 CORONAVIRUS+[email or web address].JIMZ drawn and sent. mr2 EDMS
--- NOTE | 2021-02-17 22:14 | EDPHYS ---
Physician Documentation [facility] Name: Jael Lugo Age: 25 yrs Sex: Female : 1995 Arrival Date: 02/17/2021 Time: 19:00 Bed 14 Private MD: ED Physician Jorge Johnson HPI: 02/17 20:39 This 25 yrs old Black Female presents to ER via Ambulatory with complaints of Cough, rn loss of taste and smell, shortness Of Breath, fatigue. 20:39 The patient has shortness of breath with light activity. Onset: The symptoms/episode rn began/occurred 5 day(s) ago. Duration: The symptoms are intermittent. The patient's shortness of breath is aggravated by nothing, is alleviated by nothing. Severity of symptoms: At their worst the symptoms were mild in the emergency department the symptoms are unchanged. The patient has not experienced similar symptoms in the past. The patient has not recently seen a physician. Patient reports 5 days of congestion, loss of taste and smell, fatigue, muscle aches, mild shortness of breath. Reports active smoker. States exposed to Covid.. 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 - Social history:: Smoking status: Patient reports the use of cigarette tobacco products, denies chronic smoking, but will smoke occasionally. - Family history:: not pertinent. - Hospitalizations: : No recent hospitalization is reported. ROS: 20:39 Constitutional: Positive for subjective fever and chills Eyes: Negative for injury, rn pain, redness, and discharge, ENT: Positive for congestion Neck: Negative for injury, pain, and swelling, Cardiovascular: Negative for chest pain, palpitations, and edema, Respiratory: Not surePositive for cough notes of breath with exertion Abdomen/GI: Negative for abdominal pain, nausea, vomiting, diarrhea, and constipation, Back: Negative for injury and pain, : Negative for injury, bleeding, discharge, and swelling, MS/Extremity: Negative for injury and deformity, Skin: Negative for injury, rash, and discoloration, Neuro: Negative for weakness, numbness, tingling, and seizure. Exam: 20:39 Constitutional: This is a well developed, well nourished patient who is awake, alert, rn and in no acute distress. Head/Face: Normocephalic, atraumatic. Eyes: Periorbital areas with no swelling, redness, or edema. ENT: No stridor Neck: Trachea midline, no thyromegaly or masses palpated, and no cervical lymphadenopathy. Supple, full range of motion without nuchal rigidity, or vertebral point tenderness. No Meningismus. Cardiovascular: Tachycardic, regular. No pulse deficits. Respiratory: Speaking full sentences. No increased work of breathing, no retractions or nasal flaring. Abdomen/GI: Soft, non-tender Skin: Warm, dry with normal turgor. Normal color with no rashes, no lesions, and no evidence of cellulitis. MS/ Extremity: Pulses equal, no cyanosis. Neurovascular intact. Full, normal range of motion. Equal circumference. Neuro: Awake and alert, GCS 15, oriented to person, place, time, and situation. Cranial nerves II-XII grossly intact. Motor strength 5/5 in all extremities. Sensory grossly intact. Cerebellar exam normal. Normal gait. Vital Signs: 19:07 BP 124 / 86; Pulse 108; Resp 18; Temp 98.1(O); Pulse Ox 96% on R/A; Weight 82.1 kg; ap3 Height 5 ft. 7 in. (170.18 cm); 19:07 Body Mass Index 28.35 (82.10 kg, 170.18 cm) ap3 MDM: 19:14 Patient medically screened. rn 22:09 Differential diagnosis: pneumonia, Pneumothorax COVID, viral syndrome. Antibiotic rn administration: Not indicated. Data reviewed: vital signs, nurses notes, lab test result(s), radiologic studies, plain films, and as a result, I will discharge patient. Data interpreted: Pulse oximetry: on room air is 97 %. Interpretation: normal. Test interpretation: by ED physician or midlevel provider: plain radiologic studies, X-ray negative for pneumonia or pneumothorax. Counseling: I had a detailed discussion with the patient and/or guardian regarding: the historical points, exam findings, and any diagnostic results supporting the discharge/admit diagnosis, lab results, radiology results, the need for outpatient follow up, to return to the emergency department if symptoms worsen or persist or if there are any questions or concerns that arise at home. Response to treatment: There is no appreciated change of the patient's symptoms at this time, and as a result, I will discharge patient. Special discussion: I discussed with the patient/guardian in detail that at this point there is no indication for admission to the hospital. It is understood, however, that if the symptoms persist or worsen the patient needs to return immediately for re-evaluation. ED course: Patient has known that she did not tell me about. test positive here. States only 2 days late in menstrual period. Covid positive. After long discussion with patient, decision made to give Regeneron given state puts her at higher risk as well as not being vaccinated. Will DC home with OB follow-up as well as PCP follow-up and return precautions given and understood. Patient also states still smoking and recommend smoking cessation especially given that she is and knows she is .. 02/17 19:15 Order name: Strep; Complete Time: 21:32 rn 02/17 19:15 Order name: Flu; Complete Time: 22:09 rn 02/17 19:15 Order name: XRAY Chest (1 view); Complete Time: 20:12 rn 02/17 20:06 Order name: SARS-COV-2 RT PCR; Complete Time: 21:49 EDMS 02/17 20:56 Order name: Throat Culture EDMS Administered Medications: 22:30 Drug: REGEN-COV Dose Pack 120 mg/mL-120 mg/mL (EUA) 600 mg Route: IV; Rate: calculated mr2 rate; Site: right antecubital; Disposition Summary: 02/17/21 22:13 Discharge Ordered Location: Home rn Problem: new rn Symptoms: are unchanged rn Condition: Stable rn Diagnosis - SARS-associated coronavirus as the cause of diseases classified elsewhere rn - related conditions, unspecified, first trimester rn Followup: rn - With: Private Physician - When: As needed - Reason: Recheck today's complaints, Re-evaluation by your physician Discharge Instructions: - Discharge Summary Sheet rn - COVID-19 rn - 10 Things You Can Do to Manage Your COVID-19 Symptoms at Home - [facility] rn - Viral Illness, Adult rn - Prevent the Spread of COVID-19 if You Are Sick - [facility] rn Forms: - Medication Reconciliation Form rn - Thank You Letter rn - 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 EDPA EDPA
[2021-02-17] MEDS ORDERED: CASIRIVIMAB/IMDEVIMAB 10 ML VIAL ONE (22:26)
[2021-02-17] MEDS ORDERED: D5 0.45 NS 1,000 ML IV ONE (22:27)
[2021-02-17] MEDS ORDERED: NA CHLORIDE 0.9% 250 ML ONE (22:27)
[2021-02-18 00:44] VITALS: BP 124/86; TEMP 98.1; O2SAT 96
== END 2021-02-18 00:33 | disposition home or self-care (01) ==
LOC: ER 18:55
DX: O98.511 Other viral diseases complicating pregnancy, first trimester (principal); U07.1 COVID-19; Z3A.00 Weeks of gestation of pregnancy not specified
CPT/HCPCS: 87070; 87081; 87804 ×2; 71045; 96374; 99284; U0003; J7799; J7050

== ENCOUNTER 2021-06-26 15:33 | Emergency (ER) | payer OTHER ==
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
--- OUTSIDE RECORDS SUMMARY | 2021-06-26 16:35 | XMS REPORT | Continuity of Care Document ---
:[address] [facility] t Address [address] [place] [address] Care Team Providers Name Role Phone UNKNOWN Primary Care Physician Unavailable [facility] Attending Clinician Unavailable BETSY JACKSON Attending Clinician Unavailable Jorge RN, T Attending Clinician Unavailable Only, Db Test Attending Clinician Unavailable Tor HARDING Attending Clinician TOR Attending Clinician Unavailable Jose G HARDING Attending Clinician Kevyn Vasquez Attending Clinician Doctor Unassigned, Name Attending Clinician Unavailable Kevyn MARROQUIN Attending Clinician Unavailable Ultrasound Attending Clinician Unavailable Mely HARRIS Attending Clinician Unavailable JOSE DONOHUE M.D. Attending Clinician Unavailable Physician, Primary or Family Admitting Clinician UnavailJOSE Edmond M.D. Admitting Clinician Unavailable Payers Payer Name Policy Type Policy Number Effective Date Expiration Date Jimbo win [facility] [id number] 2017 00:00:00 PLUS Advance Directives Directive Decision Effective Termination Comments Source Date Date Healthcare Agents on N/A Univ ersity FileNameRelationshipHealthcare of [place] Agent Medical RelationshipCommunicationBrandon Branch [facility] OtherHealth Care [phone] (Mobile) Problems Condition Condition Condition Status Onset Resolution Last Treating Co mments Source Name Details Category Date Date Treatment Clinician Date Back pain Back pain Disease Active Uni vers in [place] 07[place] Rubella Rubella Disease Active Overview: Univ ers non-immune non-immune 06-06 Formattin ity of status, status, 00:00: g of this [place] antepartum antepartum 00 note Me dical might be Branch different from the original. Address pp Multiparit Multiparit Disease Active U nivers y y 06-05 ity of 00:00: Medical Branch Supervisio Supervisio Disease Active U nivers n of n of 06-05 ity of high-risk high[place] 00 [facility] [place] Tobacco Tobacco Disease Active Overview: Univ ers use in use in 06-05 Formattin ity of 00:00: [place] 00 note Medical might be Branch different from the original. Quit 3days ago per Patient History of History of Disease Active Overview : Univers prior prior 06-05 Formattin ity of 00:00: [place] of [place] with IUGR with IUGR 00 note [facility] might be Branch different from the original. Reports delivery at 37.3 Flu Flu Disease Active Overview: Univer s vaccine vaccine 06-05 Formattin ity o f need need 00:00: g of this [place] note Medical might be Branch different from the original. Declined flu Boil of Boil of Disease Active Univers buttock buttock 07-30 ity of 00:00: Medical Branch History of History of Disease Active 2014-05 U nivers anxiety anxiety 1-15 ity of 00:00: [place] [facility] Allergies, Adverse Reactions, Alerts Allergy Allergy Status Severity Reaction(s) Onset Inactive Treating Comm ents Source Name Type Date Date Clinician Unable DA Active U 2021-0 SJMCm to 407 Assess 00:00: 00 No Known DA Active U 0 SJm Drug 08-11 Allergie 00:00: s 00 No Known DA Active U 2016- [facility] [place] No Known DA Active U 2016- [facility] Allergie 0-30 [facility] 00:[facility]: [facility] [place] NO KNOWN Drug Active Univers ALLERGIE Class ity of S [facility] Social History Social Habit Start Date Stop Date Quantity Comments Source Exposure to Not sure [facility] SARS-CoV-2 [place] Medical (event) Branch Alcohol intake 2020-05-06 2020-05-06 Current University of 00:00:00 00:00:00 non-drinker of [facility] alcohol (finding) Branch Tobacco use and 2019-06-05 2019-06-05 Never used Universit y of exposure 00:00:00 00:00:00 [facility] History of 2013-07-30 2019-06-02 Cigarette Smoker Univers ty of tobacco use 00:00:00 00:00:00 [facility] Tobacco Comment 2018-07-30 2018-07-30 2 cigarettes a day U niversity of 00:00:00 00:00:00 [facility] Sex Assigned At [birth year] Universit y of 00:00:00 00:00:00 [facility] Smoking Status Start Date Stop Date Source Former smoker 2019-06-05 00:00:00 2019-06-05 00:00:00 Universi of [facility] Medications Ordered Filled Start Stop Current Ordering Indication Dosage Frequency Signature Comments Components Source Medication Medication Date Date Medication? Clinician (SIG) Name Name Miscellaneo Yes [id number] Use as [facility] [place] [facility] Medical 09-01 directed ity o f Supply 00:00: [place] (BLOOD 00 Medical PRESSURE Branch CUFF) [facility] Miscellaneo 2019- Yes [id number] Use as [facility] [place] [facility] Medical 09-01 directed ity o f Supply 00:00: [place] (BLOOD 00 Medical PRESSURE Branch CUFF) [facility] Miscellaneo 2019- Yes [id number] Use as [facility] [place] [facility] Medical 09-01 directed ity o f Supply 00:00: [place] (BLOOD 00 Medical PRESSURE Branch CUFF) [facility] PNV 67-iron Yes [id number] 1{each} Take 1 Univers ps-folate 2-27 Each by ity of no.1-dha 00:00: mouth [place] (VITAFOL 00 daily. Medical ULTRA) 29 Branch mg iron- 1 mg-200 mg Cap PNV 67-iron 2019-0 Yes [id number] 1{each} Take 1 Univers ps-folate 2-27 Each by ity of no.1-dha 00:00: mouth [place] (VITAFOL 00 daily. Medical ULTRA) 29 Branch mg iron- 1 mg-200 mg Cap PNV 67-iron 0 Yes [id number] 1{each} Take 1 Univers ps-folate 2-27 Each by ity of no.1-dha 00:00: mouth [place] (VITAFOL 00 daily. Medical ULTRA) 29 Branch mg iron- 1 mg-200 mg Cap 0 Yes [id number] 1{tbl} Take 1 U nivers multivitami 1-30 tablet by ity of n ( 00:00: mouth [place] VITAMIN) 00 daily. Medical tablet Branch 2019-0 Yes [id number] 1{tbl} Take 1 U nivers multivitami 1-30 tablet by ity of n ( 00:00: mouth [place] VITAMIN) 00 daily. Medical tablet Branch 2019-0 Yes [id number] 1{tbl} Take 1 U nivers multivitami 1-30 tablet by ity of n ( 00:00: mouth [place] VITAMIN) 00 daily. Medical tablet Branch LOESTRIN FE Yes [id number] 1{tbl} Take 1 Univers (JUNEL FE 3-26 tablet by ity o f ,) 00:00: mouth [place] 1 mg-20 mcg 00 daily. Medica l (21)/75 mg Branch (7) tablet LOESTRIN FE Yes [id number] 1{tbl} Take 1 Univers (JUNEL FE 3-26 tablet by ity o f ,) 00:00: mouth [place] 1 mg-20 mcg 00 daily. Medica l (21)/75 mg Branch (7) tablet LOESTRIN FE Yes [id number] 1{tbl} Take 1 Univers (JUNEL FE 3-26 tablet by ity o f ,) 00:00: mouth [place] 1 mg-20 mcg 00 daily. Medica l (21)/75 mg Branch (7) tablet Immunizations Ordered Filled Immunization Date Status Comments Sourc e Immunization Name Name [facility] 2015-05-27 Completed University of 00:00:00 [facility] 2015-05-27 Completed University of 00:00:00 [facility] 2015-05-27 Completed University of 00:00:00 [facility] 2012-05-07 Com[facility] University of 00:00:00 [facility] 2012-05-07 Completed University of 00:00:00 [facility] Vital Signs Vital Name Observation Time Observation Value Comments Source Recent Weight Loss/Gain 2020-08-11 21:32:04 N 02 Sat by Pulse Oximetry 2020-08-11 21:32:04 97 /min Body Mass Index 2020-08-11 21:32:04 29.9 Height 2020-08-11 21:32:04 170.18\S\67 Pulse Rate 2020-08-11 21:32:04 88 /min Respiratory Rate 2020-08-11 21:32:04 16 /min Weight 2020-08-11 21:32:04 90005.917\S\3054.052 Weight Measurement Method 2020-08-11 21:32:04 Estimated by Patient 02 Sat by Pulse Oximetry 2020-08-11 20:56:23 97 /min Body Mass Index 2020-08-11 20:56:23 29.9 Height 2020-08-11 20:56:23 170.18\S\67 Pulse Rate 2020-08-11 20:56:23 88 /min Respiratory Rate 2020-08-11 20:56:23 16 /min Weight 2020-08-11 20:56:23 15493.917\S\3054.052 Weight Measurement Method 2020-08-11 20:56:23 Estimated by Patient 02 Sat by Pulse Oximetry 2020-08-11 20:48:44 97 /min Body Mass Index 2020-08-11 20:48:44 29.9 Height 2020-08-11 20:48:44 170.18\S\67 Pulse Rate 2020-08-11 20:48:44 88 /min Respiratory Rate 2020-08-11 20:48:44 16 /min Weight 2020-08-11 20:48:44 92660.917\S\3054.052 Weight Measurement Method 2020-08-11 20:48:44 Estimated by Patient WEIGHT 2020-08-11 20:47:00 86.437951 kg HEIGHT 2020-08-11 20:47:00 170.18 cm 02 Sat by Pulse Oximetry 2020-08-11 20:41:05 97 /min Body Mass Index 2020-08-11 20:41:05 29.8 Height 2020-08-11 20:41:05 170.18\S\67 Pulse Rate 2020-08-11 20:41:05 88 /min Respiratory Rate 2020-08-11 20:41:05 16 /min Weight 2020-08-11 20:41:05 55356.55\S\3040 Weight Measurement Method 2020-08-11 20:41:05 Estimated by Patient 02 Sat by Pulse Oximetry 2020-08-11 17:35:43 97 /min Body Mass Index 2020-08-11 17:35:43 29.8 Height 2020-08-11 17:35:43 170.18\S\67 Pulse Rate 2020-08-11 17:35:43 88 /min Respiratory Rate 2020-08-11 17:35:43 16 /min Weight 2020-08-11 17:35:43 71770.55\S\3040 Weight Measurement Method 2020-08-11 17:35:43 Estimated by Patient 02 Sat by Pulse Oximetry 2020-08-11 17:07:33 97 /min Body Mass Index 2020-08-11 17:07:33 29.8 Height 2020-08-11 17:07:33 170.18\S\67 Pulse Rate 2020-08-11 17:07:33 88 /min Respiratory Rate 2020-08-11 17:07:33 16 /min Weight 2020-08-11 17:07:33 63401.55\S\3040 Weight Measurement Method 2020-08-11 17:07:33 Estimated by Patient WEIGHT 2020-08-11 17:04:00 86.62281 kg HEIGHT 2020-08-11 17:04:00 170.18 cm Procedures Procedure Date / Time Performed Performing Clinician Lise howard [id number] 2020-02-04 00:00:00 TALCR [facility] Encounters Start End Encounter Admission Attending Care Care Encounter Source Date/Time Date/Time Type Type Clinicians Facility Department ID 2020-02-06 Inpatient DAREN Jackson [facility] [id number] [facility] 11:00:00 [facility] [place] 2020-02-04 Inpatient DAREN Jackson [facility] [id number] [facility] 08:00:00 [facility] [place] 2020-01-14 Inpatient DAREN Jackson KELLEY [id number] [facility] 17:36:00 [facility] [place] 2021-03-24 2021-03-24 Outpatient Mely JACKSON [facility] [id number] Univers 14:00:00 14:00:00 [id number] ity [facility] 2021-03-24 2021-03-24 Outpatient Mely JACKSON [facility] [id number] Univers 14:00:00 14:00:00 ity [facility] 2021-03-16 2021-03-16 Outpatient R MANUEL [facility] [id number] Univers 14:30:00 14:30:00 [id number] ity [facility] 2021-03-16 2021-03-16 Outpatient Mely JACKSON [facility] [id number] Univers 14:30:00 14:30:00 ity [facility] 2021-03-06 2021-03-06 Letter MAGALY Patel [id number] Univers 00:00:00 00:00:00 (Out) Melody ROSALES [id number] it y of [facility] 4.2.7.2.686 Joshua as [id number] [address] 2021-03-05 2021-03-05 Laboratory Only, Ang Db Test [facility] 1.2.8 [id number] [id number] Univers 12:35:48 12:50:48 Only [facility] [id number] ity of [place] 4.2.7.2.686 Joshua as RIVERA?BLEA [id number] [address] MEDICAL OFFICE BUILDING 2021-03-05 2021-03-05 Outpatient R [facility] [id number] Univers 12:30:00 12:30:00 [id number] ity [facility] 2021-03-05 2021-03-05 [facility] [id number] Univers 12:30:00 12:30:00 MAICOL ity [facility] 2021-02-27 2021-02-27 Laboratory Only, Ang Db Test [facility] 1.2.8 40.114 [id number] Univers 13:08:52 13:18:13 Only [facility] 350.1.13. 10 [facility] 4.2.7.2.686 Joshua as Rivera?Blea [id number] [address] Medical Office [facility] 2021-02-27 2021-02-27 Outpatient R [facility] [id number] Univers 13:15:00 13:15:00 [id number] ity [facility] 2021-02-27 2021-02-27 Outpatient R [facility] [id number] Univers 13:15:00 [facility] 2020-01-07 2020-01-07 [facility] [id number] 00:00:00 00:00:00 Cassie Bagley [employer] [id number] [facility] 4.2.7.2.686 MATERNAL [id number] & CHILD [address] [place] [address] 2020-01-02 2020-01-02 Orders Doctor MAGALY [id number] 00:00:00 00:00:00 Only Unassigned, BOBBY 350.1.13.10 [place] [facility] 4.2.7.2.686 [id number] 2019-12-11 2019-12-11 Orders Doctor MAGALY [id number] 00:00:00 00:00:00 Only Unassigned, BOBBY 350.1.13.10 [facility] 4.2.7.2.686 [id number] 2019-11-17 2019-11-17 Outpatient R AKINSIPE, [facility] [id number] Univers 10:00:00 10:00:00 CASSIE [id number] [facility] 2019-11-17 2019-11-17 Outpatient R AKINSIPE, [facility] [id number] Univers 10:00:00 10:00:00 CASSIE [facility] 2019-11-10 2019-11-10 Outpatient R AKINSIPE, [facility] [id number] Univers 13:00:00 13:00:00 CASSIE [facility] 2019-11-10 2019-11-10 Outpatient R AKINSIPE, [facility] [id number] Univers 13:00:00 13:00:00 CASSIE [facility] 2019-11-05 2019-11-05 Telephone Akinsipe, [facility] [id number] 00:00:00 00:00:00 Cassie Bagley [employer]ATION [id number] REGIONAL 4.2.7.2.686 MATERNAL [id number] & CHILD [address] [place] [address] 2019-11-04 2019-11-04 Outpatient R AKINSIPE, [facility] [id number] Univers 10:45:00 10:45:00 CASSIE [facility] 2019-11-04 2019-11-04 Outpatient R AKINSIPE, [facility] [id number] Univers 10:45:00 10:45:00 CASSIE [facility] 2019-10-28 2019-10-28 Outpatient R AKINSIPE, [facility] [id number] Univers 10:45:00 10:45:00 CASSIE [id number] [facility] 2019-10-28 2019-10-28 Outpatient R AKINSIPE, [facility] [id number] Univers 10:45:00 10:45:00 CASSIE [facility] 2019-10-09 2019-10-09 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 1.2.840.114 [id number] 09:00:16 10:00:16 Visit [facility] [employer] OF CONSERVATION [id number] REGIONAL 4.2.7.2.686 MATERNAL [id number] & CHILD [address] [facility] 2019-10-09 2019-10-09 Outpatient P [facility] [id number] Univers 09:00:00 09:00:00 [id number] [facility] 2019-10-09 2019-10-09 Outpatient P [facility] [id number] Univers 09:00:00 [facility] 2019-10-01 2019-10-01 Outpatient R AKINSIPE, [facility] [id number] Univers 12:45:00 12:45:00 CASSIE [id number] ity o f [facility] 2019-10-01 2019-10-01 Outpatient R AKINSIPE, [facility] [id number] Univers 12:45:00 12:45:00 CASSIE ity o f [facility] 2019-10-01 2019-10-01 Telemedici Jadiel, [facility] [id number] 08:31:19 09:01:29 ne Visit Cassie C [employer] [id number] REGIONAL 4.2.7.2.686 MATERNAL [id number] & CHILD [address] [facility] 2019-10-01 2019-10-01 Outpatient R AKINSIPE, [facility] [id number] Univers 08:15:00 08:15:00 CASSIE ity o f [facility] 2019-09-30 2019-09-30 Outpatient R [facility] [id number] Univers 09:00:00 09:00:[id number] [facility] 2019-09-30 2019-09-30 Outpatient P [facility] [id number] Univers 09:00:00 09:00:00 [facility] 2019-09-02 2019-09-02 Routine Akinedpe, [facility] [id number] 14:11:17 14:38:43 Cassie C [employer] 350.1.13.10 Visit REGIONAL 4.2.7.2.686 MATERNAL [id number] & CHILD [address] [facility] 2019-09-02 2019-09-02 Outpatient R AKINSIPE, [facility] [id number] Univers 14:00:00 14:00:00 CASSIE [id number] ity o f [facility] 2019-09-02 2019-09-02 Outpatient R AKINSIPE, [facility] [id number] Univers 14:00:00 14:00:00 CASSIE ity o f [facility] 2019-08-28 2019-08-28 Outpatient R AKINSIPE, [facility] [id number] Univers 11:00:00 11:00:00 CASSIE [id number] ity o f [facility] 2019-08-28 2019-08-28 Outpatient R AKINSIPE, [facility] [id number] Univers 11:00:00 11:00:00 CASSIE ity o f [facility] 2019-08-06 2019-08-06 Outpatient R [facility] [id number] Univers 11:45:00 11:45:00 [facility] 2019-08-06 2019-08-06 Outpatient P KIMBERLY, [facility] [id number] Univers 11:00:00 11:00:[address] [facility] 2019-07-31 2019-07-31 Outpatient R AKINSIPE, [facility] [id number] Univers 10:45:00 10:45:00 CASSIE [id number] ity o f [facility] 2019-07-31 2019-07-31 Outpatient R AKINSIPE, [facility] [id number] Univers 10:45:00 10:45:00 CASSIE ity o f [facility] 2019-07-14 2019-07-14 Outpatient P [facility] [id number] Univers 11:00:00 11:00:00 ity [facility] 2019-07-14 2019-07-14 Outpatient P [facility] [id number] Univers 11:00:00 11:00:00 y [facility] 2019-07-10 2019-07-10 Outpatient P [facility] [id number] Univers 14:45:00 14:45:00 ity [facility] 2019-07-10 2019-07-10 Outpatient P [facility] [id number] Univers 14:15:00 14:15:00 ity [facility] 2019-07-10 2019-07-10 Outpatient P [facility] [id number] Univers 14:15:00 14:15:00 [facility] 2019-07-10 2019-07-10 Outpatient P [facility] [id number] Univers 11:15:00 11:15:00 [facility] 2019-07-03 2019-07-03 Outpatient R JADIEL, [facility] [id number] Univers 14:00:00 14:00:00 CASSIE pollock f [facility] 2017-06-02 2017-06-15 Inpatient E CHARANJIT, [facility] [id number] 00:23:00 13:37:00 Dong GARCIA M.D. [facility] Results Test Description Test Time Test [...] WILL SENDANOTHER PHLEB TO TRY.AG HEPATITIS B [id number] 07:31:00 Test Item Value Reference Range Interpretation Comments AG HEPATITIS B SURFACE (test code NONREACTIVE NONREACTIVE = HBSAG) IS CONSENT FORM SIGNED FOR HIV TESTING? YAB HEPATITIS C [id number] 07:31:00 Test Item Value Reference Range Interpretation Comments AB HEPATITIS C (test code = NONREACTIVE NONREACTIVE HCVAB) SIGNAL TO CUTOFF (test code = 0.11 <0.80 N CUTOFF) IS CONSENT FORM SIGNED FOR HIV TESTING? YAB [id number] 07:31:00 Test Item Value Reference Range Interpretation Comments AB TREPONEMA (test code = TREPAB) NONREACTIVE NONREACTIVE IS CONSENT FORM SIGNED FOR HIV TESTING? YAB HIV 1 07:31:00 Test Item Value Reference Range Interpretation Comments AB HIV 1 2 (test NONREACTIVE NONREACTIVE Done by [facility] code = [id number]) 4th Gen HIV Ag/Ab Combo Screen IS CONSENT FORM SIGNED FOR HIV TESTING? YAG HEPATITIS B [id number] 07:04:00 Test Item Value Reference Range Interpretation Comments AG HEPATITIS B SURFACE (test code NONREACTIVE NONREACTIVE = HBSAG) IS CONSENT FORM SIGNED FOR HIV TESTING? YAB HEPATITIS C [id number] 07:04:00 Test Item Value Reference Range Interpretation Comments AB HEPATITIS C (test code = HCVAB) NONREACTIVE SIGNAL TO CUTOFF (test code = CUTOFF) <0.80 IS CONSENT FORM SIGNED FOR HIV TESTING? YAB [id number] 07:04:00 Test Item Value Reference Range Interpretation Comments AB TREPONEMA (test code = TREPAB) NONREACTIVE NONREACTIVE IS CONSENT FORM SIGNED FOR HIV TESTING? YAB HIV 1 07:04:00 Test Item Value Reference Range Interpretation Comments AB HIV 1 2 (test code = [id number]) NONREACTIVE IS CONSENT FORM SIGNED FOR HIV TESTING? YCBC W/AUTO [id number] 06:25:00 Test Item Value Reference Range Interpretation [...] code = PLTMR) COVID 19 Asymptomatic IH [id number] 05:19:00 Test Item Value Reference Range Interpretation [...] or approved; th e test hasbeen authori winstond by FDA under an Emerge ncy Use [...] of Accreditation. This test is only authori zed for the duration of thedeclaration that circumstances e xist justifying theauthorizatio n of emergency use o f in vitro diagnostic test sfor detection and/o r diagnosis of CO VID-19 under Ixhqkme13 4(b)(1) of the Act, 21 U.S .C. 360bbb-3(b)(1), unless theauthorizatio n is terminated or r evoked sooner. Chlamydia/GC [id number] 17:46:00 Test Item Value Reference Range Interpretation Comments Chlamydia trachomatis, PRAKASH (test Negative Negative N code = 894617) Neisseria gonorrhoeae, PRAKASH (test Negative Negative N code = 206685) HIV [id number] 21:56:00 Test Item Value Reference Range Interpretation Comments HIV 1/2 Antibody Non-Reactive Non-Reactive N HIV1/2 Anti body screen (test code = result indicate s the HIV1/2AB) absence of HIV1 and IJX2djoxrdjwk.H owever, A Non-Reactive screen result does not [...] rule o ut exposure or infection.If ac [place] HIV-1 is suspec christian, HIV RNA Quantit ative is recommended. RPR, [id number] 13:36:00 Test Item Value Reference Range Interpretation Comments RPR (test code = RPR) Non-Reactive Non-Reactive N Thyroid Stimulating Hormone (TSH)2017-06-02 07:20:00 Test Item Value Reference Range Interpretation Comments TSH (test code = TSH) 1.46 mIU/mL 0.270-4.200 N Lipid [id number] 07:13:00 Test Item Value Reference Range Interpretation Comments Cholesterol (test 148 mg/dL 0-200 N code = CHOL) Triglycerides (test 85 mg/dL 9-200 N code = TRIG) HDL (test code = 42 mg/dL 50-60 L HDL) Chol/HDL (test code 3.5 Ratio 0.0-4.4 N = CHOLPHDL) LDL, Calculated 89 0-130 N (NOTE)RISK O F HEART (test code = LDLC) DISEASEPu blished by [place] Heart AssociationAnal yte Optim al Boderline Increased RiskC HOL <200 200-239 >240TRI G <150 150-199 >200HDL Male: >60 <40HDL Female: >60 <50 LDL < 100 130-15 9 >160 LDL NEAR OPTIMAL IS 100- 129 VLDL (test code = 17 mg/dL 5-40 N VLDL) LDL/HDL (test code = 2 LDLPHDL) Comprehensive Metabolic [id number] 21:39:00 Test Item Value Reference Range Interpretation [...] the National Kidney Foundation,http ://nkd ep.nih.gov Urinalysis [id number] 21:39:00 Test Item Value Reference Range Interpretation Comments Color (test code = Yellow Yellow,Straw,Pl N COLOR) yellow Clarity (test code = Cloudy Clear A CLAR) Specific [place] (test 1.036 1.001-1.035 H code = SPGR) [...] (test code = Moderate /HPF BACT) Alcohol/Ethanol, [id number] 21:37:00 Test Item Value Reference Range Interpretation Comments Alcohol, Ethyl <0.01 g/dL 0.00-0.01 N Intoxicated 0.080 (test code = ETOH) g/dL or m ore BHCG, Serum, [id number] 21:37:00 Test Item Value Reference Range Interpretation Comments Preg Qual [Se] (test code = BSHCG) Negative Negative N [id number] 21:36:00 Test Item Value Reference Range Interpretation [...] = THC) POSITIVE Negative A CBC with [id number] 21:33:00 Test Item Value Reference Range Interpretation [...] code = ALYMPH) 3.3 K/cumm 0.5-4.6 N [place] Abs (test code = AMONO) 0.6 K/cumm 0.0-1.2 N Eos Abs (test code = AEOS) 0.17 K/cumm 0.00-0.74 N Baso Abs (test code = ABASO) 0.0 K/cumm 0.00-0.21 N BHCG, Urine, [id number] 14:05:00 Test Item Value Reference Range Interpretation Comments Preg Qual [Ur] (test code = HUHCG) Negative Negative N RPR, [id number] 16:02:00 Test Item Value Reference Range Interpretation Comments RPR (test code = RPR) Non-Reactive Non-Reactive N Thyroid Stimulating Hormone (TSH)2017-02-14 11:18:00 Test Item Value Reference Range Interpretation Comments TSH (test code = TSH) 0.55 mIU/mL 0.270-4.200 N Lipid [id number] 11:11:00 Test Item Value Reference Range Interpretation Comments Cholesterol (test 147 mg/dL 0-200 N code = CHOL) Triglycerides (test 79 mg/dL 9-200 N code = TRIG) HDL (test code = 51 mg/dL 50-60 N HDL) Chol/HDL (test code 2.9 Ratio 0.0-4.4 N = CHOLPHDL) LDL, Calculated 80 0-130 N (NOTE)RISK O F HEART (test code = LDLC) DISEASEPu blished by [place] Heart AssociationAnal yte Optim al Boderline Increased RiskC HOL <200 200-239 >240TRI G <150 150-199 >200HDL Male: >60 <40HDL Female: >60 <50 LDL < 100 130-15 9 >160 LDL NEAR OPTIMAL IS 100- 129 VLDL (test code = 16 mg/dL 5-40 N VLDL) LDL/HDL (test code = 2 LDLPHDL)
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
--- NOTE | 2021-06-26 19:16 | RAD REPORT ---
EXAM DESCRIPTION: RAD - Ankle Right 3 View - 06/26/2021 7:07 pm CLINICAL HISTORY: Right ankle pain FINDINGS: No fracture or dislocation is seen.
--- NOTE | 2021-06-26 19:18 | RAD REPORT ---
EXAM DESCRIPTION: RAD - Femur Left - 06/26/2021 7:07 pm CLINICAL HISTORY: Left leg pain FINDINGS: . No fracture is seen.
[2021-06-26 20:06] VITALS: TEMP 97.9
[2021-06-26 20:11] VITALS: BP 117/63; O2SAT 97
== END 2021-06-26 20:01 | disposition home or self-care (01) ==
LOC: ER 15:33
DX: O9A.212 Injury, poisoning and certain other consequences of external causes complicating pregnancy, second trimester (principal); S93.401A Sprain of unspecified ligament of right ankle, initial encounter; S00.81XA Abrasion of other part of head, initial encounter; S80.12XA Contusion of left lower leg, initial encounter; V49.40XA Driver injured in collision with unspecified motor vehicles in traffic accident, initial encounter; Z3A.23 23 weeks gestation of pregnancy
CPT/HCPCS: 70450; 70486; 72125; 76377; 76705; 76815; 99284

== ENCOUNTER 2021-09-14 17:30 | Emergency (ER) | payer OTHER ==
--- OUTSIDE RECORDS SUMMARY | 2021-09-14 17:33 | XMS REPORT | Continuity of Care Document ---
:1995 Author Organization [facility] t Address [address] [place] [address] Care Team Providers Name Role Phone UNKNOWN Primary Care Physician Unavailable [facility] Attending Clinician Unavailable JOSE DONOHUE M.D. Attending [...] Date Date Clinician Unable [facility]: 00 No Known DA Active U [facility] 08[facility]11 Allergie 00:00: s 00 No Known DA Active U 2016-05 [facility] [place] No Known DA Active U 2016-05 [facility] [place] Medications This patient has no known medications. Vital Signs Vital Name Observation Time Observation Value Comments Source Recent Weight Loss/Gain 2020-08-11 21:32:04 N 02 Sat by Pulse Oximetry 2020-08-11 21:32:04 97 /min Body Mass Index 2020-08-11 21:32:04 29.9 Height 2020-08-11 21:32:04 170.18\S\67 Pulse Rate 2020-08-11 21:32:04 88 /min Respiratory Rate 2020-08-11 21:32:04 16 /min Weight 2020-08-11 21:32:04 97944.917\S\3054.052 Weight Measurement Method 2020-08-11 21:32:04 Estimated by Patient 02 Sat by Pulse Oximetry 2020-08-11 20:56:23 97 /min Body Mass Index 2020-08-11 20:56:23 29.9 Height 2020-08-11 20:56:23 170.18\S\67 Pulse Rate 2020-08-11 20:56:23 88 /min Respiratory Rate 2020-08-11 20:56:23 16 /min Weight 2020-08-11 20:56:23 38013.917\S\3054.052 Weight Measurement Method 2020-08-11 20:56:23 Estimated by Patient 02 Sat by Pulse Oximetry 2020-08-11 20:48:44 97 /min Body Mass Index 2020-08-11 20:48:44 29.9 Height 2020-08-11 20:48:44 170.18\S\67 Pulse Rate 2020-08-11 20:48:44 88 /min Respiratory Rate 2020-08-11 20:48:44 16 /min Weight 2020-08-11 20:48:44 00912.917\S\3054.052 Weight Measurement Method 2020-08-11 20:48:44 Estimated by Patient WEIGHT 2020-08-11 20:47:00 86.901304 kg HEIGHT 2020-08-11 20:47:00 170.18 cm 02 Sat by Pulse Oximetry 2020-08-11 20:41:05 97 /min Body Mass Index 2020-08-11 20:41:05 29.8 Height 2020-08-11 20:41:05 170.18\S\67 Pulse Rate 2020-08-11 20:41:05 88 /min Respiratory Rate 2020-08-11 20:41:05 16 /min Weight 2020-08-11 20:41:05 83039.55\S\3040 Weight Measurement Method 2020-08-11 20:41:05 Estimated by Patient 02 Sat by Pulse Oximetry 2020-08-11 17:35:43 97 /min Body Mass Index 2020-08-11 17:35:43 29.8 Height 2020-08-11 17:35:43 170.18\S\67 Pulse Rate 2020-08-11 17:35:43 88 /min Respiratory Rate 2020-08-11 17:35:43 16 /min Weight 2020-08-11 17:35:43 71985.55\S\3040 Weight Measurement Method 2020-08-11 17:35:43 Estimated by Patient 02 Sat by Pulse Oximetry 2020-08-11 17:07:33 97 /min Body Mass Index 2020-08-11 17:07:33 29.8 Height 2020-08-11 17:07:33 170.18\S\67 Pulse Rate 2020-08-11 17:07:33 88 /min Respiratory Rate 2020-08-11 17:07:33 16 /min Weight 2020-08-11 17:07:33 43970.55\S\3040 Weight Measurement Method 2020-08-11 17:07:33 Estimated by Patient WEIGHT 2020-08-11 17:04:00 86.42093 kg HEIGHT 2020-08-11 17:04:00 170.18 cm Procedures Procedure Date / Time Performed Performing Clinician Lise howard [id number] 2020-02-04 00:00:00 JUDY [facility] Encounters Start End Encounter Admission Attending Care Care Encounter Source Date/Time Date/Time Type Type Clinicians Facility Department ID 2020-02-06 Inpatient Manuel, [facility] [id number] [facility] 11:00:00 [facility] [place] 2020-02-04 Inpatient Manuel, [facility] [id number] [facility] 08:00:00 [facility] [place] 2020-01-14 Inpatient Manuel, [facility] KELLEY [id number] [facility] 17:36:00 [facility] 2017-06-02 2017-06-15 Inpatient Saad [facility]UE [facility] [id number] [address] 00:23:00 13:37:00 Dong GARCIA M.D. [facility] Results Test Description Test Time Test Comments [...] WILL SENDANOTHER PHLEB TO TRY.AG HEPATITIS B [id number] 07:31:00 Test Item Value Reference Range Interpretation Comments AG HEPATITIS B SURFACE (test code NONREACTIVE NONREACTIVE = HBSAG) IS CONSENT FORM SIGNED FOR HIV TESTING? YAB HEPATITIS C [id number] 07:31:00 Test Item Value Reference Range Interpretation Comments AB HEPATITIS C (test code = NONREACTIVE NONREACTIVE HCVAB) SIGNAL TO CUTOFF (test code = 0.11 <0.80 N CUTOFF) IS CONSENT FORM SIGNED FOR HIV TESTING? YAB [id number] 07:31:00 Test Item Value Reference Range Interpretation Comments AB TREPONEMA (test code = TREPAB) NONREACTIVE NONREACTIVE IS CONSENT FORM SIGNED FOR HIV TESTING? YAB HIV 1 07:31:00 Test Item Value Reference Range Interpretation Comments AB HIV 1 2 (test NONREACTIVE NONREACTIVE Done by Shantell Ruizr code = VQC81AW) 4th Gen HIV Ag/Ab Combo Screen IS CONSENT FORM SIGNED FOR HIV TESTING? YAG HEPATITIS B [id number] 07:04:00 Test Item Value Reference Range Interpretation Comments AG HEPATITIS B SURFACE (test code NONREACTIVE NONREACTIVE = HBSAG) IS CONSENT FORM SIGNED FOR HIV TESTING? YAB HEPATITIS C [id number] 07:04:00 Test Item Value Reference Range Interpretation Comments AB HEPATITIS C (test code = HCVAB) NONREACTIVE SIGNAL TO CUTOFF (test code = CUTOFF) <0.80 IS CONSENT FORM SIGNED FOR HIV TESTING? YAB [id number] 07:04:00 Test Item Value Reference Range Interpretation Comments AB TREPONEMA (test code = TREPAB) NONREACTIVE NONREACTIVE IS CONSENT FORM SIGNED FOR HIV TESTING? YAB HIV 1 07:04:00 Test Item Value Reference Range Interpretation Comments AB HIV 1 2 (test code = SIV43JS) NONREACTIVE IS CONSENT FORM SIGNED FOR HIV TESTING? YCBC W/AUTO [id number] 06:25:00 Test Item Value Reference Range Interpretation [...] code = PLTMR) COVID 19 Asymptomatic IH [id number] 05:19:00 Test Item Value Reference Range Interpretation [...] cleared or approved; th e test hasbeen authorakanksha resendiz by FDA under an Emerge ncy Use [...] of Accreditation. This test is only authori astrid for the duration of thedeclaration that circumstances e xist justifying theauthorizatio n of emergency use o f in vitro diagnostic test sfor detection and/o r diagnosis of CO VID-19 under Rbihvjf71 4(b)(1) of the Act, 21 U.S .C. 360bbb-3(b)(1), unless theauthorizatio n is terminated or r evoked sooner. Chlamydia/GC [id number] 17:46:00 Test Item Value Reference Range Interpretation Comments Chlamydia trachomatis, PRAKASH (test Negative Negative N code = 638422) Neisseria gonorrhoeae, PRAKASH (test Negative Negative N code = 858774) HIV [id number] 21:56:00 Test Item Value Reference Range Interpretation Comments HIV 1/2 Antibody Non-Reactive Non-Reactive N HIV1/2 Anti body screen (test code = result indicate s the HIV1/2AB) absence of HIV1 and POL6zvslbtmks.H owever, A Non-Reactive screen result does not [...] HIV RNA Quantit ative is recommended. RPR, [id number] 13:36:00 Test Item Value Reference Range Interpretation Comments RPR (test code = RPR) Non-Reactive Non-Reactive N Thyroid Stimulating Hormone (TSH)2017-06-02 07:20:00 Test Item Value Reference Range Interpretation Comments TSH (test code = TSH) 1.46 mIU/mL 0.270-4.200 N Lipid [id number] 07:13:00 Test Item Value Reference Range Interpretation Comments Cholesterol (test 148 mg/dL 0-200 N code = CHOL) Triglycerides (test 85 mg/dL 9-200 N code = TRIG) HDL (test code = 42 mg/dL 50-60 L HDL) Chol/HDL (test code 3.5 Ratio 0.0-4.4 N = CHOLPHDL) LDL, Calculated 89 0-130 N (NOTE)RISK O F HEART (test code = LDLC) DISEASEPu blished by [place] Heart AssociationAnal yte Optim al Boderline Increased RiskC HOL <200 200-239 >240TRI G <150 150-199 >200HDL Male: >60 <40HDL Female: >60 <50 LDL < 100 130-15 9 >160 LDL NEAR OPTIMAL IS 100- 129 VLDL (test code = 17 mg/dL 5-40 N VLDL) LDL/HDL (test code = 2 LDLPHDL) Comprehensive Metabolic [id number] 21:39:00 Test Item Value Reference Range Interpretation [...] the National Kidney Foundation,http ://nkd ep.nih.gov Urinalysis [id number] 21:39:00 Test Item Value Reference Range Interpretation Comments Color (test code = Yellow Yellow,Straw,Pl N COLOR) yellow Clarity (test code = Cloudy Clear A CLAR) Specific [place] (test 1.036 1.001-1.035 H code = SPGR) [...] (test code = Moderate /HPF BACT) Alcohol/Ethanol, [id number] 21:37:00 Test Item Value Reference Range Interpretation Comments Alcohol, Ethyl <0.01 g/dL 0.00-0.01 N Intoxicated 0.080 (test code = ETOH) g/dL or m ore BHCG, Serum, [id number] 21:37:00 Test Item Value Reference Range Interpretation Comments Preg Qual [Se] (test code = BSHCG) Negative Negative N [id number] 21:36:00 Test Item Value Reference Range Interpretation [...] = THC) POSITIVE Negative A CBC with [id number] 21:33:00 Test Item Value Reference Range Interpretation [...] code = ALYMPH) 3.3 K/cumm 0.5-4.6 N Banks Abs (test code = AMONO) 0.6 K/cumm 0.0-1.2 N Eos Abs (test code = AEOS) 0.17 K/cumm 0.00-0.74 N Baso Abs (test code = ABASO) 0.0 K/cumm 0.00-0.21 N BHCG, Urine, [id number] 14:05:00 Test Item Value Reference Range Interpretation Comments Preg Qual [Ur] (test code = HUHCG) Negative Negative N RPR, [id number] 16:02:00 Test Item Value Reference Range Interpretation Comments RPR (test code = RPR) Non-Reactive Non-Reactive N Thyroid Stimulating Hormone (TSH)2017-02-14 11:18:00 Test Item Value Reference Range Interpretation Comments TSH (test code = TSH) 0.55 mIU/mL 0.270-4.200 N Lipid [id number] 11:11:00 Test Item Value Reference Range Interpretation Comments Cholesterol (test 147 mg/dL 0-200 N code = CHOL) Triglycerides (test 79 mg/dL 9-200 N code = TRIG) HDL (test code = 51 mg/dL 50-60 N HDL) Chol/HDL (test code 2.9 Ratio 0.0-4.4 N = CHOLPHDL) LDL, Calculated 80 0-130 N (NOTE)RISK O F HEART (test code = LDLC) DISEASEPu blished by [place] Heart AssociationAnal yte Optim al Boderline Increased RiskC HOL <200 200-239 >240TRI G <150 150-199 >200HDL Male: >60 <40HDL Female: >60 <50 LDL < 100 130-15 9 >160 LDL NEAR OPTIMAL IS 100- 129 VLDL (test code = 16 mg/dL 5-40 N VLDL) LDL/HDL (test code = 2 LDLPHDL)
[2021-09-14 18:17] LABS: Absolute Lymphocytes (CBC) 2.4 K/uL (0.7-4.9); Hematocrit 30.3 % (36.0-45.0); Lymphocytes % 17.8 % (15.3-44.8); RBC Red Blood Cell Count 3.36 M/uL (3.86-4.86)
[2021-09-14 18:25] LABS: Magnesium 1.7 mg/dL (1.8-2.4); Potassium 3.5 mmol/L (3.5-5.1)
[2021-09-14] MEDS ORDERED: MAGNESIUM OXIDE 400 MG TAB ONE (18:38)
--- NOTE | 2021-09-14 18:43 | ER ---
Nurse's Notes [facility] Name: Jael Lugo Age: 25 yrs Sex: Female : 1995 Arrival Date: 09/14/2021 Time: 17:41 Bed 4 Private MD: Diagnosis: Palpitations Presentation: 09/14 17:42 Chief complaint: EMS states: Pt 34 weeks , was at the [facility] and ph began having chest tightness and SOB. No cardiac hx, reports anemia during . VSS. Coronavirus screen: Vaccine status: Patient reports being unvaccinated. Ebola Screen: No symptoms or risks identified at this time. Initial Sepsis Screen: Does the patient meet any 2 criteria? No. Patient's initial sepsis screen is negative. Does the patient have a suspected source of infection? No. Patient's initial sepsis screen is negative. Risk Assessment: Do you want to hurt yourself or someone else? Patient reports no desire to harm self or others. Onset of symptoms was September 14, 2021. 17:42 Method Of Arrival: EMS: [facility] 17:42 Acuity: ALMA 3 ph Triage Assessment: 17:47 General: Appears in no apparent distress. comfortable, well groomed, Behavior is calm, ph cooperative, appropriate for age, Denies fever, feeling ill. Pain: Complains of pain in chest. Neuro: Level of Consciousness is awake, alert, obeys commands, Oriented to person, place, time, situation. Cardiovascular: Reports chest pain, shortness of breath. Respiratory: Reports shortness of breath at rest. GI: No signs and/or symptoms were reported involving the gastrointestinal system. Patient currently denies abdominal pain, nausea, vomiting. : Denies discharge, vaginal bleeding. Derm: Skin is intact, is healthy with good turgor, Skin is pink, warm \\T\\ dry. Musculoskeletal: Circulation, motion, and sensation intact. Range of motion: intact in all extremities. 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 - Social history:: Smoking status: Patient denies any tobacco usage or history of. Screenin:45 Abuse screen: Denies threats or abuse. Denies injuries from another. Nutritional ph screening: No deficits noted. Tuberculosis screening: No symptoms or risk factors identified. Fall Risk None identified. Assessment: 17:58 General: Appears in no apparent distress. comfortable, Behavior is calm, cooperative, jd3 appropriate for age. Pain: Complains of pain in chest Pain does not radiate. Pain began 1 hour ago. Neuro: Parikh Agitation-Sedation Scale (RASS): 0 - Alert and Calm Level of Consciousness is awake, alert, obeys commands, Oriented to person, place, time, situation. Cardiovascular: Reports chest pain, Capillary refill < 3 seconds Patient's skin is warm and dry. Rhythm is regular. Respiratory: Reports shortness of breath at rest pain with respiration Airway is patent Respiratory effort is even, unlabored, Respiratory pattern is regular, symmetrical, the patient has mild shortness of breath. GI: No signs and/or symptoms were reported involving the gastrointestinal system. Patient currently denies diarrhea, nausea, vomiting. : No signs and/or symptoms were reported regarding the genitourinary system. EENT: No signs and/or symptoms were reported regarding the EENT system. Derm: Skin is intact, Skin is dry, Skin is normal, Skin temperature is warm. Musculoskeletal: Circulation, motion, and sensation intact. Range of motion: intact in all extremities. 18:39 Reassessment: Patient appears in no apparent distress at this time. Patient and/or ph family updated on plan of care and expected duration. Pain level reassessed. Patient is alert, oriented x 3, equal unlabored respirations, skin warm/dry/pink. Patient states feeling better. Patient states symptoms have improved. 19:00 Reassessment: Patient appears in no apparent distress at this time. Patient and/or jd3 family updated on plan of care and expected duration. Pain level reassessed. Patient is alert, oriented x 3, equal unlabored respirations, skin warm/dry/pink. even and steady gait upon discharge. denies dizziness, chest pain, or shortness of breath Patient states feeling better. Patient states symptoms have improved. Vital Signs: 17:42 BP 117 / 75; Pulse 90; Resp 18; Temp 97.5; Pulse Ox 100% on R/A; Weight 89.81 kg; ph Height 5 ft. 7 in. (170.18 cm); Pain 4/10; 18:39 BP 120 / 64; Pulse 94; Resp 18; Pulse Ox 100% on R/A; ph 19:01 BP 120 / 64; Pulse 90; Resp 18 S; Pulse Ox 100% on R/A; jd3 17:42 Body Mass Index 31.01 (89.81 kg, 170.18 cm) ph ED Course: 17:41 Patient arrived in ED. ph 17:44 Mikal Kramer RN is Primary Nurse. jd3 17:45 Triage completed. ph 17:45 Ari Barrera PA is PHCP. jr8 17:45 Clement Jones DO is Attending Physician. jr8 17:45 Arm band placed on Patient placed in an exam room, on a stretcher, on internal audit senior manager, ph on pulse oximetry. 17:46 Patient has correct armband on for positive identification. Bed in low position. Call ph light in reach. Side rails up X2. Client placed on continuous cardiac and pulse oximetry monitoring. NIBP monitoring applied. Door closed. Noise minimized. Warm blanket given. 17:46 Patient maintains SpO2 saturation greater than 95% on room air. ph 17:58 EKG done, by ED staff, reviewed by Ari VANEGAS. jd3 19:01 No provider procedures requiring assistance completed. Patient did not have IV access jd3 during this emergency room visit. Administered Medications: 18:37 Not Given (Other Intervention Used): Ringers - Lactated Ringers Solution 1000 ml IV at ph bolus bolus 18:37 Not Given (Other Intervention Used): Magnesium Sulfate 1 grams IVPB once over 1 hrs ph 18:39 Drug: Magnesium Oxide 800 mg Route: PO; ph 19:03 Follow up: Response: No adverse reaction jd3 Medication: 17:59 VIS not applicable for this client. jd3 Outcome: 18:43 Discharge ordered by . jr8 19:01 Discharged to home ambulatory, with family. jd3 19:01 Condition: stable 19:01 Discharge instructions given to patient, Instructed on discharge instructions, follow up and referral plans. Demonstrated understanding of instructions, follow-up care. 19:03 Patient left the ED. jd3 Signatures: Ari Barrera PA PA jr8 Rody Nagy RN RN Mikal Kramer RN RN jd3 Corrections: (The following items were deleted from the chart) 19:02 19:00 Reassessment: Patient appears in no apparent distress at this time. Patient jd3 and/or family updated on plan of care and expected duration. Pain level reassessed. Patient is alert, oriented x 3, equal unlabored respirations, skin warm/dry/pink. Patient states feeling better. jd3
--- NOTE | 2021-09-14 18:43 | EDPHYS ---
Physician Documentation [facility] Name: Jael Lugo Age: 25 yrs Sex: Female : 1995 Arrival Date: 09/14/2021 Time: 17:41 Bed 4 Private MD: ED Physician Clement Jones HPI: 09/14 18:18 This 25 yrs old Black Female presents to ER via EMS with complaints of Palpitations. jr8 18:18 The patient presents with a history of heart racing. Context: The symptoms occur at jr8 rest. Onset: The symptoms/episode began/occurred acutely, today. Duration: The patient or guardian reports a single episode, that is now resolved. Modifying factors: The symptoms are aggravated by nothing. The symptoms are alleviated by nothing. Associated signs and symptoms: Pertinent positives: SOB. Severity of symptoms: At their worst the symptoms were moderate in the emergency department the symptoms have resolved. The patient has experienced similar episodes in the past, a few times. The patient has not recently seen a physician. 34 weeks . Stated that she has had palpitations in the past which is exacerbated by her pregnancies. Stated that she had another episode that lasted longer than normal. EMS called at that time and transported to ED for further evaluation . SENIOR PROJECT COORDINATOR: 19:01 LMP N/A - currently jd3 Historical: - Allergies: 17:46 No Known Allergies; ph - PMHx: 17:46 "arthritis in my lower spine"; Bipolar disorder; Depression; drug abuse; Heart Murmur; ph Herniated disc; insomnia; Schizophrenia; - Immunization history:: Adult Immunizations unknown. - Social history:: Smoking status: Patient denies any tobacco usage or history of. ROS: 18:18 Eyes: Negative for injury, pain, redness, and discharge, ENT: Negative for injury, jr8 pain, and discharge, Neck: Negative for injury, pain, and swelling, Abdomen/GI: Negative for abdominal pain, nausea, vomiting, diarrhea, and constipation, Back: Negative for injury and pain, MS/Extremity: Negative for injury and deformity, Skin: Negative for injury, rash, and discoloration, Neuro: Negative for headache, weakness, numbness, tingling, and seizure. 18:18 Cardiovascular: Positive for palpitations, Negative for chest pain, edema, orthopnea. 18:18 Respiratory: Positive for shortness of breath. Exam: 18:18 Constitutional: This is a well developed, well nourished patient who is awake, alert, jr8 and in no acute distress. Neck: Trachea midline, no thyromegaly or masses palpated, and no cervical lymphadenopathy. Supple, full range of motion without nuchal rigidity, or vertebral point tenderness. No Meningismus. Cardiovascular: Regular rate and rhythm with a normal S1 and S2. No gallops, murmurs, or rubs. Normal PMI, no JVD. No pulse deficits. Respiratory: Lungs have equal breath sounds bilaterally, clear to auscultation and percussion. No rales, rhonchi or wheezes noted. No increased work of breathing, no retractions or nasal flaring. Abdomen/GI: Gravid in appearance. Soft, non-tender, with normal bowel sounds. No distension or tympany. No guarding or rebound. No evidence of tenderness throughout. Back: No spinal tenderness. No costovertebral tenderness. Full range of motion. Skin: Warm, dry with normal turgor. Normal color with no rashes, no lesions, and no evidence of cellulitis. MS/ Extremity: Pulses equal, no cyanosis. Neurovascular intact. Full, normal range of motion. Neuro: Awake and alert, GCS 15, oriented to person, place, time, and situation. Cranial nerves II-XII grossly intact. Motor strength 5/5 in all extremities. Sensory grossly intact. Vital Signs: 17:42 BP 117 / 75; Pulse 90; Resp 18; Temp 97.5; Pulse Ox 100% on R/A; Weight 89.81 kg; ph Height 5 ft. 7 in. (170.18 cm); Pain 4/10; 18:39 BP 120 / 64; Pulse 94; Resp 18; Pulse Ox 100% on R/A; ph 19:01 BP 120 / 64; Pulse 90; Resp 18 S; Pulse Ox 100% on R/A; jd3 17:42 Body Mass Index 31.01 (89.81 kg, 170.18 cm) ph MDM: 17:45 Patient medically screened. 8 18:42 Data reviewed: vital signs, nurses notes, lab test result(s), EKG. Data interpreted: jr8 Pulse oximetry: on room air is 100 %. Interpretation: normal. Counseling: I had a detailed discussion with the patient and/or guardian regarding: the historical points, exam findings, and any diagnostic results supporting the discharge/admit diagnosis, lab results, the need for outpatient follow up, a patrol lady, a family practitioner, an OB/Gyne specialist, to return to the emergency department if symptoms worsen or persist or if there are any questions or concerns that arise at home. Response to treatment: the patient's symptoms have resolved after treatment. 09/14 17:46 Order name: Basic Metabolic Panel; Complete Time: 18:26 8 09/14 17:46 Order name: CBC with Diff; Complete Time: 18:42 09/14 17:46 Order name: Magnesium; Complete Time: 18:26 09/14 17:46 Order name: EKG; Complete Time: 17:47 09/14 17:46 Order name: Cardiac monitoring; Complete Time: 17:58 09/14 17:46 Order name: EKG - Nurse/Tech; Complete Time: 17:58 09/14 17:46 Order name: Labs collected and sent; Complete Time: 18:09 09/14 17:46 Order name: O2 Per Protocol; Complete Time: 17:58 09/14 17:46 Order name: O2 Sat Monitoring; Complete Time: 17:58 Administered Medications: 18:37 Not Given (Other Intervention Used): Ringers - Lactated Ringers Solution 1000 ml IV at ph bolus bolus 18:37 Not Given (Other Intervention Used): Magnesium Sulfate 1 grams IVPB once over 1 hrs ph 18:39 Drug: Magnesium Oxide 800 mg Route: PO; ph 19:03 Follow up: Response: No adverse reaction jd3 Disposition: 21:26 Co-signature as Attending Physician, Clement SIDHU was immediately available on-site ms3 in the Emergency Department for consultation in the care of the patient.. Disposition Summary: 09/14/21 18:43 Discharge Ordered Location: [facility] Problem: new jr8 Symptoms: have improved jr8 Condition: Stable jr8 Diagnosis - Palpitations jr8 Followup: jr8 - With: Private Physician - When: 2 - 3 days - Reason: Recheck today's complaints, Continuance of care, Re-evaluation by your physician Discharge Instructions: - Discharge Summary Sheet jr8 - Palpitations jr8 Forms: - Medication Reconciliation Form jr8 - Thank You Letter jr8 - Antibiotic Education jr8 - Prescription Opioid Use jr8 Signatures: Dispatcher [employer] Ari Urbano PA PA jr8 Rody Nagy RN RN Clement Jones DO DO ms3 Mikal Kramer RN jd3 Corrections: (The following items were deleted from the chart) 19:03 17:46 IV Saline Lock ordered. jr8 jd3
[2021-09-14 20:36] VITALS: TEMP 97.5; O2SAT 100
[2021-09-14 20:40] VITALS: BP 120/64
--- NOTE | 2021-09-15 07:45 | EKG ---
Test Date: 2021-09-14 Test Time: 17:50:50 Lining Cementer: TUNG MEASUREMENT RESULTS: Intervals: Rate: 85 WA: 174 QRSD: 80 QT: 362 QTc: 430 [place]: P: 28 WA: 174 QRS: 47 T: 41 INTERPRETIVE STATEMENTS: Normal sinus rhythm Normal ECG Compared to ECG 04/22/2020 03:31:45 Sinus tachycardia no longer present Electronically Signed On 09-15-21 07:43:21 CDT by Ottoniel Garces
== END 2021-09-14 19:03 | disposition home or self-care (01) ==
LOC: ER 17:30
DX: O26.893 Other specified pregnancy related conditions, third trimester (principal); Z3A.34 34 weeks gestation of pregnancy
CPT/HCPCS: 36415; 80048; 83735; 85025; 93005; 99284

== ENCOUNTER 2023-09-08 07:05 | Emergency (ER) | payer OTHER ==
--- OUTSIDE RECORDS SUMMARY | 2023-09-08 07:10 | XMS REPORT | Continuity of Care Document ---
Author Name Unknown Address [address] [place] [address] [facility] thconnect Address [address] [place] [address] Care Team Providers Care Non Profit Director Name Role Phone UNKNOWN, REFFERING Primary Care Physician Ashely Monroe Attending Clinician Unavailable TIARA ORENLAS Attending Clinician Unavailab Timothy Jerez Attending Clinician Unavailable Chidi Mojica Attending Clinician RACQUEL Galan Attending Clinician Unavailable Jorge RN, Melody T Attending Clinician Unavailab le Only, Ang Db Test Attending Clinician UnavailCorazon Ordaz MD Attending Clinician [phone] CORAZON BOWENS Attending Clinician Unavailable Hamida Araiza MD Attending Clinician [phone] AkinMarino Chaudhari Attending Clinician + Doctor Unassigned, [place] Attending Clinician U deniseMARINO Alejandra Attending Clinician Unavail able Ultrasound, [facility] Attending Clinician Unavailcharlie Morin MD, Treva Attending Clinician [phone] Lab, [facility] Attending Clinician Unavailable Kimberly HARDING, Helga Boone Attending Clinician [phone], [facility] Usg Room Attending Clinician Unavailcharlie Riojas MD, Timothy Vega Attending Clinician [phone] HELGA HARIRS Attending Clinician Unavailable Mahesh BOILER/CHILLER OPERATOR, Theresa Attending Clinician [phone] [facility] Unavailable Richard BOILER/CHILLER OPERATOR, Samantha Barrientos Attending Clinician [phone] Visit, [facility] Nurse Attending Clinician Unava azucena Ornelas BOILER/CHILLER OPERATOR, Tiara Boone Attending Clinician [phone] JOSE DONOHUE M.D., Jane GARCIA Attendin g Clinician Unavailable Physician, No Primary or Family Admitting Clinic shirley Unavailable Chidi Mojica Admitting Clinician JOSE Wells M.D., JOSE Admitting Clini julius Unavailable Payers Payer Name Policy Type Policy Number Effective Date Expirati on Date Source [facility] [employer] [id number] 2017 00:00:00 Problems Condition Name Condition Details Condition Category Status Onset Date Resolution Date Last Treatment Date Treating Clinician Comments Source Back pain in Back pain in Disease Active 3- 00:00: 00 [facility] Rubella non-immune status, antepartum Rubella non-immune status, antepartum Disease Active 06-06 00:00: 00 Overview: Formattin g of this note might be different from the original. Address pp [facility] Multiparit y Multiparit y Disease Active 06-05 00:00: 00 [facility] Supervisio n of high-risk Supervisio n of high-risk Disease Active 06-05 00:00: 00 [facility] Tobacco use in Tobacco use in Disease Active 06-05 00:00: 00 Overview: Formattin g of this note might be different from the original. Quit 3days ago per Patient [facility] History of prior with IUGR History of prior with IUGR Disease Active 06-05 00:00: 00 Overview: Formattin g of this note might be different from the original. Reports delivery at 37.3 [facility] Flu vaccine need Flu vaccine need Disease Active 06-05 00:00: 00 Overview: Formattin g of this note might be different from the original. Declined flu [facility] Boil of buttock Boil of buttock Disease Active 07-30 00:00: 00 [facility] History of anxiety History of anxiety Disease Active 2014-05 1 00:00: 00 [facility] Allergies, Adverse Reactions, Alerts Allergy Name Allergy Type Status Severity Reaction(s) Onset Date Inactive Date Treating Clinician Comments Source No Known Drug Allergie s DA Active U 8-11 00:00: 00 [facility] Unable to Assess DA Active U 407 00:00: 00 [facility] No Known Drug Allergie s DA Active U 407 00:00: 00 [facility] No Known Allergie s DA Active U 2016-05 00:00: 00 [facility] No Known Allergie s DA Active U 2016-05 00:00: 00 [facility] NO KNOWN ALLERGIE S Drug Class Active [facility] Social History Social Habit Start Date Stop Date Quantity Comments Source ASSERTION [facility] Sexual [facility] Exposure to SARS-CoV-2 (event) 2021-02-03 00:00:00 2021-03-05 12:38:00 Not sure [facility] History of Social function 2019-09-02 00:00:00 2019-09-02 00:00:00 [facility] Alcohol intake 2019-09-02 00:00:00 2019-09-02 00:00:00 Current non-drinker of alcohol (finding) [facility] Tobacco use and exposure 2019-06-05 00:00:00 2019-06-05 00:00:00 Smokeless tobacco non-user [facility] History of tobacco use 2013-07-30 00:00:00 2019-06-02 00:00:00 Cigarette Smoker [facility] Tobacco Comment 2018-07-30 00:00:00 2018-07-30 00:00:00 2 cigarettes a day [facility] Sex Assigned At 1995 00:00:00 1995 00:00:00 [facility] Smoking Status Start Date Stop Date Source Ex-smoker 2019-06-05 00:00:00 2019-06-05 00:00:00 [facility] Medications Ordered Medication Name Filled Medication Name Start Date Stop Date Current Medication? Ordering Clinician Indication Dosage Frequency Signature (SIG) Comments Components Source [facility] (BLOOD PRESSURE CUFF) [facility] 09-01 00:00: 00 Yes [id number] Use as directed [facility] (BLOOD PRESSURE CUFF) [facility] 09-01 00:00: 00 Yes [id number] Use as directed [facility] PNV 67-iron ps-folate no.1-dha (VITAFOL ULTRA) 29 mg iron- 1 mg-200 mg Cap 07-03 00:00: 00 Yes [id number] 1{each} Take 1 Each by mouth daily. [facility] PNV 67-iron ps-folate no.1-dha (VITAFOL ULTRA) 29 mg iron- 1 mg-200 mg Cap 07-03 00:00: 00 Yes [id number] 1{each} Take 1 Each by mouth daily. [facility] multivitami n ( VITAMIN) tablet 06-05 00:00: 00 Yes [id number] 1{tbl} Take 1 tablet by mouth daily. [facility] multivitami n ( VITAMIN) tablet 06-05 00:00: 00 Yes [id number] 1{tbl} Take 1 tablet by mouth daily. [facility] LOESTRIN FE (JUNEL 05/26, ,) 1 mg-20 mcg (21)/75 mg (7) tablet 2018-07-30 00:00: 00 Yes [id number] 1{tbl} Take 1 tablet by mouth daily. [facility] Immunizations Ordered Immunization Name Filled Immunization Name Date Status Comments Source TDAP 2015-05-27 00:00:00 Completed [facility] TDAP 2015-05-27 00:00:00 Completed [facility] TDAP 2015-05-27 00:00:00 Completed [facility] TDAP 2012-05-07 00:00:00 Completed [facility] TDAP 2012-05-07 00:00:00 Completed [facility] TDAP 2012-05-07 00:00:00 Completed [facility] TDAP Unknown Completed [facility] TDAP Unknown Completed [facility] Vital Signs Vital Name Observation Time Observation Value Comments S ource Recent Weight Loss/Gain 2020-08-11 21:32:04 N 02 Sat by Pulse Oximetry 2020-08-11 21:32:04 97 /min Body Mass Index 2020-08-11 21:32:04 29.9 Height 2020-08-11 21:32:04 170.18\\S\\67 Pulse Rate 2020-08-11 21:32:04 88 /min Respiratory Rate 2020-08-11 21:32:04 16 /min Weight 2020-08-11 21:32:04 22490.917\\S\\3054.052 Weight Measurement Method 2020-08-11 21:32:04 Estimated by Patient 02 Sat by Pulse Oximetry 2020-08-11 20:56:23 97 /min Body Mass Index 2020-08-11 20:56:23 29.9 Height 2020-08-11 20:56:23 170.18\\S\\67 Pulse Rate 2020-08-11 20:56:23 88 /min Respiratory Rate 2020-08-11 20:56:23 16 /min Weight 2020-08-11 20:56:23 76769.917\\S\\3054.052 Weight Measurement Method 2020-08-11 20:56:23 Estimated by Patient 02 Sat by Pulse Oximetry 2020-08-11 20:48:44 97 /min Body Mass Index 2020-08-11 20:48:44 29.9 Height 2020-08-11 20:48:44 170.18\\S\\67 Pulse Rate 2020-08-11 20:48:44 88 /min Respiratory Rate 2020-08-11 20:48:44 16 /min Weight 2020-08-11 20:48:44 20612.917\\S\\3054.052 Weight Measurement Method 2020-08-11 20:48:44 Estimated by Patient WEIGHT 2020-08-11 20:47:00 86.257703 kg HEIGHT 2020-08-11 20:47:00 170.18 cm 02 Sat by Pulse Oximetry 2020-08-11 20:41:05 97 /min Body Mass Index 2020-08-11 20:41:05 29.8 Height 2020-08-11 20:41:05 170.18\\S\\67 Pulse Rate 2020-08-11 20:41:05 88 /min Respiratory Rate 2020-08-11 20:41:05 16 /min Weight 2020-08-11 20:41:05 65911.55\\S\\3040 Weight Measurement Method 2020-08-11 20:41:05 Estimated by Patient 02 Sat by Pulse Oximetry 2020-08-11 17:35:43 97 /min Body Mass Index 2020-08-11 17:35:43 29.8 Height 2020-08-11 17:35:43 170.18\\S\\67 Pulse Rate 2020-08-11 17:35:43 88 /min Respiratory Rate 2020-08-11 17:35:43 16 /min Weight 2020-08-11 17:35:43 17766.55\\S\\3040 Weight Measurement Method 2020-08-11 17:35:43 Estimated by Patient 02 Sat by Pulse Oximetry 2020-08-11 17:07:33 97 /min Body Mass Index 2020-08-11 17:07:33 29.8 Height 2020-08-11 17:07:33 170.18\\S\\67 Pulse Rate 2020-08-11 17:07:33 88 /min Respiratory Rate 2020-08-11 17:07:33 16 /min Weight 2020-08-11 17:07:33 44906.55\\S\\3040 Weight Measurement Method 2020-08-11 17:07:33 Estimated by Patient WEIGHT 2020-08-11 17:04:00 86.37562 kg HEIGHT 2020-08-11 17:04:00 170.18 cm Procedures Procedure Date / Time Performed Performing Clinicia n Source [id number] 2021-10-20 00:00:00 [facility] [id number] 2021-10-20 00:00:00 PLA[facility] [id number] 2021-10-20 00:00:00 PLA[facility] [id number] 2020-02-04 00:00:00 TALCR [facility] Encounters Start Date/Time End Date/Time Encounter Type Admission Type Attending [facility] Care Facility Care Department Encounter ID Source 2020-08-11 16:13:00 Inpatient [facility] [id number] [facility] 2020-02-04 08:00:00 Inpatient Ashely Jackson [facility] [id number] [facility] 2020-01-14 17:36:00 Inpatient Ashely Jackson [facility] KELLEY [id number] [facility] 2022-08-14 13:27:36 2022-08-14 13:27:36 Outpatient [facility] [id number] Robby Vasquez 2022-04-19 10:30:00 2022-04-19 10:30:00 Outpatient R [facility] [id number] [facility] 2021-12-15 11:36:00 2021-12-15 11:36:00 Emergency [facility] [id number] [facility] 2021-12-15 11:36:00 2021-12-15 11:36:00 Emergency Emergency Timothy Valle [facility] [id number] [facility] 2021-10-20 13:21:00 2021-10-22 12:54:00 Inpatient EM Chidi Mojica [facility] OBPP [id number] [facility] 2021-10-20 13:21:00 2021-10-22 12:54:00 Inpatient Chidi Kaur [facility] OB [id number] [facility] 2021-03-24 14:00:00 2021-03-24 14:00:00 Outpatient Mely JACKSON RACQUEL [facility] [id number] [facility] 2021-03-16 14:30:00 2021-03-16 14:30:00 Outpatient Mely JACKSON [facility] [id number] [facility] 2021-03-06 00:00:00 2021-03-06 00:00:00 Letter (Out) Melody Patel [facility] 1..840.114 350.1.13.10 4.2.7.2.686 [id number] [facility] 2021-03-05 12:35:48 2021-03-05 12:50:48 Laboratory Only Only, Ang Db Test Tor [facility] 1.2.840.114 350.1.13.10 4.2.7.2.686 [id number] [facility] 2021-03-05 12:30:00 2021-03-05 12:30:00 [id number] 2021-02-27 13:08:52 2021-02-27 13:18:13 Laboratory Only Only, Ang Db Test Hamida Araiza [facility] 1.2.840.114 350.1.13.10 4.2.7.2.686 [id number] [facility] 2021-02-27 13:15:00 2021-02-27 13:15:00 Outpatient R [facility] [id number] [facility] 2020-08-11 16:13:00 2020-08-11 16:13:00 Emergency [facility] [id number] [facility] 2020-01-07 00:00:00 2020-01-07 00:00:00 Telephone Marino Duvall [facility] PARTS DATA [facility] CHILD [facility] 1.2.840.114 350.1.13.10 4.2.7.2.686 [id number] [facility] 2020-01-07 00:00:00 2020-01-07 00:00:00 Telephone Marino Duvall [facility] PART[facility] DATA WRITER [facility] CHILD [facility] 1.2.840.114 350.1.13.10 4.2.7.2.686 [id number] 2020-01-02 00:00:00 2020-01-02 00:00:00 Orders Only Doctor Unassigned, [place] [facility] 1.2.840.114 350.1.13.10 4.2.7.2.686 [id number] [facility] 2020-01-02 00:00:00 2020-01-02 00:00:00 Orders Only Doctor Unassigned, [place] [facility] 1.2.840.114 350.1.13.10 4.2.7.2.686 [id number] 2019-12-11 00:00:00 2019-12-11 00:00:00 Orders Only Doctor Unassigned, [place] [facility] 1.2.840.114 350.1.13.10 4.2.7.2.686 [id number] [facility] 2019-12-11 00:00:00 2019-12-11 00:00:00 Orders Only Doctor Unassigned, [place] [facility] 1.2.840.114 350.1.13.10 4.2.7.2.686 [id number] 2019-11-17 10:00:00 2019-11-17 10:00:00 Outpatient R MARNIO DUVALL [facility] [id number] [facility] 2019-11-10 13:00:00 2019-11-10 13:00:00 Outpatient R MARINO DUVALL [facility] [id number] [facility] 2019-11-05 00:00:00 2019-11-05 00:00:00 Telephone Marino Duvall [facility] PARTS DATA WR[facility] 1..840.114 350.1.13.10 4.2.7.2.686 [id number] [facility] 2019-11-05 00:00:00 2019-11-05 00:00:00 Patient Secure Msg Doctor Unassigned, [place] [facility] 1..840.114 350.1.13.10 4.2.7.2.686 [id number] [facility] 2019-11-05 00:00:00 2019-11-05 00:00:00 Telephone Marino Duvall [facility] PART[facility] DATA WR[facility] 1..840.114 350.1.13.10 4.2.7.2.686 [id number] 2019-11-04 10:45:00 2019-11-04 10:45:00 Outpatient R MARINO DUVALL [facility] [id number] [facility] 2019-10-28 10:45:00 2019-10-28 10:45:00 Outpatient R MARINO DUVALL [facility] [id number] [facility] 2019-10-09 09:00:16 2019-10-09 10:00:16 Licensed Psychologist Director Visit Ultrasound, Treva Sanches [facility] PARTS DATA [facility] 1.2.840.114 350.1.13.10 4.2.7.2.686 [id number] [facility] 2019-10-09 09:00:16 2019-10-09 10:00:16 Licensed Psychologist Director Visit Ultrasound, Bessie [facility] PART[facility] DATA [facility] CHILD [facility] 1.2.840.114 350.1.13.10 4.2.7.2.686 [id number] 2019-10-09 09:00:00 2019-10-09 09:00:00 Outpatient P [facility] [id number] [facility] 2019-10-01 12:45:00 2019-10-01 12:45:00 Outpatient R MARINO DUVALL [facility] [id number] [facility] 2019-10-01 08:31:19 2019-10-01 09:01:29 Telemedici ne Visit Marino Duvall [facility] PARTS DATA WR[facility] 1.2.840.114 350.1.13.10 4.2.7.2.686 [id number] 2019-10-01 08:31:19 2019-10-01 09:01:29 Telemedici ne Visit Marino Duvall [facility] PARTS DATA WR[facility] 1.2.840.114 350.1.13.10 4.2.7.2.686 [id number] [facility] 2019-10-01 08:15:00 2019-10-01 08:15:00 Outpatient R MARINO DUVALL [facility] [id number] [facility] 2019-09-30 09:00:00 2019-09-30 09:00:00 Outpatient P [facility] [id number] [facility] 2019-09-02 14:11:17 2019-09-02 14:38:43 Routine Visit Marino Duvall [facility] PARTS DATA WR[facility] 1.2.840.114 350.1.13.10 4.2.7.2.686 [id number] 2019-09-02 14:11:17 2019-09-02 14:38:43 Routine Visit Marino Duvall [facility] PARTS DATA WR[facility] 1.840.114 350.1.13.10 4.2.7.2.686 [id number] [facility] 2019-09-02 14:00:00 2019-09-02 14:00:00 Outpatient R MARINO DUVALL [facility] [id number] [facility] 2019-08-28 11:00:00 2019-08-28 11:00:00 Outpatient R MARINO DUVALL [facility] [id number] [facility] 2019-08-06 12:56:21 2019-08-06 13:07:21 Licensed Psychologist Director Visit Lab, [facility] [employer] 1.0.114 350.1.13.10 4.2.7.2.686 [id number] [facility] 2019-08-06 11:25:23 2019-08-06 12:10:23 Licensed Psychologist Director Visit 2, [facility] Us Room KimberlyHelga tejada [facility] 1.0.114 350.1.13.10 4.2.7.2.686 [id number] [facility] 2019-08-06 11:00:00 2019-08-06 11:00:00 Outpatient P KIMBERLYHELGA [facility] [id number] [facility] 2019-08-06 00:00:00 2019-08-06 00:00:00 Case Management Theresa Aragon [facility] 1.0.114 350.1.13.10 4.2.7.2.686 [id number] [facility] 2019-08-06 00:00:00 2019-08-06 00:00:00 Abstract Marino Duvall [facility] PART[facility] DATA [facility] 1.840.114 350.1.13.10 4.2.7.2.686 [id number] [facility] 2019-07-31 08:06:57 2019-07-31 11:24:39 Telemedici ne Visit Marino Duvall [facility] PARTS DATA WRITER [facility]ILD [facility] 1.2.840.114 350.1.13.10 4.2.7.2.686 [id number] [facility] 2019-07-31 10:45:00 2019-07-31 10:45:00 Outpatient R MARINO DUVALL [facility] [id number] [facility] 2019-07-31 00:00:00 2019-07-31 00:00:00 Telephone Marino Duvall [facility] PART[facility] DATA WRITER [facility] 1..840.114 350.1.13.10 4.2.7.2.686 [id number] [facility] 2019-07-14 10:53:05 2019-07-14 11:23:05 Licensed Psychologist Director Visit Ultrasound, Helga Strickland [facility] PARTS DATA WR[facility] 1..840.114 350.1.13.10 4.2.7.2.686 [id number] [facility] 2019-07-14 11:00:00 2019-07-14 11:00:00 Outpatient P [facility] [id number] [facility] 2019-07-14 00:00:00 2019-07-14 00:00:00 Abstract JimenezedMarino nuñez [facility] PARTS DATA WR[facility] CH[facility] 1..840.114 350.1.13.10 4.2.7.2.686 [id number] [facility] 2019-07-10 14:45:00 2019-07-10 14:45:00 Outpatient P [facility] [id number] [facility] 2019-07-10 14:15:00 2019-07-10 14:15:00 Outpatient P [facility] [id number] [facility] 2019-07-10 11:15:00 2019-07-10 11:15:00 Outpatient P [facility] [id number] [facility] 2019-07-03 13:48:02 2019-07-03 14:16:12 Routine Visit Marino Duvall [facility] PARTS DATA WRITER [facility] 1.2840.114 350.1.13.10 4.2.7.2.686 [id number] [facility] 2019-07-03 14:00:00 2019-07-03 14:00:00 Outpatient R MARINO DUVALL [facility] [id number] [facility] 2019-06-18 11:12:58 2019-06-18 12:01:28 Licensed Psychologist Director Visit Lab, [facility] Samantha Ramos [facility] PARTS DATA WRITER [facility] CHILD [facility] 1.0.114 350.1.13.10 4.2.7.2.686 [id number] [facility] 2019-06-13 13:48:12 2019-06-13 15:23:25 Routine Visit Marino Duvall [facility] PARTS DATA WR[facility] CHILD [facility] 1.2.840.114 350.1.13.10 4.2.7.2.686 [id number] [facility] 2019-06-05 15:13:07 2019-06-05 16:08:47 Initial Visit Marino Duvall [facility] PART[facility] DATA WR[facility] CHILD [facility] 1.2.840.114 350.1.13.10 4.2.7.2.686 [id number] [facility] 2019-06-05 00:00:00 2019-06-05 00:00:00 Orders Only Doctor Unassigned, [place] [facility] 1.840.114 350.1.13.10 4.2.7.2.686 [id number] [facility] 2019-06-04 13:22:30 2019-06-04 14:02:44 Nurse Visit Visit, [facility] Nurse Tiara Ornelas [facility] PART[facility] DATA WR[facility] 1.2.840.114 350.1.13.10 4.2.7.2.686 [id number] [facility] 2017-06-02 00:23:00 2017-06-15 13:37:00 Inpatient E JOSE DONOHUE M.D. [facility] [id number] [facility] Results Test Description Test Time Test Comments Results Result Co mments Source UA, Urinalysis Rflx Cult/[id number] 13:33:00* Test Item Value Reference Range Interpretation Comme nts Color,Urine (test code = UCOL) Dark Yellow Yellow A Clarity,Urine (test code = UCLAR) Cloudy Clear A Ph, Urine (test code = UPH) 8.0 5.0-9.0 N Specific [place],Urine (test code = USG) >= 1.030 1.005-1.030 N Blood,Urine (test code = UBLD) Negative mg/dL Negative Protein,Urine (test code = UPRO) 30 mg/dL Negative A Glucose,Urine (UA) (test cod e = UGLU) Negative mg/dL Negative Ketones,Urine (test code = UKET) >=160 mg/dL Negative A Nitrate,Urine (test code = UNIT) Negative Negative Bilirubin,Urine (test code = UBIL) Small mg/dL Negative A Urobilinogen,Urine (test cod e = UURO) 1.0 E.U./dL Normal Leukocyte Esterase,Urine (te st code = ULEU) Trace mg/dL Negative A UF REFLEXUF REFLEXUrine [id number] 13:33:00* Test Item Value Reference Range Interpretation Comme nts RBC,Urine (test code = URBCUF) None Seen /HPF 0-2 WBC,Urine (test code = UWBCUF) 26-50 /HPF 0-5 A Epithelial Cell,Urine (test code = UECUF) 11-25 /HPF 0-5 A Casts,Urine (test code = UCASTUF) 0-5 /LPF None Seen Bacteria,Urine (test code = UBACTUF) Few /hpf None Seen A UF REFLEXUF REFLEXComplete Blood Count Auto [id number] 13:33:00* Test Item Value Reference Range Interpretation Comme nts White Blood Count (test code = WBCT) 11.4 x10 3/uL 4.4-10.5 H Red Blood Count (test code = RBC) 4.88 x10 6/uL 3.75-5.20 N Hemoglobin (test code = HGBT) 14.9 g/dL 12.2-14.8 H Hematocrit (test code = HCTT) 43.0 % 36.5-44.4 N Mean Corpuscular Volume (aurelia t code = MCV) 88.10 fL 80.00-100.00 N Mean Corpuscular Hemoglobin (test code = MCH) 30.5 pg 27.0-32.5 N Mean Corpuscular HGB Conc (test code = MCHC) 34.70 g/dL 32.00-37.50 N RDW Coefficient of Variation (test code = RDWCV) 12.7 % 11.5-14.5 N Platelet Count (test code = PLTT) 357.0 x10 3/uL 140.0-440.0 N Mean Platelet Volume (test code = MPV) 9.1 fL Immature Granulocytes % (Aut o) (test code = IMMGRAN%) 0.2 % 0.0-5.0 N Neutrophils % (Auto) (test code = NE%) 63.3 % 36.0-70.0 N Lymphocytes % (Auto) (test code = LY%) 26.3 % 12.0-44.0 N Monocytes % (Auto) (test cod e = MO%) 8.8 % 0.0-11.0 N Eosinophils % (Auto) (test code = EO%) 0.9 % 0.0-7.0 N Basophils % (Auto) (test cod e = BA%) 0.5 % 0.0-2.0 N Immature Granulocytes # (Aut o) (test code = IMMGRAN#) 0.02 x10 3/uL Neutrophils # (Auto) (test code = NE#) 7.2 x10 3/uL 1.6-7.4 N Lymphocytes # (Auto) (test code = LY#) 2.99 x10 3/uL 0.50-4.60 N Monocytes # (Auto) (test cod e = MO#) 1.00 x10 3/uL 0.00-1.20 N Eosinophils # (Auto) (test code = EO#) 0.10 x10 3/uL 0.00-0.74 N Basophils # (Auto) (test cod e = BA#) 0.06 x10 3/uL 0.00-0.21 N nRBC Abs (test code = NRBCA) 0 nRBC Pct (test code = NRBCP) 0 % HCG, Urine Qual (LAB)2021-12-15 13:33:00* Test Item Value Reference Range Interpretation Comme nts HCG, Urine, Qual (test code = HCGU) Negative Negative Comprehensive Metabolic [id number] 13:33:00* Test Item Value Reference Range Interpretation Comme nts SODIUM (test code = NA) 141.0 mmol/L 136.0-145.0 N Potassium,K (test code = K) 3.7 mmol/L 3.0-5.1 N Chloride (test code = CL) 108 mmol/L 98-107 H Carbon Dioxide (test code = CO2) 21 mmol/L 20-31 N Anion Gap (test code = GAP) 12 mmol/L 5-15 N Blood Urea Nitrogen (test co de = BUN) < 5 mg/dL 9-23 L Creatinine (test code = CREATT) 0.86 mg/dL 0.55-1.02 N Creatinine Clr Calc Pharmacy (test code = CRCLPHA) 94.71 mL/min Estimated GFR ( Ameri ca (test code = EGFRAA) > 60 mL/min/1.73m2 Estimated GFR (Non Afr Ameri ca (test code = EGFRNAA) > 60 mL/min/1.73m2 BUN/Creatinine Ratio (test c ode = BCRATIO) 6 ratio 10-20 L Glucose (test code = GLU) 87 mg/dL 74-106 N Osmolality,Calculated (test code = OSMOC) 287.7 Calcium (test code = CA) 9.9 mg/dL 8.3-10.6 N Bilirubin,Total (test code = BILIT) 0.9 mg/dL 0.2-1.1 N Aspartate Amino Transferase (test code = AST) 32 U/L 0-34 N Alanine Aminotransferase (te st code = ALT) 30 U/L 10-49 N Total Protein (test code = TP) 7.7 g/dL 5.7-8.2 N Albumin Level (test code = ALB) 5.3 g/dL 3.2-4.8 H Globulin (test code = GLOB) 2.4 mg/dL 2.3-3.5 N Albumin/Globulin Ratio (test code = AGRATIO) 2.2 ratio 0.8-2.0 H Alkaline Phosphatase (test c ode = ALP) 90 U/L 46-116 N Ethanol [id number] 13:33:00* Test Item Value Reference Range Interpretation Comme nts Ethanol (test code = ETOH) 4 mg/dL The pharmacologi galo response to blood alcohol levels mayvary from individual to individual. The fatal concentrationhas been reported to be >400mg/dL. CBC W/AUTO [id number] 08:06:00* Test Item Value Reference Range Interpretation Comme nts WHITE BLOOD CELL (test code = WBC) 16.9 K/mm3 6.5-12.3 H RED BLOOD CELL (test code = RBC) 3.50 M/mm3 3.51-4.69 L HEMOGLOBIN (test code = HGB) 10.8 g/dL 10.1-13.8 N HEMATOCRIT (test code = HCT) 31.9 % 32.5-41.8 L MEAN CELL VOLUME (test code = MCV) 91.1 fL 84.6-96.6 N MEAN CELL HGB (test code = MCH) 30.9 pg 27.3-33.9 N MEAN CELL HGB CONCETRATION ( test code = MCHC) 33.9 gm/dL 32.0-34.2 N RED CELL DISTRIBUTION WIDTH (test code = RDW) 14.4 % 12.2-16.3 N PLATELET COUNT (test code = PLT) 206 K/mm3 134-363 N MEAN PLATELET VOLUME (test c ode = MPV) 9.6 fL 9.2-12.7 N NEUTROPHIL % (test code = NT%) 76.0 % 57.9-77.3 N LYMPHOCYTE % (test code = LY%) 13.1 % 14.5-29.7 L MONOCYTE % (test code = MO%) 8.7 % 3.6-10.2 N EOSINOPHIL % (test code = EO%) 1.2 % 0.0-3.0 N BASOPHIL % (test code = BA%) 0.4 % 0.1-0.9 N NEUTROPHIL # (test code = NT#) 12.8 K/mm3 LYMPHOCYTE # (test code = LY#) 2.2 K/mm3 MONOCYTE # (test code = MO#) 1.5 K/mm3 EOSINOPHIL # (test code = EO#) 0.21 K/mm3 BASOPHIL # (test code = BA#) 0.1 K/mm3 RBC MORPHOLOGY REQUIRED (aurelia t code = RBCM) NORMAL NORMAL PLATELET MORPHOLOGY REQUIRED (test code = PLTMR) NORMAL NORMAL AG HEPATITIS B [id number] 17:08:00* Test Item Value Reference Range Interpretation Comme nts AG HEPATITIS B SURFACE (test code = HBSAG) NONREACTIVE NONREACTIVE AB HEPATITIS C [id number] 17:08:00* Test Item Value Reference Range Interpretation Comme nts AB HEPATITIS C (test code = HCVAB) NONREACTIVE NONREACTIVE SIGNAL TO CUTOFF (test code = CUTOFF) 0.02 <0.80 N AB [id number] 17:08:00* Test Item Value Reference Range Interpretation Comme nts AB TREPONEMA (test code = TREPAB) NONREACTIVE NONREACTIVE AB HIV 1 17:08:00* Test Item Value Reference Range Interpretation Comme nts AB HIV 1 2 (test code = [id number]) NONREACTIVE NONREACTIVE Done by [employer] HIV Ag/Ab Combo Screen CBC W/AUTO [id number] 14:18:00* Test Item Value Reference Range Interpretation Comme nts WHITE BLOOD CELL (test code = WBC) 14.5 K/mm3 6.5-12.3 H RED BLOOD CELL (test code = RBC) 3.67 M/mm3 3.51-4.69 N HEMOGLOBIN (test code = HGB) 11.2 g/dL 10.1-13.8 N HEMATOCRIT (test code = HCT) 33.0 % 32.5-41.8 N MEAN CELL VOLUME (test code = MCV) 89.9 fL 84.6-96.6 N MEAN CELL HGB (test code = MCH) 30.5 pg 27.3-33.9 N MEAN CELL HGB CONCETRATION ( test code = MCHC) 33.9 gm/dL 32.0-34.2 N RED CELL DISTRIBUTION WIDTH (test code = RDW) 14.3 % 12.2-16.3 N PLATELET COUNT (test code = PLT) 234 K/mm3 134-363 N MEAN PLATELET VOLUME (test c ode = MPV) 9.2 fL 9.2-12.7 N NEUTROPHIL % (test code = NT%) 70.5 % 57.9-77.3 N LYMPHOCYTE % (test code = LY%) 18.9 % 14.5-29.7 N MONOCYTE % (test code = MO%) 7.3 % 3.6-10.2 N EOSINOPHIL % (test code = EO%) 2.0 % 0.0-3.0 N BASOPHIL % (test code = BA%) 0.3 % 0.1-0.9 N NEUTROPHIL # (test code = NT#) 10.2 K/mm3 LYMPHOCYTE # (test code = LY#) 2.7 K/mm3 MONOCYTE # (test code = MO#) 1.1 K/mm3 EOSINOPHIL # (test code = EO#) 0.29 K/mm3 BASOPHIL # (test code = BA#) 0.0 K/mm3 RBC MORPHOLOGY REQUIRED (aurelia t code = RBCM) NORMAL NORMAL PLATELET MORPHOLOGY REQUIRED (test code = PLTMR) NORMAL NORMAL COVID 19 Asymptomatic IH [id number] 14:13:00* Test Item Value Reference Range Interpretation Comme nts COVID 19 Asymptomatic IH AG (test code = COVNONPUIAG) NEGATIVE NEGATIVE This test has be en authorized only for the detection ofproteins from SARS-CoV-2, not for any other viruses orpathogens. Negative results should be treated as presumptive andconfirmed with a molecular assay, if necessary for patientmanagement. Negative results do not rule out COVID-19 andshould not be used as the sole basis for treatment orpatient management decisions, including infection controldecisions. Negative results should be considered in thecontext of a patient's recent exposures, history and thepresence of clinical signs and symptoms consistent withCOVID-19. This test has not been FDA cleared or approved; the test hasbeen authorized by FDA under an Emergency Use Authorization(EUA) for use by laboratories certified under the CLIA thatmeet the requirements to perform moderate, high or waivedcomplexity tests. This test is authorized for use at thePoint of Care (POC), i.e., in patient care settingsoperating under a CLIA Certificate of Waiver, Certificate ofCompliance, or Certificate of Accreditation. This test is only authorized for the duration of thedeclaration that circumstances exist justifying theauthorization of emergency use of in vitro diagnostic testsfor detection and/or diagnosis of COVID-19 under Kxnorpu108(b)(1) of the Act, 21 U.S.C. 360bbb-3(b)(1), unless theauthorization is terminated or revoked sooner. Sars-CoV-2/FLU A/B RSV [id number] 17:29:00* Test Item Value Reference Range Interpretation Comme nts Sars-CoV-2/FLU A/B RSV PCR (test code = SARSFLURSVPCR) For use under Emergency Use Authorization (EUA) only. Sars-CoV-2/FLU A/B RSV PCR (test code = SARSFLURSVPCR1.1) Reference Range: Negative Influenza A PCR: (test code = Influenza A PCR:) Negative by Nucleic Acid Amplification Influenza B PCR: (test code = Influenza B PCR:) Negative by Nucleic Acid Amplification RSV PCR Result: (test code = RSV PCR Result:) Negative by Nucleic Acid Amplification SARS-CoV-2 PCR Result: (test code = SARS-CoV-2 PCR Result:) Negative by PCR Complete Blood Count Auto [id number] 17:25:00* Test Item Value Reference Range Interpretation Comme nts White Blood Count (test code = WBCT) 9.2 x10 3/uL 4.4-10.5 N Red Blood Count (test code = RBC) 4.33 x10 6/uL 3.75-5.20 N Hemoglobin (test code = HGBT) 13.4 g/dL 12.2-14.8 N Hematocrit (test code = HCTT) 39.4 % 36.5-44.4 N Mean Corpuscular Volume (aurelia t code = MCV) 91.00 fL 80.00-100.00 N Mean Corpuscular Hemoglobin (test code = MCH) 30.9 pg 27.0-32.5 N Mean Corpuscular HGB Conc (test code = MCHC) 34.00 g/dL 32.00-37.50 N RDW Coefficient of Variation (test code = RDWCV) 13.0 % 11.5-14.5 N Platelet Count (test code = PLTT) 338.0 x10 3/uL 140.0-440.0 N Mean Platelet Volume (test code = MPV) 8.7 fL Immature Granulocytes % (Aut o) (test code = IMMGRAN%) 0.1 % 0.0-5.0 N Neutrophils % (Auto) (test code = NE%) 52.3 % 36.0-70.0 N Lymphocytes % (Auto) (test code = LY%) 37.7 % 12.0-44.0 N Monocytes % (Auto) (test cod e = MO%) 7.4 % 0.0-11.0 N Eosinophils % (Auto) (test code = EO%) 2.0 % 0.0-7.0 N Basophils % (Auto) (test cod e = BA%) 0.5 % 0.0-2.0 N Immature Granulocytes # (Aut o) (test code = IMMGRAN#) 0.01 x10 3/uL Neutrophils # (Auto) (test code = NE#) 4.8 x10 3/uL 1.6-7.4 N Lymphocytes # (Auto) (test code = LY#) 3.47 x10 3/uL 0.50-4.60 N Monocytes # (Auto) (test cod e = MO#) 0.68 x10 3/uL 0.00-1.20 N Eosinophils # (Auto) (test code = EO#) 0.18 x10 3/uL 0.00-0.74 N Basophils # (Auto) (test cod e = BA#) 0.05 x10 3/uL 0.00-0.21 N nRBC Abs (test code = NRBCA) 0 nRBC Pct (test code = NRBCP) 0 % Drug Screen,[id number] 17:25:00* Test Item Value Reference Range Interpretation Comme nts PCP Phencyclidine Screen,Uri ne (test code = PCPU) Negative Negative Amphetamine Screen,Urine (te st code = AMPU) Negative Negative Methadone Screen,Urine (test code = METHU) Negative Negative Opiate Screen,Urine (test co de = UOPIS) Negative Negative Barbituates Screen,Urine (te st code = BARBU) Negative Negative Benzodiazepines Screen,Urine (test code = UBENZS) Negative Negative Cocaine Screen,Urine (test c ode = UCOCS) Negative Negative Cannabinoid Screen,Urine (te st code = UTHCS) Positive Negative A Propoxyphene Screen, Urine ( test code = UPROP) Negative Negative UA, Urinalysis Rflx [id number] 17:25:00* Test Item Value Reference Range Interpretation Comme nts Color,Urine (test code = UCOL) Yellow Yellow Clarity,Urine (test code = UCLAR) Clear Clear PH,Urine (test code = UPH.XX) 6.5 5.5-8.5 Specific [place],Urine (test code = USG) 1.025 1.005-1.030 N Blood,Urine (test code = UBLD) Negative cells/uL Negative Protein,Urine (test code = UPRO) Negative mg/dL Negative Glucose,Urine (UA) (test code = UGLU) Negative mg/dL Negative Ketones,Urine (test code = UKET) Negative mg/dL Negative Nitrate,Urine (test code = UNIT) Negative Negative Bilirubin,Urine (test code = UBIL) Negative mg/dL Negative Urobilinogen,Urine (test code = UURO) 0.2 mg/dL Negative Leukocyte Esterase,Urine (test code = ULEU) Negative cells/uL Negative Comprehensive Metabolic [id number] 17:25:00* Test Item Value Reference Range Interpretation Comme nts SODIUM (test code = NA) 141.0 mmol/L 136.0-145.0 N Potassium,K (test code = K) 3.7 mmol/L 3.0-5.1 N Chloride (test code = CL) 107 mmol/L 98-107 N Carbon Dioxide (test code = CO2) 26 mmol/L 20-31 N Anion Gap (test code = GAP) 8 mmol/L 5-15 N Blood Urea Nitrogen (test co de = BUN) 8 mg/dL 9-23 L Creatinine (test code = CREATT) 0.64 mg/dL 0.55-1.02 N Creatinine Clr Calc Pharmacy (test code = CRCLPHA) 150.21 mL/min Estimated GFR ( Ameri ca (test code = EGFRAA) > 60 mL/min/1.73m2 Estimated GFR (Non Afr Ameri ca (test code = EGFRNAA) > 60 mL/min/1.73m2 BUN/Creatinine Ratio (test c ode = BCRATIO) 13 ratio 10-20 N Glucose (test code = GLU) 102 mg/dL 74-106 N Osmolality,Calculated (test code = OSMOC) 289.8 Calcium (test code = CA) 10.3 mg/dL 8.3-10.6 N Bilirubin,Total (test code = BILIT) 0.2 mg/dL 0.2-1.1 N Aspartate Amino Transferase (test code = AST) 13 U/L 0-34 N Alanine Aminotransferase (te st code = ALT) 15 U/L 10-49 N Total Protein (test code = TP) 7.2 g/dL 5.7-8.2 N Albumin Level (test code = ALB) 5.0 g/dL 3.2-4.8 H Globulin (test code = GLOB) 2.2 mg/dL 2.3-3.5 L Albumin/Globulin Ratio (test code = AGRATIO) 2.3 ratio 0.8-2.0 H Alkaline Phosphatase (test c ode = ALP) 69 U/L 46-116 N Ethanol [id number] 17:25:00* Test Item Value Reference Range Interpretation Comme nts Ethanol (test code = ETOH) 3 mg/dL HCG, Serum Qual (LAB)2020-08-11 17:25:00* Test Item Value Reference Range Interpretation Comme nts HCG, Serum Qual (LAB) (test code = HCGQ) Negative Negative CBC W/AUTO [id number] 08:34:00* Test Item Value Reference Range Interpretation Comme [...] pg 27-35 N MEAN CELL HGB CONCETRATION ( test code = MCHC) 33.6 gm/dL 32.2-34.1 N RED CELL DISTRIBUTION WIDTH (test code = RDW) 13.2 % 12.4-16.5 N PLATELET COUNT (test code = PLT) 223 K/mm3 133-385 N MEAN PLATELET VOLUME (test c ode = MPV) 9.6 fl 9.1-12.7 N NEUTROPHIL [...] = BA#) 0.1 K/mm3 RBC MORPHOLOGY REQUIRED (aurelia t code = RBCM) NORMAL NORMAL PLATELET MORPHOLOGY REQUIRED (test code = PLTMR) NORMAL NORMAL LAB/MR WENT TO DRAW, PATIENT DIFFICULT STICK. WILL SENDANOTHER PHLEB TO TRY.AG HEPATITIS B [id number] 07:31:00* Test Item Value Reference Range Interpretation Comme nts AG HEPATITIS B SURFACE (test code = HBSAG) NONREACTIVE NONREACTIVE IS CONSENT FORM SIGNED FOR HIV TESTING? YAB HEPATITIS C [id number] 07:31:00* Test Item Value Reference Range Interpretation Comme nts AB HEPATITIS C (test code = HCVAB) NONREACTIVE NONREACTIVE SIGNAL TO CUTOFF (test code = CUTOFF) 0.11 <0.80 N IS CONSENT FORM SIGNED FOR HIV TESTING? YAB [id number] 07:31:00* Test Item Value Reference Range Interpretation Comme nts AB TREPONEMA (test code = TREPAB) NONREACTIVE NONREACTIVE IS CONSENT FORM SIGNED FOR HIV TESTING? YAB HIV 1 07:31:00* Test Item Value Reference Range Interpretation Comme nts AB HIV 1 2 (test code = [id number]) NONREACTIVE NONREACTIVE Done by [employer] 4[employer] HIV Ag/Ab Combo Screen IS CONSENT FORM SIGNED FOR HIV TESTING? YAG HEPATITIS B [id number] 07:04:00* Test Item Value Reference Range Interpretation Comme nts AG HEPATITIS B SURFACE (test code = HBSAG) NONREACTIVE NONREACTIVE IS CONSENT FORM SIGNED FOR HIV TESTING? YAB HEPATITIS C [id number] 07:04:00* Test Item Value Reference Range Interpretation Comme nts AB HEPATITIS C (test code = HCVAB) NONREACTIVE SIGNAL TO CUTOFF (test code = CUTOFF) <0.80 IS CONSENT FORM SIGNED FOR HIV TESTING? YAB [id number] 07:04:00* Test Item Value Reference Range Interpretation Comme nts AB TREPONEMA (test code = TREPAB) NONREACTIVE NONREACTIVE IS CONSENT FORM SIGNED FOR HIV TESTING? YAB HIV 1 07:04:00* Test Item Value Reference Range Interpretation Comme nts AB HIV 1 2 (test code = [id number]) NONREACTIVE IS CONSENT FORM SIGNED FOR HIV TESTING? YCBC W/AUTO [id number] 06:25:00* Test Item Value Reference Range Interpretation Comme [...] pg 27-35 N MEAN CELL HGB CONCETRATION ( test code = MCHC) 33.8 gm/dL 32.2-34.1 N RED CELL DISTRIBUTION WIDTH (test code = RDW) 13.2 % 12.4-16.5 N PLATELET COUNT (test code = PLT) 247 K/mm3 133-385 N MEAN PLATELET VOLUME (test c ode = MPV) 9.4 fl 9.1-12.7 N NEUTROPHIL % (test code = NT%) 71.6 [...] = BA#) 0.1 K/mm3 RBC MORPHOLOGY REQUIRED (aurelia t code = RBCM) NORMAL NORMAL PLATELET MORPHOLOGY REQUIRED (test code = PLTMR) NORMAL NORMAL COVID 19 Asymptomatic IH [id number] 05:19:00* Test Item Value Reference Range Interpretation Comme nts COVID 19 Asymptomatic IH AG (test code = COVNONPUIAG) NEGATIVE NEGATIVE This test has be en authorized only for the detection ofproteins from SARS-CoV-2, not for any other viruses orpathogens. Negative results should be treated as presumptive andconfirmed with a molecular assay, if necessary for patientmanagement. Negative results do not rule out COVID-19 andshould not be used as the sole basis for treatment orpatient management decisions, including infection controldecisions. Negative results should be considered in thecontext of a patient's recent exposures, history and thepresence of clinical signs and symptoms consistent withCOVID-19. This test has not been FDA cleared or approved; the test hasbeen authorized by FDA under an Emergency Use Authorization(EUA) for use by laboratories certified under the CLIA thatmeet the requirements to perform moderate, high or waivedcomplexity tests. This test is authorized for use at thePoint of Care (POC), i.e., in patient care settingsoperating under a CLIA Certificate of Waiver, Certificate ofCompliance, or Certificate of Accreditation. This test is only authorized for the duration of thedeclaration that circumstances exist justifying theauthorization of emergency use of in vitro diagnostic testsfor detection and/or diagnosis of COVID-19 under Efivykt987(b)(1) of the Act, 21 U.S.C. 360bbb-3(b)(1), unless theauthorization is terminated or revoked sooner. Chlamydia/GC [id number] 17:46:00* Test Item Value Reference Range Interpretation Comme nts Chlamydia trachomatis, PRAKASH ( test code = 163307) Negative Negative N Neisseria gonorrhoeae, PRAKASH ( test code = 261733) Negative Negative N HIV [id number] 21:56:00* Test Item Value Reference Range Interpretation Comme nts HIV 1/2 Antibody (test code = HIV1/2AB) Non-Reactive Non-Reactive N HIV1/2 Antibody screen result indicates the absence of HIV1 and KWO0yinlujbsm.However, A Non-Reactive screen result does not rule out exposure orinfection. If an acute infection is suspected, HIV RNA Quantitative is recommended. P24 Antigen (test code = P24) Non-Reactive Non-Reactive N P24 Ag screen re sult indicates the absence of P24 antigen, which is anindicator of HIV-1 acute infection.However, A Non-Reactive screen does not rule out exposure or infection.If acute HIV-1 is suspected, HIV RNA Quantitative is recommended. RPR, [id number] 13:36:00* Test Item Value Reference Range Interpretation Comme nts RPR (test code = RPR) Non-Reactive Non-Reactive N Thyroid Stimulating Hormone (TSH)2017-06-02 07:20:00* Test Item Value Reference Range Interpretation Comme nts TSH (test code = TSH) 1.46 mIU/mL 0.270-4.200 N Lipid [id number] 07:13:00* Test Item Value Reference Range Interpretation Comme nts Cholesterol (test code = CHOL) 148 mg/dL 0-200 N Triglycerides (test code = TRIG) 85 mg/dL 9-200 N HDL (test code = HDL) 42 mg/dL 50-60 L Chol/HDL (test code = CHOLPHDL) 3.5 Ratio 0.0-4.4 N LDL, Calculated (test code = LDLC) 89 0-130 N (NOTE)RISK OF HEART DISEASEPublished by [place] Heart AssociationAnalyte Optimal Boderline Increased RiskCHOL <200 200-239 >240TRIG <150 150-199 >200HDL Male: >60 <40HDL Female: >60 <50LDL <100 130-159 >160LDL NEAR OPTIMAL IS 100-129 VLDL (test code = VLDL) 17 mg/dL 5-40 N LDL/HDL (test code = LDLPHDL) 2 Comprehensive Metabolic [id number] 21:39:00* Test Item Value Reference Range Interpretation Comme nts Sodium (test code = NA) 139 mmol/L 135-145 N Potassium (test code = K) 3.8 mmol/L 3.5-5.1 N Chloride (test code = CL) 103 mmol/L 98-105 N Carbon Dioxide (test code = CO2) 26 mmol/L 22-29 N Glucose (test code = GLU) 95 mg/dL 70-115 N Blood Urea Nitrogen (test code = BUN) 11 mg/dL 6-20 N Creatinine (test code = CREAT) 0.8 mg/dL 0.5-0.9 N Calcium (test code = CA) 9.5 mg/dL 8.3-10.5 N Prot Total (test code = TP) 7.2 g/dL 6.4-8.3 N Albumin (test code = ALB) 4.6 g/dL 3.5-5.2 N A/G Ratio (test code = AGRATIO) 1.8 Ratio Globulin (test code = GLOB) 2.6 2.9-3.1 L Bili Total (test code = TBIL) 0.3 mg/dL 0.1-0.9 N Alk Phos (test code = APHOS) 61 U/L 35-104 N AST (test code = AST) 12 U/L 1-32 N ALT (test code = ALT) 11 U/L 1-33 N BUN/Creatinine Ratio (test code = BCRATIO) 13.8 Anion Gap (test code = AGAP) 10 mmol/L 7-16 N Estimated GFR (test code = GFR) >60 mL/min/1.73m2 eGFR (estimated Glomerular Filtration Rate) is an estimated value,calculated from the patient's serum creatinine using the MDRD equation.It is NOT the patient's actual GFR. The eGFR provides a more clinicallyuseful measure of kidney disease than serum creatinine alone.This calculation takes sex and race into account, if the informationis provided. If the race is not provided, and the patient isAfrican-[place], multiply by 1.212. If sex is not provided, and thepatient is female, multiply by 0.742. Results for patients <18 years ofage have not been validated by the MDRD study and should be interpretedwith caution.eGFR Result Interpretation:eGFR > or = 60 is in the Normal RangeeGFR < 60 may mean kidney diseaseeGFR < 15 may mean kidney failureRanges recommended by the National Kidney Foundation,http://nkdep .nih.gov Urinalysis [id number] 21:39:00* Test Item Value Reference Range Interpretation Comme nts Color (test code = COLOR) Yellow Yellow,Straw,Pl yellow N Clarity (test code = CLAR) Cloudy Clear A Specific [place] (test code = SPGR) 1.036 1.001-1.035 H pH (test code = PH) 6.5 5.0-9.0 N Ketone (test code = KET) 5 mg/dL Negative A Glucose (test code = GLUCUR) Negative mg/dL Negative N Protein (test code = PROT) Negative mg/dL Negative N Bilirubin (test code = BILI) See IctoTest mg/dL Negative A Occult Blood (test code = UDOB) Negative Negative N Urobilinogen (test code = UROB) 4.0 mg/dL 0.2-1.0 H Nitrite (test code = NIT) Negative Negative N Leuk Esterase (test code = LEUK) Negative Negative N Ictotest (test code = ICTOTEST) Confirmed Negative Negative,Confirmed Negative N Micros Exam (test code = MEXAM) Indicated Epithelial Cells (test code = EPI) 10-14 /LPF 0-30 A WBC, Urine (test code = UWBC) None seen /HPF 0-5 A RBC, Urine (test code = URBC) None Seen /HPF 0-5 A Amorph Deposit (test code = AMORD) Many /HPF Bacteria (test code = BACT) Moderate /HPF Alcohol/Ethanol, [id number] 21:37:00* Test Item Value Reference Range Interpretation Comme nts Alcohol, Ethyl (test code = ETOH) <0.01 g/dL 0.00-0.01 N Intoxicated 0 .080 g/dL or more BHCG, Serum, [id number] 21:37:00* Test Item Value Reference Range Interpretation Comme nts Preg Qual [Se] (test code = BSHCG) Negative Negative N [id number] 21:36:00* Test Item Value Reference Range Interpretation Comme nts Amphetamine (test code = AMPH) Negative Negative N For diagnostic p urposes only, positive results should always be assessedin conjunctionwith the patient's medical history,clinical examination and otherfindings.To fulfill legal requirements, a more specific alternate chemical methodmust be used inorder to obtain a Confirmed analytical result. GC/MS is the preferred confirmatory method. Barbiturates (test code = SAMY) Negative Negative N Benzodiazepine (test code = TRAVON) Negative Negative N Cocaine (test code = COCA) Negative Negative N Methadone (test code = MTHD) Negative Negative N Opiates (test code = OPIA) Negative Negative N PCP (test code = PCP) Negative Negative N Propoxyphene (test code = PROPOX) Negative Negative N THC (test code = THC) POSITIVE Negative A CBC with [id number] 21:33:00* Test Item Value Reference Range Interpretation Comme nts WBC (test code = WBC) 7.7 K/cumm [...] 11.5-14.5 N Platelet Count (test code = PLTCT) 303 K/cumm 140-440 N MPV (test code = MPV) 8.5 fL [...] code = ALYMPH) 3.3 K/cumm 0.5-4.6 N [place] Abs (test code = AMONO) 0.6 K/cumm 0.0-1.2 N Eos Abs (test code = AEOS) 0.17 K/cumm 0.00-0.74 N Baso Abs (test code = ABASO) 0.0 K/cumm 0.00-0.21 N BHCG, Urine, [id number] 14:05:00* Test Item Value Reference Range Interpretation Comme nts Preg Qual [Ur] (test code = HUHCG) Negative Negative N RPR, [id number] 16:02:00* Test Item Value Reference Range Interpretation Comme nts RPR (test code = RPR) Non-Reactive Non-Reactive N Thyroid Stimulating Hormone (TSH)2017-02-14 11:18:00* Test Item Value Reference Range Interpretation Comme nts TSH (test code = TSH) 0.55 mIU/mL 0.270-4.200 N Lipid Klwhtmv9465-62-93 11:11:00* Test Item Value Reference Range Interpretation Comme nts Cholesterol (test code = CHOL) 147 mg/dL 0-200 N Triglycerides (test code = TRIG) 79 mg/dL 9-200 N HDL (test code = HDL) 51 mg/dL 50-60 N Chol/HDL (test code = CHOLPHDL) 2.9 Ratio 0.0-4.4 N LDL, Calculated (test code = LDLC) 80 0-130 N (NOTE)RISK OF HEART DISEASEPublished by [place] Heart AssociationAnalyte Optimal Boderline Increased RiskCHOL <200 200-239 >240TRIG <150 150-199 >200HDL Male: >60 <40HDL Female: >60 <50LDL <100 130-159 >160LDL NEAR OPTIMAL IS 100-129 VLDL (test code = VLDL) 16 mg/dL 5-40 N LDL/HDL (test code = LDLPHDL) 2 Notes Date/Time Note Provider Source 2021-10-22 07:28:00 [id number] XYSjrKIUnuKukKXk9/U6jhtDZlbik sXfCKEu4MZm01XhoHXUrflwKpx7vue36340-52-31Z30:28:0 0 [facility] ([facility])OB Disch PostpartumREPORT#:[id number] REPORT STATUS: SignedDATE:10/22/21 TIME: 727 PATIENT: ETHEL GODINEZ UNIT #: [id number]#: [id number] ROOM/BED: 2045-ADOB: [birth year] AGE: 26 SEX: F ATTEND: Chidi Mojica [facility] AUTHOR: Deborah White MD * ALL edits or amendments must be made on the electronic/computer document * Subjective SubjectiveAdmission EGA: Weeks: 38 Days: 5EGA at delivery (wks/days): 38 weeksStatus/day: post (day 2)Patient reports: Patient reports: Yes: normal lochia, pain management effective, tolerating po well, voiding well, voiding without pain, tolerating ambulation, flatus. No: complaints, nausea, vomiting, excessive bleeding, abdominal pain, difficulty nursing, headache, blurred vision. Objective GeneralVS:Vital Signs Date Temp Pulse Resp B/P B/P Mean Pulse Ox FiO2 10/21 98.3-98.4 80-82 18-20 128-129/61-66 Last Documented: Result Date Time B/P 128/66 10/21 1700 Temp 98.3 10/21 1700 Pulse 82 10/21 1700 Resp 20 10/21 1700 B/P Mean 87.0 10/20 2302 Pulse Ox 100 10/20 1820 PATIENT WEIGHT: Weight (lb): 203Weight (oz): 7.79Weight (kg): 92.300 Physical ExamBreasts: Breasts: normalCardiac: normal rhythmLungs: clear to auscultationNeuro: Exam: alert, oriented x3, normal speech, normal gait DTR's (lower extr): normal 1-2+Uterus: involution appropriate, non-tenderLochia: normalLower extremities: Ira's sign: negative Calf tenderness: negative Discharge Summary GeneralAssessment: nml progressDate of admission:Date of admission: 10/20/21 Admission diagnosis: labor-spontaneousHospital course: spontaneous labor, spontaneous vag delivery, epidural anesthesiaDischarge to: Home/Self CareDischarge diagnosis: full-term uncomp deliveryBaby A: Vaginal delivery: spontaneous status: live born Gender: male 1 minute: 8 5 minutes: 9 Anomalies:none notedVaginal packing at delivery: No Discharge InstructionsDiet: Resume Home Diet/FeedsActivity: No [place] for 6 WksAdditional discharge routines: Attending Follow-UpDischarge meds:Continue taking these medications:IBUPROFEN (MOTRIN) 600 MG TAB 600 MILLIGRAM ORAL EVERY 6 HOURS NEEDED. as needed for MILD PAIN NOT RELIEVED BY TYL. Qty = 30 PNV WITH FE FUMARATE/FA () 1 EACH TAB 1 TABLET ORAL DAILY. Qty = 90 Start taking the following new medications:HYDROcodone/APAP (HYDROcodone/APAP 5/325) 5 MG-325 MG TAB 1 TABLET ORAL EVERY 4 HOURS NEEDED. as needed for Days = 10 Qty = 30 No Refills IBUPROFEN (MOTRIN) 600 MG TAB 600 MILLIGRAM ORAL EVERY 6 HOURS NEEDED. as needed for pain Qty = 60 Refills = 1 DOCUSATE SODIUM (COLACE) 100 MG CAP 100 MILLIGRAM ORAL TWICE DAILY. Days = 30 Qty = 60 Refills = 2 Consultation(s): Reason for consultation:repidural on request Add'l Follow-up AppointmentsAttending Physician: Attending Physician: Chidi Mojica MD Attending physician follow up timeframe: In 2-3 weeks at 1145 RPT #:[id number] OF REPORT CLClinical rtzu9615-90-34W09:28:00F.[id number] able for patient tpcdZCVAEYFDMKGHWJ7774-93-24T25:46:11 [facility] 2021-10-20 21:51:00 [id number] 7383yse+fbfGQZcnKYjS5Hv5X+YMA uErRPgPpAwjckJ7gDaDYgZOR8s6efxK9587-14-22I61:51:0 0 [facility] ([facility])OB Delivery NoteREPORT#:[id number] REPORT STATUS: SignedDATE:10/20/21 TIME: 2150 PATIENT: ETHEL GODINEZ UNIT #: [id number]#: [id number] [facility] AGE: 26 SEX: F ATTEND: Chidi Mojica AUTHOR: Chidi Mojica MD * ALL edits or amendments must be made on the electronic/computer document * OB Delivery Pre-deliveryGBS status: GBS status: negative Prophylaxis administered: noneNewborn evaluation at delivery: NRP certified personnelAdmission EGA: Weeks: 38 Days: 5EGA at delivery (wks/days): 38 weeksAdmission indication: at 38 weeks in labor with cervical change Blood Loss/DetailsBlood loss at delivery: <1K: no sx hypovol=no hemQBL at delivery (ml's): 200EBL at delivery (ml's): 200 Baby A InformationBaby A information Delivery date: 10/20/21 Delivery time: 2057 status: live born Wt of baby: not yet available Gender: male 1 minute: 8 5 minutes: 9 Presentation: vertex Anomalies:none notedABG details Baby A Cord blood gases: not collectedNuchal cord Baby A Nuchal cord: no Vaginal Delivery Vaginal DeliveryVaginal delivery: Labor: augmented Medications/Devices used: oxytocin Vaginal delivery: spontaneous Amniotic fluid: clear Anesthesia type: combined spinal/epidural Episiotomy: none Episiotomy repair: no, not applicable Laceration repair: no, not required Placenta: spontaneous, expressed, intact Post delivery meds used: oxytocin Count: correct, vag exam neg for sponges Vaginal packing: No Mother's condition: mother stable Infant's condition: infant stable in roomLacerations: Perineal laceration(s): 1st Degree (no lacerations) High vaginal laceration: noExtraction details OVD performed: no at 2155 RPT #:[id number] OF REPORT CLClinical qumt0966-41-85B26:51:00F.DSKB61945876-6523SRQoqhl able for patient epleOBVOKQGDDJYEBY0704-02-77E34:56:12 [facility] 2021-10-20 17:28:00 [id number] /ePQEIY+X9fthM89om+Kn6CS/0OWt p1W/LpNE2FkFeO2GydZaHWO0ozc7XDi3653-22-40N73:28:0 0 [facility] ([facility])Clinical NoteREPORT#:[id number] REPORT STATUS: SignedDATE:10/20/21 TIME: 1728 PATIENT: ETHEL GODINEZ UNIT #: [id number]#: [id number] ROOM[facility]BED: [facility]-ADOB: [birth year] AGE: 26 SEX: F [facility] AUTHOR: Chidi Mojica MD * ALL edits or amendments must be made on the electronic/computer document * Clinical NoteNote:She has had recent placement of epidural anesthetic some drops in blood pressurein symptoms. heart rate is bouncing around quite a bit but remaining within normal range with accelerations. My exam shows the cervix to be a tight 4cm 70% effaced vertex is still at -2. Artificially rupture membranes carried outat approximately 445 shows a return of clear amniotic fluid. We will get some oxytocin going as her labor mechanism is quite suspect at this time. I believe the heart rate is maintaining a primarily category one appearance at 1730 RPT #:[id number] OF REPORT CLClinical xlex8539-18-03Y66:28:00F.PLHH71270707-9821RBPhvzc able for patient qjfyJZSMEIZLDOUBZX6401-38-33R40:30:48 [facility] 2021-10-20 14:42:00 [id number] W1VHRkGp1wiUsT0x8hQQgw9zRhzbe 8OQuJr6MyKBlAvGkSLWKzVGbYdwk9sG0335-70-92M53:42:0 0 [facility] ([facility])OB Admission / H PREPORT#:[id number] REPORT STATUS: SignedDATE:10/20/21 TIME: 144 PATIENT: ETHEL GODINEZ UNIT #: [id number]#: [id number] [facility]-BDOB: [birth year] AGE: 26 SEX: F ATTEND: Chidi Mojica AUTHOR: Chidi Mojica MD * ALL edits or amendments must be made on the electronic/computer document * OB HistoryChief complaint: uterine contractionsHPI:26 y/0 Ab2 now 38 5/7 weeks presents with uterine contractions and cervical changePregnancy history: : 6 Term: 3 : 0 Abortus: 2 Living children: 3 Complications (prev preg): none Previous : none Comments:Prior x 3, 5#-6#6ozCurrent : Best EDC: 10/29/21 Admission EGA (weeks) 39 Admission EGA (days) 5 EDC based on: LMP, ultrasound, 1st trimester, ultrasound, 2nd trimester Progesterone for PTB: no: reason:Conditions of : anemiaLabs: Blood type: A Rh: positive Rubella: non-immune Hepatitis B: negative HIV: negative STD: negative Syphilis: currently negative GBS: negativeProcedures: ultrasound, genetic testingGenetic testing: chromosomal disorder, Down syndrome, Fragile X, neural tube defect, sickle cell disease, thalassemiaNotes:Glucose screenj 87mg%, NIPT negative (male), Past HistoryPast Medical History:Denies: Alcoholism/subst abuse. Additional Medical History:Denies significant medical historyAdditional Surgical History:Denies surtgical historyAdditional Family HistoryDenies significant family historyAlcohol Use Denies EtOH useDrug Use Denies recreational drugsSmoking status: Smoking status for patients 13 years old or older: Never SmokerMedications:Home Medications:IBUPROFEN (MOTRIN) 600 MG PO Q6H PRN PRN MILD PAIN NOT RELIEVED BY TYL. PNV WITH FE FUMARATE/FA () 1 TAB PO DAILY Allergies:Coded Allergies:No Known Allergies (03/05/17) Objective GeneralVS:Last Documented: Result Date Time B/P Mean 97.0 10/20 1043 B/P 136/73 10/20 1043 Pulse 84 10/20 1043 Vital Signs Date Temp Pulse Resp B/P B/P Mean Pulse Ox FiO2 10/20 84 136/73 97.0 PATIENT WEIGHT: Weight (lb): 203Weight (oz): Weight (kg): 92.088933 Physical ExamHEENT: normocephalic w/o injury, no lesions of mouth, no lesions of throatCardiac: regular rate and rhythm, no clinically sig murmurLungs: clear to auscultationBreasts: deferredNeuro: Exam: alert, oriented x3, normal speech, normal gait DTR's (lower extr): normal 1-2+Abdomen: gravid, soft, no abnormal tenderness, obesity limits examUterine activity: Monitor: toco Frequency (description): irregular Duration (seconds): 50 Intensity: moderate Resting tone: relaxed Tachysystole: NoPelvic exam: Pelvis clinically adequate: yes Vulvar lesions: none Vagina: normal Uterus size in weeks: 38 Exam: soft, non-tender, approp size for gest ageCervical/ exam: Dilatation (cm): 4 Effacement (%): 50 Suspected macrosomia: No Suspected > 5000 grams: No station: - 2 presentation: cephalicMembranes: Membranes: IntactLower extremities: Ira's sign: negative Calf tenderness: negativeAdditional comments:Observed in the MAC showing persistent contractions and cervical changeBaby A: Baby A baseline: 130 bpm Baby A variability: moderate 6-25 bpm Baby A accelerations: 15 X 15 Baby A decelerations: none Baby A FHR category: category 1 ResultsFindings/Data:Laboratory Tests: 10/20 10/20 1406 1340 Hematology WBC (6.5 - 12.3 K/mm3) 14.5 H RBC (3.51 - 4.69 M/mm3) 3.67 Hgb (10.1 - 13.8 g/dL) 11.2 Hct (32.5 - 41.8 %) 33.0 MCV (84.6 - 96.6 fL) 89.9 MCH (27.3 - 33.9 pg) 30.5 MCHC (32.0 - 34.2 gm/dL) 33.9 RDW (12.2 - 16.3 %) 14.3 Plt Count (134 - 363 K/mm3) 234 MPV (9.2 - 12.7 fL) 9.2 Neut % (Auto) (57.9 - 77.3 %) 70.5 Lymph % (Auto) (14.5 - 29.7 %) 18.9 [place] % (Auto) (3.6 - 10.2 %) 7.3 Eos % (Auto) (0.0 - 3.0 %) 2.0 Baso % (Auto) (0.1 - 0.9 %) 0.3 Neut # (Auto) (K/mm3) 10.2 Lymph # (Auto) (K/mm3) 2.7 [place] # (Auto) (K/mm3) 1.1 Eos # (Auto) (K/mm3) 0.29 Baso # (Auto) (K/mm3) 0.0 Serology SARS-CoV-2 Ag (Rapid) (NEGATIVE) NEGATIVE Results: no new labs, labs reviewed, vital signs reviewed, vital signs stable Diagnosis, Assessment Plan Diagnosis, Assessment PlanFree Text A P:26 y/o at 39 weeks presents with persistent contractions, apparent cervical change. Assessment/Impression: spont.active labor>39 wks, latent labor phase, normal FHRpatternPlan: admit to inpatient, augmentation of labor, deliveryConsultation(s): Reason for consultation:repidural on requestPlan discussed with: patient, spouse/partner, nurse at 1501 RPT #:[id number] OF REPORT HPHistory and physical xenndoororb6382-02-57T94:42:00F.[id number] AVAvailable for patient ibguKJQLLTWOMNNZCR2276-20-79K74:01:31 [facility] 2020-02-05 17:05:00 [id number] t5iKZk2HiV3vFj73qhXisRXNngkPf z8jKMjbWYStPWceGna7LRGYPdtuFfM6KEj3899-06-85Y38:0 5:00 [facility] ([facility])OB Postpart Progr NoteREPORT#:[id number] REPORT STATUS: SignedDATE:02/05/20 TIME: 1705 PATIENT: ETHEL GODINEZ UNIT #: [id number]#: [id number] ROOM/BED: 2031-ADOB: [birth year] AGE: 24 SEX: F ATTEND: Ashely Jackson DOADM AUTHOR: Ashely Jackson DO * ALL edits or amendments must be made on the electronic/computer document * Subjective SubjectiveAdmission EGA: Weeks: 38 Days: 6EGA at delivery (wks/days): 38 weeks (6 days)Status/Day: post (day 1)Patient reports: Patient reports: Yes no complaints, Yes normal lochia, Yes pain management effective, Yes tolerating po well, Yes voiding well, Yes voiding without pain, Yes tolerating ambulation, Yes flatus, No bowel movement, No nausea, No vomiting, No excessive bleeding, No abdominal pain, No headacheComments:Seen and examined at 1300 today. Found to be seated upright in bed, about to nurse infant. No complaints overnight. CBC obtained and leukocytosis still appreciated, however pt remains asymptomatic. Is requesting DC home today.Admits she has dental issues and potential abscesses in crowns, was unable to obtain repairs by dentist while , but denies any pain currently. No fever, chills, foul smelling lochia, dysuria, CP / SOB / dyspnea or calf tenderness. Objective Nursing Documentation ReviewNursing Data:The data set between the solid lines has been imported from nursing documentation. Any exceptions have been noted below under Provider comments. Feeding preference: Provider comments on imported nursing data: [] GeneralVS:Vital Signs: Date Time Temp Pulse Resp B/P B/P Pulse O2 O2 Flow FiO2 Mean Ox Delivery Rate 02/05 832 98.3 81 20 133/69 02/03 2344 97.9 92 20 123/75 02/03 2344 97.9 92 20 123/75 91.1 02/03 2122 98.6 88 18 02/03 2040 106.0 02/03 2040 86 134/90 02/03 2010 92.0 02/03 2010 86 130/68 02/03 1940 90.0 02/03 1940 85 128/64 02/03 1910 83.0 02/03 1910 98.7 86 115/61 02/03 1841 105.0 02/03 1841 84 132/87 02/03 1811 75.0 02/03 1811 78 103/58 02/03 1733 81.0 02/03 1733 83 115/56 02/03 1719 84.0 02/03 1719 88 120/60 Patient Weight Weight (lb): Weight (oz): Weight (kg): 83.915 Physical ExamBreasts: Breasts: non-tender, soft Flow: colostrum Nipples: intact Feeding: breast Nursing: wellLungs: aerating well, no distressNeuro: Exam: alert, oriented x3, normal speech, CNII-XII grossly intactAbdomen: soft, no abnormal tenderness, no guardingIncision site: noneUterus: firm, involution appropriate, non-tenderFundus: firm, below the umbilicus, non-tenderLochia: normalLacerations: Perineal laceration(s): NoneLower extremities: Edema: trace Calf tenderness: negative ResultFindings/Data:Laboratory Tests: 02/04 0804 Hematology WBC (6.6 - 12.1 K/mm3) 18.3 H RBC (3.45 - 5.01 M/mm3) 3.47 Hgb (10.7 - 13.9 g/dL) 10.9 Hct (32.1 - 42.1 %) 32.4 MCV (84.1 - 94.8 fL) 93 MCH (27 - 35 pg) 31.4 MCHC (32.2 - 34.1 gm/dL) 33.6 RDW (12.4 - 16.5 %) 13.2 Plt Count (133 - 385 K/mm3) 223 MPV (9.1 - 12.7 fl) 9.6 Neut % (Auto) (56.5 - 79.4 %) 73.1 Lymph % (Auto) (14.3 - 34.3 %) 15.1 [place] % (Auto) (5.1 - 10.4 %) 8.6 Eos % (Auto) (0.1 - 3.0 %) 1.5 Baso % (Auto) (0.1 - 1.0 %) 0.3 Neut # (Auto) (K/mm3) 13.4 Lymph # (Auto) (K/mm3) 2.8 [place] # (Auto) (K/mm3) 1.6 Eos # (Auto) (K/mm3) 0.27 Baso # (Auto) (K/mm3) 0.1 Results: labs reviewed, vitl signs stable Diagnosis, Assessment Plan Diagnosis, Assessment PlanAssessment: nml progress, Leukocytosis, stable, asymptomatic for infection - most likely secondary to dental abscessPlan: routine care, discharge today (if cleared)Plan discussed with: patient, nurse at 1710 RPT #:[id number] OF REPORT PRProgress Zheq0502-92-98V67:05:00F.YOLP11635579-1084ALYdujj able for patient xdqmYOPXJQDWBFTEOZ4056-21-88E40:10:26 [facility] 2020-02-04 16:50:00 RWvldrxfqei18001305Q ZgDTfAeBVRhVgfTmHwuC/WRbUDHBZ 36pca0cP3R1J7lXhO2fJUxIGpLK7K4fipO0643-55-68Z53:5 0:00 [facility] ([facility])OB Delivery NoteREPORT#:[id number] REPORT STATUS: SignedDATE:02/04/20 TIME: 1650 PATIENT: ETHEL GODINEZ UNIT #: [id number]#: [id number] ROOM/BED: [facility]-ADOB: [birth year] AGE: 24 SEX: F ATTEND: Ashely Jackson DOADM AUTHOR: Ashely Jackson DO * ALL edits or amendments must be made on the electronic/computer document * OB Delivery Nursing Documentation ReviewNursing data:The data set between the solid lines has been imported from nursing documentation. Any exceptions have been noted below under Provider comments. ROM date: 02/04/20 ROM time: 0300Membranes rupture method: SROMAmniotic fluid color: ClearAmniotic fluid amount: Steroids prior to arrival: Antibiotic prophylaxis given: [place] evaluation at delivery: Delivery date A: Delivery time infant A: Birthweight (gm) infant A: Weight (lb) A: Weight (oz) infant A: Gender infant A: FemaleApgar 1 minute infant A: 5 minutes infant A: 10 minutes A: Cord pH obtained A: Vacuum time A: Vacuum # pulls infant A: Vacuum # popoffs infant A: QBL at delivery: Provider comments on imported nursing data: [] Pre-deliveryGBS status: GBS status: negativeMeds prior to delivery: betamethasone (@ 35 wks)[place] evaluation at delivery: NRP certified personnelAdmission EGA: Weeks: 38 Days: 6EGA at delivery (wks/days): 38 weeks (6 days) Steroids Prior to DeliverySteroids prior to delivery: yes, delivery at 38 wks Baby A InformationBaby A information Delivery date: 02/04/20 Delivery time: 1627 status: live born Wt of baby: not yet available Gender: female 1 minute: 8 5 minutes: 9 Presentation: vertex Anomalies:none notedABG details Baby A Cord blood gases: not collectedNuchal cord Baby A Nuchal cord: no Anomalies:none notedAdditional comments:cord clamping delayed x60 sec Vaginal DeliveryVaginal delivery: Labor: spontaneous Vaginal delivery: spontaneous Amniotic fluid: clear Anesthesia type: epidural anesthesia Episiotomy: none Episiotomy repair: not applicable Laceration repair: not required Placenta: expressed, intact Post delivery meds used: oxytocin Count: correct, vag exam neg for sponges Vaginal packing: No Mother's condition: mother stable Infant's condition: infant stable in roomLacerations: Perineal laceration(s): NoneExtraction details OVD performed: noManeuver(s): Action: Sophie maneuverShoulder dystocia present: no Blood Loss/DetailsBlood loss at delivery: <1000 mlEBL at delivery (ml's): 250 at 1654 RPT #:[id number] OF REPORT OBObstetric jerv4973-16-82U74:50:00F.JKQD93158979-4142QAJnxyw able for patient nyohBQPVWJVHBKENQU3596-98-02O95:54:58 [facility] 2020-02-04 11:52:00 VFlvyegjvej33042068i okppfvCCVVjJJV9rh61FiX7FOfnlS OO2pmGh6M5Jb1Qdw45kPAgtogC6ndsBFyl8332-98-00X63:5 2:00 [facility] ([facility])Clinical NoteREPORT#:[id number] REPORT STATUS: SignedDATE:02/04/20 TIME: 1152 PATIENT: ETHEL GODINEZ UNIT #: [id number]#: [id number] ROOM/BED: [facility]-ADOB: [birth year] AGE: 24 SEX: F ATTEND: Ashely Jackson DOADM AUTHOR: Ashely Jackson DO * ALL edits or amendments must be made on the electronic/computer document * Clinical NoteNote:Pt seen and examined with nurse and FOB at bedside at 1100. Pt found to be resting comfortably in bed with epidural. VSS FHR Cat I with baseline 130s, mod shivani, +accels, no decels, ctx irregVE: /-2, no forebag palpated (SROM @ 0330) A/P: @ 38.6 wks, in active laborSROM, asymptomatic for infection, though leukocytosis appreciated (17)- Expectant management and augmentation with Pitocin prn- Anticipate at 1155 RPT #:[id number] OF REPORT CLClinical jall4783-77-22T84:52:00F.IBJT24840066-7441HWAokou able for patient bwsiYNYOXIFLIBLSWG8742-25-78C24:56:08 [facility] 2020-02-04 09:33:00 ZJsfjaysgrq66098266R K//YpbAsr7RGsxtEi+1qQC0bul+Nu 6yZJaafKnJQN+QlCfDmuH/3hVdvRUJMrq45786-34-06O05:3 3:00 [facility] ([facility])OB Admission / H PREPORT#:[id number] REPORT STATUS: SignedDATE:02/04/20 TIME: 932 PATIENT: ETHEL GODINEZ UNIT #: [id number]#: [id number] [facility]: 24 SEX: F ATTEND: Ashely Jackson DOADM AUTHOR: Ashely Jackson DO * ALL edits or amendments must be made on the electronic/computer document * OB History Nursing Documentation ReviewNursing data:The data set between the solid lines has been imported from nursing documentation. Any exceptions have been noted below under Provider comments. Current dataSteroids prior to arrival: ROM date: 02/04/20 ROM time: 299 EDC date: 02/12/20 Prior historyGravida: 6 Para: 2 Term: : Abortions spontaneous: Abortions induced: Living children: Ectopic: Stillbirths: Live births: deaths: Number of previous C/S: Reported maternal labs/dataBlood type: ARh type: PositiveRubella: Hepatitis B: NegativeHIV exposure test: VDRL: Group B beta strep: Done, result unknownRho(D) immune globulin this preg: Monitor mode - UA: Feeding preference: Provider comments on imported nursing data: [] Chief complaint: suspected ruptured membHPI:24 y/o @ 38.6 wks presents for SROM, confirmed to have +amnisure, is admitted for active labor. history: : 6 Term: 2 : 0 Abortus: 3 Living children: 2 Complications (prev preg): none Previous : noneCurrent : Best EDC: 02/12/20 Admission EGA (weeks) 38 Admission EGA (days) 6 EDC based on: LMP (c/w 10 wk scan) Steroids prior to delivery: yes, delivery at 38 wksLabs: Blood type: A Rh: positive Rubella: non-immune Hepatitis B: negative HIV: negative STD: negative Syphilis: currently negative GBS: negativeProcedures: ultrasoundPast medical history: denies PMHPast surgical history: denies PSHSocial history: , no alcohol use, no tobacco use, no drug useFamily historyRelation not specified for: Family History: Unremarkable Medications:Home Medications:PNV WITH FE FUMARATE/FA () 1 TAB PO DAILY AllergiesCoded Allergies:No Known Allergies (03/05/17) Review of SystemsAll systems rev neg: except as marked Objective GeneralVS:Last Documented: Result Date Time B/P Mean 81.0 02/03 0848 B/P 110/63 02/03 0848 Pulse 74 02/03 0848 Temp 98.0 02/03 0749 Resp 18 02/03 0514 Vital Signs Date Temp Pulse Resp B/P B/P Mean Pulse Ox FiO2 02/03 98.0-98.2 71-91 18 106-132/54-91 76.0-102.0 Patient Weight Weight (lb): Weight (oz): Weight (kg): 83.915 Physical ExamHEENT: normocephalic w/o injuryCardiac: no clinically sig murmurLungs: unlabored breathingBreasts: deferredNeuro: Exam: alert, oriented x3, normal speech, CNII-XII grossly intactAbdomen: gravid, soft, no abnormal tendernessMusculoskeletal: normal inspectionUterine activity: Monitor: toco Frequency (description): irregular Frequency (minutes): 5 Duration (seconds): 45 Intensity: mild Resting tone: relaxedPelvic exam: Pelvis clinically adequate: yes, inlet appears appropriate, pubic bone configappropr, no midpelvic contraction Vulvar lesions: none, no evidence herpetic les, no evidence of other STD Vagina: normal, non-septated, w/o apparent lesions Uterus size in weeks: 39 Exam: soft, non-tender, approp size for gest ageCervical/ exam: Dilatation (cm): 5 Effacement (%): 80 Est wt (gms): 3000 Suspected macrosomia: No Suspected > 5000 grams: No station: - 3 presentation: cephalicMembranes: Membranes: SROM ROM date: 02/04/20 ROM time: 0330 Amniotic fluid: clear Odor: none Amount: moderateLower extremities: Edema: trace Calf tenderness: negativeBaby A: Baby A baseline: 130 bpm Baby A variability: moderate 6-25 bpm Baby A accelerations: 15 X 15 Baby A decelerations: none Baby A FHR category: category 1 ResultFindings/Data:Laboratory Tests: 02/03 02/03 0554 0440 Hematology WBC (6.6 - 12.1 K/mm3) 17.3 H RBC (3.45 - 5.01 M/mm3) 3.75 Hgb (10.7 - 13.9 g/dL) 11.7 Hct (32.1 - 42.1 %) 34.6 MCV (84.1 - 94.8 fL) 92 MCH (27 - 35 pg) 31.2 MCHC (32.2 - 34.1 gm/dL) 33.8 RDW (12.4 - 16.5 %) 13.2 Plt Count (133 - 385 K/mm3) 247 MPV (9.1 - 12.7 fl) 9.4 Neut % (Auto) (56.5 - 79.4 %) 71.6 Lymph % (Auto) (14.3 - 34.3 %) 17.4 [place] % (Auto) (5.1 - 10.4 %) 8.1 Eos % (Auto) (0.1 - 3.0 %) 0.9 Baso % (Auto) (0.1 - 1.0 %) 0.3 Neut # (Auto) (K/mm3) 12.4 Lymph # (Auto) (K/mm3) 3.0 [place] # (Auto) (K/mm3) 1.4 Eos # (Auto) (K/mm3) 0.16 Baso # (Auto) (K/mm3) 0.1 Serology Treponema pallidum Ab (NONREACTIVE) NONREACTIVE Hep Bs Antigen (NONREACTIVE) NONREACTIVE Hepatitis C Antibody (NONREACTIVE) NONREACTIVE Hep C Ab Signal/Cutoff (<0.80) 0.11 HIV 1 2 Antibody (NONREACTIVE) NONREACTIVE SARS-CoV-2 Ag (Rapid) (NEGATIVE) NEGATIVE Results: labs reviewed, vital signs stable Diagnosis, Assessment Plan Diagnosis, Assessment PlanAssessment/Impression: spont.active labor<39 wks, reassuring status, no evidence of infection (Leukocytosis)Plan: augmentation of labor, delivery at 1137 RPT #:[id number] OF REPORT HPHistory and physical [id number]:33:00F.[id number] AVAvailable for patient [id number]:37:47 [facility] 2017-07-03 10:15:46 [id number]/[id number] RdYkGk7EThcMcJN2bDBSY+[id number]:15:46 [facility] Discharge SummaryPATIENT NAME: ETHEL GODINEZ PHYSICIAN: Tavia Virk MD Admitted: MR NUMBER: [id number] DISCHARGED: 06/15/2017 02:37:00 ATTENDING PHYSICIAN:Jose Donohue MD.REASON FOR ADMISSION:Ms. Ethel Godinez is a 21-year-old female with past psychiatric history of self-reported bipolar 1 disorder and schizophrenia, who was brought into intake at [facility] by her family for a "breakdown. She was having auditory hallucinations per her family.FINAL DIAGNOSES:AXIS I: 1. Bipolar disorder type 1, most recent episode depressed with psychotic features. 2. Generalized anxiety disorder, severe.AXIS II:None.AXIS III:History of herniated disk, low back pain.AXIS IV:Graduated high school, some college, homeless, unemployed.PRINCIPAL PROCEDURES:Psychopharmacotherapy.SPECIAL PROCEDURES:None.HOSPITAL COURSE:Ms. Ethel Godinez is a 21-year-old female who was admitted to Dr. Donohue's team from 06/02/2017 to 06/15/2017. The patient was on unit restrictions along with elopement and standard PICU precautions. The patientwas started on standard p.r.n. Vistaril and trazodone for anxiety and insomnia respectively. She was also started on Latuda, which was titrated toa final dose of 100 mg daily with lunch. Her Vistaril was increased to 100 mg q. 6 hours p.r.n. anxiety. Due to continued psychotic symptoms, Risperdal was briefly tried, but the patient complains that it made her body sore and did not seem to help her paranoia and auditory or visual hallucinations, so Risperdal was discontinued. She was also tried on BuSpar 10 mg t.i.d. with no reported relief of anxiety. Her trazodone was eventually titrated to 200 mg at bedtime for insomnia. She was later started on gabapentin, which was titrated to 900 mg t.i.d., both for anxiety and due to low back pain from herniated disk. Due to stabilization of previous manic episode on last admission as well as continued severe anxiety symptoms, she was started on Prozac 20 mg daily; however, she attributed headaches to Prozac, so this was switched to Paxil 20 mg daily. [facility]; however, on day of discharge, the patient stated that she called her aunt who said she could live with her, [facility] Discharge SummaryPATIENT NAME: ETHEL GODINEZ PHYSICIAN: Tavia Virk MD Admitted: MR NUMBER: [id number] DISCHARGED: 06/15/2017 02:37:00 ATTENDING PHYSICIAN:Jose Donohue MD.REASON FOR ADMISSION:Ms. Ethel Godinez is a 21-year-old female with past psychiatric history of self-reported bipolar 1 disorder and schizophrenia, who was brought into intake at [facility] by her family for a "breakdown. She was having auditory hallucinations per her family.FINAL DIAGNOSES:AXIS I: 1. Bipolar disorder type 1, most recent episode depressed with psychotic features. 2. Generalized anxiety disorder, severe.AXIS II:None.AXIS III:History of herniated disk, low back pain.AXIS IV:Graduated high school, some college, homeless, unemployed.PRINCIPAL PROCEDURES:Psychopharmacotherapy.SPECIAL PROCEDURES:None.HOSPITAL COURSE:Ms. Ethel Godinez is a 21-year-old female who was admitted to Dr. Donohue's team from 06/02/2017 to 06/15/2017. The patient was on unit restrictions along with elopement and standard PICU precautions. The patientwas started on standard p.r.n. Vistaril and trazodone for anxiety and insomnia respectively. She was also started on Latuda, which was titrated toa final dose of 100 mg daily with lunch. Her Vistaril was increased to 100 mg q. 6 hours p.r.n. anxiety. Due to continued psychotic symptoms, Risperdal was briefly tried, but the patient complains that it made her body sore and did not seem to help her paranoia and auditory or visual hallucinations, so Risperdal was discontinued. She was also tried on BuSpar 10 mg t.i.d. with no reported relief of anxiety. Her trazodone was eventually titrated to 200 mg at bedtime for insomnia. She was later started on gabapentin, which was titrated to 900 mg t.i.d., both for anxiety and due to low back pain from herniated disk. Due to stabilization of previous manic episode on last admission as well as continued severe anxiety symptoms, she was started on Prozac 20 mg daily; however, she attributed headaches to Prozac, so this was switched to Paxil 20 mg daily. The patient was initially planning to discharge to [facility], a women's care home; however, on day of discharge, the patient stated that she called her aunt who said she could live with her,Patient Name: ETHEL GODINEZ the patient was discharged to her aunt's home in [place] and thus she wouldbe able to followup with [facility]. She was future oriented, making statements such as looking forward to getting back on my feet and trying to get a new job and transitioning into her own apartment after living with her aunt.LABORATORY DATA:Chlamydia and gonorrhea PRAKASH was negative. HIV rapid was nonreactive Fasting lipid panel: Cholesterol 148, triglycerides 85, HDL 42, LDL 89, VLDL 17. TSH 1.46. RPR nonreactive. CBC: WBC 7.7, hemoglobin 12.6, MCV 85.7. CMP: Creatinine 0.8, AST 12, ALT 11. Serum is negative. Blood alcohol level was 0. UDS was positive for THC.DRUG REACTIONS:None.DISCHARGE MEDICATIONS: 1. Latuda 100 mg daily with lunch. 2. Gabapentin 900 mg t.i.d. 3. Trazodone 200 mg at bedtime. 4. Vistaril 100 mg q. 6 hours p.r.n. anxiety. 5. Paxil 20 mg daily.PHYSICAL ACTIVITY:As tolerated. Do not drive after taking Latuda, gabapentin, trazodone, Vistaril, Paxil.DIET RESTRICTIONS:None.FOLLOWUP:The patient has followup appointment scheduled with [facility] in [place] on 06/18/2017 at 8:[address] Ellison. She has been given specific instructions on how to get to the appointment.Ms. Ethel Godinez is currently stable and tolerating all her medications. The patient's prognosis is fair as she has a history of noncompliance. However, if she is able to be compliant with her psychotropic medications andconsistent with her outpatient followup, she should do very well. She has also been encouraged to abstain from illicit drug use and not to discontinue any of her psychotropic medications without the guidance of her outpatient psychiatrist. The patient has been instructed to continue the treatment plan. She was discharged on and to followup with [facility] on 06/18/2017. The patient has also met with her social and human services assistant to obtain the appropriate followup paperwork. The importance of following through with thisplan has been reviewed with the patient with the understanding that Patient Name: ETHEL GODINEZ the patient was discharged to her aunt's home in [place] and thus she wouldbe able to followup with [facility]. She was future oriented, making statements such as looking forward to getting back on my feet and trying to get a new job and transitioning into her own apartment after living with her aunt.LABORATORY DATA:Chlamydia and gonorrhea PRAKASH was negative. HIV rapid was nonreactive Fasting lipid panel: Cholesterol 148, triglycerides 85, HDL 42, LDL 89, VLDL 17. TSH 1.46. RPR nonreactive. CBC: WBC 7.7, hemoglobin 12.6, MCV 85.7. CMP: Creatinine 0.8, AST 12, ALT 11. Serum is negative. Blood alcohol level was 0. UDS was positive for THC.DRUG REACTIONS:None.DISCHARGE MEDICATIONS: 1. Latuda 100 mg daily with lunch. 2. Gabapentin 900 mg t.i.d. 3. Trazodone 200 mg at bedtime. 4. Vistaril 100 mg q. 6 hours p.r.n. anxiety. 5. Paxil 20 mg daily.PHYSICAL ACTIVITY:As tolerated. Do not drive after taking Latuda, gabapentin, trazodone, Vistaril, Paxil.DIET RESTRICTIONS:None.FOLLOWUP:The patient has followup appointment scheduled with [facility] in [place] on 06/18/2017 at 8:[address] Ellison. She has been given specific instructions on how to get to the appointment.Ms. Ethel Godinez is currently stable and tolerating all her medications. The patient's prognosis is fair as she has a history of noncompliance. However, if she is able to be compliant with her psychotropic medications andconsistent with her outpatient followup, she should do very well. She has also been encouraged to abstain from illicit drug use and not to discontinue any of her psychotropic medications without the guidance of her outpatient psychiatrist. The patient has been instructed to continue the treatment plan. She was discharged on and to followup with [facility] on 06/18/2017. The patient has also met with her social and human services assistant to obtain the appropriate followup paperwork. The importance of following through with thisplan has been reviewed with the patient with the understanding that Patient Name: ETHEL GODINEZ will be crucial to her recovery. She has been given information about [facility] so she can obtain therapy. The patient has alsobeen given the [facility] hotline, which [phone].Heike Pham MDLC/SIVDD: 07/02/2017 17:33TD: 07/02/2017 19:35Job #: [id number]:Jose Donohue MDPatient Name: ETHEL GODINEZ will be crucial to her recovery. She has been given information about [facility] so she can obtain therapy. The patient has alsobeen given the [facility] hotline, which [phone].Heike Pham MDLC/KAELYNDD: 07/02/2017 17:33TD: 07/02/2017 19:35Job #: [id number]:Jose Donohue MDElectronically Authenticated by:Jose Donohue MD On 07/03/2017 10:15 AM CSTDSDischarge [id number] for patient [id number]:15:46 [facility] 2017-06-14 10:34:31 [id number] [id number] Eliceo/uQ3Zr9F/9wkX7ZjSvEQ7567-10-06C52:34:31 [facility] Psych EvalPATIENT NAME: GRETCHENETHEL PHYSICIAN: Shae Singh MD Admitted: MR NUMBER: [id number] DISCHARGED: Psych EvalPatient Name: ETHEL GODINEZ Date ofService: Date of : 1995Clinician: Shae Durand User Field 1: Nancy Lopez Visit: B4J User Field 3: JRcandi Donohue [facility] CITYlinician:ATTENDING:Jose Donohue MD.DATE OF ADMISSION:06/02/2017.INFORMANT:The patient, [facility] medical records.CHIEF COMPLAINT:"I've been feeling down."HISTORY OF PRESENT ILLNESS:The patient is a 21-year-old female with past psychiatric history of self-reported bipolar 1 disorder and schizophrenia disorder, who was brought into intake at [facility] by her family for a "breakdown." She was having auditory hallucinations per family. She says that she has been hearing voices for the past 2 weeks. She describes 3 distinct voices in her head and they talk to each other and ask her questions. She feels anxious about hearing voices other people can hear. She says she is also seeing shapes move across the room and on the floor, butthat they are fleeting. She has also been feeling paranoid and that she feels unsafe and does not know why. She has previously been treated with Zyprexa and Risperdal; however, stopped taking her medication after feeling loopy when the medication was increased or changed. Upon screening for depression, she endorses depressed mood for at least the past 2 weeks as wellas difficulty falling and staying asleep, anhedonia, feelings of guilt, decreased energy, decreased concentration, and decreased appetite. In the past, there was a 2-week period in which she describes elevated mood, stayingup all night and not feeling tired, decreased need for food and feeling like a prophet or that she was chosen for something. She was hospitalized at [facility] during that time. She also heard voices during her hospitalization and was unsure if she was or alive. She states that she only hears voices when she is feeling manic or depressed. She also says that she has had some panic attacks in the past, but does not feel anxious about having another panic attack.PAST PSYCHIATRIC HISTORY:The patient has been to [facility] one previous time where she was diagnosed with substance-induced psychotic disorder versus prodrome for schizophrenia. [facility] Psych EvalPATIENT NAME: GRETCHENETHEL Kevyn PHYSICIAN: Shae Singh MD Admitted: MR NUMBER: [id number] DISCHARGED: Psych EvalPatient Name: GRETCHEN ETHEL C. Date ofService: Date of : 1995Clinician: Shae Durand User Field 1: MD JessicaEncounter Visit: B4J User Field 3: RANI Tannerlinician:ATTENDING:Jose Donohue MD.DATE OF ADMISSION:06/02/2017.INFORMANT:The patient, [facility] medical records.CHIEF COMPLAINT:"I've been feeling down."HISTORY OF PRESENT ILLNESS:The patient is a 21-year-old female with past psychiatric history of self-reported bipolar 1 disorder and schizophrenia disorder, who was brought into intake at [facility] by her family for a "breakdown." She was having auditory hallucinations per family. She says that she has been hearing voices for the past 2 weeks. She describes 3 distinct voices in her head and they talk to each other and ask her questions. She feels anxious about hearing voices other people can hear. She says she is also seeing shapes move across the room and on the floor, butthat they are fleeting. She has also been feeling paranoid and that she feels unsafe and does not know why. She has previously been treated with Zyprexa and Risperdal; however, stopped taking her medication after feeling loopy when the medication was increased or changed. Upon screening for depression, she endorses depressed mood for at least the past 2 weeks as wellas difficulty falling and staying asleep, anhedonia, feelings of guilt, decreased energy, decreased concentration, and decreased appetite. In the past, there was a 2-week period in which she describes elevated mood, stayingup all night and not feeling tired, decreased need for food and feeling like a prophet or that she was chosen for something. She was hospitalized at [facility] during that time. She also heard voices during her hospitalization and was unsure if she was or alive. She states that she only hears voices when she is feeling manic or depressed. She also says that she has had some panic attacks in the past, but does not feel anxious about having another panic attack.PAST PSYCHIATRIC HISTORY:The patient has been to [facility] one previous time where she was diagnosed with substance-induced psychotic disorder versus prodrome for schizophrenia. Patient Name: ETHEL GODINEZ has been seeing [facility] but has a history of medication noncompliance.PSYCHIATRIC FAMILY HISTORY:Mother and grandfather diagnosed with schizophrenia disorder and bipolar disorder.PAST MEDICAL HISTORY:Herniated disk and LBP.REVIEW OF SYSTEMS:All review of systems are negative except as stated in the history of presentillness.HOME MEDICATIONS:The patient is not taking any medications, but has been on Zoloft, Zyprexa, and Risperdal.ALLERGIES:NO KNOWN DRUG ALLERGIES.SOCIAL HISTORY:The patient is currently homeless. Her child lives with the father, but she says that she cannot stay there with her baby daily. She is sexually active with at least one partner and does not use condoms. She graduated high school and has some college credit. She has been charged with assault before.LABORATORY DATA:White blood cell count 7.7. Sodium 139, potassium 3.8, TSH wnl, UA shows moderate bacteria with no white blood cells, test was negative.MENTAL STATUS EXAM:The patient is a well-appearing, young female. She was appropriately groomed and dressed. She was cooperative with the exam. She was oriented to person, place, time, and situation. Her speech was slow rate, regular rhythm and dysthymic tone. Her mood was "sad and her affect was congruent." Her thought processing was linear and logical. Thought content was negative for suicidal ideation and homicidal ideation. Her perceptions were positive for auditory hallucinations and negative for visualhallucinations. She was also negative for paranoia and delusions. Her insight seemed fair. Her judgment was fair. Her gait was within normal limits.ASSESSMENT:The patient is a 21-year-old female who has been diagnosed with bipolar and schizophrenia and is presenting for auditory hallucinations Patient Name: ETHEL GODINEZ has been seeing [facility] but has a history of medication noncompliance.PSYCHIATRIC FAMILY HISTORY:Mother and grandfather diagnosed with schizophrenia disorder and bipolar disorder.PAST MEDICAL HISTORY:Herniated disk and LBP.REVIEW OF SYSTEMS:All review of systems are negative except as stated in the history of presentillness.HOME MEDICATIONS:The patient is not taking any medications, but has been on Zoloft, Zyprexa, and Risperdal.ALLERGIES:NO KNOWN DRUG ALLERGIES.SOCIAL HISTORY:The patient is currently homeless. Her child lives with the father, but she says that she cannot stay there with her baby daily. She is sexually active with at least one partner and does not use condoms. She graduated high school and has some college credit. She has been charged with assault before.LABORATORY DATA:White blood cell count 7.7. Sodium 139, potassium 3.8, TSH wnl, UA shows moderate bacteria with no white blood cells, test was negative.MENTAL STATUS EXAM:The patient is a well-appearing, young female. She was appropriately groomed and dressed. She was cooperative with the exam. She was oriented to person, place, time, and situation. Her speech was slow rate, regular rhythm and dysthymic tone. Her mood was "sad and her affect was congruent." Her thought processing was linear and logical. Thought content was negative for suicidal ideation and homicidal ideation. Her perceptions were positive for auditory hallucinations and negative for visualhallucinations. She was also negative for paranoia and delusions. Her insight seemed fair. Her judgment was fair. Her gait was within normal limits.ASSESSMENT:The patient is a 21-year-old female who has been diagnosed with bipolar and schizophrenia and is presenting for auditory hallucinations Patient Name: ETHEL GODINEZ depressed mood. It seems that her auditory hallucinations do occur at times when she is either manic or depressed. She does endorse a history of jade and it can be noted that the last time she was at [facility] she did seem manic. She would start fights on the unit, masturbating other people's rooms, and come out of her room completely naked. She was not sleeping well at that time and seemed psychotic and improved on antipsychotics. This does not match the diagnosis given to her at [facility]. However, we do believe that the patient may have bipolar disorder and is currently in a depressive episode.DIAGNOSTIC IMPRESSION:AXIS I: Bipolar disorder type I, most recent episode depressed with psychotic features.AXIS II: None.AXIS III: Herniated disk and LBP.AXIS IV: Homeless and no income or insurance.PLAN:The patient will be admitted to Dr. Donohue's service in the [facility]. She will be placed on unit restrictions. She will be given trazodone and Vistaril as needed for sleep and anxiety. We have counseled her on tobacco cessation and have given her a nicotine patch. We plan on screening her for STDs since this was a concern for her. We have reviewed her records and decided that she would benefit from being on something that helps her with her auditory hallucinations as well as her bipolar depression. We believe that we should start her on Latuda 40 mg daily. The patient is very sensitive to drug side effects and will not take medications if they gave her too many side effects. We have taken this into consideration. We will begin discharge planning with her to maybe go to [facility] upon discharge since she is currently homeless. We have also advised her to stop smoking marijuana.Heike Antoine, MDDate Dictated: 06/03/2017Date 06/03/2017Transcribed:[facility]/GOZbigniew/BRENDEN/Mary Jane #: [id number] Patient Name: ETHEL GODINEZ depressed mood. It seems that her auditory hallucinations do occur at times when she is either manic or depressed. She does endorse a history of jade and it can be noted that the last time she was at [facility] she did seem manic. She would start fights on the unit, masturbating other people's rooms, and come out of her room completely naked. She was not sleeping well at that time and seemed psychotic and improved on antipsychotics. This does not match the diagnosis given to her at [facility]. However, we do believe that the patient may have bipolar disorder and is currently in a depressive episode.DIAGNOSTIC IMPRESSION:AXIS I: Bipolar disorder type I, most recent episode depressed with psychotic features.AXIS II: None.AXIS III: Herniated disk and LBP.AXIS IV: Homeless and no income or insurance.PLAN:The patient will be admitted to Dr. Donohue's service in the [facility]. She will be placed on unit restrictions. She will be given trazodone and Vistaril as needed for sleep and anxiety. We have counseled her on tobacco cessation and have given her a nicotine patch. We plan on screening her for STDs since this was a concern for her. We have reviewed her records and decided that she would benefit from being on something that helps her with her auditory hallucinations as well as her bipolar depression. We believe that we should start her on Latuda 40 mg daily. The patient is very sensitive to drug side effects and will not take medications if they gave her too many side effects. We have taken this into consideration. We will begin discharge planning with her to maybe go to [facility] upon discharge since she is currently homeless. We have also advised her to stop smoking marijuana.Heike Antoine, MDDate Dictated: 06/03/2017Date 06/03/2017Transcribed:C/GOP/BRENDEN/RAJJob #: [id number] Patient Name: ETHEL GODINEZ :Jose Donohue MD Electronically Authenticated and Edited by:Shae Mulligan MD On 06/14/2017 10:34 AM CSTPatient Name: ETHEL GODINEZ :Jose Donohue MD Electronically Authenticated and Edited by:Shae Mulligan MD On 06/14/2017 10:34 AM CSTElectronically Authenticated by:Jose Donohue MD On 06/15/2017 12:52 PM [id number] for patient [id number]:34:31 [facility] 2017-06-12 17:16:42 [id number] pT/[id number] 8KIqFVWFUdXr4+TETAqmuoFwC9327-38-85G55:16:42 [facility] ConsultationPATIENT NAME: ETHEL GODINEZ PHYSICIAN: Radha Power MD Admitted: MR NUMBER: [id number] DISCHARGED: DATE OF NOTE: 06/02/2017The patient was seen and examined today.CONSULTING PHYSICIAN:CHEYENNE Davila FOR CONSULTATION:Medical management.HISTORY OF PRESENT ILLNESS:This is a 21-year-old lady with a known history of bipolar disorder, who apparently started having auditory and visual hallucination and is care for stabilization. From a medical standpoint, a 10-point review of systems is noncontributory. She denies dysuria, hematuria, increased urinary frequency or any discomfort or abdominal pain. Her urine was cloudy on analysis, but there is no indication for treatment for asymptomatic bacteriuria as per IDSAguidelines. Denies headache, blurred vision, focal weakness. Denies fevers. No URI symptoms. No bowel or bladder irregularities. No cardiorespiratory symptoms.MEDICATIONS:As per MAR.ALLERGIES:SHE DENIES ANY ALLERGIES.PAST MEDICAL HISTORY:She denies.PAST SURGICAL HISTORY:She denies.PERSONAL HISTORY:Marijuana abuse.FAMILY HISTORY:Mother having Bipolar disorder. Of note, the patient does endorse to herniated disk, but no back pain. Her gait is steady. Herniated disk in thelower back.REVIEW OF SYSTEMS:As mentioned above.PHYSICAL EXAMINATION:VITAL SIGNS: Temperature 97.3, pulse 72, respiratory rate 18, blood oebtmptp053/58.GENERAL: Alert, awake, oriented to time, place, and person.NECK: Supple. Neck movements within normal limits.LUNGS: Normal vesicular breath sounds. No wheezing. [facility] ConsultationPATIENT NAME: ETHEL GODINEZ PHYSICIAN: Radha Power MD Admitted: MR NUMBER: [id number] DISCHARGED: DATE OF NOTE: 06/02/2017The patient was seen and examined today.CONSULTING PHYSICIAN:CHEYENNE Davila FOR CONSULTATION:Medical management.HISTORY OF PRESENT ILLNESS:This is a 21-year-old lady with a known history of bipolar disorder, who apparently started having auditory and visual hallucination and is care for stabilization. From a medical standpoint, a 10-point review of systems is noncontributory. She denies dysuria, hematuria, increased urinary frequency or any discomfort or abdominal pain. Her urine was cloudy on analysis, but there is no indication for treatment for asymptomatic bacteriuria as per IDSAguidelines. Denies headache, blurred vision, focal weakness. Denies fevers. No URI symptoms. No bowel or bladder irregularities. No cardiorespiratory symptoms.MEDICATIONS:As per JUL.ALLERGIES:SHE DENIES ANY ALLERGIES.PAST MEDICAL HISTORY:She denies.PAST SURGICAL HISTORY:She denies.PERSONAL HISTORY:Marijuana abuse.FAMILY HISTORY:Mother having Bipolar disorder. Of note, the patient does endorse to herniated disk, but no back pain. Her gait is steady. Herniated disk in thelower back.REVIEW OF SYSTEMS:As mentioned above.PHYSICAL EXAMINATION:VITAL SIGNS: Temperature 97.3, pulse 72, respiratory rate 18, blood [id number]/58.GENERAL: Alert, awake, oriented to time, place, and person.NECK: Supple. Neck movements within normal limits.LUNGS: Normal vesicular breath sounds. No wheezing.Patient Name: ETHEL GODINEZ : S1, S2 plus regular. No murmurs.ABDOMEN: Soft, obese, nontender, nondistended. Bowel sounds normoactive.EXTREMITIES: No joint swellings or restriction in the range of motion on musculoskeletal exam.GENITOURINARY: Deferred.SKIN: No rashes on the skin.CENTRAL NERVOUS SYSTEM: No facial asymmetry. Pupils equal, round, reactive to light. Whisper test shoulder shrugging. Extraocular movements. Tongue and mandibular movements within normal limits. Pupils equal, round, reactiveto light. Sensation is intact on the face. Sensation intact on rest of the body. Pronator drift negative. DTRs 2+. Sensation grossly intact. Motor strength 5/5 bilateral, [id number] test negative.LABORATORY DATA:Urinalysis positive for marijuana. Asymptomatic bacteriuria, though no WBCs or nitrates. Sodium 139, potassium 3.8, chloride 103, bicarbonate 26, glucose 95, BUN 11, creatinine 0.8, calcium 9.5. Normal LFTs. WBC 7.7, hemoglobin 12.6, platelets 303. LDL and RPR, and TSH within normal limits. The patient is not . Beta hCG negative.PROBLEM LIST: 1. Bipolar disorder type 1. Management per Dr. Donohue. 2. Marijuana abuse. The patient has been counseled against substance abuse with marijuana.Thank you for the consult. She is stable from medical standpoint for inpatient psychiatric care. She has been placed on nicotine patch, though she did not admit to smoking with me, she only admitted to a marijuana abuse with me. She has been started on a nicotine patch by psychiatric team.Ambulation for deep venous thrombosis prophylaxis. No indication for gastrointestinal prophylaxis. She remained stable from medical standpoint for inpatient psychiatric care. Please call me back if her clinical condition changes.Radha Power, MDDN/BEG/CTVDD: 06/02/2017 18:19TD: 06/02/2017 22:25Job #: [id number]:Aury Davila Name: ETHEL GODINEZ : S1, S2 plus regular. No murmurs.ABDOMEN: Soft, obese, nontender, nondistended. Bowel sounds normoactive.EXTREMITIES: No joint swellings or restriction in the range of motion on musculoskeletal exam.GENITOURINARY: Deferred.SKIN: No rashes on the skin.CENTRAL NERVOUS SYSTEM: No facial asymmetry. Pupils equal, round, reactive to light. Whisper test shoulder shrugging. Extraocular movements. Tongue and mandibular movements within normal limits. Pupils equal, round, reactiveto light. Sensation is intact on the face. Sensation intact on rest of the body. Pronator drift negative. DTRs 2+. Sensation grossly intact. Motor strength 5/5 bilateral, huavui-fw-[id number] test negative.LABORATORY DATA:Urinalysis positive for marijuana. Asymptomatic bacteriuria, though no WBCs or nitrates. Sodium 139, potassium 3.8, chloride 103, bicarbonate 26, glucose 95, BUN 11, creatinine 0.8, calcium 9.5. Normal LFTs. WBC 7.7, hemoglobin 12.6, platelets 303. LDL and RPR, and TSH within normal limits. The patient is not . Beta hCG negative.PROBLEM LIST: 1. Bipolar disorder type 1. Management per Dr. Donohue. 2. Marijuana abuse. The patient has been counseled against substance abuse with marijuana.Thank you for the consult. She is stable from medical standpoint for inpatient psychiatric care. She has been placed on nicotine patch, though she did not admit to smoking with me, she only admitted to a marijuana abuse with me. She has been started on a nicotine patch by psychiatric team.Ambulation for deep venous thrombosis prophylaxis. No indication for gastrointestinal prophylaxis. She remained stable from medical standpoint for inpatient psychiatric care. Please call me back if her clinical condition changes.Radha Power, HILTONN/VIKA/CTVDD: 06/02/2017 18:19TD: 06/02/2017 22:25Job #: [id number]:Jose Donohue MDElectronically Authenticated by:Radha Power MD On 06/12/2017 05:16 PM [id number] for patient [id number]:42 [facility] 2017-03-14 17:32:10 [id number]:32:10 [facility] Discharge SummaryPATIENT NAME: ETHEL GODINEZ PHYSICIAN: Lexus Rivera MD Admitted: MR NUMBER: [id number] DISCHARGED: 03/01/2017 03:13:00 ATTENDING: Jose Donohue MDHISTORY OF PRESENT ILLNESS:Ms. Ethel Godinez is a 21-year-old female with a past psychiatric history of depression, anxiety,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
[2023-09-08] MEDS ORDERED: LIDOCAINE VISCOUS 2% 10ML ORAL SOLN ONE (07:27)
--- NOTE | 2023-09-08 07:47 | EDPHYS ---
Physician Documentation [facility] Name: Jael Lugo Age: 27 yrs Sex: Female : 1995 Arrival Date: 09/08/2023 Time: 07:05 Bed 5 Private MD: ED Physician Jorge Johnson HPI: 09/07 07:33 This 27 yrs old Black Female presents to ER via Ambulatory with complaints of Facial rn Swelling, Jaw Pain. 07:33 The patient presents with pain, swelling. Onset: The symptoms/episode began/occurred 3 rn day(s) ago. Duration: The symptoms are continuous. Modifying factors: The symptoms are alleviated by nothing, the symptoms are aggravated by chewing. Severity of symptoms: At their worst the symptoms were moderate, in the emergency department the symptoms are unchanged. The patient has experienced similar episodes in the past. Patient reports 3 days of dental pain and now swelling along the right lower teeth and gumline. States has come to ahead and has required incision and drainage before. No fever.. Historical: - Allergies: 07:19 No Known Allergies; hb - PMHx: 07:19 Bipolar disorder; Herniated disc; insomnia; Heart Murmur; Schizophrenia; drug abuse; hb Depression; - Immunization history:: Adult Immunizations up to date. - Infectious Disease History:: Denies. - Social history:: Smoking status: Patient denies any tobacco usage or history of. - Family history:: not pertinent. - Hospitalizations: : No recent hospitalization is reported. ROS: 07:33 Constitutional: Negative for fever, chills, and weight loss, ENT: Positive for dental rn pain and swelling along the right lower gumline Respiratory: Negative for shortness of breath Exam: 07:33 Constitutional: This is a well developed, well nourished patient who is awake, alert, rn and in no acute distress. ENT: Right lower gumline with swelling and fluctuance. Mild tenderness. No extension to buccal surface. Vital Signs: 07:16 BP 109 / 84; Pulse 85; Resp 16; Temp 97.1(TE); Pulse Ox 100% on R/A; Weight 90.72 kg; hb Height 5 ft. 7 in. ; Pain 10/10; 07:48 BP 120 / 92; Pulse 81; Resp 18; Temp 97.2; Pulse Ox 100% on R/A; ph 07:16 Body Mass Index 31.32 (90.72 kg, 170.18 cm) hb 07:16 Pain Scale: Adult hb Procedures: 07:44 I \T\ D: Incision and drainage was performed for an abscess of the right Gingival region rn Prepped with alcohol, Anesthetized with Topical viscous lidocaine. Incised with 18-gauge needle and aspiration x 2. Drained moderate amount purulent fluid. bloody fluid. Dressing: sterile 4x4 gauze, the patient tolerated the procedure well, Second aspiration did not obtain any more purulence. Site showed significant decrease in swelling. MDM: 07:13 Patient medically screened. rn 07:44 Differential diagnosis: dental caries, dental abscess. Data reviewed: vital signs, rn nurses notes, and as a result, I will discharge patient. Counseling: I had a detailed discussion with the patient and/or guardian regarding the historical points, exam findings, and any diagnostic results supporting the discharge/admit diagnosis, the need for outpatient follow up, to return to the emergency department if symptoms worsen or persist or if there are any questions or concerns that arise at home. Response to treatment: the patient's symptoms have mildly improved after treatment. 07:44 Special discussion: I discussed with the patient/guardian in detail that at this point rn there is no indication for admission to the hospital. It is understood, however, that if the symptoms persist or worsen the patient needs to return immediately for re-evaluation. Based on the history and exam findings, there is no indication for further emergent testing or inpatient evaluation. I discussed with the patient/guardian the need to see a dentist for further evaluation of the symptoms. Administered Medications: 07:39 Drug: Viscous Lidocaine Mucous Membrane Liquid (4 %) 5 ml Mucous Membrane once Route: ph Mucous Membrane; 07:58 Follow up: Response: No adverse reaction ph 07:58 Drug: Clindamycin PO 300 mg PO once Route: PO; ph 07:58 Follow up: Response: No adverse reaction ph 07:58 Drug: traMADol PO 50 mg PO once Route: PO; ph 07:58 Follow up: Response: No adverse reaction ph Disposition Summary: 09/08/23 07:47 Discharge Ordered Notes: Location: Home rn Problem: new rn Symptoms: have improved rn Condition: Stable rn Diagnosis - Cellulitis and abscess of mouth rn Followup: rn - With: Private Physician - When: As needed - Reason: Recheck today's complaints, Re-evaluation by your physician Discharge Instructions: - Discharge Summary Sheet rn - Dental Abscess rn Forms: - Medication Reconciliation Form rn - 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 Opioid Use rn - Patient Portal Instructions rn - Leadership Thank You Letter rn - School release form ph - Work release form ph Prescriptions: - Clindamycin HCl 300 mg Oral Capsule - take 1 capsule ORAL route every 6 hours for 10 days; 40 capsule; Refills: 0, rn Product Selection Permitted - Tramadol 50 mg Oral Tablet - take 1 tablet ORAL route every 8 hours as needed; 12 tablet; Refills: 0, rn Product Selection Permitted Signatures: Jorge Jonhson MD MD rn Hall, Patricia, RN RN ph Baxter, Heather, RN RN Corrections: (The following items were deleted from the chart) 07:46 07:44 I \T\ D: Incision and drainage was performed for an abscess of the right Gingival rn region Prepped with alcohol, Anesthetized with Topical viscous lidocaine. Incised with 18-gauge needle and aspiration x 2. Drained moderate amount purulent fluid. bloody fluid. Dressing: sterile 4x4 gauze, the patient tolerated the procedure well, rn 07:46 07:44 I \T\ D: Incision and drainage was performed for an abscess of the right Gingival rn region Prepped with alcohol, Anesthetized with Topical viscous lidocaine. Incised with 18-gauge needle and aspiration x 2. Drained moderate amount purulent fluid. bloody fluid. Dressing: sterile 4x4 gauze, the patient tolerated the procedure well, Second aspiration did not obtain any more purulence.. rn
--- NOTE | 2023-09-08 07:47 | ER ---
Nurse's Notes [facility] Name: Jael Lugo Age: 27 yrs Sex: Female : 1995 Arrival Date: 09/08/2023 Time: 07:05 Bed 5 Private MD: Diagnosis: Cellulitis and abscess of mouth Presentation: 09/07 07:16 Chief complaint: Right lower molar pain and facial swelling x 3 days. Coronavirus hb screen: At this time, the client does not indicate any symptoms associated with coronavirus-19. Ebola Screen: No symptoms or risks identified at this time. Initial Sepsis Screen: Does the patient meet any 2 criteria? No. Patient's initial sepsis screen is negative. Does the patient have a suspected source of infection? No. Patient's initial sepsis screen is negative. Risk Assessment: Do you want to hurt yourself or someone else? Patient reports no desire to harm self or others. Onset of symptoms was September 08, 2023. 07:16 Method Of Arrival: Ambulatory hb 07:16 Acuity: ALMA 4 hb Triage Assessment: 07:19 General: Appears in no apparent distress. Behavior is calm, cooperative. Pain: Pain hb currently is 10 out of 10 on a pain scale. EENT: Reports right lower jaw and tooth pain, right facial swelling. Neuro: Level of Consciousness is awake, alert, obeys commands, Oriented to person, place, time, situation. Cardiovascular: Patient's skin is warm and dry. Respiratory: Respiratory effort is even, unlabored, Respiratory pattern is regular, symmetrical. Historical: - Allergies: 07:19 No Known Allergies; hb - PMHx: 07:19 Bipolar disorder; Herniated disc; insomnia; Heart Murmur; Schizophrenia; drug abuse; hb Depression; - Immunization history:: Adult Immunizations up to date. - Infectious Disease History:: Denies. - Social history:: Smoking status: Patient denies any tobacco usage or history of. - Family history:: not pertinent. - Hospitalizations: : No recent hospitalization is reported. Screenin:39 Abuse screen: Denies threats or abuse. Denies injuries from another. Nutritional ph screening: No deficits noted. Tuberculosis screening: No symptoms or risk factors identified. 07:48 [facility] ED Fall Risk Assessment (Adult) History of falling in the last 3 months, ph including since admission No falls in past 3 months (0 pts) Confusion or Disorientation No (0 pts) Intoxicated or Sedated No (0 pts) Impaired Gait No (0 pts) Mobility Assist Device Used No (0 pt) Altered Elimination No (0 pt) Score/Fall Risk Level 0 - 2 = Low Risk Oriented to surroundings, Maintained a safe environment. Assessment: 07:39 General: Appears in no apparent distress. uncomfortable, well groomed, Behavior is ph calm, cooperative. Pain: Complains of pain in right jaw. Neuro: Level of Consciousness is awake, alert, obeys commands, Oriented to person, place, time, situation. Cardiovascular: Capillary refill < 3 seconds in bilateral fingers Patient's skin is warm and dry. Respiratory: Airway is patent Respiratory effort is even, unlabored, Respiratory pattern is regular, symmetrical. Derm: Skin is pink, warm \T\ dry. Vital Signs: 07:16 BP 109 / 84; Pulse 85; Resp 16; Temp 97.1(TE); Pulse Ox 100% on R/A; Weight 90.72 kg; hb Height 5 ft. 7 in. ; Pain 10/10; 07:48 BP 120 / 92; Pulse 81; Resp 18; Temp 97.2; Pulse Ox 100% on R/A; ph 07:16 Body Mass Index 31.32 (90.72 kg, 170.18 cm) hb 07:16 Pain Scale: Adult hb ED Course: 07:09 Patient arrived in ED. ra3 07:13 Jorge Johnson MD is Attending Physician. rn 07:19 Triage completed. hb 07:19 Arm band placed on. hb 07:45 Patient has correct armband on for positive identification. Bed in low position. Call ph light in reach. Pulse ox on. NIBP on. Door closed. Noise minimized. Warm blanket given. 07:45 Assist provider with I \T\ D: of an abscess on right mouth Set up I\T\D tray. Performed by ph Jorge Johnson MD Wound packed. 4X4s, Patient tolerated well. Patient did not have IV access during this emergency room visit. 07:53 Rody Nagy, GAUTAM is Primary Nurse. ph Administered Medications: 07:39 Drug: Viscous Lidocaine Mucous Membrane Liquid (4 %) 5 ml Mucous Membrane once Route: ph Mucous Membrane; 07:58 Follow up: Response: No adverse reaction ph 07:58 Drug: Clindamycin PO 300 mg PO once Route: PO; ph 07:58 Follow up: Response: No adverse reaction ph 07:58 Drug: traMADol PO 50 mg PO once Route: PO; ph 07:58 Follow up: Response: No adverse reaction ph Medication: 07:46 VIS not applicable for this client. ph Outcome: 07:47 Discharge ordered by . rn 07:58 Discharged to home ambulatory, ph 07:58 Condition: good 07:58 Discharge instructions given to patient, Instructed on discharge instructions, follow up and referral plans. medication usage, Demonstrated understanding of instructions, follow-up care, medications, Prescriptions given X 2, 07:58 Patient left the ED. ph Signatures: Jorge Johnson MD MD rn Hall, Patricia, RN RN ph Baxter, Heather, RN RN Sunita Parham 3
[2023-09-08] MEDS ORDERED: TRAMADOL HCL 50 MG TAB ONE (07:54)
[2023-09-08 15:10] VITALS: BP 120/92; TEMP 97.2; O2SAT 100
== END 2023-09-08 07:58 | disposition home or self-care (01) ==
LOC: ER 07:05
DX: K12.2 Cellulitis and abscess of mouth (principal)
CPT/HCPCS: 99284